=== PATIENT | male | born 1950 | race Hispanic/Latino ===

== ENCOUNTER → 2019-01-11 | Day surgery (SDC) | payer MEDICARE ==
[2019-01-09 10:21] LABS: BASOPHILS % 0.2 % (0.0-1.0); HEMATOCRIT 50.4 % (38.2-49.6); HEMOGLOBIN 17.2 g/dL (14.0-18.0); LYMPHOCYTES # (AUTO) 0.6 (1.0-3.2); MEAN CORPUSCULAR HGB CONC 34.1 g/dL (31-35); MEAN CORPUSCULAR VOLUME 90.8 fL (81-99); MONOCYTES # (AUTO) 0.6 (0.2-0.8); NEUTROPHILS # (AUTO) 8.4 (2.1-6.9); NEUTROPHILS % 87.3 % (38.7-80.0); PLATELET COUNT 215 x10e3/uL (140-360); RED BLOOD COUNT 5.55 x10e6/uL (4.3-5.7); RED CELL DISTRIBUTION WIDTH 14.6 % (11.7-14.4)
[2019-01-09 10:33] LABS: INR 0.91; PROTHROMBIN TIME 12.7 seconds (11.9-14.5)
[2019-01-09 10:34] LABS: PARTIAL THROMBOPLASTIN TIME 29.6 seconds (23.8-35.5)
[2019-01-09 10:40] LABS: ALANINE AMINOTRANSFERASE 23 IU/L (0-55); ALBUMIN 4.2 g/dL (3.5-5.0); ALBUMIN/GLOBULIN RATIO 1.2 (0.8-2.0); ALKALINE PHOSPHATASE 95 IU/L (40-150); ANION GAP 15.8 mmol/L (8-16); BLOOD UREA NITROGEN 14 mg/dL (7-26); BUN/CREATININE RATIO 17 (6-25); CALCIUM 10.4 mg/dL (8.4-10.2); CARBON DIOXIDE 27 mmol/L (22-29); CHLORIDE 102 mmol/L (98-107); CREATININE, SERUM 0.84 mg/dL (0.72-1.25); EST GLOMERULAR FILTRATION RATE > 60 ML/MIN (60-); GLUCOSE 140 mg/dL (74-118); POTASSIUM 4.8 mmol/L (3.5-5.1); SODIUM 140 mmol/L (136-145)
--- NOTE | 2019-01-09 10:50 | Diagnostic Imaging Report ---
EXAMINATION: CHEST 2 VIEWS INDICATION: Pre-operative. COMPARISON: None FINDINGS: TUBES and LINES: Right sided AICD device with leads overlying the right atrium, right ventricle, and coronary sinus. LUNGS: Lungs are moderately inflated. There is no evidence of pneumonia or pulmonary edema. PLEURA: No pleural effusion or pneumothorax. HEART AND MEDIASTINUM: The cardiomediastinal silhouette is unremarkable. There are atherosclerotic calcifications within the aorta. Surgical clips overlie the anterior mediastinum. BONES AND SOFT TISSUES: No acute osseous abnormality. UPPER ABDOMEN: No free air under the diaphragm. IMPRESSION: No acute radiographic abnormality. Signed by: Dr. David Teixeira MD on 01/09/2019 10:47 AM
--- NOTE | 2019-01-10 15:30 | NUR ---
Notified Dena Gorman nurse with Dr. Acharya patient reported he was on Cipro for abdominal pain. Dena Gorman nurse stated no new orders at this time.
[~2019-01-11] VITALS: Ht 172.7 cm; Wt 70.3 kg
[2019-01-11] VITALS (26 sets, daily range): BP systolic 122–163; BP diastolic 61–96
[~2019-01-11] MED LIST: ALBUTEROL0.63 MG/3 NEB; ASPIR 8181 MG PO; ATROPINE SULFATE 0.1 MG/ML 10ML SYR ONE; CARVEDILOL12.5 MG PO; CIPRO500 MG PO; CLOPIDOGREL75 MG PO; COQ-10100 MG PO; CRESTOR10 MG PO; FENTANYL CITRATE/PF 100MCG/2 ML INJ ONE; FERROUS SULFAT324 MG PO; FUROSEMIDE40 MG PO; HEPARIN SOD (PORCINE) 1000 UNIT/ML 30ML ONE; HEPARIN SOD/SOD CHLORIDE 2,000 ML ONE; IOPAMIDOL 300MG/ML 100 ML INFUS..BTL IV ONE; LIDOCAINE HCL 2% LOCAL 20 ML VIAL ONE; LISINOPRIL10 MG PO; METFORMIN HCL500 MG PO; MIDAZOLAM HCL 2 MG/2 ML VIAL ONE; NITROGLYCERIN/D5W 200 MCG/ML 250 ML ONE; SODIUM CHLORIDE 0.9% 1000ML 1,000 ML ONE
--- OUTSIDE RECORDS SUMMARY | 2019-01-11 06:10 | XMS REPORT | Clinical Summary ---
Author Author [facility] Organization [facility] Address Unknown Phone Unavailable Care Team Providers Care Carbonating Stone Cleaner Name Role Phone Nicholas Cunningham MD PCP Allergies No Known Allergies Medications End Date Status Medication Sig Dispensed Refills Start Date Active azelastine (OPTIVAR) 0.05 Instill 1 6 mL 1 % ophthalmic Drop in each 6 solutionIndications: eye 2 times History of itching of daily. eye, Seasonal allergic conjunctivitis Active budesonide-formoterol Inhale 2 30.6 g 1 (SYMBICORT) 160-4.5 Puffs by 8 mcg/actuation mouth 2 times inhalerIndications: CAD, daily. multiple vessel Active latanoprost (XALATAN) Instill 1 7.5 mL 1 0.005 % ophthalmic Drop in each 8 solutionIndications: eye at Ocular hypertension, bedtime bilateral nightly. Active lisinopril (ZESTRIL) 40 Take 1 tablet 90 tablet 3 mg tabletIndications: by mouth 8 Essential hypertension daily. Active loratadine (CLARITIN) 10 Take 1 tablet 90 tablet 1 mg tabletIndications: by mouth 8 Pruritus of genital daily. organs, Seasonal allergic rhinitis due to other allergic trigger Active aspirin (ASPIRIN) 81 mg Chew and 30 tablet 0 chewable swallow 1 8 tabletIndications: LV tablet by (left ventricular) mural mouth daily. thrombus Active brimonidine (ALPHAGAN P) Instill 1 15 mL 1 0.15 % ophthalmic Drop in each 8 solutionIndications: eye 2 times Ocular hypertension, daily. bilateral Active carvedilol (COREG) 25 mg Take 1 tablet 180 tablet 4 tabletIndications: Severe by mouth 2 8 left ventricular systolic times daily dysfunction (with meals). Active furosemide (LASIX) 40 mg Take 1 tablet 180 tablet 4 tabletIndications: by mouth 2 8 Essential hypertension times daily. Active rosuvastatin (CRESTOR) 40 Take 1 tablet 90 tablet 3 mg tabletIndications: by mouth at 8 Mixed hyperlipidemia bedtime nightly. Active dexlansoprazole Take 1 90 capsule 0 (DEXILANT) 30 mg delayed capsule by 8 release mouth daily. capsuleIndications: Gastroesophageal reflux disease without esophagitis Active albuterol (PROVENTIL) 2.5 Inhale 3 mL 75 mL 1 mg /3 mL (0.083 %) by mouth 8 nebulizer every 4 hours solutionIndications: SOB as needed for (shortness of breath), Wheezing. S/P CABG (coronary artery bypass graft), Ischemic cardiomyopathy 06/12/2018 Discontinued aspirin (ASPIRIN) 81 mg Chew and 30 tablet 0 chewable swallow 1 5 tabletIndications: LV tablet by (left ventricular) mural mouth daily. thrombus 09/08/2015 Discontinued rivaroxaban (XARELTO) 20 Take 1 tablet 30 tablet 3 mg tabletIndications: LV by mouth 5 (left ventricular) mural daily (with thrombus dinner). 06/12/2018 Discontinued budesonide-formoterol Inhale 2 30.6 g 1 (SYMBICORT) 160-4.5 Puffs by 6 mcg/actuation mouth 2 times inhalerIndications: CAD, daily. multiple vessel 06/12/2018 Discontinued dexlansoprazole Take 1 90 capsule 0 (DEXILANT) 30 mg delayed capsule by 6 release mouth daily. capsuleIndications: Gastroesophageal reflux disease without esophagitis 06/12/2018 Discontinued polyethylene glycol Add lukewarm 4000 mL 0 (GOLYTELY) 236-22.74-6.74 drinking 6 -5.86 gram oral water to the solutionIndications: fill cole (4 Colonoscopy planned liters) and shake. Drink as directed by your doctor.. 06/12/2018 Discontinued loratadine (CLARITIN) 10 Take 1 tablet 90 tablet 1 mg tabletIndications: by mouth 6 Pruritus of genital daily. organs, Seasonal allergic rhinitis due to other allergic trigger 06/12/2018 Discontinued carvedilol (COREG) 25 mg Take 1 tablet 180 tablet 4 tabletIndications: Severe by mouth 2 7 left ventricular systolic times daily dysfunction (with meals). 06/12/2018 Discontinued latanoprost (XALATAN) Instill 1 7.5 mL 1 0.005 % ophthalmic Drop in each 7 solutionIndications: eye at Ocular hypertension, bedtime bilateral nightly. 06/12/2018 Discontinued brimonidine (ALPHAGAN P) Instill 1 15 mL 1 0.15 % ophthalmic Drop in each 7 solutionIndications: eye 2 times Ocular hypertension, daily. bilateral 06/12/2018 Discontinued lisinopril (ZESTRIL) 40 Take 1 tablet 90 tablet 3 mg tabletIndications: by mouth 7 Essential hypertension daily. 06/12/2018 Discontinued ketoconazole (NIZORAL) 2 Apply to 60 g 2 % topical cream affected area 7 daily. 06/12/2018 Discontinued rosuvastatin (CRESTOR) 40 Take 1 tablet 90 tablet 3 mg tabletIndications: by mouth at 7 Mixed hyperlipidemia bedtime nightly. 06/12/2018 Discontinued latanoprost (XALATAN) Instill 1 2.5 mL 3 0.005 % ophthalmic Drop in each 7 solution eye at bedtime nightly. 06/12/2018 Discontinued furosemide (LASIX) 40 mg Take 1 tablet 180 tablet 4 tabletIndications: by mouth 2 7 Essential hypertension times daily. 06/12/2018 Discontinued hydrocortisone 2.5 % Apply to 28.35 g 3 ointmentIndications: Dry affected area 7 skin dermatitis 2 times daily. Active Problems Problem Noted Date Heart failure 06/11/2018 Cataract 04/14/2017 Overview: Added automatically from request for surgery [id number] Glaucoma suspect 10/21/2016 Iron deficiency anemia 07/02/2015 Constipation 07/02/2015 Colon cancer screening 05/22/2015 Need for influenza vaccination 05/22/2015 Tinea versicolor 05/22/2015 S/P CABG (coronary artery bypass graft) 03/19/2015 Ischemic cardiomyopathy 03/19/2015 LV (left ventricular) mural thrombus 03/19/2015 Severe left ventricular systolic dysfunction 03/19/2015 Abdominal pain 03/16/2015 SOB (shortness of breath) 03/16/2015 CAD, multiple vessel 03/16/2015 HTN (hypertension) 03/16/2015 HLD (hyperlipidemia) 03/16/2015 Acute systolic CHF (congestive heart failure) Acute on chronic systolic (congestive) heart failure Resolved Problems Problem Noted Date Resolved Date Tachycardia 03/16/2015 06/09/2018 Encounters Care Team Description Date Type Specialty Juan Oswald Disease Management F/U (30 day f/u) 07/18/2018 Telephone SOB (shortness of breath) (Primary Dx) 07/09/2018 Emergency Emergency Medicine 07/09/2018 Travel Milady Valdez Interpretation 06/12/2018 Telephone Alok York MD Kaul, Surinder, MD SOB (shortness of breath) (Primary Dx); CAD, multiple vessel; Cough; QUINTANA (dyspnea on exertion); History of itching of eye; Seasonal allergic conjunctivitis; Ocular hypertension, bilateral (malignant); Essential hypertension; Pruritus of genital organs; Seasonal allergic rhinitis due to other allergic trigger; LV (left ventricular) mural thrombus; Severe left ventricular systolic dysfunction; Mixed hyperlipidemia; Gastroesophageal reflux disease without esophagitis; S/P CABG (coronary artery bypass graft); Ischemic cardiomyopathy 06/09/2018 Hospital - Encounter 06/12/2018 06/09/2018 Travel after 01/10/2018 Immunizations Name Administration Dates Next Due Herpes Zoster Vaccine In 04/02/2015 Clinic Influenza Vaccine 04/21/2016, 05/22/2015 Influenza Vaccine, 05/17/2017 Seasonal, Injectable PPV 23 Pneumococcal 04/02/2015 Polysaccaride Tdap Tetanus, diphtheria, 10/09/2015 acellular pertussis Vaccine Family History Medical History Relation Name Comments Hypertension Brother Hypertension Sister Diabetes Sister Diabetes Sister Hypertension Sister Relation Name Status Comments Brother Alive Brother Alive Brother Sister Alive Sister Alive Sister Sister Sister Sister Social History Date Tobacco Use Types Packs/Day Years Used Quit: 11/09/2014 Former Smoker Cigarettes 1 20 Smokeless Tobacco: Never Used Tobacco Cessation: Counseling Given: Yes Drinks/Week oz/Week Comments Alcohol Use 12 Cans of beer 7.2 Yes Food Insecurity Answer Date Recorded Within the past 12 months, you worried that your Never true 12/14/2016 food would run out before you got money to buy more. Within the past 12 months, the food you bought Never true 12/14/2016 just didn't last and you didn't have money to get more. Sex Assigned at Date Recorded Not on file Industry Job Start Date Occupation Not on file Not on file Not on file Travel End Travel History Travel Start No recent travel history available. Last Filed Vital Signs Reading Time Taken Comments Vital Sign 159/93 07/09/2018 3:34 PM ELECTRICAL EQUIPMENT ASSEMBLER Blood Pressure 81 07/09/2018 3:34 PM ELECTRICAL EQUIPMENT ASSEMBLER Pulse 36.6 C (97.9 F) 07/09/2018 3:34 PM ELECTRICAL EQUIPMENT ASSEMBLER Temperature 18 07/09/2018 3:34 PM ELECTRICAL EQUIPMENT ASSEMBLER Respiratory Rate 98% 07/09/2018 3:34 PM ELECTRICAL EQUIPMENT ASSEMBLER Oxygen Saturation - - Inhaled Oxygen Concentration 70.9 kg (156 lb 6.4 oz) 06/09/2018 9:59 PM ELECTRICAL EQUIPMENT ASSEMBLER Weight 170.2 cm (5' 7") 06/09/2018 9:59 PM ELECTRICAL EQUIPMENT ASSEMBLER Height 24.5 06/09/2018 9:59 PM ELECTRICAL EQUIPMENT ASSEMBLER Body Mass Index Plan of Treatment Health Maintenance Due Date Last Done Comments IMM Pneumococcal Age 65 2017 and Up IMM Influenza Seasonal 04/02/2019 05/17/2017 Oct to August (>/=19 yrs) CORONARY ARTERY DISEASE 06/10/2019 06/10/2018, 10/03/2016, 07/06/2016, AGE 18 AND UP Additional history exists Colonoscopy 10yr 02/28/2026 02/29/2016 Procedures Comments Procedure Name Priority Date/Time Associated Diagnosis XRAY CHEST 2 VIEWS STAT 07/09/2018 SOB (shortness of breath) 1:07 PM ELECTRICAL EQUIPMENT ASSEMBLER POCT BNP (B-TYPE Routine 07/09/2018 NATRIURETIC PEPTIDE) 12:41 PM ELECTRICAL EQUIPMENT ASSEMBLER BMP POC Routine 07/09/2018 11:06 AM ELECTRICAL EQUIPMENT ASSEMBLER TROPONIN I POC Routine 07/09/2018 11:03 AM ELECTRICAL EQUIPMENT ASSEMBLER HIV-1/HIV-2 ROUTINE STAT 07/09/2018 SCREENING 11:00 AM ELECTRICAL EQUIPMENT ASSEMBLER LIPASE STAT 07/09/2018 11:00 AM ELECTRICAL EQUIPMENT ASSEMBLER LIVER PROFILE STAT 07/09/2018 11:00 AM ELECTRICAL EQUIPMENT ASSEMBLER CBC/DIFF STAT 07/09/2018 11:00 AM ELECTRICAL EQUIPMENT ASSEMBLER 12 LEAD EKG Routine 07/09/2018 10:55 AM ELECTRICAL EQUIPMENT ASSEMBLER POC GLUCOSE - IN LAB Routine 06/12/2018 (STAT) 11:52 AM ELECTRICAL EQUIPMENT ASSEMBLER POC GLUCOSE - IN LAB Routine 06/12/2018 (STAT) 7:34 AM ELECTRICAL EQUIPMENT ASSEMBLER CBC/DIFF Routine 06/12/2018 3:45 AM ELECTRICAL EQUIPMENT ASSEMBLER PT/INR/PTT Routine 06/12/2018 3:45 AM ELECTRICAL EQUIPMENT ASSEMBLER BASIC METABOLIC PANEL Routine 06/12/2018 3:45 AM ELECTRICAL EQUIPMENT ASSEMBLER PT/INR Routine 06/11/2018 9:30 PM ELECTRICAL EQUIPMENT ASSEMBLER POC GLUCOSE - IN LAB Routine 06/11/2018 (STAT) 8:39 PM ELECTRICAL EQUIPMENT ASSEMBLER POC GLUCOSE - IN LAB Routine 06/11/2018 (STAT) 5:09 PM ELECTRICAL EQUIPMENT ASSEMBLER POC GLUCOSE - IN LAB Routine 06/11/2018 (STAT) 12:08 PM ELECTRICAL EQUIPMENT ASSEMBLER POC GLUCOSE - IN LAB Routine 06/11/2018 (STAT) 7:38 AM ELECTRICAL EQUIPMENT ASSEMBLER TRANSTHORACIC ECHO (TTE) STAT 06/11/2018 7:24 AM ELECTRICAL EQUIPMENT ASSEMBLER MAGNESIUM Routine 06/11/2018 3:45 AM ELECTRICAL EQUIPMENT ASSEMBLER BASIC METABOLIC PANEL Routine 06/11/2018 3:45 AM ELECTRICAL EQUIPMENT ASSEMBLER POC GLUCOSE - IN LAB Routine 06/10/2018 (STAT) 8:31 PM ELECTRICAL EQUIPMENT ASSEMBLER POC GLUCOSE - IN LAB Routine 06/10/2018 (STAT) 4:44 PM ELECTRICAL EQUIPMENT ASSEMBLER POC GLUCOSE - IN LAB Routine 06/10/2018 (STAT) 11:23 AM ELECTRICAL EQUIPMENT ASSEMBLER 12 LEAD EKG Routine 06/10/2018 5:10 AM ELECTRICAL EQUIPMENT ASSEMBLER TROPONIN I Routine 06/10/2018 4:35 AM ELECTRICAL EQUIPMENT ASSEMBLER CORTISOL, TOTAL STAT 06/10/2018 4:35 AM ELECTRICAL EQUIPMENT ASSEMBLER HEMOGLOBIN A1C STAT 06/10/2018 4:35 AM ELECTRICAL EQUIPMENT ASSEMBLER LIPID PROFILE STAT 06/10/2018 4:35 AM ELECTRICAL EQUIPMENT ASSEMBLER THYROID STIMULATING STAT 06/10/2018 HORMONE (TSH) 4:35 AM ELECTRICAL EQUIPMENT ASSEMBLER BASIC METABOLIC PANEL Routine 06/10/2018 4:35 AM ELECTRICAL EQUIPMENT ASSEMBLER CBC/DIFF Routine 06/10/2018 4:35 AM ELECTRICAL EQUIPMENT ASSEMBLER TROPONIN I STAT 06/09/2018 11:00 [address]LECTRICAL EQUIPMENT AS[employer] CT CHEST PE PROTOCOL STAT 06/09/2018 QUINTANA (dyspnea on exertion) 9:00 PM ELECTRICAL EQUIPMENT ASSEMBLER TROPONIN I POC Routine 06/09/2018 8:40 PM ELECTRICAL EQUIPMENT ASSEMBLER D-DIMER STAT 06/09/2018 8:36 PM ELECTRICAL EQUIPMENT ASSEMBLER FREE T4 STAT 06/09/2018 8:36 PM ELECTRICAL EQUIPMENT ASSEMBLER 12 LEAD EKG Routine 06/09/2018 8:25 PM ELECTRICAL EQUIPMENT ASSEMBLER POC GLUCOSE - IN LAB Routine 06/09/2018 (STAT) 6:18 PM ELECTRICAL EQUIPMENT ASSEMBLER URINALYSIS STAT 06/09/2018 6:10 PM ELECTRICAL EQUIPMENT ASSEMBLER ELECTROLYTES, URINE STAT 06/09/2018 6:10 PM ELECTRICAL EQUIPMENT ASSEMBLER OSMOLALITY, URINE STAT 06/09/2018 6:10 PM ELECTRICAL EQUIPMENT ASSEMBLER FREE T4 STAT 06/09/2018 5:30 PM ELECTRICAL EQUIPMENT ASSEMBLER D-DIMER STAT 06/09/2018 5:30 PM ELECTRICAL EQUIPMENT ASSEMBLER OSMOLALITY,SERUM Routine 06/09/2018 5:30 PM ELECTRICAL EQUIPMENT ASSEMBLER PHOSPHORUS Routine 06/09/2018 5:30 PM ELECTRICAL EQUIPMENT ASSEMBLER MAGNESIUM Routine 06/09/2018 5:30 PM ELECTRICAL EQUIPMENT ASSEMBLER COMPREHENSIVE METABOLIC Routine 06/09/2018 PANEL 5:30 PM ELECTRICAL EQUIPMENT ASSEMBLER TROPONIN I STAT 06/09/2018 5:30 PM ELECTRICAL EQUIPMENT ASSEMBLER CK, TOTAL STAT 06/09/2018 5:30 PM ELECTRICAL EQUIPMENT ASSEMBLER 12 LEAD EKG Routine 06/09/2018 2:42 PM ELECTRICAL EQUIPMENT ASSEMBLER TROPONIN I STAT 06/09/2018 1:12 PM ELECTRICAL EQUIPMENT ASSEMBLER CK, TOTAL STAT 06/09/2018 1:12 PM ELECTRICAL EQUIPMENT ASSEMBLER VBG POC Routine 06/09/2018 12:47 PM ELECTRICAL EQUIPMENT ASSEMBLER INFLUENZA A/B AND RSV PCR STAT 06/09/2018 12:00 PM ELECTRICAL EQUIPMENT ASSEMBLER VBG POC Routine 06/09/2018 11:30 AM ELECTRICAL EQUIPMENT ASSEMBLER BASIC METABOLIC PANEL STAT 06/09/2018 10:56 AM ELECTRICAL EQUIPMENT ASSEMBLER XRAY CHEST 1 VIEW STAT 06/09/2018 CAD, multiple vessel 10:55 AM ELECTRICAL EQUIPMENT ASSEMBLER B-TYPE NATRIURETIC STAT 06/09/2018 PEPTIDE (BNP) 10:50 AM ELECTRICAL EQUIPMENT ASSEMBLER CBC/DIFF STAT 06/09/2018 10:50 AM ELECTRICAL EQUIPMENT ASSEMBLER POCT BNP (B-TYPE Routine 06/09/2018 NATRIURETIC PEPTIDE) 10:46 AM ELECTRICAL EQUIPMENT ASSEMBLER VBG POC Routine 06/09/2018 10:42 AM ELECTRICAL EQUIPMENT ASSEMBLER BMP POC Routine 06/09/2018 10:42 AM ELECTRICAL EQUIPMENT ASSEMBLER 12 LEAD EKG Routine 06/09/2018 10:40 AM ELECTRICAL EQUIPMENT ASSEMBLER TROPONIN I POC Routine 06/09/2018 10:40 AM ELECTRICAL EQUIPMENT ASSEMBLER after 01/10/2018 Results * XRAY CHEST 2 VIEWS (07/09/2018 1:07 PM ELECTRICAL EQUIPMENT ASSEMBLER) Specimen Impressions Performed At IMPRESSION: [facility] No acute cardiothoracic findings. Dictated By: Barry Mcfadden MD, 07/09/2018 1:21 PM I have reviewed the study and agree with the findings in this report. Signed By: Miguel Coronado MD, 07/09/2018 1:47 PM Narrative Performed At EXAM: XRAY CHEST 2 VIEWS [facility] DATE: 07/09/2018 1:07 PM INDICATION: sob COMPARISON: Chest x-ray 06/09/2018, chest CT 06/09/2018 FINDINGS: Devices, Lines, and Tubes: None. Heart and Mediastinum: Post CABG changes. Intact median sternotomy wires. Mild aortic arch calcifications. Otherwise unremarkable cardiomediastinal silhouette. Lungs and Pleura: No significant pleural effusion, pneumothorax, or focal consolidation. Bones and Soft Tissues: Mild degenerative disc changes within the thoracic spine. No acute displaced rib fracture. Upper Abdomen: Unremarkable. Procedure Note Interface, Rad/Mammog In - 07/09/2018 1:52 PM ELECTRICAL EQUIPMENT ASSEMBLER EXAM: XRAY CHEST 2 VIEWS DATE: 07/09/2018 1:07 PM INDICATION: sob COMPARISON: Chest x-ray 06/09/2018, chest CT 06/09/2018 FINDINGS: Devices, Lines, and Tubes: None. Heart and Mediastinum: Post CABG changes. Intact median sternotomy wires. Mild aortic arch calcifications. Otherwise unremarkable cardiomediastinal silhouette. Lungs and Pleura: No significant pleural effusion, pneumothorax, or focal consolidation. Bones and Soft Tissues: Mild degenerative disc changes within the thoracic spine. No acute displaced rib fracture. Upper Abdomen: Unremarkable. IMPRESSION IMPRESSION: No acute cardiothoracic findings. Dictated By: Barry Mcfadden MD, 07/09/2018 1:21 PM I have reviewed the study and agree with the findings in this report. Signed By: Miguel Coronado MD, 07/09/2018 1:47 PM Performing Organization Address City/State/Zipcode Phone Number SMS * POCT BNP (BRAIN NATRIURETIC PEPTIDE) (07/09/2018 12:41 PM ELECTRICAL EQUIPMENT ASSEMBLER) Only the most recent of 2 results within the time period is included. B Natr Pept POC 853 (H) 0 - 100 pg/mL BT MAIN-STATION 1 Specimen Performing Organization Address City/[facility] Phone Number [facility]YS [facility] 1 * BMP POC (07/09/2018 11:06 AM ELECTRICAL EQUIPMENT ASSEMBLER) Only the most recent of 2 results within the time period is included. CO2 POC 25 21 - 32 mmol/L BT MAIN-STATION 1 Chloride POC 95 (L) 98 - 107 mmol/L BT MAIN-[facility]ATION 1 Potassium POC 4.5 3.50 - 5.10 mmol/L BT MAIN-STATION 1 Sodium POC 131 (L) 136 - 145 mmol/L BT MAIN-STATION 1 Glucose POC 144 (H) 74 - 106 mg/dL BT MAIN-STATION 1 Urea Nitrogen 14 7 - 18 mg/dL BT MAIN-STATION POC 1 Creatinine POC 0.7 0.6 - 1.3 mg/dL BT MAIN-STATION 1 Calcium Ionized 1.17 1.15 - 1.29 mmol/L BT MAIN-STATION POC 1 Hemoglobin POC 17.3 14.0 - 18.0 g/dL BT MAIN-STATION 1 Hematocrit POC 51.0 40.0 - 54.0 % BT MAIN-STATION 1 GFR, Estimated >60 mL/min/1.73 m2 BT MAIN-STATION 1 GFR, Estim, >60 mL/min/1.73 m2 BT MAIN-STATION Afr-Am 1 Specimen Performing Organization Address City/[facility] Phone Number MISYS BT MAIN-STATION 1 * TROPONIN I POC (07/09/2018 11:03 AM ELECTRICAL EQUIPMENT ASSEMBLER) Only the most recent of 3 results within the time period is included. Troponin POC 0.02 0.00 - 0.08 ng/mL BT MAIN-STATION 1 Specimen Performing Organization Address City/[facility] Phone Number MISYS BT MAIN-STATION 1 * HIV-1/HIV-2 ROUTINE SCREENING (07/09/2018 11:00 AM ELECTRICAL EQUIPMENT ASSEMBLER) HIV-1/HIV-2 Negative NEG BT MAIN-STATION 3 Specimen Performing Organization Address City/[facility]/[employer] Phone Number MISYS BT MAIN-STATION 3 * LIVER PROFILE (07/09/2018 11:00 AM ELECTRICAL EQUIPMENT ASSEMBLER) Protein, Total, 6.7 6.0 - 8.3 g/dL BT MAIN-STATION Serum 1 Albumin 4.2 4.2 - 5.5 g/dL BT MAIN-STATION 1 Bilirubin, 0.8 0.2 - 1.2 mg/dL BT MAIN-STATION Total 1 Alkaline 59 34 - 104 U/L BT MAIN-STATION Phosphatase, S 1 AST (SGOT) 38 13 - 39 U/L BT MAIN-STATION 1 ALT 31 7 - 52 U/L BT MAIN-STATION 1 D Bilirubin 0.2 0.0 - 0.2 mg/dL BT MAIN-STATION 1 Specimen Blood Performing Organization Address City/State/Zipcode Phone Number MISYS BT MAIN-STATION 1 * LIPASE (07/09/2018 11:00 AM ELECTRICAL EQUIPMENT ASSEMBLER) Lipase 12 11 - 82 U/L BT MAIN-STATION 1 Specimen Blood Performing Organization Address City/[facility] Phone Number MISYS BT MAIN-STATION 1 * CBC/DIFF (07/09/2018 11:00 AM ELECTRICAL EQUIPMENT ASSEMBLER) Only the most recent of 4 results within the time period is included. WBC 11.7 4.5 - 12.0 K/uL BT MAIN-STATION 2 RBC 4.97 4.60 - 6.20 M/uL BT MAIN-STATION 2 Hemoglobin 15.9 14.0 - 18.0 g/dL BT MAIN-STATION 2 Hematocrit 47.0 40.0 - 54.0 % BT MAIN-STATION 2 MCV 95 (H) 82 - 92 fL BT MAIN-STATION 2 MCH 32.0 (H) 27.0 - 31.0 pg BT MAIN-STATION 2 MCHC 33.8 32.0 - 36.0 g/dL BT MAIN-STATION 2 RDW 45.4 (H) 35.1 - 43.9 fL BT MAIN-STATION 2 Platelets 228 150 - 400 K/uL BT MAIN-STATION 2 Mean Platelet 11.2 9.4 - 12.4 fL BT MAIN-STATION Volume 2 Percent NRBC 0.0 BT MAIN-STATION 2 Absolute NRBC 0.00 BT MAIN-STATION 2 Neutrophils 81.6 (H) 34.0 - 67.9 % BT MAIN-STATION 2 Lymphs 10.4 (L) 21.8 - 50.0 % BT MAIN-STATION 2 Monocytes 5.1 (L) 5.3 - 12.0 % BT MAIN-STATION 2 Eos 2.1 0.8 - 5.0 % BT MAIN-STATION 2 Basos 0.3 0.2 - 1.2 % BT MAIN-STATION 2 Immature 0.5 0.0 - 0.5 BT MAIN-STATION Granulocytes 2 Neutrophils 9.58 (H) 1.78 - 5.36 K/uL BT MAIN-STATION (Absolute) 2 Lymphs 1.22 (L) 1.32 - 3.57 K/uL BT MAIN-STATION (Absolute) 2 Monocytes(Absol 0.60 0.30 - 0.82 K/uL BT MAIN-STATION sarah) 2 Eos (Absolute) 0.25 0.04 - 0.54 K/uL BT MAIN-STATION 2 Baso (Absolute) 0.03 0.01 - 0.08 K/uL BT MAIN-STATION 2 Immature Grans 0.06 (H) 0.00 - 0.03 K/uL BT MAIN-STATION (Abs) 2 Specimen Blood Performing Organization Address [facility] Phone Number MISYS BT MAIN-STATION 2 * 12 LEAD EKG (07/09/2018 10:55 AM ELECTRICAL EQUIPMENT ASSEMBLER) 12 LEAD EKG FOR [facility] Test Date:2018-07-09 Pat Name: JACKIE ALBERTO Department: 5520 Room: Gender: Payable Representative: [id number] :[id number] Requested By: RAMONA POWELL Order Number: [id number] Reading MD: Yobani Arora M.D. Measurements Intervals [place] Rate: 92 P:50 IA: 173 QRS: 115 QRSD: 162 T: 48 QT: 376 QTc:467 Interpretive Statements SINUS RHYTHM POSSIBLE LEFT ATRIAL ENLARGEMENT INDETERMINATE AXIS RIGHT BUNDLE BRANCH BLOCK Electronically Signed On 07-09-2018 14:05:50 ELECTRICAL EQUIPMENT ASSEMBLER by Yobani Arora M.D. Specimen Performing Organization Address [facility] Phone Number SMS * GLUCOSE POC (06/12/2018 11:52 AM ELECTRICAL EQUIPMENT ASSEMBLER) Only the most recent of 10 results within the time period is included. Glucose POC 88 74 - 106 mg/dL BT MAIN-STATION 1 Specimen Performing Organization Address City/[facility] Phone Number MISYS BT MAIN-STATION 1 * PT/INR/PTT (06/12/2018 3:45 AM ELECTRICAL EQUIPMENT ASSEMBLER) PT 13.8 11.8 - 15.0 Seconds BT MAIN-STATION 3 INR 1.1 BT MAIN-STATION SUGGESTED THERAPEUTIC RANGES: 3 INR 2.0-3.0 for MODERATE INTENSITY ANTICOAGULATION INR 2.5-3.5 for HIGH INTENSITY ANTICOAGULATION PTT 36.9 (H) 23.6 - 36.4 Seconds BT MAIN-STATION 3 Specimen Blood Performing Organization Address [facility] Phone Number MISYS BT MAIN-STATION 3 * BASIC METABOLIC PANEL (06/12/2018 3:45 AM ELECTRICAL EQUIPMENT ASSEMBLER) Only the most recent of 4 results within the time period is included. CO2 27 21 - 31 mmol/L BT MAIN-STATION 1 Chloride 93 (L) 98 - 107 mmol/L BT MAIN-STATION 1 Potassium 3.9 3.5 - 5.1 mmol/L BT MAIN-STATION 1 Sodium 133 (L) 136 - 145 mmol/L BT MAIN-STATION 1 Glucose 105 70 - 110 mg/dL BT MAIN-STATION 1 BUN 30 (H) 7 - 25 mg/dL BT MAIN-STATION 1 Creatinine 1.10 0.7 - 1.3 mg/dL BT MAIN-STATION 1 Anion Gap 13 BT MAIN-STATION 1 Calcium 9.6 8.6 - 10.3 mg/dL BT MAIN-STATION 1 GFR, Estimated >60 mL/min/1.73 m2 BT MAIN-STATION 1 eGFR If Africn >60 mL/min/1.73 m2 BT MAIN-STATION Am 1 Specimen Blood Performing Organization Address [facility] Phone Number MISYS BT MAIN-STATION 1 * PT/INR (06/11/2018 9:30 PM ELECTRICAL EQUIPMENT ASSEMBLER) PT 13.1 11.8 - 15.0 Seconds BT MAIN-STATION 3 INR 1.0 BT MAIN-STATION SUGGESTED THERAPEUTIC RANGES: 3 INR 2.0-3.0 for MODERATE INTENSITY ANTICOAGULATION INR 2.5-3.5 for HIGH INTENSITY ANTICOAGULATION Specimen Blood Performing Organization Address [facility] Phone Number MISYS BT MAIN-STATION 3 * TRANSTHORACIC ECHO (TTE) (06/11/2018 7:24 AM ELECTRICAL EQUIPMENT ASSEMBLER) Pathologist [facility] TRANSTHORACIC Transthoracic SMS ECHO (TTE) Echo Report JACKIE ALBERTO Age:67 Gender: M :1950 Exam Date: 06/11/2018 07:24 Exam Location: [facility] Echo Ordering Phys: JUAN F SEGURA Referring Phys: Reading Phys:Sherly Manning MD Fellow Phys: Karoline Gomez M.D. Fellow Phys: General Accounting Clerk: Jeremías Wilkinson Reason For Exam: Indications: Stroke, Transient cerebral ischemic attack, unspecified ICD-9 Codes: I67.89G45.9 Exam Type: TRANSTHORACIC ECHO (TTE) Procedure CPT:76833 Addtional CPT: Ht (in): 67 BSA: 1.84HR: 76 Rhythm: Sinus rhythm Wt (lb): 156BP: 126/ 78 Technical Quality: , Excellent History: 67 yo M with PMH of 4v CABG, HTN, DM, Prior LV thrombus MEASUREMENTS Normal ranges based on 95% confidence intervals for adults, some normal patients may fall outside of this range especially when indexing for BSA 2D ECHO LV Diastolic Diameter PLAX5.1 cm 4.2-5.8 (M) / 3.8-5.2 (F) LV Systolic Diameter PLAX 4.6 cm 2.5-4.0 (M) / 2.2-3.5 (F) LV Fractional Shortening PLAX 10.1 % IVS Diastolic Thickness 1.1 cm 0.6-1.0 (M) / 0.6-0.9 (F) LVPW Diastolic Thickness1 cm 0.6-1.0 (M) / 0.6-0.9 (F) LV Relative Wall Thickness0.41 <=0.42 LVOT Diameter 2.4 cm Aortic Root Diameter 3.2 cm LV Diastolic Volume MOD BP228 cm 62-150 cm (M) / 46-106 cm (F) LV Systolic Volume MOD BP 169 cm 21-61 cm (M) / 14-42 cm (F) LV Ejection Fraction MOD BP 25.9 % 52-72 (M) / 54-74 (F) LV Stroke Volume MOD BP 58.9 cm LV Cardiac Output MOD [id number] cm/min LV Cardiac Index MOD BP 2437 cm/minm LA Volume 97.3 cm LA Volume Index 53 cm/m 16 - 34 cm/m RV Diastolic Basal Diameter 3.4 cm 2.5 - 4.1 cm LV Mass by linear [id number] g LV Mass by linear method [id number] g/m DOPPLER AV Peak Velocity 159 cm/s AV Peak Gradient 10.1 mmHg AV Mean Velocity 96.8 cm/s AV Mean Gradient 3.7 mmHg AV Velocity Time Integral 31.5 cm LVOT Peak Velocity 54.8 cm/s LVOT Peak Gradient 1.2 mmHg LVOT Mean Velocity 34.1 cm/s LVOT Mean Gradient 0.47 mmHg LVOT Velocity Time Integral 10.9 cm LVOT Stroke Volume 47.4 cm AV Area Cont Eq vti 1.5 cm AV Area Cont Eq pk 1.5 cm Mitral E Point Velocity 90.7 cm/s Mitral A Point Velocity 28.1 cm/s Mitral E to A Ratio 3.2 LV E' Lateral Velocity 9.9 cm/s Mitral E to LV E' Lateral Ratio 9.1 LV E' Septal Velocity 4.5 cm/s Mitral E to LV E' Septal Ratio20.3 FINDINGS Left Ventricle Severe left ventricular dilatation 142cc/m2. There is wall thinning of the entire septum/inferior/apex /distal anterior/anterolateral pedraza consistent with scar.Other segments are hypokinetic, best motion in the basal lateral pedraza. Severely reduced global left ventricular systolic function. Restrictive filling pattern of the left ventricle (grade 3 diastolic dysfunction). 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 These images are only apparent after contrast was given. Right Ventricle Normal right ventricular size. Mildly reduced right ventricular global systolic function. S' 6.5cm/s. TAPSE 1.3cm. Right Atrium Grossly normal right atrial size. Left Atrium Severe left atrial dilatation. The left atrial volume index is 53cc/ m2 BSA. IAS Mitral Valve Moderate thickening of the mitral valve. Mild mitral annular calcification. Mild mitral regurgitation. Aortic Valve The aortic valve is trileaflet and opens well.Moderately thickened aortic cusps.Mild aortic stenosis, BOONE 1.5cm2 by continuity equation. DVI 0.31. Low gradient due to low stroke volume of 47cc Tricuspid Valve Normally structured tricuspid valve. No significant tricuspid stenosis or regurgitation by Doppler assessment. Pulmonic Valve Pulmonic valve not well visualized. No significant pulmonic stenosis or regurgitation by Doppler assessment. Pericardium No pericardial effusion. Aorta Normal size aortic root. IVC The inferior vena cava is normal in size with greater than 50% respiratory change in dimension, consistent with RA pressure 0-5 mmHg. CONCLUSIONS 1. Severe left ventricular dilatation 142cc/m2. There is wall thinning of the entire septum/inferior/apex /distal anterior/anterolateral pedraza consistent with scar.Other segments are hypokinetic, best motion in the basal lateral pedraza. Severely reduced global left ventricular systolic function. Restrictive filling pattern of the left ventricle (grade 3 diastolic dysfunction). 2. 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 These images are only apparent after contrast was given. 3.Normal right ventricular size. Mildly reduced right ventricular global systolic function. 4. Severe left atrial dilatation. 5. Mild calcific aortic stenosis Prior study in 2016 did not have contrast thus today's study quality is significantly improved. Primary team was contacted regardign above findings. Sherly Manning MD (Electronically Signed) Final Date:11 June 2018 13:41 2D ECHO LV Diastolic Diameter PLAX5.1 cm 4.2-5.8 (M) / 3.8-5.2 (F) LV Systolic Diameter PLAX 4.6 cm 2.5-4.0 (M) / 2.2-3.5 (F) LV Fractional Shortening PLAX 10.1 % IVS Diastolic Thickness 1.1 cm 0.6-1.0 (M) / 0.6-0.9 (F) LVPW Diastolic Thickness1 cm 0.6-1.0 (M) / 0.6-0.9 (F) LV Relative Wall Thickness0.41 <=0.42 LVOT Diameter 2.4 cm Aortic Root Diameter 3.2 cm LV Diastolic Volume MOD BP228 cm 62-150 cm (M) / 46-106 cm (F) LV Systolic Volume MOD BP 169 cm 21-61 cm (M) / 14-42 cm (F) LV Ejection Fraction MOD BP 25.9 % 52-72 (M) / 54-74 (F) LV Stroke Volume MOD BP 58.9 cm LV Cardiac Output MOD [id number] cm/min LV Cardiac Index MOD BP 2437 cm/minm LA Volume 97.3 cm LA Volume Index 53 cm/m 16 - 34 cm/m RV Diastolic Basal Diameter 3.4 cm 2.5 - 4.1 cm LV Mass by linear [id number] g LV Mass by linear method [id number] g/m DOPPLER AV Peak Velocity 159 cm/s AV Peak Gradient 10.1 mmHg AV Mean Velocity 96.8 cm/s AV Mean Gradient 3.7 mmHg AV Velocity Time Integral 31.5 cm LVOT Peak Velocity 54.8 cm/s LVOT Peak Gradient 1.2 mmHg LVOT Mean Velocity 34.1 cm/s LVOT Mean Gradient 0.47 mmHg LVOT Velocity Time Integral 10.9 cm LVOT Stroke Volume 47.4 cm AV Area Cont Eq vti 1.5 cm AV Area Cont Eq pk 1.5 cm Mitral E Point Velocity 90.7 cm/s Mitral A Point Velocity 28.1 cm/s Mitral E to A Ratio 3.2 LV E' Lateral Velocity 9.9 cm/s Mitral E to LV E' Lateral Ratio 9.1 LV E' Septal Velocity 4.5 cm/s Mitral E to LV E' Septal Ratio20.3 Specimen Performing Organization Address [facility] Phone Number SMS * MAGNESIUM (06/11/2018 3:45 AM ELECTRICAL EQUIPMENT ASSEMBLER) Only the most recent of 2 results within the time period is included. Magnesium 1.8 (L) 1.9 - 2.7 mg/dL BT MAIN-STATION 1 Specimen Blood Performing Organization Address [facility] Phone Number MISYS BT MAIN-STATION 1 * 12 LEAD EKG (06/10/2018 5:10 AM ELECTRICAL EQUIPMENT ASSEMBLER) 12 LEAD EKG FOR [facility] Test Date:2018-06-10 Pat Name: JACKIE ALBERTO Department: [facility] Room: Gender: M Payable Representative: [id number] :1951-0 07-17 Requested By: JUAN F SEGURA Order Number: [id number] Reading MD: Yobani Arora M.D. Measurements Intervals [place] Rate: 72 P:66 IA: 197 QRS: 228 QRSD: 177 T: 79 QT: 508 QTc:557 Interpretive Statements SINUS RHYTHM WITH OCCASIONAL VENTRICULAR PREMATURE COMPLEXES RIGHT BUNDLE BRANCH BLOCK AND POSSIBLE RIGHT VENTRICULAR HYPERTROPHY [RBBB, 1.5 mV R IN V1, RAD] LEFT POSTERIOR FASCICULAR BLOCK [QRS AXIS > 109, INFERIOR Q] SEPTAL MYOCARDIAL INFARCTION [40+ ms Q WAVE IN V1/V2], OF INDETERMINATE AGE Electronically Signed On 06-10-2018 5:31:46 ELECTRICAL EQUIPMENT ASSEMBLER by Yobani Arora M.D. Specimen Performing Organization Address City/[facility] Phone Number SMS * HEMOGLOBIN A1C (06/10/2018 4:35 AM ELECTRICAL EQUIPMENT ASSEMBLER) Hemoglobin A1c 5.8 4.3 - 6.1 % BT DIAGNOSTIC IMMUNOLOGY Est Average 119.8 mg/dL BT DIAGNOSTIC Gluc IMMUNOLOGY Specimen Blood Performing Organization Address [facility] Phone Number MISYS BT DIAGNOSTIC IMMUNOLOGY * CORTISOL, TOTAL (06/10/2018 4:35 AM ELECTRICAL EQUIPMENT ASSEMBLER) Cortisol, Total 12.1 3.44 - 22.45 mcg/dL BT MAIN-STATION 1 Specimen Blood Performing Organization Address [facility] Phone Number MISYS BT MAIN-STATION 1 * TSH (06/10/2018 4:35 AM ELECTRICAL EQUIPMENT ASSEMBLER) TSH 1.82 0.57 - 3.74 uIU/mL BT MAIN-STATION 1 Specimen Blood Performing Organization Address [facility] Phone Number MISYS BT MAIN-STATION 1 * TROPONIN I (06/10/2018 4:35 AM ELECTRICAL EQUIPMENT ASSEMBLER) Only the most recent of 4 results within the time period is included. Troponin I 0.06 (H) <0.04 ng/mL BT MAIN-STATION 1 Specimen Performing Organization Address [facility] Phone Number MISYS BT MAIN-STATION 1 * LIPID PROFILE (06/10/2018 4:35 AM ELECTRICAL EQUIPMENT ASSEMBLER) Cholesterol 291 mg/dL BT MAIN-STATION Comment: 1 REFERENCE RANGE: Desirable: <200 mg/dL Borderline: 200-240 mg/dL High Risk: >240 mg/dL Triglyceride 156 (H) <150 mg/dL BT MAIN-STATION Comment: 1 REFERENCE RANGE: Normal: <150 mg/dL Borderline High: 150-199 mg/dL High: 200-499 mg/dL Very High: >wr=650 mg/dL HDL 60 mg/dL BT MAIN-STATION Comment: 1 Increased CHD risk: <40 mg/dL Decreased CHD risk: >60 mg/dL LDL 200 mg/dL BT MAIN-STATION Comment: 1 REFERENCE RANGE: Optimal: <100 mg/dL Near Optimal: 100-129 mg/dL Borderline High: 130-159 mg/dL High: 160-189 mg/dL Very High: >uh=176 mg/dL Specimen Blood Performing Organization Address City/[facility] Phone Number MISYS BT MAIN-STATION 1 * CT CHEST PE PROTOCOL (06/09/2018 9:00 PM ELECTRICAL EQUIPMENT ASSEMBLER) Specimen Impressions Performed At IMPRESSION: SMS 1.No acute pulmonary embolism . 2.Mild pulmonary edema with small pleural effusions. 3.Nonspecific mediastinal lymphadenopathy, likely related to congestive heart failure. 4.Ascending aorta ectasia. Dictated By: Harika Gomez MD, 06/09/2018 10:06 PM I have reviewed the study and agree with the findings in this report. Signed By: Aliya Maldonado MD, 06/09/2018 10:18 PM Narrative Performed At EXAM: Chest CT, PE protocol SMS TECHNIQUE: CT scan of the chestWITH intravenous contrast, using PE protocol.The chest was scanned utilizing a multidetector helical scanner from the lung apex through the level of the adrenal glands after the IV administration of 100 cc of Omnipaque 300.Thin section reconstructions were obtained with special concentration on the pulmonary arteries. Coronal and sagittal reformations were obtained. COMPARISON: Chest radiograph 06/09/2018 INDICATION: Acute shortness of breath. DISCUSSION: Vessels: No filling defects are identified within the pulmonary arteries to the segmental level. The main pulmonary artery and the mid ascending aorta measures 2.7 and 4.3 cm respectively. Moderate atherosclerotic calcifications of the thoracic aorta and its major branches as well as the coronary arteries. Lungs:Mild groundglass opacities. Bibasilar atelectasis. 4 mm solid nodule in the right upper lobe (series 5, image 150). Airways:Diffuse mild peribronchial cuffing.Otherwise normal airways. Pleura:Trace, right greater than left pleural effusions. Heart and mediastinum:No axillary lymphadenopathy. 1 cm prevascular lymph node (series 5, image 161%. 1 cm pretracheal lymph node (series 5, image 176). 1.3 cm left paratracheal lymph nodes (series 5, image ). No hilar lymphadenopathy. Mildly enlarged heart, specifically left atrial enlargement. No pericardial effusion. Postsurgical changes of a CABG. Abdomen:Mild hiatal hernia. Postsurgical changes of a cholecystectomy. Mild perinephric fat stranding. Diffuse fatty infiltration of the pancreas. Bones and soft tissues:Moderate degenerative changes of the cervical and thoracic spine. Intact median sternotomy wires. Procedure Note Interface, Rad/Mammog In - 06/09/2018 10:23 PM ELECTRICAL EQUIPMENT ASSEMBLER EXAM: Chest CT, PE protocol TECHNIQUE: CT scan of the chest WITH intravenous contrast, using PE protocol. The chest was scanned utilizing a multidetector helical scanner from the lung apex through the level of the adrenal glands after the IV administration of 100 cc of Omnipaque 300. Thin section reconstructions were obtained with special concentration on the pulmonary arteries. Coronal and sagittal reformations were obtained. COMPARISON: Chest radiograph 06/09/2018 INDICATION: Acute shortness of breath. DISCUSSION: Vessels: No filling defects are identified within the pulmonary arteries to the segmental level. The main pulmonary artery and the mid ascending aorta measures 2.7 and 4.3 cm respectively. Moderate atherosclerotic calcifications of the thoracic aorta and its major branches as well as the coronary arteries. Lungs: Mild groundglass opacities. Bibasilar atelectasis. 4 mm solid nodule in the right upper lobe (series 5, image 150). Airways: Diffuse mild peribronchial cuffing. Otherwise normal airways. Pleura: Trace, right greater than left pleural effusions. Heart and mediastinum: No axillary lymphadenopathy. 1 cm prevascular lymph node (series 5, image 161%. 1 cm pretracheal lymph node (series 5, image 176). 1.3 cm left paratracheal lymph nodes (series 5, image ). No hilar lymphadenopathy. Mildly enlarged heart, specifically left atrial enlargement. No pericardial effusion. Postsurgical changes of a CABG. Abdomen: Mild hiatal hernia. Postsurgical changes of a cholecystectomy. Mild perinephric fat stranding. Diffuse fatty infiltration of the pancreas. Bones and soft tissues: Moderate degenerative changes of the cervical and thoracic spine. Intact median sternotomy wires. IMPRESSION IMPRESSION: 1. No acute pulmonary embolism . 2. Mild pulmonary edema with small pleural effusions. 3. Nonspecific mediastinal lymphadenopathy, likely related to congestive heart failure. 4. Ascending aorta ectasia. Dictated By: Harika Gomez MD, 06/09/2018 10:06 PM I have reviewed the study and agree with the findings in this report. Signed By: Aliya Maldonado MD, 06/09/2018 10:18 PM Performing Organization Address City/State/Zipcode Phone Number SMS * FREE T4 (06/09/2018 8:36 PM ELECTRICAL EQUIPMENT ASSEMBLER) Only the most recent of 2 results within the time period is included. Free T4 0.92 0.61 - 1.18 ng/dl BT MAIN-STATION 1 Specimen Blood Performing Organization Address [facility] Phone Number MISYS BT MAIN-STATION 1 * D-DIMER (06/09/2018 8:36 PM ELECTRICAL EQUIPMENT ASSEMBLER) Only the most recent of 2 results within the time period is included. D-Dimer 2.21 ug/mL,FEU BT MAIN-STATION Comment: 3 Values of quantitative d-Dimer less than 0.40 ug/mL FEU have been reported to be associated with a low probability of deep vein thrombosis/pulmonary embolism. This test alone should not be used to rule out DVT/PE. Specimen Blood Performing Organization Address [facility] Phone Number MISYS BT MAIN-STATION 3 * 12 LEAD EKG (06/09/2018 8:25 PM ELECTRICAL EQUIPMENT ASSEMBLER) 12 LEAD EKG FOR [facility] Test Date:2018-06-09 Pat Name: JACKIE ALBERTO Department: [id number] Room: [facility] [place] Gender: M Payable Representative: [id number] :1951-0 07-17 Requested By: JUAN F SEGURA Order Number: [id number] Reading MD: Yobani Arora M.D. Measurements Intervals [place] Rate: 68 P:49 IA: 192 QRS: 225 QRSD: 165 T: 89 QT: 473 QTc:506 Interpretive Statements SINUS RHYTHM POSSIBLE LEFT ATRIAL ENLARGEMENT [-0.1mV P WAVE IN V1/V2] INDETERMINATE AXIS RIGHT BUNDLE BRANCH BLOCK AND POSSIBLE RIGHT VENTRICULAR HYPERTROPHY [RBBB, 1.5 mV R IN V1, RAD] ANTEROSEPTAL MYOCARDIAL ISCHEMIA [40+ ms Q WAVE IN V1-V4], OF INDETERMINATE AGE Reviewed by Electronically Signed On 06-10-2018 5:31:41 ELECTRICAL EQUIPMENT ASSEMBLER by Yobani Arora M.D. Specimen Performing Organization Address [facility]/Zipcode Phone Number SMS * UA CHEMISTRIES (06/09/2018 6:10 PM ELECTRICAL EQUIPMENT ASSEMBLER) Color Colorless BT MAIN-STATION 3 Clarity Clear BT MAIN-STATION 3 Specific 1.004 1.001 - 1.035 BT MAIN-STATION [place] 3 pH 6.0 5 - 8 BT MAIN-STATION 3 Protein Negative NEG BT MAIN-STATION 3 Glucose Negative NEG BT MAIN-STATION 3 Ketones Negative NEG BT MAIN-STATION 3 Bilirubin Negative NEG BT MAIN-STATION 3 Nitrate Negative NEG BT MAIN-STATION 3 Urobilinogen,Se <1.0 0.2 - 1.0 EU/dL BT MAIN-STATION mi-Qn 3 Leukocyte Negative NEG BT MAIN-STATION 3 Occult Blood Negative NEG BT MAIN-STATION 3 Specimen Performing Organization Address [facility] Phone Number MISYS BT MAIN-STATION 3 * OSMOLALITY, UR (06/09/2018 6:10 PM ELECTRICAL EQUIPMENT ASSEMBLER) Pathologist [facility] Osmolality, Ur 190Comment: Test performed at 50 - 1,400 mOsm/kg BT MAIN-STATION [facility]. 4 Specimen Urine Performing Organization Address [facility] Phone Number MISYS BT MAIN-STATION 4 * ELECTROLYTES, UR (06/09/2018 6:10 PM ELECTRICAL EQUIPMENT ASSEMBLER) Pathologist [facility] Sodium, Ur 65 40 - 220 mmol/L BT MAIN-STATION 1 Potassium, Ur 16 (L) 25 - 125 mmol/L BT MAIN-STATION 1 Chloride, Ur 75 (L) 110 - 250 mmol/L BT MAIN-STATION 1 Specimen Performing Organization Address [facility] Phone Number MISYS BT MAIN-STATION 1 * COMPREHENSIVE METABOLIC PANEL(DBIL NOT INCLUDED) (06/09/2018 5:30 PM ELECTRICAL EQUIPMENT ASSEMBLER) Pathologist [facility] Albumin 4.3 4.2 - 5.5 g/dL BT MAIN-STATION 1 Calcium 9.5 8.6 - 10.3 mg/dL BT MAIN-STATION 1 CO2 26 21 - 31 mmol/L BT MAIN-STATION 1 Chloride 87 (L) 98 - 107 mmol/L BT MAIN-STATION 1 Creatinine 0.80 0.7 - 1.3 mg/dL BT MAIN-STATION 1 Glucose 100 70 - 110 mg/dL BT MAIN-STATION 1 Alkaline 76 34 - 104 U/L BT MAIN-STATION Phosphatase, S 1 Potassium 4.1 3.5 - 5.1 mmol/L BT MAIN-STATION 1 Sodium 127 (L) 136 - 145 mmol/L BT MAIN-STATION 1 ALT 21 7 - 52 U/L BT MAIN-STATION 1 AST (SGOT) 26 13 - 39 U/L BT MAIN-STATION 1 BUN 16 7 - 25 mg/dL BT MAIN-STATION 1 Bilirubin, 1.2 0.2 - 1.2 mg/dL BT MAIN-STATION Total 1 Protein, Total, 7.1 6.0 - 8.3 g/dL BT MAIN-STATION Serum 1 GFR, Estimated >60 mL/min/1.73 m2 BT MAIN-STATION 1 eGFR If Africn >60 mL/min/1.73 m2 BT MAIN-STATION Am 1 Anion Gap 14 BT MAIN-STATION 1 Specimen Blood Performing Organization Address City/[facility] Phone Number MISYS BT MAIN-STATION 1 * PHOSPHORUS (06/09/2018 5:30 PM ELECTRICAL EQUIPMENT ASSEMBLER) Phosphorus 3.8 2.5 - 5.0 mg/dL BT MAIN-STATION 1 Specimen Blood Performing Organization Address City/[facility] Phone Number MISYS BT MAIN-STATION 1 * OSMOLALITY (06/09/2018 5:30 PM ELECTRICAL EQUIPMENT ASSEMBLER) Osmolality 265 (L)Comment: Test 280 - 301 mOsm/kg BT MAIN-STATION performed at [facility]. 4 Specimen Performing Organization Address City/[facility] Phone Number MISYS BT MAIN-STATION 4 * CK, TOTAL (06/09/2018 5:30 PM ELECTRICAL EQUIPMENT ASSEMBLER) Only the most recent of 2 results within the time period is included. CK, Total 99 30 - 223 U/L BT MAIN-STATION Comment: 1 CKMB not performed if CK <100, if CKMB is required, please notify laboratory immediately. Specimen Blood Performing Organization Address City/[facility] Phone Number MISYS BT MAIN-STATION 1 * 12 LEAD EKG (06/09/2018 2:42 PM ELECTRICAL EQUIPMENT ASSEMBLER) 12 LEAD EKG FOR [facility] Test Date:2018-06-09 Pat Name: JACKIE ALBERTO Department: 5520 Room: Gender: M Payable Representative: [id number] :1951-0 07-17 Requested By: JUAN F SEGURA Order Number: [id number] Juan MD: Yobani Arora M.D. Measurements Intervals [place] Rate: 61 P:55 IA: 190 QRS: 191 QRSD: 168 T: 114 QT: 474 QTc:480 Interpretive Statements SINUS RHYTHM INDETERMINATE AXIS RIGHT BUNDLE BRANCH BLOCK AND POSSIBLE RIGHT VENTRICULAR HYPERTROPHY LEFT POSTERIOR FASCICULAR BLOCK SEPTAL MYOCARDIAL INFARCTION, OF INDETERMINATE AGE MODERATE T-WAVE ABNORMALITY, CONSIDER LATERAL ISCHEMIA Electronically Signed On 06-09-2018 15:49:06 ELECTRICAL EQUIPMENT ASSEMBLER by Yobani Arora M.D. Specimen Performing Organization Address [facility] Phone Number SMS * VBG POC (06/09/2018 12:47 PM ELECTRICAL EQUIPMENT ASSEMBLER) Only the most recent of 3 results within the time period is included. pH, Erick POC 7.38 7.33 - 7.43 BT MAIN-STATION 1 pCO2, Erick POC 46.7 38.0 - 50.0 mm Hg BT MAIN-STATION 1 pO2, Erick POC 21 (L) 50 - 75 mm Hg BT MAIN-STATION 1 Base Excess, 1 mmol/L BT MAIN-STATION Erick POC 1 HCO3, Erick POC 27.4 (H) 22.0 - 26.0 mmol/L BT MAIN-STATION 1 % Sat, Erick POC 33 (L) 60 - 85 % BT MAIN-STATION 1 Lactic Acid, 0.82 0.4 - 2.0 mmol/L BT MAIN-STATION Erick POC 1 TCO2, ERICK POC 29 21 - 32 mmol/L BT MAIN-STATION 1 Specimen Performing Organization Address [facility] Phone Number MISYS BT MAIN-STATION 1 * INFLUENZA A/B AND RSV PCR (06/09/2018 12:00 PM ELECTRICAL EQUIPMENT ASSEMBLER) Influenza A Not detected BT MOLECULAR PATHOLOGY Influenza B Not detected BT MOLECULAR PATHOLOGY RSV PCR Not detected BT MOLECULAR This test utilizes FDA cleared PATHOLOGY Rashmi mindi Influenza A/B and RSV real-time RT-PCR assay for qualitative detection and discrimination of Influenza A virus,Influenza B virus and Respiratory Syncytial virus(RSV). Additional testing is required to differentiate any specific Influenza A subtype or strains or specific RSV subgroups. Spec Nasal BT OUTPATIENT Description DRAW 2 Specimen Performing Organization Address [facility] Phone Number MISYS BT MOLECULAR PATHOLOGY BT OUTPATIENT DRAW 2 * XRAY CHEST 1 VIEW (06/09/2018 10:55 AM ELECTRICAL EQUIPMENT ASSEMBLER) Specimen Impressions Performed At IMPRESSION: [facility] Mild cardiomegaly with interstitial pulmonary edema. A "PRELIMINARY" report was made available via [employer] at the time of dictation by the resident indicated below. If the report is described as "FINALIZED" it indicates the attending/staff radiologist below has reviewed the images and agrees with the resident's interpretation. Dictated By: Meir Hoffman MD, 06/09/2018 11:12 AM I have reviewed the study and agree with the findings in this report. Signed By: Jamala Felix MD, 06/09/2018 11:16 AM Narrative Performed At EXAMINATION:XRAY CHEST 1 VIEW, AP SMS INDICATION: SOB COMPARISON:Chest radiograph dated 03/16/2015. FINDINGS: TUBES/LINES:None LUNGS:Bilateral interstitial airspace opacities. PLEURA:No effusions or pneumothorax. HEART/MEDIASTINUM:The cardiac silhouette is mildly enlarged. Atherosclerotic calcifications of the aortic arch. MUSCULOSKELETAL:No acute findings. Stable intact median sternotomy wires and mediastinal surgical clips. UPPER ABDOMEN: Normal Procedure Note Interface, Rad/Mammog In - 06/09/2018 11:21 AM ELECTRICAL EQUIPMENT ASSEMBLER EXAMINATION: XRAY CHEST 1 VIEW, AP INDICATION: SOB COMPARISON: Chest radiograph dated 03/16/2015. FINDINGS: TUBES/LINES: None LUNGS: Bilateral interstitial airspace opacities. PLEURA: No effusions or pneumothorax. HEART/MEDIASTINUM: The cardiac silhouette is mildly enlarged. Atherosclerotic calcifications of the aortic arch. MUSCULOSKELETAL: No acute findings. Stable intact median sternotomy wires and mediastinal surgical clips. UPPER ABDOMEN: Normal IMPRESSION IMPRESSION: Mild cardiomegaly with interstitial pulmonary edema. A "PRELIMINARY" report was made available via [employer] at the time of dictation by the resident indicated below. If the report is described as "FINALIZED" it indicates the attending/staff radiologist below has reviewed the images and agrees with the resident's interpretation. Dictated By: Meir Hoffman MD, 06/09/2018 11:12 AM I have reviewed the study and agree with the findings in this report. Signed By: Jamaal Felix MD, 06/09/2018 11:16 AM Performing Organization Address City/[facility] Phone Number SMS * B-TYPE NATRIURETIC PEPTIDE (BNP) (06/09/2018 10:50 AM ELECTRICAL EQUIPMENT ASSEMBLER) B Natriuretic 271 (H) <101 pg/mL BT MAIN-STATION Pept 1 Specimen Blood Performing Organization Address [facility] Hospital[facility] Phone Number MISYS BT MAIN-STATION 1 * 12 LEAD EKG (06/09/2018 10:40 AM ELECTRICAL EQUIPMENT ASSEMBLER) 12 LEAD EKG FOR [facility] Test Date:2018-06-09 Pat Name: JACKIE ALBERTO Department: [id number] Room: [place] [address] Gender: M Payable Representative: [id number] :1951-0 07-17 Requested By: ALOK YORK Order Number: [id number] Juan MD: Yobani Arora M.D. Measurements Intervals [place] Rate: 83 P:48 IA: 189 QRS: 193 QRSD: 161 T: 85 QT: 411 QTc:485 Interpretive Statements SINUS RHYTHM POSSIBLE LEFT ATRIAL ENLARGEMENT INDETERMINATE AXIS RIGHT BUNDLE BRANCH BLOCK ANTEROSEPTAL MYOCARDIAL INFARCTION, OF INDETERMINATE AGE Electronically Signed On 06-09-2018 15:49:03 ELECTRICAL EQUIPMENT ASSEMBLER by Yobani Arora M.D. Specimen Performing Organization Address City/State/Zipcode Phone Number SMS after 01/10/2018 Insurance Type Payer Benefit Subscriber ID Effective Phone Address Plan / Dates Group AETNA MEDICARE AETNA xxxxxxxx 2018-P [phone] [address] [facility] resent [id number] SELF-PAY SELF-PAY xxxxxxxxx 2018-P [phone] [address] [place] [address] Advance Directives Date Inactivated Comments Code Status Date Activated 06/12/2018 5:59 PM Full Code 06/09/2018 1:38 PM 03/19/2015 7:40 PM Full Code 03/16/2015 10:08 PM
--- OUTSIDE RECORDS SUMMARY | 2019-01-11 06:13 | XMS REPORT | Clinical Summary ---
Author Author [facility] Organization [facility] Address Unknown Phone Unavailable Care Team Providers Care Precision Assembly Inspector Name Role Phone Asked, No Pcp PCP Unavailable Allergies No Known Allergies Medications End Date Status Medication Sig Dispensed Refills Start Date Active traZODone (DESYREL) 50 MG Take 50 mg by 0 tablet mouth nightly. Active aspirin (ECOTRIN) 81 MG Take 81 mg by 0 enteric coated tablet mouth daily. Active carvedilol (COREG) 25 MG Take 25 mg by 0 tablet mouth 2 (two) times a day with meals. Active furosemide (LASIX) 40 mg Take 40 mg by 0 tablet mouth 2 (two) times a day. Active dexlansoprazole Take 30 mg by 0 (DEXILANT) 60 mg capsule mouth daily. Active rosuvastatin (CRESTOR) 40 Take 40 mg by 0 MG tablet mouth nightly. Active lisinopril Take 40 mg by 0 (PRINIVIL,ZESTRIL) 40 mg mouth daily. tablet Active brimonidine (ALPHAGAN) 1 drop 3 0 0.15 % ophthalmic (three) times solution a day. Active budesonide-formoterol Inhale 2 0 (SYMBICORT) 160-4.5 puffs 2 (two) mcg/actuation inhaler times a day. Active albuterol (ACCUNEB) 2.5 Take 2.5 mg 0 mg /3 mL (0.083 %) by nebulizer solution nebulization every 6 (six) hours as needed for wheezing. Active Problems Problem Noted Date Chest pain 07/11/2018 Encounters Care Team Description Date Type Specialty Dickson Ramirez, TOMAS-C 07/13/2018 Orders Only Cardiology Armen Ruggiero MD Joglekar, Swati, MD McCartan, James Arthur, DO Chest pain, unspecified type (Primary Dx) 07/11/2018 Hospital Cardiology - Encounter 07/16/2018 Claribel King RN 07/02/2018 Patient Quality Outreach after 01/10/2018 Social History Date Tobacco Use Types Packs/Day Years Used Never Smoker Smokeless Tobacco: Never Used Alcohol Use Drinks/Week oz/Week Comments Yes Sex Assigned at Date Recorded Not on file Industry Job Start Date Occupation Not on file Not on file Not on file Travel End Travel History Travel Start No recent travel history available. Last Filed Vital Signs Time Taken Vital Sign Reading 07/16/2018 11:25 AM IN HOME AIDE Blood Pressure 99/60 07/16/2018 11:25 AM IN HOME AIDE Pulse 82 07/16/2018 11:25 AM IN HOME AIDE Temperature 37.2 C (99 F) 07/16/2018 7:27 AM IN HOME AIDE Respiratory Rate 16 07/16/2018 11:25 AM IN HOME AIDE Oxygen Saturation 97% - Inhaled Oxygen - Concentration 07/14/2018 6:42 AM IN HOME AIDE Weight 69.2 kg (152 lb 8 oz) 07/12/2018 3:12 AM IN HOME AIDE Height 170.2 cm (5' 7") 07/12/2018 3:12 AM IN HOME AIDE Body Mass Index 23.88 Plan of Treatment Health Maintenance Due Date Last Done Comments COLONOSCOPY SCREENING 2002 SHINGLES VACCINES (#1) 2002 65+ PNEUMOCOCCAL VACCINE 2017 (1 of 2 - PCV13) INFLUENZA VACCINE 01/31/2019 Procedures Comments Procedure Name Priority Date/Time Associated Diagnosis POC GLUCOSE Routine 07/16/2018 9:24 AM IN HOME AIDE ESTIMATED GFR Routine 07/16/2018 5:36 AM IN HOME AIDE BASIC METABOLIC PANEL Routine 07/16/2018 5:36 AM IN HOME AIDE ESTIMATED GFR Routine 07/15/2018 5:22 AM IN HOME AIDE BASIC METABOLIC PANEL Routine 07/15/2018 5:22 AM IN HOME AIDE POC GLUCOSE Routine 07/14/2018 4:51 PM IN HOME AIDE US DUPLEX ARTERIAL LOWER Routine 07/14/2018 EXTREMITY BILATERAL 3:52 PM IN HOME AIDE US CAROTID DUPLEX Routine 07/14/2018 BILATERAL 2:35 PM IN HOME AIDE POC GLUCOSE Routine 07/14/2018 12:07 PM IN HOME AIDE POC GLUCOSE Routine 07/14/2018 8:17 AM IN HOME AIDE ESTIMATED GFR Routine 07/14/2018 5:00 AM IN HOME AIDE BASIC METABOLIC PANEL Routine 07/14/2018 5:00 AM IN HOME AIDE ECG 12-LEAD Routine 07/12/2018 8:06 PM IN HOME AIDE TROPONIN Routine 07/12/2018 5:00 PM IN HOME AIDE B NATRIURETIC PEPTIDE Routine 07/12/2018 10:26 AM IN HOME AIDE ECHOCARDIOGRAM 2D Routine 07/12/2018 COMPLETE W MMODE SPECTRAL 7:29 AM IN HOME AIDE COLOR DOPPLER ([id number]) ESTIMATED GFR Routine 07/12/2018 4:39 AM IN HOME AIDE BASIC METABOLIC PANEL Routine 07/12/2018 4:39 AM IN HOME A[address] CT ANGIOGRAM PE CHEST STAT 07/12/2018 12:53 AM IN HOME AIDE LIPASE LEVEL STAT 07/11/2018 11:48 PM IN HOME AIDE B NATRIURETIC PEPTIDE Routine 07/11/2018 8:30 PM IN HOME AIDE PARTIAL THROMBOPLASTIN Routine 07/11/2018 TIME (PTT) 8:30 PM IN HOME AIDE PROTHROMBIN TIME WITH INR Routine 07/11/2018 8:30 PM IN HOME AIDE HC COMPLETE BLD COUNT Routine 07/11/2018 W/AUTO DIFF 8:30 PM IN HOME AIDE RESPIRATORY PATHOGEN Routine 07/11/2018 PANEL 8:30 PM IN HOME AIDE INFLUENZA ANTIGEN TEST, Routine 07/11/2018 REFLEX NEGATIVE TO RPP 8:30 PM IN HOME AIDE BLOOD CULTURE, AEROBIC & Routine 07/11/2018 ANAEROBIC 8:30 PM IN HOME AIDE BLOOD CULTURE, AEROBIC & Routine 07/11/2018 ANAEROBIC 8:30 PM IN HOME AIDE XR CHEST 2 VW STAT 07/11/2018 8:26 PM IN HOME AIDE ECG 12-LEAD STAT 07/11/2018 8:13 PM IN HOME AIDE ECG ED PRELIMINARY Routine 07/11/2018 INTERPRETATION 8:11 PM IN HOME AIDE ESTIMATED GFR Routine 07/11/2018 8:11 PM IN HOME AIDE TROPONIN Routine 07/11/2018 8:11 PM IN HOME AIDE COMPREHENSIVE METABOLIC Routine 07/11/2018 PANEL 8:11 PM IN HOME AIDE after 01/10/2018 Results * POC glucose (07/16/2018 9:24 AM IN HOME AIDE) Only the most recent of 4 results within the time period is included. [facility] POC glucose 119 (H) 65 - 99 mg/dL [place] Comment: [facility] Notified RN HOSPITAL Meter ID: [id number] Maker Up Folding: Hector Rick Specimen Performing Organization Address City/[facility] Phone Number [facility] DEPARTMENT OF [address] [place] [address] * Estimated GFR (07/16/2018 5:36 AM IN HOME AIDE) Only the most recent of 5 results within the time period is included. [facility] Estimated GFR 90 mL/min/1.73 m2 [place] Comment: [facility] rpretation G1 >=90 Normal or high G2 60-89Mildly decreased N4d81-53 Mildly to moderately decreased [id number] Moderately to severely decreased G4 15-29Severely decreased G5 <15Kidney failure The eGFR was calculated using the Chronic Kidney Disease Epidemiology Collaboration (CKD-EPI) equation. Interpretation is based on recommendations of the National Kidney Foundation-Kidney Disease Outcomes Quality Initiative (NKF-KDOQI) published in 2014. Specimen Plasma specimen Performing Organization Address City/[facility] Cent[facility] Phone Number [facility] DEPARTMENT [address] * Basic metabolic panel (07/16/2018 5:36 AM IN HOME AIDE) Only the most recent of 4 results within the time period is included. Sodium 136 135 - 148 mEq/L [facility] Potassium 3.8 3.5 - 5.0 mEq/L [facility] Chloride 96 (L) 98 - 112 mEq/L [facility] CO2 23 (L) 24 - 31 mEq/L [facility] Anion gap 17@ANIO (H) 7 - 15 mEq/L [facility] BUN 17 8 - 23 mg/dL [facility] Creatinine 0.88 0.70 - 1.20 mg/dL [facility] Glucose 133 (H) 65 - 99 mg/dL [facility] Calcium 9.7 8.8 - 10.2 mg/dL [facility] Specimen Plasma specimen Performing Organization Address City/State/Zipcode Phone Number [facility] DEPARTMENT OF [address] [place] [address] PATHOLOGY AND GENOMIC MEDICINE [address] * Us duplex arterial lower extremity (07/14/2018 3:52 PM IN HOME AIDE) Specimen Narrative Performed At [facility] Vascular Ultrasound Laboratory Lower Extremity Arterial Duplex Report [address] [place] [address] Pat.Name:JACKIE ALBERTO Pat.ID:[id number] St.Date: 07/14/2018 Refer.MD:IMELDA GILLIAM MD Exam Time: 2:39:00 PMStudy Type:LE Arterial Height:67inWeight:152lb BSA: 1.8 [id number]:1950,67Y Sex: MALESonogrphr: Kip Robbins, MARY ANN, [facility] Pat. Stat.:Inpatient Room:[facility] TapeVol: , CPT - 4: 51517 Echo Event ID:[id number] Order ID:[id number] Reason for Study:Claudication, PVD, assess for revascularization. History of diabetes, hypertension, CAD s/p CABG, CHF. Procedures:Ankle/brachial pressures, Colorflow, Grayscale/2D, PPG waveform tracing, Pulsed wave Doppler Race:D SUMMARY: DUPLEX SCAN OBSERVATIONS: RIGHT: There is irregular, hard and calcified plaque visualized in the common femoral, profunda femoris, superficial femoral, and popliteal artery. Colorflow disturbance is noted at the proximal profunda femoris artery. Doppler waveforms are monophasic throughout the common femoral, superficial femoral and popliteal artery. Colorflow appears reduced with blunted Doppler waveforms noted in the anterior tibial, posterior tibial and peroneal arteries. LEFT: There is irregular, hard and calcified plaque visualized in the common femoral, profunda femoris, superficial femoral, and popliteal artery. Doppler waveforms are biphasic in the common femoral and proximal superficial artery. There is long segment narrowing with colorflow disturbance and elevated Doppler signals noted at the mid superficial femoral artery. A large collateral vessel reconstitutes flow to distal superficial femoral artery. Doppler waveforms are monophasic throughout the distal superficial femoral artery and popliteal artery. Colorflow appears reduced with blunted Doppler waveforms noted in the anterior tibial, posterior tibial and peroneal arteries. ANKLE/BRACHIAL INDEX: RIGHTLEFT Brachial Artery Pressure 93 oyWf263 mmHg DP70 mmHg72 mmHg PT67 mmHg73 mmHg LACIE DP0.640.65 LACIE PT0.610.66 TOE/BRACHIAL INDEX: Great Toe>255 mmHg>255 mmHg TBIUnable to calculateUnable to calculate PRELIMINARY FINDINGS: 1. Findings suggests right ileo-femoral obstructive disease. 2. Diffuse calcified plaque noted throughout the lower extremity arteries, bilaterally. 3. >75% stenosis of the left mid superficial femoral artery. 4. Collateral vessel reconstitutes flow to the left distal superficial femoral artery. 5. Blunted Doppler waveforms noted in the anterior tibial, posterior tibial and peroneal arteries, bilaterally. 6. Ankle/brachial indices fall with the moderate category 7. Toe/brachial index cannot be obtained due to non-compressible vessels. PHYSICIAN INTERPRETATION: Bilateral lower extremity arterial exam demonstrates significant ilio-femoral arterial occlusive disease. Inflow disease with blunted waveforms. >75% stenosis of the left mid superficial femoral artery. Ankle/brachial indices fall with the moderate category Toe/brachial index cannot be obtained due to non-compressible vessels. MEASUREMENTS: DOPPLER OIL DELIVERER Dist OIL DELIVERER Dist PSV40 cm/s Right OIL DELIVERER prox OIL DELIVERER prox PSV45.6 cm/s Profunda Profunda PSV95 cm/s SFA Dist SFA Dist PSV46 cm/sSFA Dist PSV29 cm/s SFA Mid SFA Mid PSV 46 cm/s SFA Prox SFA Prox PSV55 cm/s Right Pop Dist Pop Dist PSV36 cm/s Pop Prox Pop Prox PSV44 cm/s Right SALARY AND WAGE ADMINISTRATOR Dist SALARY AND WAGE ADMINISTRATOR Dist PSV7.92 cm/s SALARY AND WAGE ADMINISTRATOR Mid SALARY AND WAGE ADMINISTRATOR Mid PSV 11 cm/sPTA Mid PSV 13 cm/s Right SALARY AND WAGE ADMINISTRATOR Prox SALARY AND WAGE ADMINISTRATOR Prox PSV15.4 cm/sPTA Prox PSV15 cm/s Peroneal Dist Peroneal Dist P 7 cm/s Peroneal Mid Peroneal Mid PS 9 cm/s Peroneal Mid PS12 cm/s Peroneal Prox Peroneal Prox P11 cm/s Right DARRICK Dist DARRICK Dist PSV14.3 cm/s Right DARRICK Mid DARRICK Mid PSV 15 cm/s Left OIL DELIVERER Dist OIL DELIVERER Dist PSV 105 cm/s Left Profunda Profunda PSV 142 cm/s Left SFA Mid SFA Mid XEL051 cm/s Left SFA Prox SFA Prox PSV 115 cm/s Pop Dist Pop Dist PSV27 cm/s Left Pop Prox Pop Prox PSV21.5 cm/sPop Prox PSV22 cm/s Left SALARY AND WAGE ADMINISTRATOR Dist SALARY AND WAGE ADMINISTRATOR Dist PSV12.7 cm/s SALARY AND WAGE ADMINISTRATOR Prox SALARY AND WAGE ADMINISTRATOR Prox PSV19 cm/s Left DARRICK Dist DARRICK Dist PSV14.1 cm/s DARRICK Mid DARRICK Mid PSV 12 cm/s Left DARRICK Prox DARRICK Prox PSV20.7 cm/sATA Prox PSV21 cm/s Right OIL DELIVERER Mid OIL DELIVERER Mid PSV 46 cm/s Right SFA Prox 1 SFA Prox 1 PSV70 cm/s Left SFA Prox 1 SFA Prox 1 PSV50 cm/s Left SFA Mid 1 SFA Mid 1 CEP200 cm/s Right SALARY AND WAGE ADMINISTRATOR Distal SALARY AND WAGE ADMINISTRATOR Distal PSV 7 cm/s Left SALARY AND WAGE ADMINISTRATOR Distal SALARY AND WAGE ADMINISTRATOR Distal PSV13 cm/s Left Peroneal Prox Peroneal Prox P11 cm/s Left Peroneal Dist Peroneal Dist P 4 cm/s Right DARRICK Prox DARRICK Prox PSV17 cm/s Right DARRICK Distal DARRICK Distal PSV14 cm/s Left DARRICK Distal DARRICK Distal PSV14 cm/s Signed 07/15/2018 08:57 AM Joseph Riggs MD, RPVI Procedure Note Interface, Radiology Results In - 07/15/2018 8:[address] [facility] Vascular Ultrasound Laboratory Lower Extremity Arterial Duplex Report [id number] [address] Pat.Name: JACKIE ALBERTO Pat.ID: [id number] .Date: 07/14/2018 Refer.MD: IMELDA GILLIAM MD Exam Time: 2:39:00 PM Study Type:LE Arterial Height: 67in Weight: 152lb BSA: 1.8 m2 Age: 1 1950,67Y Sex: MALE Sonogrphr: MARY ANN Fermin RCS Pat. Stat.:[facility] Vol: SB, CPT - 4: 34982 Echo Event ID:[id number] Order ID: [id number] Reason for Study:Claudication, PVD, assess for revascularization. History of diabetes, hypertension, CAD s/p CABG, CHF. Procedures:Ankle/brachial pressures, Colorflow, Grayscale/2D, PPG waveform tracing, Pulsed wave Doppler Race: D SUMMARY: DUPLEX SCAN OBSERVATIONS: RIGHT: There is irregular, hard and calcified plaque visualized in the common femoral, profunda femoris, superficial femoral, and popliteal artery. Colorflow disturbance is noted at the proximal profunda femoris artery. Doppler waveforms are monophasic throughout the common femoral, superficial femoral and popliteal artery. Colorflow appears reduced with blunted Doppler waveforms noted in the anterior tibial, posterior tibial and peroneal arteries. LEFT: There is irregular, hard and calcified plaque visualized in the common femoral, profunda femoris, superficial femoral, and popliteal artery. Doppler waveforms are biphasic in the common femoral and proximal superficial artery. There is long segment narrowing with colorflow disturbance and elevated Doppler signals noted at the mid superficial femoral artery. A large collateral vessel reconstitutes flow to distal superficial femoral artery. Doppler waveforms are monophasic throughout the distal superficial femoral artery and popliteal artery. Colorflow appears reduced with blunted Doppler waveforms noted in the anterior tibial, posterior tibial and peroneal arteries. ANKLE/BRACHIAL INDEX: RIGHT LEFT Brachial Artery Pressure 93 mmHg 110 mmHg DP 70 mmHg 72 mmHg PT 67 mmHg 73 mmHg LACIE DP 0.64 0.65 LACIE PT 0.61 0.66 TOE/BRACHIAL INDEX: Great Toe >255 mmHg >255 mmHg TBI Unable to calculate Unable to calculate PRELIMINARY FINDINGS: 1. Findings suggests right ileo-femoral obstructive disease. 2. Diffuse calcified plaque noted throughout the lower extremity arteries, bilaterally. 3. >75% stenosis of the left mid superficial femoral artery. 4. Collateral vessel reconstitutes flow to the left distal superficial femoral artery. 5. Blunted Doppler waveforms noted in the anterior tibial, posterior tibial and peroneal arteries, bilaterally. 6. Ankle/brachial indices fall with the moderate category 7. Toe/brachial index cannot be obtained due to non-compressible vessels. PHYSICIAN INTERPRETATION: Bilateral lower extremity arterial exam demonstrates significant ilio-femoral arterial occlusive disease. Inflow disease with blunted waveforms. >75% stenosis of the left mid superficial femoral artery. Ankle/brachial indices fall with the moderate category Toe/brachial index cannot be obtained due to non-compressible vessels. MEASUREMENTS: DOPPLER OIL DELIVERER Dist OIL DELIVERER Dist PSV 40 cm/s Right OIL DELIVERER prox OIL DELIVERER prox PSV 45.6 cm/s Profunda Profunda PSV 95 cm/s SFA Dist SFA Dist PSV 46 cm/s SFA Dist PSV 29 cm/s SFA Mid SFA Mid PSV 46 cm/s SFA Prox SFA Prox PSV 55 cm/s Right Pop Dist Pop Dist PSV 36 cm/s Pop Prox Pop Prox PSV 44 cm/s Right SALARY AND WAGE ADMINISTRATOR Dist SALARY AND WAGE ADMINISTRATOR Dist PSV 7.92 cm/s SALARY AND WAGE ADMINISTRATOR Mid SALARY AND WAGE ADMINISTRATOR Mid PSV 11 cm/s SALARY AND WAGE ADMINISTRATOR Mid PSV 13 cm/s Right SALARY AND WAGE ADMINISTRATOR Prox SALARY AND WAGE ADMINISTRATOR Prox PSV 15.4 cm/s SALARY AND WAGE ADMINISTRATOR Prox PSV 15 cm/s Peroneal Dist Peroneal Dist P 7 cm/s Peroneal Mid Peroneal Mid PS 9 cm/s Peroneal Mid PS 12 cm/s Peroneal Prox Peroneal Prox P 11 cm/s Right DARRICK Dist DARRICK Dist PSV 14.3 cm/s Right DARRICK Mid DARRICK Mid PSV 15 cm/s Left OIL DELIVERER Dist OIL DELIVERER Dist PSV 105 cm/s Left Profunda Profunda PSV 142 cm/s Left SFA Mid SFA Mid PSV 222 cm/s Left SFA Prox SFA Prox PSV 115 cm/s Pop Dist Pop Dist PSV 27 cm/s Left Pop Prox Pop Prox PSV 21.5 cm/s Pop Prox PSV 22 cm/s Left SALARY AND WAGE ADMINISTRATOR Dist SALARY AND WAGE ADMINISTRATOR Dist PSV 12.7 cm/s SALARY AND WAGE ADMINISTRATOR Prox SALARY AND WAGE ADMINISTRATOR Prox PSV 19 cm/s Left DARRICK Dist DARRICK Dist PSV 14.1 cm/s DARRICK Mid DARRICK Mid PSV 12 cm/s Left DARRICK Prox DARRICK Prox PSV 20.7 cm/s DARRICK Prox PSV 21 cm/s Right OIL DELIVERER Mid OIL DELIVERER Mid PSV 46 cm/s Right SFA Prox 1 SFA Prox 1 PSV 70 cm/s Left SFA Prox 1 SFA Prox 1 PSV 50 cm/s Left SFA Mid 1 SFA Mid 1 PSV 218 cm/s Right SALARY AND WAGE ADMINISTRATOR Distal SALARY AND WAGE ADMINISTRATOR Distal PSV 7 cm/s Left SALARY AND WAGE ADMINISTRATOR Distal SALARY AND WAGE ADMINISTRATOR Distal PSV 13 cm/s Left Peroneal Prox Peroneal Prox P 11 cm/s Left Peroneal Dist Peroneal Dist P 4 cm/s Right DARRICK Prox DARRICK Prox PSV 17 cm/s Right DARRICK Distal DARRICK Distal PSV 14 cm/s Left DARRICK Distal DARRICK Distal PSV 14 cm/s Signed 07/15/2018 08:57 AM Joseph Riggs MD, RPVI Performing Organization Address City/State/Zipcode Phone Number [facility] [address] [phone] * Us carotid duplex (07/14/2018 2:35 PM IN HOME AIDE) Specimen Narrative Performed At [facility] Vascular Ultrasound Laboratory Carotid Artery Duplex Report [id number] [id number] For quality control lead purposes, the categorization of the degree of the stenosis of this exam is based on criteria described in the IAC carotid stenosis grading white paper( www.intersocietal.org/Vascular) and Spencer Maldonado., Keely Crane., et al. Carotid artery stenosis: baeza-scale and Doppler US diagnosis--Society of Radiologists in Ultrasound Consensus Conference. Radiology. 2002; 229(2):340-6. Pat.Name:JACKIE ALBERTO Pat.ID:[id number] .Date: 07/14/2018 Refer.MD:MENDEZ PABON MD Exam Time: 1:57:00 PMStudy Type:Carotid Height:67inWeight:152lb BSA: 1.8 o7JOWRan:1950,67Y Sex: MALESonogrphr: Kip Robbins, RVS, RCS Pat. Stat.:Inpatient Room:[facility] TapeVol: , CPT - 4: 02183 Echo Event ID:[id number] Order ID:[id number] Reason for Study:Dizziness, lightheadedness.History of diabetes, hypertension, CAD s/p CABG, CHF. Procedures:Colorflow, Grayscale/2D, Pulsed wave Doppler Race:D SUMMARY: PHYSICAL ASSESSMENT BloodPulsesCarotid Pressure Carotid TemporalBruit Right 98/54 ++0 Left 110/67 ++0 CAROTID ARTERY SCAN RIGHT:There is scattered hard plaque in the common carotid artery; intimal thickening noted. There is irregular, hard and calcified plaque noted in the bulb extending into the proximal internal and external carotid artery. Colorflow is mildly disturbed in the internal carotid artery.There is flow noted in the vertebral artery. LEFT: There is scattered hard plaque in the common carotid artery; intimal thickening noted. There is irregular, hard and calcified plaque noted in the bulb extending into the proximal internal and external carotid artery. Colorflow is normal. There is flow noted in the vertebral artery. PRELIMINARY FINDINGS 1. <50% stenosis of the bulb and internal carotid artery, bilaterally. 2. <50% stenosis of the external carotid artery, bilaterally. PHYSICIAN INTERPRETATION Bilateral carotid duplex examination demonstrated atherosclerotic plaques in the bulbs/CCAs. Less than 50% stenosis in the bulb and internal carotid artery, bilaterally. Both vertebral arteries are antegrade. Carotid Findings:RightLeft gMb.Flw AntegradeAntegrade Subclavian Biphasic MEASUREMENTS: DOPPLER Right CCA Dist CCA Dist PSV61.2 cm/sCCA Dist EDV14.2 cm/s Right CCA Mid CCA Mid PSV 70.3 cm/sCCA Mid EDV 10.3 cm/s Right CCA Prox CCA Prox PSV75.5 cm/sCCA Prox EDV14.2 cm/s Right ECA Prox ECA Prox PSV 103 cm/sECA Prox EDV7.43 cm/s Right ICA Dist ICA Dist PSV61.6 cm/[place]da Dist EDV17.5 cm/s Right ICA Mid ICA Mid [id number] cm/Oneyda Mid EDV 43.1 cm/s Right ICA Prox ICA Prox PSV57.2 cm/O[place]da Prox EDV15.4 cm/s Right Vertebral Vertebral PSV 76.2 cm/sVertebral EDV 11.5 cm/s Right Subclavian Subclavian PSV68.4 cm/sSubclavian EDV 0 cm/s Left CCA Dist CCA Dist PSV75.4 cm/sCCA Dist EDV14.4 cm/s Left CCA Mid CCA Mid PSV 91.4 cm/sCCA Mid EDV 18.8 cm/s Left CCA Prox CCA Prox PSV71.1 cm/sCCA Prox EDV17.3 cm/s Left ECA Prox ECA Prox PSV65.3 cm/sECA Prox EDV11.5 cm/s Left ICA Dist ICA Dist PSV41.2 cm/Oneyda Dist EDV 0 cm/s Left ICA Mid ICA Mid PSV 31.5 cm/Oneyda Mid EDV 11.1 cm/s Left ICA Prox ICA Prox PSV64.7 cm/Oneyda Prox EDV19.7 cm/s Left Vertebral Vertebral PSV 46.1 cm/sVertebral EDV 14.2 cm/s Left Subclavian Subclavian PSV73.5 cm/sSubclavian EDV 0 cm/s Right ICA/CCA Ratio ICA/CCA PSV0.814 Left ICA/CCA Ratio ICA/CCA PSV0.708 Signed 07/14/2018 10:11 PM Joseph Riggs MD, RPVI Procedure Note Interface, Radiology Results In - 07/14/2018 10:[address] [facility] Vascular Ultrasound Laboratory Carotid Artery Duplex Report [id number] [address], [place] [address] For quality control lead purposes, the categorization of the degree of the stenosis of this exam is based on criteria described in the IAC carotid stenosis grading white paper( www.intersocietal.org/Vascular) and Spencer Maldonado., Renea Crane, et al. Carotid artery stenosis: baeza-scale and Doppler US diagnosis--Society of Radiologists in Ultrasound Consensus Conference. Radiology. 2003 Nov; 229(2):340-6. Pat.Name: JACKIE ALBERTO Pat.ID: [id number] St.Date: 07/14/2018 Refer.MD: MENDEZ PABON MD Exam Time: 1:57:00 PM Study Type:Carotid Height: 67in Weight: 152lb BSA: 1.8 m2 Age: 1 1950,67Y Sex: MALE Sonogrphr: MARY ANN Fermin RCS Pat. Stat.:Inpatient Room: [address] Vol: SB, CPT - 4: 73097 Echo Event ID:[id number] Order ID: [id number] Reason for Study:Dizziness, lightheadedness. History of diabetes, hypertension, CAD s/p CABG, CHF. Procedures:Colorflow, Grayscale/2D, Pulsed wave Doppler Race: D SUMMARY: PHYSICAL ASSESSMENT Blood Pulses Carotid Pressure Carotid Temporal Bruit Right 98/54 + + 0 Left 110/67 + + 0 CAROTID ARTERY SCAN RIGHT: There is scattered hard plaque in the common carotid artery; intimal thickening noted. There is irregular, hard and calcified plaque noted in the bulb extending into the proximal internal and external carotid artery. Colorflow is mildly disturbed in the internal carotid artery. There is flow noted in the vertebral artery. LEFT: There is scattered hard plaque in the common carotid artery; intimal thickening noted. There is irregular, hard and calcified plaque noted in the bulb extending into the proximal internal and external carotid artery. Colorflow is normal. There is flow noted in the vertebral artery. PRELIMINARY FINDINGS 1. <50% stenosis of the bulb and internal carotid artery, bilaterally. 2. <50% stenosis of the external carotid artery, bilaterally. PHYSICIAN INTERPRETATION Bilateral carotid duplex examination demonstrated atherosclerotic plaques in the bulbs/CCAs. Less than 50% stenosis in the bulb and internal carotid artery, bilaterally. Both vertebral arteries are antegrade. Carotid Findings: Right Left Verteb.Flw Antegrade Antegrade Subclavian Biphasic MEASUREMENTS: DOPPLER Right CCA Dist CCA Dist PSV 61.2 cm/s CCA Dist EDV 14.2 cm/s Right CCA Mid CCA Mid PSV 70.3 cm/s CCA Mid EDV 10.3 cm/s Right CCA Prox CCA Prox PSV 75.5 cm/s CCA Prox EDV 14.2 cm/s Right ECA Prox ECA Prox PSV 103 cm/s ECA Prox EDV 7.43 cm/s Right ICA Dist ICA Dist PSV 61.6 cm/s ICA Dist EDV 17.5 cm/s Right ICA Mid ICA Mid PSV 109 cm/s ICA Mid EDV 43.1 cm/s Right ICA Prox ICA Prox PSV 57.2 cm/s ICA Prox EDV 15.4 cm/s Right Vertebral Vertebral PSV 76.2 cm/s Vertebral EDV 11.5 cm/s Right Subclavian Subclavian PSV 68.4 cm/s Subclavian EDV 0 cm/s Left CCA Dist CCA Dist PSV 75.4 cm/s CCA Dist EDV 14.4 cm/s Left CCA Mid CCA Mid PSV 91.4 cm/s CCA Mid EDV 18.8 cm/s Left CCA Prox CCA Prox PSV 71.1 cm/s CCA Prox EDV 17.3 cm/s Left ECA Prox ECA Prox PSV 65.3 cm/s ECA Prox EDV 11.5 cm/s Left ICA Dist ICA Dist PSV 41.2 cm/s ICA Dist EDV 0 cm/s Left ICA Mid ICA Mid PSV 31.5 cm/s ICA Mid EDV 11.1 cm/s Left ICA Prox ICA Prox PSV 64.7 cm/s ICA Prox EDV 19.7 cm/s Left Vertebral Vertebral PSV 46.1 cm/s Vertebral EDV 14.2 cm/s Left Subclavian Subclavian PSV 73.5 cm/s Subclavian EDV 0 cm/s Right ICA/CCA Ratio ICA/CCA PSV 0.814 Left ICA/CCA Ratio ICA/CCA PSV 0.708 Signed 07/14/2018 10:11 PM Joseph Riggs MD, RPVI Performing Organization Address [facility] Phone Number [facility] [address] [place] [address] * ECG 12 lead (07/12/2018 8:06 PM IN HOME AIDE) Only the most recent of 2 results within the time period is included. Pathologist [facility] Ventricular 67 [facility] MUSE rate Atrial rate 67 [facility] MUSE SC interval 184 [facility] M[facility] QRSD interval 152 [facility] MUSE QT interval 470 [facility] QTC interval 496 [facility] M[facility] P axis 1 -20 [facility] M[facility] QRS axis 1 84 [facility] MUSE T wave axis 98 [facility] MUSE EKG impression Normal sinus rhythm-Right [facility] MUSE bundle branch block-Anteroseptal infarct (cited on or before 11-JUL-2018)-Abnormal ECG- Specimen Narrative Performed At Performing Organization Address [facility] Phone Number [facility] [address] [place] [address] * Troponin (07/12/2018 5:00 PM IN HOME AIDE) Only the most recent of 2 results within the time period is included. Troponin <0.30 0.00 - 0.30 ng/mL [facility] Comment: [facility] 0.30 - 1.49 HOSPITAL ng/mlMay indicate increased risk of acute coronary syndrome. >=1.5 ng/ml Consistent with acute myocardial infarction. The diagnostic value of a single normal or non-diagnostic result is questionable.Serial samples at 2-6 hour intervals are required to rule out acute myocardial injury. Specimen Plasma specimen Performing Organization Address City/State/Zipcode Phone Number [facility] DEPARTMENT OF [address] [place] [address] PATHOLOGY AND GENOMIC MEDICINE [address] * B natriuretic peptide (07/12/2018 10:26 AM IN HOME AIDE) Only the most recent of 2 results within the time period is included. BNP 206 (H) 0 - 100 pg/mL [facility] Specimen Blood Performing Organization Address [facility] Phone Number [facility] [place] [address] PATHOLOGY AND GENOMIC MEDICINE [address] * Echocardiogram complete w contrast and 3D if needed (07/12/2018 7:29 AM IN HOME AIDE) Specimen Narrative Performed At [facility] Echocardiography Report [address] [place] [address] Pat.Name:JACKIE ALBERTO Pat.ID:[id number] .Date: 07/12/2018 Refer.MD:ARMEN RUGGIERO MD Exam Time: 6:57:00 AMStudy Type:Routine Echo Height:67inWeight:154lb BSA: 1.81 m2 DOBAge:1950,67Y Sex: MALEBP:106/59 HR:58 bpmSonogrphr: James Sauceda RDCS Pat. Stat.:[facility] Status:Final Echo Event ID:[id number] Order ID:[id number] Reason for Study:ETIOLOGY-SYMPTOMS OR CONDITIONS POTENTIALLY RELATED TO SUSPECTED CARDIAC ETIOLOGY Procedures:2D Echo, Colorflow Doppler, Strain, Intravenous Optison Contrast Race: SUMMARY: LV size is mgnzvuvn-jo-njfgijjz enlarged. There is mild eccentric LV hypertrophy. LV EF is severely depressed. Regional wall motion abnormalities present. Mild to moderate mitral regurgitation. LV relaxation is impaired. LV filling pressure is elevated. FINDINGS: LV: LV size is qdbyuyzq-rs-gecwqhhh enlarged. There is mild eccentricLV hypertrophy. LV EF is severely depressed. LV GLSis -6.2%. Estimated EF is 25-29%. Regional wall motion abnormalitiespresent. RV: RV size is upper limits of normal. RV systolic function is moderatelydepressed. LA: LA volume is moderately enlarged. RA: RA size is normal. AO: Calcifications in ascending aorta. KATYA: No pericardial effusion. AV: Mild thickening and calcification of AV leaflets. Mild aorticregurgitation. MV: Mild thickening and calcification of mitral leaflets. Mild tomoderate mitral regurgitation with an estimated regurgitantvolume of 16 ml and regurgitant fraction of 25%..Etiology of MR is secondary to LV dysfunction and remodeling. PV: No structural PV abnormalities noted. TV: No structural TV abnormalities noted. Venegas: LV relaxation is impaired. LV filling pressure is elevated. Hepaticvein pressure is normal, RA pressure < 5mmHg. Other:Insufficient TR jet to estimate PA systolic pressure. MEASUREMENTS: 2D Parasternal [place] Ds5.1 cmLVPWd0.8 cm LVOT 2.2 cmAo An2.6 cm LVIDd6.8 cmIndex3.8 cm/m Ao Rtd 3.1 cm Index1.7 cm/m LVIDs5.4 cm LV Zpip021.6 g(122-174) LV%fs 20.9 % LVM Fappf804.4 g/m2 IVSd 0.8 cmRWT0.2 LA Sng Plane LA Area 23.7 cm2(8.8-23.4) LA Vol73.9 ml Index40.8 ml/m LA LngAx 6.8 cm RA Sng Plane RA Area 18.6 cm2(8.3-19.5) RA Vol58.5 ml Index32.3 ml/m RA LngAx 5.1 cm EF Biplane ZSQ318 mlSV58.6 ml HNB418.4 mlEF29.6 % DOPPLER LVOT Stroke Vol LVOT CO5.6 l/min LVOT TVI11.3 cm LVOT CI3.1 l/m/m2LVOT Tm293 msec HR60 bpm LVOT SV 42.9 ml LVOT 2.2 cm MV PISA MV AliasVel 56 cm/sMV pkVel 452.4 cm/s MV PISA rad0.4 cmMV ERO 0.1 cm2 MV Flw43.2 cc/sMV RgVol16.1 cc WALL MOTION: RESTING WALL MOTION: Basal Anteroseptal, Basal Inferoseptal, Basal Inferior, Mid Anterior, Mid Anteroseptal, Mid Inferoseptal, Apical Anterior, Apical Septal, Apical pedraza are akinetic.Basal Anterior, Mid Inferior, Mid Inferolateral, Mid Anterolateral, Apical Inferior, Apical Lateral pedraza are hypokinetic. Normal in all other pedraza. Wall Index=2.4 Signed 07/12/2018 04:46 PM Armen Vaca M.D. Procedure Note Interface, Radiology Results In - 07/12/2018 4:46 PM IN HOME AIDE Echocardiography Report [id number]Name: JACKIE ALBERTO.ID: [id number] .Date: 07/12/2018 Refer.MD: ARMEN RUGGIERO MD Exam Time: 6:57:00 AM Study Type:Routine Echo Height: 67in Weight: 154lb BSA: 1.81 m2 Age: 1 1950,67Y Sex: MALE BP: 106/59 HR: 58 bpm Sonogrphr: James Sauceda RDCS Pat. Stat.:Inpatient Room: J809 Study Status:Final Echo Event ID:[id number] Order ID: [id number] Reason for Study:ETIOLOGY-SYMPTOMS OR CONDITIONS POTENTIALLY RELATED TO SUSPECTED CARDIAC ETIOLOGY Procedures:2D Echo, Colorflow Doppler, Strain, Intravenous Optison Contrast Race: SUMMARY: LV size is knokqern-he-csbdmkzm enlarged. There is mild eccentric LV hypertrophy. LV EF is severely depressed. Regional wall motion abnormalities present. Mild to moderate mitral regurgitation. LV relaxation is impaired. LV filling pressure is elevated. FINDINGS: LV: LV size is wrgwubly-ry-oukbhjxa enlarged. There is mild eccentric LV hypertrophy. LV EF is severely depressed. LV GLS is -6.2%. Estimated EF is 25-29%. Regional wall motion abnormalities present. RV: RV size is upper limits of normal. RV systolic function is moderately depressed. LA: LA volume is moderately enlarged. RA: RA size is normal. AO: Calcifications in ascending aorta. KATYA: No pericardial effusion. AV: Mild thickening and calcification of AV leaflets. Mild aortic regurgitation. MV: Mild thickening and calcification of mitral leaflets. Mild to moderate mitral regurgitation with an estimated regurgitant volume of 16 ml and regurgitant fraction of 25%.. Etiology of MR is secondary to LV dysfunction and remodeling. PV: No structural PV abnormalities noted. TV: No structural TV abnormalities noted. Venegas: LV relaxation is impaired. LV filling pressure is elevated. Hepatic vein pressure is normal, RA pressure < 5mmHg. Other: Insufficient TR jet to estimate PA systolic pressure. MEASUREMENTS: 2D Parasternal [place] LA Ds 5.1 cm LVPWd 0.8 cm LVOT 2.2 cm Ao An 2.6 cm LVIDd 6.8 cm Index 3.8 cm/m Ao Rtd 3.1 cm Index 1.7 cm/m LVIDs 5.4 cm LV Mass 230.6 g (122-174) LV%fs 20.9 % LVM Index 127.4 g/m2 IVSd 0.8 cm RWT 0.2 LA Sng Plane LA Area 23.7 cm2 (8.8-23.4) LA Vol 73.9 ml Index 40.8 ml/m LA LngAx 6.8 cm RA Sng Plane RA Area 18.6 cm2 (8.3-19.5) RA Vol 58.5 ml Index 32.3 ml/m RA LngAx 5.1 cm EF Biplane EDV 198 ml SV 58.6 ml ESV 139.4 ml EF 29.6 % DOPPLER LVOT Stroke Vol LVOT CO 5.6 l/min LVOT TVI 11.3 cm LVOT CI 3.1 l/m/m2 LVOT Tm 293 msec HR 60 bpm LVOT SV 42.9 ml LVOT 2.2 cm MV PISA MV AliasVel 56 cm/s MV pkVel 452.4 cm/s MV PISA rad 0.4 cm MV ERO 0.1 cm2 MV Flw 43.2 cc/s MV RgVol 16.1 cc WALL MOTION: RESTING WALL MOTION: Basal Anteroseptal, Basal Inferoseptal, Basal Inferior, Mid Anterior, Mid Anteroseptal, Mid Inferoseptal, Apical Anterior, Apical Septal, Apical pedraza are akinetic. Basal Anterior, Mid Inferior, Mid Inferolateral, Mid Anterolateral, Apical Inferior, Apical Lateral pedraza are hypokinetic. Normal in all other pedraza. Wall Index=2.4 Signed 07/12/2018 04:46 PM Armen Vaca M.D. Performing Organization Address City/State/Zipcode Phone Number [facility] [address] [place] [address] * CT Angiogram Pe Chest (07/12/2018 12:53 AM IN HOME AIDE) Specimen Narrative Performed At EXAMINATION:CT ANGIOGRAM PE CHEST RADIANT CLINICAL HISTORY: PE suspectedintermediate probpositive D-dimer TECHNIQUE:CT angiographic images of the chest were obtained during intravenous administration of iodinated contrast. Computerized reformatted images and 3-D MIP images were also obtained and archived (CT pulmonary embolus protocol).CT scans are performed using radiation dose reduction techniques.Technical factors are evaluated and adjusted to ensure appropriate moderation of exposure.Automated dose management technology is applied to adjust radiation exposure while achieving a diagnostic quality image. COMPARISON:None. Findings: There are no filling defects within the pulmonary arterial system to suggest a pulmonary embolus. Evaluation for dissection is not possible on this phase of contrast. No consolidation or pleural effusion is seen. No pulmonary mass or nodule is seen. No mediastinal hematoma or lymphadenopathy is seen. Visualized upper abdomen shows no acute abnormality. Patient is status post cholecystectomy. IMPRESSION: 1. No evidence of pulmonary embolus. No acute abnormality identified in the chest. [facility]-[id number] Procedure Note Interface, Radiology Results Incoming - 07/12/2018 1:02 AM IN HOME AIDE EXAMINATION: CT ANGIOGRAM PE CHEST CLINICAL HISTORY: PE suspected intermediate prob positive D-dimer TECHNIQUE: CT angiographic images of the chest were obtained during intravenous administration of iodinated contrast. Computerized reformatted images and 3-D MIP images were also obtained and archived (CT pulmonary embolus protocol). CT scans are performed using radiation dose reduction techniques. Technical factors are evaluated and adjusted to ensure appropriate moderation of exposure. Automated dose management technology is applied to adjust radiation exposure while achieving a diagnostic quality image. COMPARISON: None. Findings: There are no filling defects within the pulmonary arterial system to suggest a pulmonary embolus. Evaluation for dissection is not possible on this phase of contrast. No consolidation or pleural effusion is seen. No pulmonary mass or nodule is seen. No mediastinal hematoma or lymphadenopathy is seen. Visualized upper abdomen shows no acute abnormality. Patient is status post cholecystectomy. IMPRESSION: 1. No evidence of pulmonary embolus. No acute abnormality identified in the chest. [facility]-[id number] Performing Organization Address City/[facility]/[place] [address] * Lipase level (07/11/2018 11:48 PM IN HOME AIDE) [facility] Lipase 41 13 - 60 U/L [facility] Specimen Plasma specimen Performing Organization Address City/[facility] Phone Number [facility] DEPARTMENT OF [address] [place] [address] PATHOLOGY AND [facility] MEDICINE [address] * Respiratory pathogen panel (07/11/2018 8:30 PM IN HOME AIDE) [facility] Respiratory Negative for all pathogens [facility] pathogen panel tested: [facility] Negative for Adenovirus [facility] Negative for Coronavirus HKU1 Negative for Coronavirus NL63 Negative for Coronavirus 229E Negative for Coronavirus OC43 Negative for Human Metapneumovirus Negative for Rhinovirus/Enterovirus Negative for Influenza A Negative for Influenza A/H1 Negative for Influenza A/H3 Negative for Influenza A/H1-2009 Negative for Influenza B Negative for Parainfluenza Virus 1 Negative for Parainfluenza Virus 2 Negative for Parainfluenza Virus 3 Negative for Parainfluenza Virus 4 Negative for Respiratory Syncytial Virus Negative for Bordetella pertussis Negative for Chlamydophila pneumoniae Negative for Mycoplasma pneumoniae This real-time PCR assay detects the presence of nucleic acids (RNA or DNA) for the respiratory pathogens listed. A result of "Not-detected" does not exclude the possibility of the presence of one or more pathogens at concentrations less than the detectable limits of the assay. Comment: Specimen Information Specimen Source: Nares Specimen Site: Right Specimen Nares - Right Performing Organization Address City/[facility]/Zipcode Phone Number [facility] DEPARTMENT OF [address] [place] [address] PATHOLOG[address] * Influenza antigen test, reflex negative to RPP (07/11/2018 8:30 PM IN HOME AIDE) [facility] Influenza Negative for Influenza A/B [facility] antigen antigen. [facility] Comment: HOSPITAL Specimen Information Specimen Source: Nares Specimen Site: Right Specimen Nares - Right Performing Organization Address [facility]/Zipcode Phone Number [facility] DEPARTMENT OF [address] [place] [address] PATHOLOGY AND [facility] MEDICINE [address] * Blood culture, aerobic & anaerobic (07/11/2018 8:30 PM IN HOME AIDE) Only the most recent of 2 results within the time period is included. Pathologist [facility] Blood culture No growth after 5 days of [place] [facility] isolate incubation. [facility] Comment: HOSPITAL Specimen Information Specimen Source: Blood Specimen Site: Antecubital, left Specimen Blood - Antecubital, left Performing Organization Address [facility]ode Phone Number [facility] [place] [address] PATHOLOGY AND [facility] MEDICINE [place] [facility] [address] * Partial thromboplastin time, activated (07/11/2018 8:30 PM IN HOME AIDE) Pathologist [facility] PTT 28.3 23.0 - 36.0 sec [facility] Comment: [facility] PTT therapeutic range for HOSPITAL unfractionated heparin is 61.0-112.0 seconds which corresponds to Anti-Xa 0.3-0.7 U/ml. Specimen Blood Performing Organization Address [facility] Phone Number [facility] DEPARTMENT OF [address] [place] [address] PATHOLOGY AND [facility] MEDICINE [address] * Prothrombin time with INR (07/11/2018 8:30 PM IN HOME AIDE) Pathologist [facility] Prothrombin 12.8 11.5 - 14.5 sec [facility] INR 1.0 [facility] Comment: [facility] The International Normalized HOSPITAL Ratio (INR) is a therapeutic monitoring tool for patients who are stable on oral anticoagulant therapy. An INR of 2.0-3.0 is suggested for deep vein thrombosis/pulmonary embolism. Specimen Blood Performing Organization Address [facility]/Zipcode Phone Number [facility] [place] [address] PATHOLOGY AND [facility] MEDICINE [address] * CBC with platelet and differential (07/11/2018 8:30 PM IN HOME AIDE) [facility] WBC 9.57 4.50 - 11.00 k/uL [facility] RBC 5.16 4.40 - 6.00 m/uL [facility] HGB 16.8 14.0 - 18.0 g/dL [facility] HCT 49.0 41.0 - 51.0 % [facility] MCV 95.0 82.0 - 100.0 fL [facility] MCH 32.6 27.0 - 34.0 pg [facility] MCHC 34.3 31.0 - 37.0 g/dL [facility] RDW - SD 45.2 37.0 - 55.0 fL [facility] MPV 11.3 8.8 - 13.2 fL [facility] Platelet count 195 150 - 400 k/uL [facility] Nucleated RBC 0.00 /100 WBC [facility] Neutrophils 68.3 39.0 - 69.0 % [facility] Lymphocytes 17.5 (L) 25.0 - 45.0 % [facility] Monocytes 9.7 0.0 - 10.0 % [facility] Eosinophils 4.0 0.0 - 5.0 % [facility] Basophils 0.2 0.0 - 1.0 % [facility] Immature 0.3Comment: "Immature 0.0 - 1.0 % [facility] granulocytes granulocytes" (promyelocytes, [facility] myelocytes, metamyelocytes) [facility] Specimen Blood Performing Organization Address City/State/Zipcode Phone Number [facility] DEPARTMENT OF [address] [place] [address] PATHOLOGY AND GENOMIC MEDICINE [address] * XR Chest 2 Vw (07/11/2018 8:26 PM IN HOME AIDE) Specimen Narrative Performed At EXAMINATION: XR CHEST 2 VW RADIANT CLINICAL HISTORY: chest pain COMPARISON:None. IMPRESSION: The lungs are clear. No pleural effusion or pneumothorax. The cardiomediastinal silhouette is normal. Mediastinal clips are noted. Thoracic aorta atherosclerotic calcifications. Diffuse osteopenia. Status post median sternotomy. Degenerative spine changes. No acute osseous abnormalities. [facility]-[id number] Procedure Note Interface, Radiology Results Incoming - 07/11/2018 8:31 PM IN HOME AIDE EXAMINATION: XR CHEST 2 VW CLINICAL HISTORY: chest pain COMPARISON: None. IMPRESSION: The lungs are clear. No pleural effusion or pneumothorax. The cardiomediastinal silhouette is normal. Mediastinal clips are noted. Thoracic aorta atherosclerotic calcifications. Diffuse osteopenia. Status post median sternotomy. Degenerative spine changes. No acute osseous abnormalities. [facility]-[id number] Performing Organization Address City/State/Zipcode Phone Number DEYANIRA GARCIA [address] [place] [address] * ECG ED Preliminary Interpretation - Not an Order (07/11/2018 8:11 PM IN HOME AIDE) Narrative Performed At Armen Ruggiero MD 07/14/20181:39 AM ECG ED Preliminary Interpretation - Not an Order Performed by: Armen Ruggiero MD Authorized by: Armen Ruggiero MD ECG reviewed by ED Physician in the absence of a header up: yes Previous ECG: Previous ECG:Unavailable Interpretation: Interpretation: abnormal Rate: ECG rate:64 ECG rate assessment: normal Rhythm: Rhythm: sinus rhythm Conduction: Conduction: abnormal Abnormal conduction: incomplete RBBB ST segments: ST segments:Non-specific T waves: T waves: normal * Comprehensive metabolic panel (07/11/2018 8:11 PM IN HOME AIDE) Sodium 137 135 - 148 mEq/L [facility] Potassium 3.8 3.5 - 5.0 mEq/L [facility] Chloride 95 (L) 98 - 112 mEq/L [facility] CO2 27 24 - 31 mEq/L [facility] Anion gap 15@ANIO 7 - 15 mEq/L [facility] BUN 19 8 - 23 mg/dL [facility] Creatinine 0.93 0.70 - 1.20 mg/dL [facility] Glucose 134 (H) 65 - 99 mg/dL [facility] Calcium 9.7 8.8 - 10.2 mg/dL [facility] Protein 7.6 6.3 - 8.3 g/dL [facility] Comment: [facility] 4.6-7.0 g/dL 1 week 4.4-7.6 g/dL 7 months-1year 5.1-7.3 g/dL 1-2 years5.6-7 .5 g/dL >3 years6.0-8 .0 g/dL 18-150 6.3-8.3 g/dL Albumin 3.9 3.5 - 5.0 g/dL [facility] A/G ratio 1.1 0.7 - 3.8 [facility] Alkaline 92 40 - 129 U/L [facility] AST 29 10 - 50 U/L [facility] ALT 31 5 - 50 U/L [facility] Total bilirubin 0.3 0.0 - 1.2 mg/dL [facility] Specimen Plasma specimen Performing Organization Address City/State/Zipcode Phone Number [facility] DEPARTMENT OF [address] [place] [address] PATHOLOGY AND GENOMIC MEDICINE [address] [address] HOSPITAL after 01/10/2018 Insurance Type Payer Benefit Subscriber ID Effective Phone Address Plan / Dates Group HMO AETNA MEDICARE AETNA xxxxxxxx [id number] MEDICARE resent HMO/PPO [facility] Advance Directives Patient has advance care planning documents on file. For more information, mike preciaod contact: Stephen Lux [address] [place] [id number]
--- OUTSIDE RECORDS SUMMARY | 2019-01-11 06:16 | XMS REPORT | Continuity of Care Document ---
Author Author [employer] Address Unknown Phone Unavailable Care Team Providers Care Pipe Line Inspector Name Role Phone [employer] Unavailable Unavailable Problems Problem Status Onset Date Classification Date Reported Comments Source Heart failure Active 06/11/2018 11/07/2018 [facility] Cataract Active 04/14/2017 11/07/2018 [facility] Glaucoma suspect Active 10/21/2016 11/07/2018 [facility] Iron deficiency anemia Active 07/02/2015 11/07/2018 [facility] Constipation Active 07/02/2015 11/07/2018 [facility] Tinea versicolor Active 05/22/2015 11/07/2018 [facility] S/P CABG Active 03/19/2015 11/07/2018 [facility] Ischemic cardiomyopathy Active 03/19/2015 11/07/2018 [facility] 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 11/07/2018 [facility] Severe left ventricular systolic dysfunction Active 03/19/2015 11/07/2018 [facility] Abdominal pain Active 03/16/2015 11/07/2018 [facility] SOB Active 03/16/2015 11/07/2018 [facility] CAD, multiple vessel Active 03/16/2015 11/07/2018 [facility] HTN Active 03/16/2015 11/07/2018 [facility] HLD Active 03/16/2015 11/07/2018 [facility] Acute systolic CHF Active 11/07/2018 [facility] Acute on chronic systolic heart failure Active 11/07/2018 [facility] Cough Active 11/07/2018 [facility] QUINTANA Active 11/07/2018 [facility] History of itching of eye Active 11/07/2018 [facility] Seasonal allergic conjunctivitis Active 11/07/2018 [facility] Ocular hypertension, bilateral Active 11/07/2018 [facility] Essential hypertension Active 11/07/2018 [facility] Pruritus of genital organs Active 11/07/2018 [facility] Seasonal allergic rhinitis due to other allergic trigger Active 11/07/2018 [facility] Mixed hyperlipidemia Active 11/07/2018 [facility] Gastroesophageal reflux disease without esophagitis Active 11/07/2018 [facility] Medications Medication Details Route Status Patient Instructions Ordering Provider Order Date Source budesonide-formoterol (SYMBICORT) 160-4.5 mcg/actuation inhaler Inhale 2 Puffs by mouth 2 times daily. Inhalation Active 06/12/2018 [facility] latanoprost (XALATAN) 0.005 % ophthalmic solution Instill 1 Drop in each eye at bedtime nightly. Active 06/12/2018 [facility] lisinopril (ZESTRIL) 40 mg tablet Take 1 tablet by mouth daily. Oral Active 06/12/2018 [facility] loratadine (CLARITIN) 10 mg tablet Take 1 tablet by mouth daily. Oral Active 06/12/2018 [facility] aspirin (ASPIRIN) 81 mg chewable tablet Chew and swallow 1 tablet by mouth daily. Active 06/12/2018 [facility] brimonidine (ALPHAGAN P) 0.15 % ophthalmic solution Instill 1 Drop in each eye 2 times daily. Active 06/12/2018 [facility] carvedilol (COREG) 25 mg tablet Take 1 tablet by mouth 2 times daily (with meals). Oral Active 06/12/2018 [facility] furosemide (LASIX) 40 mg tablet Take 1 tablet by mouth 2 times daily. Oral Active 06/12/2018 [facility] rosuvastatin (CRESTOR) 40 mg tablet Take 1 tablet by mouth at bedtime nightly. Oral Active 06/12/2018 [facility] dexlansoprazole (DEXILANT) 30 mg delayed release capsule Take 1 capsule by mouth daily. Oral Active 06/12/2018 [facility] albuterol (PROVENTIL) 2.5 mg /3 mL (0.083 %) nebulizer solution Inhale 3 mL by mouth every 4 hours as needed for Wheezing. Inhalation Active 06/12/2018 [facility] furosemide (LASIX) 40 mg tablet Take 1 tablet by mouth 2 times daily. Oral No Longer Active 05/17/2017 [facility] hydrocortisone 2.5 % ointment Apply to affected area 2 times daily. Topical No Longer Active 05/17/2017 [facility] latanoprost (XALATAN) 0.005 % ophthalmic solution Instill 1 Drop in each eye at bedtime nightly. No Longer Active 04/14/2017 [facility] rosuvastatin (CRESTOR) 40 mg tablet Take 1 tablet by mouth at bedtime nightly. Oral No Longer Active 03/30/2017 [facility] lisinopril (ZESTRIL) 40 mg tablet Take 1 tablet by mouth daily. Oral No Longer Active 12/14/2016 [facility] ketoconazole (NIZORAL) 2 % topical cream Apply to affected area daily. Topical No Longer Active 12/14/2016 [facility] latanoprost (XALATAN) 0.005 % ophthalmic solution Instill 1 Drop in each eye at bedtime nightly. No Longer Active 08/25/2016 [facility] brimonidine (ALPHAGAN P) 0.15 % ophthalmic solution Instill 1 Drop in each eye 2 times daily. No Longer Active 08/25/2016 [facility] carvedilol (COREG) 25 mg tablet Take 1 tablet by mouth 2 times daily (with meals). Oral No Longer Active 07/14/2016 [facility] loratadine (CLARITIN) 10 mg tablet Take 1 tablet by mouth daily. Oral No Longer Active 04/21/2016 [facility] polyethylene glycol (GOLYTELY) 236-22.74-6.74 -5.86 gram oral solution Add lukewarm drinking water to the fill cole (4 liters) and shake. Drink as directed by your doctor.. No Longer Active 12/11/2015 [facility] azelastine (OPTIVAR) 0.05 % ophthalmic solution Instill 1 Drop in each eye 2 times daily. Active 09/11/2015 [facility] dexlansoprazole (DEXILANT) 30 mg delayed release capsule Take 1 capsule by mouth daily. Oral No Longer Active 09/11/2015 [facility] budesonide-formoterol (SYMBICORT) 160-4.5 mcg/actuation inhaler Inhale 2 Puffs by mouth 2 times daily. Inhalation No Longer Active 09/08/2015 [facility] rivaroxaban (XARELTO) 20 mg tablet Take 1 tablet by mouth daily (with dinner). Oral No Longer Active 05/19/2015 [facility] aspirin (ASPIRIN) 81 mg chewable tablet Chew and swallow 1 tablet by mouth daily. No Longer Active 03/19/2015 [facility] Allergies, Adverse Reactions, Alerts No Known Medication Allergies Immunizations Immunization Date Given Site Status Last Updated Comments Source Influenza Vaccine, Seasonal, Injectable 05/17/2017 completed [facility] Influenza Vaccine 04/21/2016 completed [facility] Tdap Tetanus, diphtheria, acellular pertussis Vaccine 10/09/2015 completed [facility] Influenza Vaccine 05/22/2015 completed [facility] PPV 23 Pneumococcal Polysaccaride 04/02/2015 completed [facility] Herpes Zoster Vaccine In Clinic 04/02/2015 completed [facility] Results Order Name Results Value Reference Range Date Interpretation Comments Source 12 LEAD EKG 12 LEAD EKG FOR [facility] Test Date:2018-07-09 Pat Name: JACKIE CAREY Department: 5520 : Gender: MTechnician: [id number] :1950 Requested By: RAMONA FREIRE Order Number: [id number] MD: Yobani Arora M.D. Measurements IntervalsAxis Rate: 92 P:50 WY: 173QRS:115 QRSD: 162T:48 QT: 376 QTc:467 Interpretive Statements SINUS RHYTHM POSSIBLE LEFT ATRIAL ENLARGEMENT INDETERMINATE AXIS RIGHT BUNDLE BRANCH BLOCK Electronically Signed On 07-09-2018 14:05:50 SAND CUTTER OPERATOR by Yobani Arora M.D. 07/09/2018 [facility] HIV-1/HIV-2 ROUTINE SCREENING HIV-1/HIV-2 Negative NEG 07/09/2018 [facility] POCT BNP (BRAIN NATRIURETIC PEPTIDE) B Natr Pept POC 853 0 - 100 07/09/2018 [facility] POCT BNP (BRAIN NATRIURETIC PEPTIDE) Lab Interpretation Abnormal 07/09/2018 [facility] LIPASE Lipase 12 11 - 82 07/09/2018 [facility] LIVER PROFILE T Protein 6.7 6 - 8.3 07/09/2018 [facility] LIVER PROFILE Albumin 4.2 4.2 - 5.5 07/09/2018 [facility] LIVER PROFILE T Bilirubin 0.8 0.2 - 1.2 07/09/2018 [facility] LIVER PROFILE Alk Phos 59 34 - 104 07/09/2018 [facility] LIVER PROFILE AST 38 13 - 39 07/09/2018 [facility] LIVER PROFILE ALT 31 7 - 52 07/09/2018 [facility] LIVER PROFILE D Bilirubin 0.2 0 - 0.2 07/09/2018 [facility] CBC/DIFF WBC 11.7 4.5 - 12 07/09/2018 [facility] CBC/DIFF RBC 4.97 4.60 - 6.20 07/09/2018 [facility] CBC/DIFF Hemoglobin 15.9 14 - 18 07/09/2018 [facility] CBC/DIFF Hematocrit 47.0 40 - 54 07/09/2018 [facility] CBC/DIFF MCV 95 82 - 92 07/09/2018 [facility] CBC/DIFF MCH 32.0 27 - 31 07/09/2018 [facility] CBC/DIFF MCHC 33.8 32 - 36 07/09/2018 [facility] CBC/DIFF RDW 45.4 35.1 - 43.9 07/09/2018 [facility] CBC/DIFF Platelet 228 150 - 400 07/09/2018 [facility] CBC/DIFF Mean Platelet Volume 11.2 9.4 - 12.4 07/09/2018 [facility] CBC/DIFF Percent NRBC 0.0 07/09/2018 [facility] CBC/DIFF Absolute NRBC 0.00 07/09/2018 [facility] CBC/DIFF Neutrophil 81.6 34 - 67.9 07/09/2018 [facility] CBC/DIFF Lymphocyte 10.4 21.8 - 50 07/09/2018 [facility] CBC/DIFF Monocyte 5.1 5.3 - 12 07/09/2018 [facility] CBC/DIFF Eosinophil 2.1 0.8 - 5 07/09/2018 [facility] CBC/DIFF Basophil 0.3 0.2 - 1.2 07/09/2018 [facility] CBC/DIFF Pct Immat Gran 0.5 0.0 - 0.5 07/09/2018 [facility] CBC/DIFF Neutrophil, Abs 9.58 1.78 - 5.36 07/09/2018 [facility] CBC/DIFF Lymphocyte, Abs 1.22 1.32 - 3.57 07/09/2018 [facility] CBC/DIFF Monocyte, Abs 0.60 0.3 - 0.82 07/09/2018 [facility] CBC/DIFF Eosinophil, Abs 0.25 0.04 - 0.54 07/09/2018 [facility] CBC/DIFF Basophil, Abs 0.03 0.01 - 0.08 07/09/2018 [facility] CBC/DIFF Absol Immat Gran 0.06 0 - 0.03 07/09/2018 [facility] CBC/DIFF Lab Interpretation Abnormal 07/09/2018 [facility] TROPONIN I POC Troponin POC 0.02 0 - 0.08 07/09/2018 [facility] POC CO2 POC 25 21 - 32 07/09/2018 [facility] POC Chloride POC 95 98 - 107 07/09/2018 [facility] POC Potassium POC 4.5 3.5 - 5.1 07/09/2018 [facility] POC Sodium POC 131 136 - 145 07/09/2018 [facility] POC Glucose POC 144 74 - 106 07/09/2018 [facility] POC Urea Nitrogen POC 14 7 - 18 07/09/2018 [facility] POC Creatinine POC 0.7 0.6 - 1.3 07/09/2018 [facility] POC Calcium Ionized POC 1.17 1.15 - 1.29 07/09/2018 [facility] POC Hemoglobin POC 17.3 14 - 18 07/09/2018 [facility] POC Hematocrit POC 51.0 40 - 54 07/09/2018 [facility] POC GFR, Estimated >60 mL/min/1.73 m2 07/09/2018 [facility] POC GFR, Estim, Afr-Am >60 mL/min/1.73 m2 07/09/2018 [facility] POC Lab Interpretation Abnormal 07/09/2018 [facility] GLUCOSE POC Glucose POC 88 74 - 106 06/12/2018 [facility] BASIC METABOLIC PANEL CO2 27 21 - 31 06/12/2018 [facility] BASIC METABOLIC PANEL Chloride 93 98 - 107 06/12/2018 [facility] BASIC METABOLIC PANEL Potassium 3.9 3.5 - 5.1 06/12/2018 [facility] BASIC METABOLIC PANEL Sodium 133 136 - 145 06/12/2018 [facility] BASIC METABOLIC PANEL Glucose 105 70 - 110 06/12/2018 [facility] BASIC METABOLIC PANEL Urea Nitrogen 30 7 - 25 06/12/2018 [facility] BASIC METABOLIC PANEL Creatinine 1.10 0.7 - 1.3 06/12/2018 [facility] BASIC METABOLIC PANEL Anion Gap 13 06/12/2018 [facility] BASIC METABOLIC PANEL Calcium 9.6 8.6 - 10.3 06/12/2018 [facility] METABOLIC PANEL GFR, Estimated >60 mL/min/1.73 m2 06/12/2018 [facility] BASIC METABOLIC PANEL GFR, Estim, Afr-Am >60 mL/min/1.73 m2 06/12/2018 [facility] BASIC METABOLIC PANEL Lab Interpretation Abnormal 06/12/2018 [facility] PT/INR/PTT PT 13.8 11.8 - 15.0 06/12/2018 [facility] PT/INR/PTT INR 1.1 SUGGESTED THERAPEUTIC RANGES: INR 2.0-3.0 for MODERATE INTENSITY ANTICOAGULATION INR 2.5-3.5 for HIGH INTENSITY ANTICOAGULATION 06/12/2018 [facility] PT/INR/PTT PTT 36.9 23.6 - 36.4 06/12/2018 [facility] PT/INR/PTT Lab Interpretation Abnormal 06/12/2018 [facility] PT/INR PT 13.1 11.8 - 15.0 06/12/2018 [facility] PT/INR INR 1.0 SUGGESTED THERAPEUTIC RANGES: INR 2.0-3.0 for MODERATE INTENSITY ANTICOAGULATION INR 2.5-3.5 for HIGH INTENSITY ANTICOAGULATION 06/12/2018 [facility] TRANSTHORACIC ECHO (TTE) TRANSTHORACIC ECHO (TTE) Transthoracic Echo Report JACKIE CAREY Age:67 Gender: M :1950 Exam Date: 06/11/2018 07:24 Exam Location: [facility] Echo Ordering Phys: JUAN F SEGURA Referring Phys: Reading Phys:Sherly Manning MD Fellow Phys: Karoline Gomez M.D. Fellow Phys: It Specialist: Jeremías Wilkinson Reason For Exam: Indications:Stroke, Transient cerebral ischemic attack, unspecified ICD-9 Codes: I67.89G45.9 Exam Type: TRANSTHORACIC ECHO (TTE) Procedure CPT:49767 Addtional CPT: Ht (in): 67 BSA: 1.84HR: [...] BSA 2D ECHO LV Diastolic Diameter PLAX5.1 cm4.2-5.8 (M) / 3.8-5.2 (F) LV Systolic Diameter PLAX 4.6 cm2.5-4.0 (M) / 2.2-3.5 (F) LV Fractional Shortening PLAX 10.1 % IVS Diastolic Thickness 1.1 cm0.6-1.0 (M) / 0.6-0.9 (F) LVPW Diastolic Thickness1 cm0.6-1.0 (M) / 0.6-0.9 (F) LV Relative Wall Thickness0.41<=0.42 LVOT Diameter 2.4 cm Aortic Root Diameter3.2 cm LV Diastolic Volume MOD BP228 cm 62-150 cm (M) / 46-106 cm (F) LV Systolic Volume MOD BP 169 cm 21-61 cm (M) / 14-42 cm (F) LV Ejection Fraction MOD BP 25.9 %52-72 (M) / 54-74 (F) LV Stroke Volume MOD BP 58.9 cm LV Cardiac Output MOD MS8520 cm/min LV Cardiac Index MOD BP 2437 cm/minm LA Volume 97.3 cm LA Volume Index 53 cm/m 16 - 34 cm/m RV Diastolic Basal Diameter 3.4 cm2.5 - 4.1 cm LV Mass by linear g LV Mass by linear method Qtivz588 g/m DOPPLER AV Peak Jpmszyrg009 cm/s AV Peak Nusgehwe98.1 mmHg AV Mean Egkjcggf39.8 cm/s AV Mean Gradient3.7 mmHg AV Velocity Time Integral 31.5 cm LVOT Peak Xrfejmnk96.8 cm/s LVOT Peak Gradient1.2 mmHg LVOT Mean Mzxgxdnc51.1 cm/s LVOT Mean Gradient0.47 mmHg LVOT Velocity Time Integral 10.9 cm LVOT Stroke Fyvcvo76.4 cm AV Area Cont Eq vti 1.5 cm AV Area Cont Eq pk1.5 cm Mitral E Point Velocity 90.7 cm/s Mitral A Point Velocity 28.1 cm/s Mitral E to A Ratio 3.2 LV E' Lateral Velocity9.9 cm/s Mitral E to LV E' Lateral [...] 13:41 2D ECHO LV Diastolic Diameter PLAX5.1 cm4.2-5.8 (M) / 3.8-5.2 (F) LV Systolic Diameter PLAX 4.6 cm2.5-4.0 (M) / 2.2-3.5 (F) LV Fractional Shortening PLAX 10.1 % IVS Diastolic Thickness 1.1 cm0.6-1.0 (M) / 0.6-0.9 (F) LVPW Diastolic Thickness1 cm0.6-1.0 (M) / 0.6-0.9 (F) LV Relative Wall Thickness0.41<=0.42 LVOT Diameter 2.4 cm Aortic Root Diameter3.2 cm LV Diastolic Volume MOD BP228 cm 62-150 cm (M) / 46-106 cm (F) LV Systolic Volume MOD BP 169 cm 21-61 cm (M) / 14-42 cm (F) LV Ejection Fraction MOD BP 25.9 %52-72 (M) / 54-74 (F) LV Stroke Volume MOD BP 58.9 cm LV Cardiac Output MOD GE8193 cm/min LV Cardiac Index MOD BP 2437 cm/minm LA Volume 97.3 cm LA Volume Index 53 cm/m 16 - 34 cm/m RV Diastolic Basal Diameter 3.4 cm2.5 - 4.1 cm LV Mass by linear egetii624 g LV Mass by linear method Yjbow544 g/m DOPPLER AV Peak Npoqviam454 cm/s AV Peak Czpsqkjl51.1 mmHg AV Mean Xsfgxgpk83.8 cm/s AV Mean Gradient3.7 mmHg AV Velocity Time Integral 31.5 cm LVOT Peak Pasdfdgr79.8 cm/s LVOT Peak Gradient1.2 mmHg LVOT Mean Xzfvjghw76.1 cm/s LVOT Mean Gradient0.47 mmHg LVOT Velocity Time Integral 10.9 cm LVOT Stroke Mixiiw72.4 cm AV Area Cont Eq vti 1.5 cm AV Area Cont Eq pk1.5 cm Mitral E Point Velocity 90.7 cm/s Mitral A Point Velocity 28.1 cm/s Mitral E to A Ratio 3.2 LV E' Lateral Velocity9.9 cm/s Mitral E to LV E' Lateral Ratio 9.1 LV E' Septal Velocity 4.5 cm/s Mitral E to LV E' Septal Ratio20.3 06/11/2018 [facility] MAGNESIUM Magnesium 1.8 1.9 - 2.7 06/11/2018 [facility] MAGNESIUM Lab Interpretation Abnormal 06/11/2018 [facility] HEMOGLOBIN A1C Hemoglobin A1c 5.8 4.3 - 6.1 06/10/2018 [facility] HEMOGLOBIN A1C Est Average Gluc 119.8 06/10/2018 [facility] TSH TSH 1.82 0.57 - 3.74 06/10/2018 [facility] CORTISOL, TOTAL Cortisol, Total 12.1 3.44 - 22.45 06/10/2018 [facility] LIPID PROFILE Cholesterol 291 06/10/2018 REFERENCE RANGE:
Desirable: <200 mg/dL
Borderline: 200-240 mg/dL
High Risk: >240 mg/dL

[facility] LIPID PROFILE Triglyceride 156 <150 06/10/2018 REFERENCE RANGE:
Normal: <150 mg/dL
Borderline High: 150-199 mg/dL
High: 200-499 mg/dL
Very High: >an=608 mg/dL

[facility] LIPID PROFILE HDL 60 06/10/2018 Increased CHD risk: <40 mg/dL
Decreased CHD risk: >60 mg/dL

[facility] LIPID PROFILE LDL 200 06/10/2018 REFERENCE RANGE:
Optimal: <100 mg/dL
Near Optimal: 100-129 mg/dL
Borderline High: 130-159 mg/dL
High: 160-189 mg/dL
Very High: >wt=044 mg/dL

[facility] LIPID PROFILE Lab Interpretation Abnormal 06/10/2018 [facility] TROPONIN I Troponin I 0.06 <0.04 06/10/2018 [facility] TROPONIN I Lab Interpretation Abnormal 06/10/2018 [facility] 12 LEAD EKG 12 LEAD EKG FOR [facility] Test Date:2018-06-10 Pat Name: [facility] Department: 5GMS : Gender: MTechnician: [id number] :1950 Requested By: JUAN F SEGURA Order Number: [id number] MD: Yobani Arora M.D. Measurements IntervalsAxis Rate: 72 P:66 WY: 197QRS:228 QRSD: 177T:79 QT: 508 QTc:557 Interpretive Statements SINUS RHYTHM WITH OCCASIONAL VENTRICULAR PREMATURE COMPLEXES RIGHT BUNDLE BRANCH BLOCK AND POSSIBLE RIGHT VENTRICULAR HYPERTROPHY [RBBB, 1.5 mV R IN V1, RAD] LEFT POSTERIOR FASCICULAR BLOCK [QRS AXIS > 109, INFERIOR Q] SEPTAL MYOCARDIAL INFARCTION [40+ ms Q WAVE IN V1/V2], OF INDETERMINATE AGE Electronically Signed On 06-10-2018 5:31:46 SAND CUTTER OPERATOR by Yobani Arora M.D. 06/10/2018 [facility] 12 LEAD EKG 12 LEAD EKG FOR [facility] Test Date:2018-06-09 Pat Name: [facility] Department: 5520 : 5G02 Gender: MTechnician: [id number] :1950 Requested By: JUAN F SEGURA Order Number: [id number] MD: Yobani Arora M.D. Measurements IntervalsAxis Rate: 68 P:49 WY: 192QRS:225 QRSD: 165T:89 QT: 473 QTc:506 Interpretive Statements SINUS RHYTHM POSSIBLE LEFT ATRIAL ENLARGEMENT [-0.1mV P WAVE IN V1/V2] INDETERMINATE AXIS RIGHT BUNDLE BRANCH BLOCK AND POSSIBLE RIGHT VENTRICULAR HYPERTROPHY [RBBB, 1.5 mV R IN V1, RAD] ANTEROSEPTAL MYOCARDIAL ISCHEMIA [40+ ms Q WAVE IN V1-V4], OF INDETERMINATE AGE Reviewed by Electronically Signed On 06-10-2018 5:31:41 SAND CUTTER OPERATOR by Yobani Arora M.D. 06/10/2018 [facility] OSMOLALITY, UR Osmolality, Ur 190 50 - 1400 06/10/2018 Test performed at [facility]. [facility] OSMOLALITY Osmolality 265 280 - 301 06/10/2018 Test performed at [facility]. [facility] OSMOLALITY Lab Interpretation Abnormal 06/10/2018 [facility] FREE T4 Free T4 0.92 0.61 - 1.18 06/10/2018 [facility] D-DIMER D-Dimer 2.21 ug/mL,FEU 06/10/2018 Values of quantitative d-Dimer less than 0.40 ug/mL FEU have been reported to
be associated with a low probability of deep vein thrombosis/pulmonary
embolism. This test alone should not be used to rule out DVT/PE.

[facility] ELECTROLYTES, UR Sodium, Ur 65 40 - 220 06/10/2018 [facility] ELECTROLYTES, UR Potassium, Ur 16 25 - 125 06/10/2018 [facility] ELECTROLYTES, UR Chloride, Ur 75 110 - 250 06/10/2018 [facility] ELECTROLYTES, UR Lab Interpretation Abnormal 06/10/2018 [facility] UA CHEMISTRIES Color Colorless 06/10/2018 [facility] UA CHEMISTRIES Clarity Clear 06/10/2018 [facility] UA CHEMISTRIES Spec [place] 1.004 1.001 - 1.035 06/10/2018 [facility] UA CHEMISTRIES pH 6.0 5 - 8 06/10/2018 [facility] UA CHEMISTRIES Protein Negative NEG 06/10/2018 [facility] UA CHEMISTRIES Glucose Negative NEG 06/10/2018 [facility] UA CHEMISTRIES Ketone Negative NEG 06/10/2018 [facility] UA CHEMISTRIES Bilirubin Negative NEG 06/10/2018 [facility] UA CHEMISTRIES Nitrate Negative NEG 06/10/2018 [facility] UA CHEMISTRIES Urobilinogen <1.0 0.2 - 1 06/10/2018 [facility] UA CHEMISTRIES Leukocyte Negative NEG 06/10/2018 [facility] UA CHEMISTRIES Blood Negative NEG 06/10/2018 [facility] CK, TOTAL CK, Total 99 30 - 223 06/10/2018 CKMB not performed if CK <100, if CKMB is required, please notify laboratory
immediately.

[facility] COMPREHENSIVE METABOLIC PANEL(DBIL NOT INCLUDED) Albumin 4.3 4.2 - 5.5 06/10/2018 [facility] COMPREHENSIVE METABOLIC PANEL(DBIL NOT INCLUDED) Calcium 9.5 8.6 - 10.3 06/10/2018 [facility] COMPREHENSIVE METABOLIC PANEL(DBIL NOT INCLUDED) CO2 26 21 - 31 06/10/2018 [facility] COMPREHENSIVE METABOLIC PANEL(DBIL NOT INCLUDED) Chloride 87 98 - 107 06/10/2018 [facility] METABOLIC PANEL(DBIL NOT INCLUDED) Creatinine 0.80 0.7 - 1.3 06/10/2018 [facility] COMPREHENSIVE METABOLIC PANEL(DBIL NOT INCLUDED) Glucose 100 70 - 110 06/10/2018 [facility] COMPREHENSIVE METABOLIC PANEL(DBIL NOT INCLUDED) Alk Phos 76 34 - 104 06/10/2018 [facility] COMPREHENSIVE METABOLIC PANEL(DBIL NOT INCLUDED) Potassium 4.1 3.5 - 5.1 06/10/2018 [facility] METABOLIC PANEL(DBIL NOT INCLUDED) Sodium 127 136 - 145 06/10/2018 [facility] COMPREHENSIVE METABOLIC PANEL(DBIL NOT INCLUDED) ALT 21 7 - 52 06/10/2018 [facility] COMPREHENSIVE METABOLIC PANEL(DBIL NOT INCLUDED) AST 26 13 - 39 06/10/2018 [facility] COMPREHENSIVE METABOLIC PANEL(DBIL NOT INCLUDED) Urea Nitrogen 16 7 - 25 06/10/2018 [facility] COMPREHENSIVE METABOLIC PANEL(DBIL NOT INCLUDED) T Bilirubin 1.2 0.2 - 1.2 06/10/2018 [facility] COMPREHENSIVE METABOLIC PANEL(DBIL NOT INCLUDED) T Protein 7.1 6 - 8.3 06/10/2018 [facility] COMPREHENSIVE METABOLIC PANEL(DBIL NOT INCLUDED) GFR, Estimated >60 mL/min/1.73 m2 06/10/2018 [facility] METABOLIC PANEL(DBIL NOT INCLUDED) GFR, Estim, Afr-Am >60 mL/min/1.73 m2 06/10/2018 [facility] COMPREHENSIVE METABOLIC PANEL(DBIL NOT INCLUDED) Anion Gap 14 06/10/2018 [facility] COMPREHENSIVE METABOLIC PANEL(DBIL NOT INCLUDED) Lab Interpretation Abnormal 06/10/2018 [facility] PHOSPHORUS Phosphorus 3.8 2.5 - 5 06/10/2018 [facility] 12 LEAD EKG 12 LEAD EKG FOR [facility] Test Date:2018-06-09 Pat Name: [facility] Department: 5520 : Gender: MTechnician: [id number] :1950 Requested By: JUAN F SEGURA Order Number: [id number] MD: Yobani Arora M.D. Measurements IntervalsAxis Rate: 61 P:55 WY: 190QRS:191 QRSD: 168T:114 QT: 474 QTc:480 Interpretive Statements SINUS RHYTHM INDETERMINATE AXIS RIGHT BUNDLE BRANCH BLOCK AND POSSIBLE RIGHT VENTRICULAR HYPERTROPHY LEFT POSTERIOR FASCICULAR BLOCK SEPTAL MYOCARDIAL INFARCTION, OF INDETERMINATE AGE MODERATE T-WAVE ABNORMALITY, CONSIDER LATERAL ISCHEMIA Electronically Signed On 06-09-2018 15:49:06 SAND CUTTER OPERATOR by Yobani Arora M.D. 06/09/2018 [facility] 12 LEAD EKG 12 LEAD EKG FOR [facility] Test Date:2018-06-09 Pat Name: [facility] Department: 5520 : [facility] Gender: MTechnician: [id number] :1950 Requested By: ALOK YORK Order Number: [id number] : Yobani Arora M.D. Measurements IntervalsAxis Rate: 83 P:48 WY: 189QRS:193 QRSD: 161T:85 QT: 411 QTc:485 Interpretive Statements SINUS RHYTHM POSSIBLE LEFT ATRIAL ENLARGEMENT INDETERMINATE AXIS RIGHT BUNDLE BRANCH BLOCK ANTEROSEPTAL MYOCARDIAL INFARCTION, OF INDETERMINATE AGE Electronically Signed On 06-09-2018 15:49:03 SAND CUTTER OPERATOR by Yobani Arora M.D. 06/09/2018 [facility] POC pH, Erick POC 7.38 7.33 - 7.43 06/09/2018 [facility] POC pCO2, Erick POC 46.7 38.0 - 50.0 06/09/2018 [facility] POC pO2, Erick POC 21 50 - 75 06/09/2018 [facility] POC Base Excess, Erick [facility] 27.4 22 - 26 06/09/2018 [facility] POC % Sat, Erick POC 33 60 - 85 06/09/2018 [facility] POC Lactic Acid, Erick POC 0.82 0.4 - 2 06/09/2018 [facility] POC TCO2, ERICK POC 29 21 - 32 06/09/2018 [facility] POC Lab Interpretation Abnormal 06/09/2018 [facility] INFLUENZA A/B AND RSV PCR Influenza A Not detected 06/09/2018 [facility] INFLUENZA A/B AND RSV PCR Influenza B Not detected 06/09/2018 [facility] INFLUENZA A/B AND RSV PCR RSV PCR Not detected This test utilizes FDA cleared Rashmi mindi Influenza A/B and RSV real-time RT-PCR assay for qualitative detection and discrimination of Influenza A virus,Influenza B virus and Respiratory Syncytial virus(RSV). Additional testing is required to differentiate any specific Influenza A subtype or strains or specific RSV subgroups. 06/09/2018 [facility] INFLUENZA A/B AND RSV PCR Spec Description Nasal 06/09/2018 [facility] B NATRIURETIC PEPT B Natriuretic Pept 271 <101 06/09/2018 [facility] B NATRIURETIC PEPT Lab Interpretation Abnormal 06/09/2018 [facility] Pathology Reports No Data Provided for This Section Diagnostic Reports Report Value Date Source XRAY CHEST 2 VIEWS IMPRESSION: No acute cardiothoracic findings. Dictated By: Barry Mcfadden MD, 07/09/2018 1:21 PM I have reviewed the study and agree with the findings in this report. Signed By: Miguel Coronado MD, 07/09/2018 1:47 PM EXAM: XRAY CHEST 2 VIEWS DATE: 07/09/2018 1:07 PM INDICATION: sob COMPARISON: Chest x-ray 06/09/2018, chest CT 06/09/2018 FINDINGS: Devices, Lines, and Tubes: None. Heart and Mediastinum: Post CABG changes. Intact median sternotomywires. Mild aortic arch calcifications. Otherwise unremarkablecardiomediastinal silhouette. Lungs and Pleura: No significant pleural effusion, pneumothorax, orfocal consolidation. Bones and Soft Tissues: Mild degenerative disc changes within thethoracic spine. No acute displaced rib fracture. Upper Abdomen: Unremarkable. Interface, Rad/Mammog In - 07/09/2018 1:52 PM CSTEXAM: XRAY CHEST 2 VIEWS DATE: 07/09/2018 1:07 [...] By: Miguel Coronado MD, 07/09/2018 1:47 PM 07/09/[address] [facility] [address] CHEST PE PROTOCOL IMPRESSION: 1.No acute pulmonary embolism . 2.Mild pulmonary edema with small pleural effusions. 3.Nonspecific mediastinal lymphadenopathy, likely related tocongestive heart failure. 4.Ascending aorta ectasia. Dictated By: Harika Gomez MD, 06/09/2018 10:06 PM I have reviewed the study and agree with the findings in this report. Signed By: Aliya Maldonado MD, 06/09/2018 10:18 PM EXAM: Chest CT, PE protocol TECHNIQUE:CT scan of the chestWITH intravenous contrast, using PE protocol.Thechest was scanned utilizing a multidetector helical scanner from thelung apex through the level of the adrenal glands after the IVadministration of 100 cc of Omnipaque 300.Thin section reconstructionswere obtained with special concentration on the pulmonary arteries. Coronal and sagittal reformations were obtained. COMPARISON: Chest radiograph 06/09/2018 INDICATION: Acute shortness of breath. DISCUSSION: Vessels: No filling defects are identified within the pulmonary arteriesto the segmental level. The main pulmonary artery and the mid ascendingaorta measures 2.7 and 4.3 cm respectively. Moderate atheroscleroticcalcifications of the thoracic aorta and its major branches as well asthe coronary arteries. Lungs:Mild groundglass opacities. Bibasilar atelectasis. 4 mm solidnodule in the right upper lobe (series 5, image 150). Airways:Diffuse mild peribronchial cuffing.Otherwise normal airways. Pleura:Trace, right greater than left pleural effusions. Heart and mediastinum:No axillary lymphadenopathy. 1 cm prevascularlymph node (series 5, image 161%. 1 cm pretracheal lymph node (series 5,image 176). 1.3 cm left paratracheal lymph nodes (series 5, image ). Nohilar lymphadenopathy. Mildly enlarged heart, specifically left atrialenlargement. No pericardial effusion. Postsurgical changes of a CABG. Abdomen:Mild hiatal herni a. Postsurgical changes of a cholecystectomy.Mild perinephric fat stranding. Diffuse fatty infiltration of thepancreas. Bones and soft tissues:Moderate degenerative changes of the cervicaland thoracic spine. Intact median sternotomy wires. Interface, Rad/Mammog In - 06/09/2018 10:23 PM CSTEXAM: Chest CT, PE protocol TECHNIQUE: CT scan [...] failure. 4. Ascending aorta ectasia. Dictated By: aHrika Gomez MD, 06/09/2018 10:06 PM I have reviewed the study and agree with the findings in this report. Signed By: Aliya Maldonado MD, 06/09/2018 10:18 PM 06/10/2018 [facility] XRAY CHEST 1 VIEW IMPRESSION: Mild cardiomegaly with interstitial pulmonary edema. A "PRELIMINARY" report was made available via [employer] at the time ofdictation by the resident indicated below. If the report is described as"FINALIZED" it indicates the attending/staff radiologist below hasreviewed the images and agrees with the resident's interpretation. Dictated By: Meir Hoffman MD, 06/09/2018 11:12 AM I have reviewed the study and agree with the findings in this report. Signed By: Jamaal Felix MD, 06/09/2018 11:16 AM EXAMINATION:XRAY CHEST 1 VIEW, AP INDICATION: SOB COMPARISON:Chest radiograph dated 03/16/2015.FINDINGS: TUBES/LINES:None LUNGS:Bilateral interstitial airspace opacities. PLEURA:No effusions or pneumothorax. HEART/MEDIASTINUM:The cardiac silhouette is mildly enlarged.Atherosclerotic calcifications of the aortic arch. MUSCULOSKELETAL:No acute findings. Stable intact median sternotomywires and mediastinal surgical clips. UPPER ABDOMEN: Normal Interface, Rad/Mammog In - 06/09/2018 11:21 AM CSTEXAMINATION: XRAY CHEST 1 VIEW, AP INDICATION: SOB [...] A "PRELIMINARY" report was made available via [employer] at the time of dictation by the resident indicated below. If the report is described as "FINALIZED" it indicates the attending/staff radiologist below has reviewed the images and agrees with the resident's interpretation. Dictated By: Meir Hoffman MD, 06/09/2018 11:12 AM I have reviewed the study and agree with the findings in this report. Signed By: Jamaal Felix MD, 06/09/2018 11:16 AM 06/09/2018 [facility] Consultation Notes No Data Provided for This Section Discharge Summaries No Data Provided for This Section History and Physicals No Data Provided for This Section Vital Signs Vital Sign Value Date Comments Source Systolic (mm Hg) 159 07/09/2018 [facility] Diastolic (mm Hg) 93 07/09/2018 [facility] Heart Rate 81 07/09/2018 [facility] Temperature Oral (F) 36.61 Kayley 07/09/2018 [facility] Respitory Rate 18 07/09/2018 [facility] Height 170.2 cm 06/10/2018 [facility] Weight 70.943 06/10/2018 [facility] Encounters Location Location Details Encounter Type Encounter Number Reason For Visit Attending Provider ADM Date DC Date Status Source Travel [id number] 06/09/2018 [facility] 5G MED/SURG Hospital Encounter [id number] Alok York MD 06/09/2018 06/12/2018 [facility] [employer] Telephone [id number] Milady Valdez 06/12/2018 [facility] Travel [id number] 07/09/2018 [facility] BT Emergency [id number] 07/09/2018 07/10/2018 [facility] 5E Cardiac IMU (5E/CI) Telephone [id number] LadyMark Anthony Oswald 07/18/2018 [facility] Procedures Procedure Code Date Perfomer Comments Source XRAY CHEST 2 VIEWS 82183 07/10/2018 [facility] POCT BNP (BRAIN NATRIURETIC PEPTIDE) 67175 07/10/2018 Unknown [facility] BMP POC 59638 07/09/2018 Unknown [facility] TROPONIN I POC 67248 07/09/2018 [facility] CBC/DIFF 01020 07/09/2018 [facility] LIVER PROFILE 17813 07/09/2018 [facility] LIPASE 66693 07/09/2018 [facility] HIV-1/HIV-2 ROUTINE SCREENING 80296 [facility] 20834 07/09/2018 [facility] GLUCOSE POC 85359 06/12/2018 [facility] GLUCOSE POC 51974 06/12/2018 [facility] BASIC METABOLIC PANEL 44126 06/12/2018 [facility] PT/INR/PTT 32010 06/12/2018 [facility] CBC/DIFF 49382 06/12/2018 [facility] PT/INR 40957 06/12/2018 [facility] GLUCOSE POC 32452 06/12/2018 [facility] GLUCOSE POC 71623 [facility] 98545 06/12/2018 [facility] GLUCOSE POC 24531 06/11/2018 [facility] TRANSTHORACIC ECHO (TTE) 29823 06/11/2018 [facility] BASIC METABOLIC PANEL 32460 06/11/2018 [facility] MAGNESIUM 98555 06/11/2018 [facility] GLUCOSE POC 34513 06/11/2018 [facility] GLUCOSE POC 57336 06/11/2018 [facility] GLUCOSE POC 61662 06/10/2018 [facility] 12 LEAD EKG 65399 06/10/2018 [facility] [facility] CBC/DIFF 65493 06/10/2018 [facility] BASIC METABOLIC PANEL 55959 06/10/2018 [facility] TSH 07079 06/10/2018 [facility] LIPID PROFILE 16506 06/10/2018 [facility] HEMOGLOBIN A1C 31787 06/10/2018 [facility] CORTISOL, TOTAL 16397 06/10/2018 [facility] TROPONIN I 16603 06/10/[facility]OPON[facility] 03994 06/10/[address] [facility] [address] CHEST PE PROTOCOL 31231 06/10/2018 [facility] TROPONIN I POC 44338 06/10/2018 [facility] FREE T4 15687 06/10/2018 [facility] D-DIMER 30064 06/10/2018 [facility] 12 LEAD EKG 95122 06/10/2018 [facility] GLUCOSE POC 02051 06/10/2018 [facility] [place] [place] [address] 06/10/2018 [facility] [place] [address] 06/10/2018 [facility] UA CHEMISTRIES 89059 06/10/2018 [facility] CK, TOTAL 55145 06/10/2018 [facility] TROPONIN I 78644 06/10/2018 [facility] COMPREHENSIVE METABOLIC PANEL(DBIL NOT INCLUDED) 04951 06/10/2018 [facility] MAGNESIUM 55224 06/10/2018 [facility] PHOSPHORUS 89287 06/10/2018 [facility] OSMOLALITY 10643 06/10/2018 [facility] D-DIMER 74193 06/10/2018 [facility] FREE T4 90097 06/10/2018 [facility] 12 LEAD EKG 42584 06/10/2018 [facility] CK, TOTAL 33637 06/10/2018 [facility] TROPONIN I 68305 06/10/2018 [facility] VBG POC 67729 06/10/2018 [facility] INFLUENZA A/B AND RSV PCR 87500 06/10/2018 [facility] VBG POC 68005 06/09/2018 [facility] BASIC METABOLIC PANEL 63578 06/09/2018 [facility] XRAY CHEST 1 VIEW 93745 06/09/2018 [facility] CBC/DIFF 37598 06/09/2018 [facility] B NATRIURETIC PEPT 98064 06/09/2018 [facility] POCT BNP (BRAIN NATRIURETIC PEPTIDE) 15647 06/09/2018 [facility] BMP POC 55747 06/09/2018 Unknown [facility] VBG POC 18301 06/09/2018 [facility] 12 LEAD EKG 64346 06/09/2018 [facility] TROPONIN I POC 27042 06/09/2018 Unknown [facility] Assessment and Plan No Data Provided for This Section Plan of Care Plan of Care Date Source Colonoscopy 10yr 02/28/2026 [facility] CORONARY ARTERY DISEASE AGE 18 AND UP 06/10/2019 [facility] IMM Influenza Seasonal Oct to August (>/=19 yrs) 04/02/2019 [facility] IMM Pneumococcal Age 65 and Up 2017 [facility] Social History Social History Date Source Tobacco UseTypesPacks/DayYears UsedDate Former Smoker Cigarettes 1 20 Quit: 11/09/2014 Smokeless Tobacco: Never Used Tobacco Cessation: Counseling Given: Yes Alcohol UseDrinks/Weekoz/WeekComments Yes 12 Cans of beer 7.2 Sex Assigned at BirthDate Recorded Not on file Job Start DateOccupationIndustry Not on file Not on file Not on file Travel HistoryTravel StartTravel End No recent travel history available. 06/09/2018 [facility] Family History Value Date Source Medical HistoryRelationNameComments Hypertension Brother Hypertension Sister Diabetes Sister Diabetes Sister Hypertension Sister RelationNameStatusComments Brother Alive Brother Alive Brother Sister Alive Sister Alive Sister Sister Sister Sister 11/07/2018 [facility] Advance Directives Order Name Results Value Date Source Advance Directives Advance Directives For more information, please contact:[address] [id number] Code Status on FileCode StatusDate ActivatedDate InactivatedComments Full Code 06/09/2018 1:38 PM 06/12/2018 5:59 PM Full Code 03/16/2015 10:08 PM 03/19/2015 7:40 PM 11/07/2018 [facility] Functional Status No Data Provided for This Section
--- OUTSIDE RECORDS SUMMARY | 2019-01-11 06:17 | XMS REPORT | Clinical Summary ---
Author Author [facility] Organization [facility] Address Unknown Phone Unavailable Care Team Providers Care Professor Criminal Justice Name Role Phone Nicholas Cunningham MD PCP [...] Overview: Added automatically from request for surgery [id number] Glaucoma suspect 10/21/2016 Iron deficiency anemia 07/02/2015 [...] Interpretation 06/12/2018 Telephone Alok York MD Kaul, MD Pedro SOB (shortness of breath) (Primary Dx); CAD, [...] Hospital - Encounter 06/12/2018 06/09/2018 Travel after 11/06/2017 Immunizations Name Dates Previously Given Next Due Herpes Zoster Vaccine In 04/02/2015 [...] Used Tobacco Cessation: Counseling Given: Yes Alcohol Use Drinks/Week oz/Week Comments Yes 12 Cans of 7.2 beer Sex Assigned at Date Recorded Not on file Industry Job Start Date Occupation Not on file Not on file Not on file Travel End Travel History Travel Start No recent travel history available. Last Filed Vital Signs Time Taken Vital Sign Reading 07/09/2018 3:34 PM COSTUMING SUPERVISOR Blood Pressure 159/93 07/09/2018 3:34 PM COSTUMING SUPERVISOR Pulse 81 07/09/2018 3:34 PM COSTUMING SUPERVISOR Temperature 36.6 C (97.9 F) 07/09/2018 3:34 PM COSTUMING SUPERVISOR Respiratory Rate 18 07/09/2018 3:34 PM COSTUMING SUPERVISOR Oxygen Saturation 98% - Inhaled Oxygen - Concentration 06/09/2018 9:59 PM COSTUMING SUPERVISOR Weight 70.9 kg (156 lb 6.4 oz) 06/09/2018 9:59 PM COSTUMING SUPERVISOR Height 170.2 cm (5' 7") 06/09/2018 9:59 PM COSTUMING SUPERVISOR Body Mass Index 24.5 Plan of Treatment Health Maintenance Due Date Last Done Comments IMM Pneumococcal Age 65 2017 and Up IMM Influenza Seasonal 04/02/2019 05/17/2017Apr to August (>/=19 yrs) CORONARY ARTERY DISEASE 06/10/2019 06/10/2018, 10/03/2016, 07/06/2016, AGE 18 AND UP Additional history exists Colonoscopy 10yr 02/28/2026 02/29/2016 Procedures Comments Procedure Name Priority Date/Time Associated Diagnosis XRAY CHEST 2 VIEWS STAT 07/09/2018 SOB (shortness of breath) 1:07 PM COSTUMING SUPERVISOR POCT BNP (BRAIN Routine 07/09/2018 NATRIURETIC PEPTIDE) 12:41 PM COSTUMING SUPERVISOR BMP POC Routine 07/09/2018 11:06 AM COSTUMING SUPERVISOR TROPONIN I POC Routine 07/09/2018 11:03 AM COSTUMING SUPERVISOR HIV-1/HIV-2 ROUTINE STAT 07/09/2018 SCREENING 11:00 AM COSTUMING SUPERVISOR LIPASE STAT 07/09/2018 11:00 AM COSTUMING SUPERVISOR LIVER PROFILE STAT 07/09/2018 11:00 AM COSTUMING SUPERVISOR CBC/DIFF STAT 07/09/2018 11:00 AM COSTUMING SUPERVISOR 12 LEAD EKG Routine 07/09/2018 10:55 AM COSTUMING SUPERVISOR GLUCOSE POC Routine 06/12/2018 11:52 AM COSTUMING SUPERVISOR GLUCOSE POC Routine 06/12/2018 7:34 AM COSTUMING SUPERVISOR CBC/DIFF Routine 06/12/2018 3:45 AM COSTUMING SUPERVISOR PT/INR/PTT Routine 06/12/2018 3:45 AM COSTUMING SUPERVISOR BASIC METABOLIC PANEL Routine 06/12/2018 3:45 AM COSTUMING SUPERVISOR PT/INR Routine 06/11/2018 9:30 PM COSTUMING SUPERVISOR GLUCOSE POC Routine 06/11/2018 8:39 PM COSTUMING SUPERVISOR GLUCOSE POC Routine 06/11/2018 5:09 PM COSTUMING SUPERVISOR GLUCOSE POC Routine 06/11/2018 12:08 PM COSTUMING SUPERVISOR GLUCOSE POC Routine 06/11/2018 7:38 AM COSTUMING SUPERVISOR TRANSTHORACIC ECHO (TTE) STAT 06/11/2018 7:24 AM COSTUMING SUPERVISOR MAGNESIUM Routine 06/11/2018 3:45 AM COSTUMING SUPERVISOR BASIC METABOLIC PANEL Routine 06/11/2018 3:45 AM COSTUMING SUPERVISOR GLUCOSE POC Routine 06/10/2018 8:31 PM COSTUMING SUPERVISOR GLUCOSE POC Routine 06/10/2018 4:44 PM COSTUMING SUPERVISOR GLUCOSE POC Routine 06/10/2018 11:23 AM COSTUMING SUPERVISOR 12 LEAD EKG Routine 06/10/2018 5:10 AM COSTUMING SUPERVISOR TROPONIN I Routine 06/10/2018 4:35 AM COSTUMING SUPERVISOR CORTISOL, TOTAL STAT 06/10/2018 4:35 AM COSTUMING SUPERVISOR HEMOGLOBIN A1C STAT 06/10/2018 4:35 AM COSTUMING SUPERVISOR LIPID PROFILE STAT 06/10/2018 4:35 AM COSTUMING SUPERVISOR TSH STAT 06/10/2018 4:35 AM COSTUMING SUPERVISOR BASIC METABOLIC PANEL Routine 06/10/2018 4:35 AM COSTUMING SUPERVISOR CBC/DIFF Routine 06/10/2018 4:35 AM COSTUMING SUPERVISOR TROPONIN I STAT 06/09/2018 11:[address] CHEST PE PROTOCOL STAT 06/09/2018 QUINTANA (dyspnea on exertion) 9:00 PM COSTUMING SUPERVISOR TROPONIN I POC Routine 06/09/2018 8:40 PM COSTUMING SUPERVISOR D-DIMER STAT 06/09/2018 8:36 PM COSTUMING SUPERVISOR FREE T4 STAT 06/09/2018 8:36 PM COSTUMING SUPERVISOR 12 LEAD EKG Routine 06/09/2018 8:25 PM COSTUMING SUPERVISOR GLUCOSE POC Routine 06/09/2018 6:18 PM COSTUMING SUPERVISOR UA CHEMISTRIES STAT 06/09/2018 6:10 PM COSTUMING SUPERVISOR ELECTROLYTES, UR STAT 06/09/2018 6:10 PM COSTUMING SUPERVISOR OSMOLALITY, UR STAT 06/09/2018 6:10 PM COSTUMING SUPERVISOR FREE T4 STAT 06/09/2018 5:30 PM COSTUMING SUPERVISOR D-DIMER STAT 06/09/2018 5:30 PM COSTUMING SUPERVISOR OSMOLALITY Routine 06/09/2018 5:30 PM COSTUMING SUPERVISOR PHOSPHORUS Routine 06/09/2018 5:30 PM COSTUMING SUPERVISOR MAGNESIUM Routine 06/09/2018 5:30 PM COSTUMING SUPERVISOR COMPREHENSIVE METABOLIC Routine 06/09/2018 PANEL(DBIL NOT INCLUDED) 5:30 PM COSTUMING SUPERVISOR TROPONIN I STAT 06/09/2018 5:30 PM COSTUMING SUPERVISOR CK, TOTAL STAT 06/09/2018 5:30 PM COSTUMING SUPERVISOR 12 LEAD EKG Routine 06/09/2018 2:42 PM COSTUMING SUPERVISOR TROPONIN I STAT 06/09/2018 1:12 PM COSTUMING SUPERVISOR CK, TOTAL STAT 06/09/2018 1:12 PM COSTUMING SUPERVISOR VBG POC Routine 06/09/2018 12:47 PM COSTUMING SUPERVISOR INFLUENZA A/B AND RSV PCR STAT 06/09/2018 12:00 PM COSTUMING SUPERVISOR VBG POC Routine 06/09/2018 11:30 AM COSTUMING SUPERVISOR BASIC METABOLIC PANEL STAT 06/09/2018 10:56 AM COSTUMING SUPERVISOR XRAY CHEST 1 VIEW STAT 06/09/2018 CAD, multiple vessel 10:55 AM COSTUMING SUPERVISOR B NATRIURETIC PEPT STAT 06/09/2018 10:50 AM COSTUMING SUPERVISOR CBC/DIFF STAT 06/09/2018 10:50 AM COSTUMING SUPERVISOR POCT BNP (BRAIN Routine 06/09/2018 NATRIURETIC PEPTIDE) 10:46 AM COSTUMING SUPERVISOR VBG POC Routine 06/09/2018 10:42 AM COSTUMING SUPERVISOR BMP POC Routine 06/09/2018 10:42 AM COSTUMING SUPERVISOR 12 LEAD EKG Routine 06/09/2018 10:40 AM COSTUMING SUPERVISOR TROPONIN I POC Routine 06/09/2018 10:40 AM COSTUMING SUPERVISOR after 11/06/2017 Results * XRAY CHEST 2 VIEWS (07/09/2018 1:07 PM COSTUMING SUPERVISOR) Impressions Performed At IMPRESSION: SMS No acute cardiothoracic findings. Dictated By: Barry Mcfadden MD, 07/09/2018 1:21 PM I have reviewed the study and agree with the findings in this report. Signed By: Miguel Coronado MD, 07/09/2018 1:47 PM Narrative Performed At EXAM: XRAY CHEST 2 VIEWS [facility] DATE: 07/09/2018 1:07 PM INDICATION: sob COMPARISON: [...] Interface, Rad/Mammog In - 07/09/2018 1:52 PM COSTUMING SUPERVISOR EXAM: XRAY CHEST 2 VIEWS DATE: 07/09/2018 [...] MD, 07/09/2018 1:47 PM Performing Organization Address [facility] [place] SMS * POCT BNP (BRAIN NATRIURETIC PEPTIDE) (07/09/2018 12:41 PM COSTUMING SUPERVISOR) Only the most recent of 2 results within the time period is included. B Natr Pept POC 853 (H) 0 - 100 pg/mL BT MAIN-STATION 1 Performing Organization Address [facility] Phone Number MISYS BT MAIN-STATION 1 * BMP POC (07/09/2018 11:06 AM COSTUMING SUPERVISOR) Only the most recent of 2 results [...] >60 mL/min/1.73 m2 BT MAIN-STATION Afr-Am 1 Performing Organization Address City/[facility] Phone Number MISYS BT MAIN-STATION 1 * TROPONIN I POC (07/09/2018 11:03 AM COSTUMING SUPERVISOR) Only the most recent of 3 results within the time period is included. Troponin POC 0.02 0.00 - 0.08 ng/mL BT MAIN-STATION 1 Performing Organization Address [facility] Phone Number MISYS BT MAIN-STATION 1 * HIV-1/HIV-2 ROUTINE SCREENING (07/09/2018 11:00 AM COSTUMING SUPERVISOR) HIV-1/HIV-2 Negative NEG BT MAIN-STATION 3 Performing Organization Address [facility] Phone Number MISYS BT MAIN-STATION 3 * LIVER PROFILE (07/09/2018 11:00 AM COSTUMING SUPERVISOR) T Protein 6.7 6.0 - 8.3 g/dL BT MAIN-STATION 1 Albumin 4.2 4.2 - 5.5 g/dL BT MAIN-STATION 1 T Bilirubin 0.8 0.2 - 1.2 mg/dL BT MAIN-STATION 1 Alk Phos 59 34 - 104 U/L BT MAIN-STATION 1 AST 38 13 - 39 U/L BT MAIN-STATION 1 ALT 31 7 - 52 U/L BT MAIN-STATION 1 D Bilirubin 0.2 0.0 - 0.2 mg/dL BT MAIN-STATION 1 Specimen Blood Performing Organization Address [facility] Phone Number MISYS BT MAIN-STATION 1 * LIPASE (07/09/2018 11:00 AM COSTUMING SUPERVISOR) Lipase 12 11 - 82 U/L BT MAIN-STATION 1 Specimen Blood Performing Organization Address City/State/Zipcode Phone Number MISYS BT MAIN-STATION 1 * CBC/DIFF (07/09/2018 11:00 AM COSTUMING SUPERVISOR) Only the most recent of 4 results [...] 35.1 - 43.9 fL BT MAIN-STATION 2 Platelet 228 150 - 400 K/uL BT MAIN-STATION 2 Mean Platelet 11.2 9.4 - 12.4 fL BT MAIN-STATION Volume 2 Percent NRBC 0.0 BT MAIN-STATION 2 Absolute NRBC 0.00 BT MAIN-STATION 2 Neutrophil 81.6 (H) 34.0 - 67.9 % BT MAIN-STATION 2 Lymphocyte 10.4 (L) 21.8 - 50.0 % BT MAIN-STATION 2 Monocyte 5.1 (L) 5.3 - 12.0 % BT MAIN-STATION 2 Eosinophil 2.1 0.8 - 5.0 % BT MAIN-STATION 2 Basophil 0.3 0.2 - 1.2 % BT MAIN-STATION 2 Pct Immat Gran 0.5 0.0 - 0.5 BT MAIN-STATION 2 Neutrophil, Abs 9.58 (H) 1.78 - 5.36 K/uL BT MAIN-STATION 2 Lymphocyte, Abs 1.22 (L) 1.32 - 3.57 K/uL BT MAIN-STATION 2 Monocyte, Abs 0.60 0.30 - 0.82 K/uL BT MAIN-STATION 2 Eosinophil, Abs 0.25 0.04 - 0.54 K/uL BT MAIN-STATION 2 Basophil, Abs 0.03 0.01 - 0.08 K/uL BT MAIN-STATION 2 Absol Immat 0.06 (H) 0.00 - 0.03 K/uL BT MAIN-STATION Gran 2 Specimen Blood Performing Organization Address [facility] Phone Number MISYS BT MAIN-STATION 2 * 12 LEAD EKG (07/09/2018 10:55 AM COSTUMING SUPERVISOR) 12 LEAD EKG FOR [facility] Test Date:2018-07-09 Pat Name: JACKIE ALBERTO Department: 5520 Room: Gender: M Information Management Manager: [id number] :1951-0 07-17 Requested By: RAMONA POWELL Order Number: [id number] Reading MD: Yobani Arora M.D. Measurements Intervals [place] Rate: 92 P:50 TN: 173 QRS: 115 QRSD: 162 T: 48 QT: 376 QTc:467 Interpretive Statements SINUS RHYTHM POSSIBLE LEFT ATRIAL ENLARGEMENT INDETERMINATE AXIS RIGHT BUNDLE BRANCH BLOCK Electronically Signed On 07-09-2018 14:05:50 COSTUMING SUPERVISOR by Yobani Arora M.D. Performing Organization Address [facility]Profile[facility] Phone Number [facility] * GLUCOSE POC (06/12/2018 11:52 AM COSTUMING SUPERVISOR) Only the most recent of 10 results within the time period is included. Glucose POC 88 74 - 106 mg/dL BT MAIN-STATION 1 Performing Organization Address [facility] [place] Number MISYS BT MAIN-STATION 1 * PT/INR/PTT (06/12/2018 3:45 AM COSTUMING SUPERVISOR) PT 13.8 11.8 - 15.0 Seconds BT MAIN-STATION 3 INR 1.1 BT MAIN-STATION SUGGESTED THERAPEUTIC RANGES: 3 INR 2.0-3.0 for MODERATE INTENSITY ANTICOAGULATION INR 2.5-3.5 for HIGH INTENSITY ANTICOAGULATION PTT 36.9 (H) 23.6 - 36.4 Seconds BT MAIN-STATION 3 Specimen Blood Performing Organization Address [facility] Phone Number MISYS BT MAIN-STATION 3 * BASIC METABOLIC PANEL (06/12/2018 3:45 AM COSTUMING SUPERVISOR) Only the most recent of 4 results within the time period is included. CO2 27 21 - 31 mmol/L BT MAIN-STATION 1 Chloride 93 (L) 98 - 107 mmol/L BT MAIN-STATION 1 Potassium 3.9 3.5 - 5.1 mmol/L BT MAIN-STATION 1 Sodium 133 (L) 136 - 145 mmol/L BT MAIN-STATION 1 Glucose 105 70 - 110 mg/dL BT MAIN-STATION 1 Urea Nitrogen 30 (H) 7 - 25 mg/dL BT MAIN-STATION 1 Creatinine 1.10 0.7 - 1.3 mg/dL BT MAIN-STATION 1 Anion Gap 13 BT MAIN-STATION 1 Calcium 9.6 8.6 - 10.3 mg/dL BT MAIN-STATION 1 GFR, Estimated >60 mL/min/1.73 m2 BT MAIN-STATION 1 GFR, Estim, >60 mL/min/1.73 m2 BT MAIN-STATION Afr-Am 1 Specimen Blood Performing Organization Address City/[facility] Phone Number MISYS BT MAIN-STATION 1 * PT/INR (06/11/2018 9:30 PM COSTUMING SUPERVISOR) PT 13.1 11.8 - 15.0 Seconds BT MAIN-STATION 3 INR 1.0 BT MAIN-STATION SUGGESTED THERAPEUTIC RANGES: 3 INR 2.0-3.0 for MODERATE INTENSITY ANTICOAGULATION INR 2.5-3.5 for HIGH INTENSITY ANTICOAGULATION Specimen Blood Performing Organization Address City/[facility] Phone Number MISYS BT MAIN-STATION 3 * TRANSTHORACIC ECHO (TTE) (06/11/2018 7:24 AM COSTUMING SUPERVISOR) TRANSTHORACIC Transthoracic SMS ECHO (TTE) Echo Report JACKIE ALBERTO Age:67 Gender: M :1950 Exam Date: 06/11/2018 07:24 Exam Location: [facility] Echo Ordering Phys: PEDRO SEGURA Referring Phys: Reading Phys:Sherly Manning MD Fellow Phys: Karoline Gomez M.D. Fellow Phys: Fast Food Server: Jeremías Wilkinson Reason For Exam: Indications: Stroke, Transient cerebral ischemic attack, unspecified ICD-9 Codes: I67.89G45.9 Exam Type: TRANSTHORACIC ECHO (TTE) Procedure CPT:05812 Addtional CPT: Ht (in): 67 BSA: 1.84HR: [...] BP 58.9 cm LV Cardiac Output MOD [id number] cm/min LV Cardiac Index MOD BP 2437 cm/minm LA Volume 97.3 cm LA Volume Index 53 cm/m 16 - 34 cm/m RV Diastolic Basal Diameter 3.4 cm 2.5 - 4.1 cm LV Mass by linear duzhhf825 g LV Mass by linear method Ccgfu589 g/m DOPPLER AV Peak Velocity 159 cm/s [...] BP 58.9 cm LV Cardiac Output MOD RH2662 cm/min LV Cardiac Index MOD BP 2437 cm/minm LA Volume 97.3 cm LA Volume Index 53 cm/m 16 - 34 cm/m RV Diastolic Basal Diameter 3.4 cm 2.5 - 4.1 cm LV Mass by linear joltxh815 g LV Mass by linear method Pbouk587 g/m DOPPLER AV Peak Velocity 159 cm/s [...] Mitral E to LV E' Septal Ratio20.3 Performing Organization Address [facility] [place] Number SMS * MAGNESIUM (06/11/2018 3:45 AM COSTUMING SUPERVISOR) Only the most recent of 2 results within the time period is included. Magnesium 1.8 (L) 1.9 - 2.7 mg/dL BT MAIN-STATION 1 Specimen Blood Performing Organization Address [facility] [place] Phone Number MISYS BT MAIN-STATION 1 * 12 LEAD EKG (06/10/2018 5:10 AM COSTUMING SUPERVISOR) 12 LEAD EKG FOR SMS [facility] Test Date:2018-06-10 Pat Name: JACKIE ALBERTO Department: [facility] [place]: Gender: M Information Management Manager: [id number] :1951-0 07-17 Requested By: PEDRO SEGURA Order Number: [id number] Reading MD: Yobani Arora M.D. Measurements Intervals [place] Rate: 72 P:66 TN: 197 QRS: 228 QRSD: 177 T: 79 QT: 508 QTc:557 Interpretive Statements SINUS RHYTHM WITH OCCASIONAL VENTRICULAR PREMATURE COMPLEXES RIGHT BUNDLE BRANCH BLOCK AND POSSIBLE RIGHT VENTRICULAR HYPERTROPHY [RBBB, 1.5 mV R IN V1, RAD] LEFT POSTERIOR FASCICULAR BLOCK [QRS AXIS > 109, INFERIOR Q] SEPTAL MYOCARDIAL INFARCTION [40+ ms Q WAVE IN V1/V2], OF INDETERMINATE AGE Electronically Signed On 06-10-2018 5:31:46 COSTUMING SUPERVISOR by Yobani Arora M.D. Performing Organization Address [facility] [place] Phone Number SMS * HEMOGLOBIN A1C (06/10/2018 4:35 AM COSTUMING SUPERVISOR) Hemoglobin A1c 5.8 4.3 - 6.1 % BT DIAGNOSTIC IMMUNOLOGY Est Average 119.8 mg/dL BT DIAGNOSTIC Gluc IMMUNOLOGY Specimen Blood Performing Organization Address [facility] [place] Phone Number MISYS BT DIAGNOSTIC IMMUNOLOGY * CORTISOL, TOTAL (06/10/2018 4:35 AM COSTUMING SUPERVISOR) Cortisol, Total 12.1 3.44 - 22.45 mcg/dL BT MAIN-STATION 1 Specimen Blood Performing Organization Address [facility] [place] Phone Number MISYS BT MAIN-STATION 1 * TSH (06/10/2018 4:35 AM COSTUMING SUPERVISOR) TSH 1.82 0.57 - 3.74 uIU/mL BT MAIN-STATION 1 Specimen Blood Performing Organization Address [facility] [place] Phone Number [facility] * TROPONIN I (06/10/2018 4:35 AM COSTUMING SUPERVISOR) Only the most recent of 4 results within the time period is included. Troponin I 0.06 (H) <0.04 ng/mL BT MAIN-STATION 1 Performing Organization Address [facility] [place] Phone Number [facility] 1 * LIPID PROFILE (06/10/2018 4:35 AM COSTUMING SUPERVISOR) Cholesterol 291 mg/dL BT MAIN-STATION Comment: 1 REFERENCE RANGE: Desirable: <200 mg/dL Borderline: 200-240 mg/dL High Risk: >240 mg/dL Triglyceride 156 (H) <150 mg/dL BT MAIN-STATION Comment: 1 REFERENCE RANGE: Normal: <150 mg/dL Borderline High: 150-199 mg/dL High: 200-499 mg/dL Very High: >pb=835 mg/dL HDL 60 mg/dL BT MAIN-STATION Comment: 1 Increased CHD risk: <40 mg/dL Decreased CHD risk: >60 mg/dL LDL 200 mg/dL BT MAIN-STATION Comment: 1 REFERENCE RANGE: Optimal: <100 mg/dL Near Optimal: 100-129 mg/dL Borderline High: 130-159 mg/dL High: 160-189 mg/dL Very High: >ml=562 mg/dL Specimen Blood Performing Organization Address [facility] [place] Phone Number [facility] * CT CHEST PE PROTOCOL (06/09/2018 9:00 PM COSTUMING SUPERVISOR) Impressions Performed At IMPRESSION: SMS 1.No acute [...] Interface, Rad/Mammog In - 06/09/2018 10:23 PM COSTUMING SUPERVISOR EXAM: Chest CT, PE protocol TECHNIQUE: CT [...] MD, 06/09/2018 10:18 PM Performing Organization Address [facility] [place] Phone Number SMS * FREE T4 (06/09/2018 8:36 PM COSTUMING SUPERVISOR) Only the most recent of 2 results within the time period is included. Free T4 0.92 0.61 - 1.18 ng/dl BT MAIN-STATION 1 Specimen Blood Performing Organization Address [facility] [place] Phone Number MISYS BT MAIN-STATION 1 * D-DIMER (06/09/2018 8:36 PM COSTUMING SUPERVISOR) Only the most recent of 2 results within the time period is included. D-Dimer 2.21 ug/mL,FEU BT MAIN-STATION Comment: 3 Values of quantitative d-Dimer less than 0.40 ug/mL FEU have been reported to be associated with a low probability of deep vein thrombosis/pulmonary embolism. This test alone should not be used to rule out DVT/PE. Specimen Blood Performing Organization Address [facility] Phone Number [employer] BT MAIN-STATION 3 * 12 LEAD EKG (06/09/2018 8:25 PM COSTUMING SUPERVISOR) 12 LEAD EKG FOR [facility] Test Date:2018-06-09 Pat Name: JACKIE ALBERTO Department: 5520 Room: 02 Gender: M Information Management Manager: [id number] :1951-0 1-15 Requested By: PEDRO SEGURA Order Number: [id number] Reading MD: Yobani Arora M.D. Measurements Intervals [place] Rate: 68 P:49 TN: 192 QRS: 225 QRSD: 165 T: 89 QT: 473 QTc:506 Interpretive Statements SINUS RHYTHM POSSIBLE LEFT ATRIAL ENLARGEMENT [-0.1mV P WAVE IN V1/V2] INDETERMINATE AXIS RIGHT BUNDLE BRANCH BLOCK AND POSSIBLE RIGHT VENTRICULAR HYPERTROPHY [RBBB, 1.5 mV R IN V1, RAD] ANTEROSEPTAL MYOCARDIAL ISCHEMIA [40+ ms Q WAVE IN V1-V4], OF INDETERMINATE AGE Reviewed by Electronically Signed On 06-10-2018 5:31:41 COSTUMING SUPERVISOR by Yobani Arora M.D. Performing Organization Address City/[facility]/[email or web address] Phone Number SMS * UA CHEMISTRIES (06/09/2018 6:10 PM COSTUMING SUPERVISOR) Color Colorless BT MAIN-STATION 3 Clarity Clear BT MAIN-STATION 3 Spec [place] 1.004 1.001 - 1.035 BT MAIN-STATION 3 pH 6.0 5 - 8 BT MAIN-STATION 3 Protein Negative NEG BT MAIN-STATION 3 Glucose Negative NEG BT MAIN-STATION 3 Ketone Negative NEG BT MAIN-STATION 3 Bilirubin Negative NEG BT MAIN-STATION 3 Nitrate Negative NEG BT MAIN-STATION 3 Urobilinogen <1.0 0.2 - 1.0 EU/dL BT MAIN-STATION 3 Leukocyte Negative NEG BT MAIN-STATION 3 Blood Negative NEG BT MAIN-STATION 3 Performing Organization Address City/[facility]/[email or web address] Phone Number MISYS BT MAIN-STATION 3 * OSMOLALITY, UR (06/09/2018 6:10 PM COSTUMING SUPERVISOR) Osmolality, Ur 190Comment: Test performed at 50 - 1,400 mOsm/kg BT MAIN-STATION [facility] 4 Specimen Urine Performing Organization Address City/[facility]/[email or web address] Phone Number MISYS BT MAIN-STATION 4 * ELECTROLYTES, UR (06/09/2018 6:10 PM COSTUMING SUPERVISOR) Sodium, Ur 65 40 - 220 mmol/L BT MAIN-STATION 1 Potassium, Ur 16 (L) 25 - 125 mmol/L BT MAIN-STATION 1 Chloride, Ur 75 (L) 110 - 250 mmol/L BT MAIN-STATION 1 Performing Organization Address [facility] Phone Number MISYS BT MAIN-STATION 1 * COMPREHENSIVE METABOLIC PANEL(DBIL NOT INCLUDED) (06/09/2018 5:30 PM COSTUMING SUPERVISOR) Albumin 4.3 4.2 - 5.5 g/dL BT MAIN-STATION 1 Calcium 9.5 8.6 - 10.3 mg/dL BT MAIN-STATION 1 CO2 26 21 - 31 mmol/L BT MAIN-STATION 1 Chloride 87 (L) 98 - 107 mmol/L BT MAIN-STATION 1 Creatinine 0.80 0.7 - 1.3 mg/dL BT MAIN-STATION 1 Glucose 100 70 - 110 mg/dL BT MAIN-STATION 1 Alk Phos 76 34 - 104 U/L BT MAIN-STATION 1 Potassium 4.1 3.5 - 5.1 mmol/L BT MAIN-STATION 1 Sodium 127 (L) 136 - 145 mmol/L BT MAIN-STATION 1 ALT 21 7 - 52 U/L BT MAIN-STATION 1 AST 26 13 - 39 U/L BT MAIN-STATION 1 Urea Nitrogen 16 7 - 25 mg/dL BT MAIN-STATION 1 T Bilirubin 1.2 0.2 - 1.2 mg/dL BT MAIN-STATION 1 T Protein 7.1 6.0 - 8.3 g/dL BT MAIN-STATION 1 GFR, Estimated >60 mL/min/1.73 m2 BT MAIN-STATION 1 GFR, Estim, >60 mL/min/1.73 m2 BT MAIN-STATION Afr-Am 1 Anion Gap 14 BT MAIN-STATION 1 Specimen Blood Performing Organization Address City/[facility]/Zipcode Phone Number MISYS BT MAIN-STATION 1 * PHOSPHORUS (06/09/2018 5:30 PM COSTUMING SUPERVISOR) Phosphorus 3.8 2.5 - 5.0 mg/dL BT MAIN-STATION 1 Specimen Blood Performing Organization Address [facility] Phone Number MISYS BT MAIN-STATION 1 * OSMOLALITY (06/09/2018 5:30 PM COSTUMING SUPERVISOR) Osmolality 265 (L)Comment: Test 280 - 301 mOsm/kg BT MAIN-STATION performed at [facility]. 4 Performing Organization Address City/[facility] Phone Number MISYS BT MAIN-STATION 4 * CK, TOTAL (06/09/2018 5:30 PM COSTUMING SUPERVISOR) Only the most recent of 2 results within the time period is included. CK, Total 99 30 - 223 U/L BT MAIN-STATION Comment: 1 CKMB not performed if CK <100, if CKMB is required, please notify laboratory immediately. Specimen Blood Performing Organization Address City/[facility] Phone Number MISYS BT MAIN-STATION 1 * 12 LEAD EKG (06/09/2018 2:42 PM COSTUMING SUPERVISOR) 12 LEAD EKG FOR [facility] Test Date:2018-06-09 Pat Name: JACKIE ALBERTO Department: 5520 Room: Gender: Information Management Manager: [id number] :1951-0 07-17 Requested By: PEDRO SEGURA Order Number: [id number] Reading MD: Yobani Arora M.D. Measurements Intervals [place] Rate: 61 P:55 TN: 190 QRS: 191 QRSD: 168 T: 114 QT: 474 QTc:480 Interpretive Statements SINUS RHYTHM INDETERMINATE AXIS RIGHT BUNDLE BRANCH BLOCK AND POSSIBLE RIGHT VENTRICULAR HYPERTROPHY LEFT POSTERIOR FASCICULAR BLOCK SEPTAL MYOCARDIAL INFARCTION, OF INDETERMINATE AGE MODERATE T-WAVE ABNORMALITY, CONSIDER LATERAL ISCHEMIA Electronically Signed On 06-09-2018 15:49:06 COSTUMING SUPERVISOR by Yobani Arora M.D. Performing Organization Address City/[facility] Phone Number [facility] * VBG POC (06/09/2018 12:47 PM COSTUMING SUPERVISOR) Only the most recent of 3 results [...] 21 - 32 mmol/L BT MAIN-STATION 1 Performing Organization Address [facility] Phone Number MISYS BT MAIN-STATION 1 * INFLUENZA A/B AND RSV PCR (06/09/2018 12:00 PM COSTUMING SUPERVISOR) Influenza A Not detected BT MOLECULAR PATHOLOGY [...] Spec Nasal BT OUTPATIENT Description DRAW 2 Performing Organization Address [facility] [place] Number [facility] BT MOLECULAR PATHOLOGY BT OUTPATIENT DRAW 2 * XRAY CHEST 1 VIEW (06/09/2018 10:55 AM COSTUMING SUPERVISOR) Impressions Performed At IMPRESSION: SMS Mild cardiomegaly with interstitial pulmonary edema. A "PRELIMINARY" report was made available via [employer] at the time of dictation by the resident indicated below. If the report is described as "FINALIZED" it indicates the attending/staff radiologist below has reviewed the images and agrees with the resident's interpretation. Dictated By: Meir Hoffman MD, 06/09/2018 11:12 AM I have reviewed the study and agree with the findings in this report. Signed By: Jamaal Felix MD, 06/09/2018 11:16 AM Narrative Performed [...] Interface, Rad/Mammog In - 06/09/2018 11:21 AM COSTUMING SUPERVISOR EXAMINATION: XRAY CHEST 1 VIEW, AP INDICATION: [...] A "PRELIMINARY" report was made available via [employer] at the time of dictation by the [...] MD, 06/09/2018 11:16 AM Performing Organization Address City/State/Zipcode Phone Number SMS * B NATRIURETIC PEPT (06/09/2018 10:50 AM COSTUMING SUPERVISOR) B Natriuretic 271 (H) <101 pg/mL BT MAIN-STATION Pept 1 Specimen Blood Performing Organization Address City/State/Zipcode Phone Number MISYS BT MAIN-STATION 1 * 12 LEAD EKG (06/09/2018 10:40 AM COSTUMING SUPERVISOR) 12 LEAD EKG FOR [facility] Test Date:2018-06-09 Pat Name: JACKIE ALBERTO Department: 5520 Room: [place] [address] Gender: M Information Management Manager: [id number] :1951-0 07-17 Requested By: ALOK YORK Order Number: [id number] Reading MD: Yobani Arora M.D. Measurements Intervals [place] Rate: 83 P:48 TN: 189 QRS: 193 QRSD: 161 T: 85 QT: 411 QTc:485 Interpretive Statements SINUS RHYTHM POSSIBLE LEFT ATRIAL ENLARGEMENT INDETERMINATE AXIS RIGHT BUNDLE BRANCH BLOCK ANTEROSEPTAL MYOCARDIAL INFARCTION, OF INDETERMINATE AGE Electronically Signed On 06-09-2018 15:49:03 COSTUMING SUPERVISOR by Yobani Arora M.D. Performing Organization Address City/State/[place] Phone Number SMS after 11/06/2017 Insurance Type Payer Benefit Subscriber ID Effective Phone Address Plan / Dates Group AETNA MEDICARE AETNA xxxxxxxx 2018-P [phone] [address] [facility] resent [id number] [place] [address] [facility] SELF-PAY SELF-PAY xxxxxxxxx 2018-P [phone] [place] [address] [place] [address] Advance Directives For more information, please contact: [facility] [address] [place] [address] Date Inactivated Comments Code Status Date Activated 06/12/2018 5:59 PM Full Code 06/09/2018 1:38 PM 03/19/2015 7:40 PM Full Code 03/16/2015 10:08 PM
--- OUTSIDE RECORDS SUMMARY | 2019-01-11 06:20 | XMS REPORT ---
Author Author [facility] Organization [facility] Address Unknown Phone Unavailable Care Team Providers Care Circuits Engineer Name Role Phone UNKNOWN, REFFERING PP Unavailable ANTOINETTE ACHARYA Unavailable Unavailable ERUM MAYBERRY III, M.D. Unavailable Unavailable Payers Payer Name Policy Type Policy Number Effective Date Expiration Date Problems This patient has no known problems. Allergies, Adverse Reactions, Alerts Allergy Name Allergy Type Status Severity Reaction(s) Onset Date Inactive Date Treating Clinician Comments No Known Allergies DA Active U 2018-10-17 00:00:00 Medications This patient has no known medications. Encounters Start Date/Time End Date/Time Encounter Type Admission Type Attending Clinicians Care Facility Care Department Encounter ID 2018-06-11 16:26:43 Inpatient [facility] [id number] 2018-07-09 12:31:27 2018-07-09 12:31:27 Emergency [facility] [id number] 2018-07-09 10:48:00 2018-07-09 10:48:00 Emergency [facility] [id number] 2018-06-11 08:18:04 2018-06-11 08:18:04 Outpatient [facility] [id number] 2018-06-09 20:36:46 2018-06-09 20:36:46 Outpatient [facility] [id number] 2018-06-09 10:41:40 2018-06-09 10:41:40 Emergency [facility] [id number] 2018-06-09 10:32:49 2018-06-09 10:32:49 Inpatient [facility] [id number] 2017-08-11 00:00:2017-08-11 00:00:00 Outpatient [facility] [id number] 2017-06-29 00:00:00 2017-06-29 00:00:00 Outpatient [facility] [id number] 2017-06-19 00:00:00 2017-06-19 00:00:00 Outpatient [facility] [id number] 2017-06-19 00:00:00 2017-06-19 00:00:00 Outpatient [facility] [id number] 2017-06-09 00:00:00 2017-06-09 00:00:00 Outpatient [facility] [id number] 2017-05-19 00:00:00 2017-05-19 00:00:00 Outpatient [facility] [id number] 2017-05-17 14:43:09 2017-05-17 14:43:09 Outpatient [facility] [id number] 2017-04-14 13:53:49 2017-04-14 13:53:49 Outpatient [facility] [id number] 2017-04-14 13:53:45 2017-04-14 13:53:45 Outpatient [facility] [id number] 2017-04-14 00:00:00 2017-04-14 00:00:00 Outpatient [facility] [id number] 2017-04-04 08:27:01 2017-04-04 08:27:01 Outpatient [facility] [id number] 2017-02-28 00:00:00 2017-02-28 00:00:00 Outpatient [facility] [id number] 2016-12-14 08:52:33 2016-12-14 08:52:33 Outpatient [facility] [id number] 2016-12-14 07:38:52 2016-12-14 07:38:52 Outpatient [facility] [id number] Results Test Description Test Time Test Comments Text Results Atomic Results Result Comments CHEST 2 VIEWS 2019-01-09 10:44:00 [place] [address] Patient Name: JACKIE CAREY MR #: [id number] : 1950 Age/Sex: 68/M Req #: [id number] Adm Physician: Ordered by: ANTOINETTE ACHARYA MD Report #: [id number] 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 COMPARISON: None FINDINGS: TUBES and LINES: Right sided AICD device with leads overlying the right atrium, right ventricle, and coronary sinus. LUNGS: Lungs are moderately inflated. There is no evidence of pneumonia or pulmonary edema. PLEURA: No pleural effusion or pneumothorax. HEART AND MEDIASTINUM: The cardiomediastinal silhouette is unremarkable. There are atherosclerotic calcifications within the aorta. Surgical clips overlie the anterior mediastinum. BONES AND SOFT TISSUES: No acute osseous abnormality. UPPER ABDOMEN: No free air under the diaphragm. IMPRESSION: No acute radiographic abnormality. Signed by: Dr. New Leal MD on 01/09/2019 10:47 AM Dictated By: NEW LEAL MD 46 Transcribed By: ADEBAYO on 01/09/191046 COPY TO: ANTOINETTE ACHARYA MD GLUBED 2018-10-24 12:09:00 GLUBED (test code=GLUBED) 117 MG/DL 70-110 Performed by certified dustless operator at [facility] [id number] 08:36:00* Test Item Value Reference Range Comments GLUBED (test code=GLUBED) 120 MG/DL 70-110 Performed by certified dustless operator at [facility] [id number] 20:22:00* Test Item Value Reference Range Comments GLUBED (test code=GLUBED) 142 MG/DL 70-110 Performed by certified dustless operator at [facility] [id number] 17:13:00* Test Item Value Reference Range Comments GLUBED (test code=GLUBED) 133 MG/DL 70-110 Performed by certified dustless operator at [facility] [id number] 13:05:00* Test Item Value Reference Range Comments GLUBED (test code=GLUBED) 132 MG/DL 70-110 Performed by certified dustless operator at [facility] CBC W/AUTO [id number] 11:26:00* Test Item Value Reference Range Comments WHITE BLOOD CELL (test code=WBC) 11.91 x10 3/uL 4.5-11.0 RED BLOOD CELL (test code=RBC) 4.76 x10 6/uL 4.00-5.60 HEMOGLOBIN (test code=HGB) 14.7 g/dL 12.5-16.9 HEMATOCRIT (test code=HCT) 42.8 % 37.5-50.7 MEAN CELL VOLUME (test code=MCV) 89.9 fL 81.0-99.0 MEAN CELL HGB (test code=MCH) 30.9 pg 27.0-33.0 MEAN CELL HGB CONCETRATION (test code=MCHC) 34.3 g/dL 33.0-37.0 RED CELL DISTRIBUTION WIDTH CV (test code=RDW) 14.0 % 11.5-14.5 RED CELL DISTRIBUTION WIDTH SD (test code=RDW-SD) 46.6 fL 37.0-54.0 PLATELET COUNT (test code=PLT) x10 3/uL 150-400 SEE PLATELET ESTIMATE MEAN PLATELET VOLUME (test code=MPV) 11.3 fL 7.0-9.0 NEUTROPHIL % (test code=NT%) 85.6 % 56.0-77.0 IMMATURE GRANULOCYTE % (test code=IG%) 0.3 % 0.0-2.0 LYMPHOCYTE % (test code=LY%) 4.5 % 14.0-32.0 MONOCYTE % (test code=MO%) 7.6 % 4.8-9.0 EOSINOPHIL % (test code=EO%) 1.7 % 0.3-3.7 BASOPHIL % (test code=BA%) 0.3 % 0.0-2.0 NUCLEATED RBC % (test code=NRBC%) 0.0 % 0-0 NEUTROPHIL # (test code=NT#) 10.20 x10 3/uL 2.0-7.6 IMMATURE GRANULOCYTE # (test code=IG#) 0.04 x10 3/uL 0.00-0.03 LYMPHOCYTE # (test code=LY#) 0.53 x10 3/uL 1.0-3.8 MONOCYTE # (test code=MO#) 0.90 x10 3/uL 0.1-0.8 EOSINOPHIL # (test code=EO#) 0.20 x10 3/uL 0.0-0.2 BASOPHIL # (test code=BA#) 0.04 x10 3/uL 0.0-0.2 NUCLEATED RBC # (test code=NRBC#) 0.00 x10 3/uL 0.0-0.1 MANUAL DIFF REQUIRED (test code=MDIFF) NO PLT [id number] 11:26:00* Test Item Value Reference Range Comments PLATELET ESTIMATE (test code=PLTEST) 348-435 THOUSAND ADEQUATE PLATELET MORPHOLOGY (test code=PLTMORPH) LARGE PLATELETS [id number] 08:36:00* Test Item Value Reference Range Comments GLUBED (test code=GLUBED) 122 MG/DL 70-110 Performed by certified dustless operator at [facility] COMPREHENSIVE METABOLIC [id number] 08:31:00* Test Item Value Reference Range Comments SODIUM (test code=NA) 139 mEq/L 134-147 POTASSIUM (test code=K) 4.5 mEq/L 3.4-5.0 CHLORIDE (test code=CL) 108 mEq/L 100-108 CARBON DIOXIDE (test code=CO2) 24 mEq/L 21-33 ANION GAP (test code=GAP) 12 0-20 GLUCOSE (test code=GLU) 150 mg/dL 70-110 BLOOD UREA NITROGEN (test code=BUN) 13 mg/dL 7-18 GLOMERULAR FILTRATION RATE (test code=GFR) 112.8 80-90 Units of measure=ml/min/1.73 m2 CREATININE (test code=CREAT) 0.7 mg/dL 0.6-1.3 TOTAL PROTEIN (test code=PROT) 7.2 g/dL 6.4-8.2 ALBUMIN (test code=ALB) 3.40 g/dL 3.4-5.0 CALCIUM (test code=CA) 8.9 mg/dL 8.0-10.5 BILIRUBIN TOTAL (test code=BILT) 0.50 mg/dL 0.0-1.0 SGOT/AST (test code=AST) 38 IUnit/L 15-37 SGPT/ALT (test code=ALT) 33 IUnit/L 15-65 ALKALINE PHOSPHATASE TOTAL (test code=ALKP) 93 IUnit/L 20-125 LIPID PROFILE (CORONARY RISK)2018-10-23 08:31:00* Test Item Value Reference Range Comments TRIGLYCERIDES (test code=TRIG) 98 mg/dL 40-150 CHOLESTEROL (test code=CHOL) 154 mg/dL <200 CHOLESTEROL/HDL RATIO (test code=CHOLHDL) 3.50 RATIO 3.43-4.97 RISK ASSOCIATED WITH CHOL/HDL RATIOS: RISK MALE FEMALE1/2 AVERAGE 3.43 3.27AVERAGE 4.97 4.442X AVERAGE 9.55 7.053X AVERAGE 23.39 11.04 NOTE THAT THE REFERENCE VALUE IS RELATEDTO RISK LEVELS RECOMMENDED BY THE NATL.HEART, LUNG, AND BLOOD INST. HDL CHOLESTEROL (test code=HDL) 44.0 mg/dL 32-72 LIPOPROTEIN LDL (test code=LDL) 91 mg/dL 0-100 <100 [id number] NEAR OPTIMAL/ABOVE [id number] HIGH>QH=172 VERY HIGH*Guidelines provided by the National Cholesterol EducationProgram Adult Treatment Panel III CBC W/AUTO [id number] 07:07:00* Test Item Value Reference Range Comments WHITE BLOOD CELL (test code=WBC) 11.91 x10 3/uL 4.5-11.0 RED BLOOD CELL (test code=RBC) 4.76 x10 6/uL 4.00-5.60 HEMOGLOBIN (test code=HGB) 14.7 g/dL 12.5-16.9 HEMATOCRIT (test code=HCT) 42.8 % 37.5-50.7 MEAN CELL VOLUME (test code=MCV) 89.9 fL 81.0-99.0 MEAN CELL HGB (test code=MCH) 30.9 pg 27.0-33.0 MEAN CELL HGB CONCETRATION (test code=MCHC) 34.3 g/dL 33.0-37.0 RED CELL DISTRIBUTION WIDTH CV (test code=RDW) 14.0 % 11.5-14.5 RED CELL DISTRIBUTION WIDTH SD (test code=RDW-SD) 46.6 fL 37.0-54.0 PLATELET COUNT (test code=PLT) x10 3/uL 150-400 MEAN PLATELET VOLUME (test code=MPV) 11.3 fL 7.0-9.0 NEUTROPHIL % (test code=NT%) 85.6 % 56.0-77.0 IMMATURE GRANULOCYTE % (test code=IG%) 0.3 % 0.0-2.0 LYMPHOCYTE % (test code=LY%) 4.5 % 14.0-32.0 MONOCYTE % (test code=MO%) 7.6 % 4.8-9.0 EOSINOPHIL % (test code=EO%) 1.7 % 0.3-3.7 BASOPHIL % (test code=BA%) 0.3 % 0.0-2.0 NUCLEATED RBC % (test code=NRBC%) 0.0 % 0-0 NEUTROPHIL # (test code=NT#) 10.20 x10 3/uL 2.0-7.6 IMMATURE GRANULOCYTE # (test code=IG#) 0.04 x10 3/uL 0.00-0.03 LYMPHOCYTE # (test code=LY#) 0.53 x10 3/uL 1.0-3.8 MONOCYTE # (test code=MO#) 0.90 x10 3/uL 0.1-0.8 EOSINOPHIL # (test code=EO#) 0.20 x10 3/uL 0.0-0.2 BASOPHIL # (test code=BA#) 0.04 x10 3/uL 0.0-0.2 NUCLEATED RBC # (test code=NRBC#) 0.00 x10 3/uL 0.0-0.1 MANUAL DIFF REQUIRED (test code=MDIFF) NO PLT [id number] 07:07:00* Test Item Value Reference Range Comments PLATELET ESTIMATE (test code=PLTEST) THOUSAND ADEQUATE CBC W/AUTO [id number] 07:07:00* Test Item Value Reference Range Comments WHITE BLOOD CELL (test code=WBC) 11.91 x10 3/uL 4.5-11.0 RED BLOOD CELL (test code=RBC) 4.76 x10 6/uL 4.00-5.60 HEMOGLOBIN (test code=HGB) 14.7 g/dL 12.5-16.9 HEMATOCRIT (test code=HCT) 42.8 % 37.5-50.7 MEAN CELL VOLUME (test code=MCV) 89.9 fL 81.0-99.0 MEAN CELL HGB (test code=MCH) 30.9 pg 27.0-33.0 MEAN CELL HGB CONCETRATION (test code=MCHC) 34.3 g/dL 33.0-37.0 RED CELL DISTRIBUTION WIDTH CV (test code=RDW) 14.0 % 11.5-14.5 RED CELL DISTRIBUTION WIDTH SD (test code=RDW-SD) 46.6 fL 37.0-54.0 PLATELET COUNT (test code=PLT) x10 3/uL 150-400 MEAN PLATELET VOLUME (test code=MPV) 11.3 fL 7.0-9.0 NEUTROPHIL % (test code=NT%) 85.6 % 56.0-77.0 IMMATURE GRANULOCYTE % (test code=IG%) 0.3 % 0.0-2.0 LYMPHOCYTE % (test code=LY%) 4.5 % 14.0-32.0 MONOCYTE % (test code=MO%) 7.6 % 4.8-9.0 EOSINOPHIL % (test code=EO%) 1.7 % 0.3-3.7 BASOPHIL % (test code=BA%) 0.3 % 0.0-2.0 NUCLEATED RBC % (test code=NRBC%) 0.0 % 0-0 NEUTROPHIL # (test code=NT#) 10.20 x10 3/uL 2.0-7.6 IMMATURE GRANULOCYTE # (test code=IG#) 0.04 x10 3/uL 0.00-0.03 LYMPHOCYTE # (test code=LY#) 0.53 x10 3/uL 1.0-3.8 MONOCYTE # (test code=MO#) 0.90 x10 3/uL 0.1-0.8 EOSINOPHIL # (test code=EO#) 0.20 x10 3/uL 0.0-0.2 BASOPHIL # (test code=BA#) 0.04 x10 3/uL 0.0-0.2 NUCLEATED RBC # (test code=NRBC#) 0.00 x10 3/uL 0.0-0.1 MANUAL DIFF REQUIRED (test code=MDIFF) NO PLT [id number] 07:07:00* Test Item Value Reference Range Comments PLATELET ESTIMATE (test code=PLTEST) THOUSAND ADEQUATE - XR CHEST 1 [id number] 06:43:00 FAX: Ana Rascon [facility] [phone] [place]: St: ADM FAX: Antoinette Javier MD [phone] Name: JACKIE CAREY [facility] : 1950 Age/S: 68/M [address] [place] [address] Blvd Unit #: [id number] Loc: G.28 [place] [address] Phys: Ana Rascon Acct: [id number] Dis Date: Status: ADM IN PHONE #: [phone] Exam Date: 10/23/2018 05 FAX #: [phone] Reason: Post PM/ICD EXAMS: CPT CODE: [id number] XR CHEST 1 V 90855 EXAM: CR, XR chest one view: 10/22/2018, 0502 hours HISTORY: Post PM/ICD TECHNIQUE: 1 view of the chest. COMPARISON: 10/22/2018, 1906 hours FINDINGS: Trachea is midline. Heart is normal in size. Midline sternotomy clips and a right cardiac pacer device are stable. Mild calcified plaque in aortic arch seen. Pulmonary vascularity is unremarkable. There is no airspace consolidation, pleural effusion or pneumothorax. Osseous structures are stable. IMPRESSION: No appreciable interval change since prior study. SL: [JSYED-H] at 0643 Reported and signed by: Guanako Joy M.D. CC: Ana Acharya MD Technologist: Debbie Bain RT(R)(M); Milton Hsu RT(R) Trnelsy Date/Time/By: 10/23/2018 (0643) : By: [email or web address] Orig Print D/T: S: 10/23/2018 (0670) PAGE 1 Signed Report [id number] 20:24:00* Test Item Value Reference Range Comments GLUBED (test code=GLUBED) 136 MG/DL 70-110 Performed by certified dustless operator at [facility] - XR CHEST 1 [id number] 19:50:00 FAX: Ana Rascon [phone] [place]: St: ADM FAX: Antoinette Javier MD [phone] Name: JACKIE CAREY [facility] : 1950 Age/S: 68/M [address] [place] [address] Unit #: [id number] Loc: G.[address] [place] [address] Phys: Ana Rascon Acct: [id number] Dis Date: Status: ADM IN PHONE #: [phone] Exam Date: 10/22/20181945 FAX #: [phone] Reason: Post PM/ICD EXAMS: CPT CODE: [id number] XR CHEST 1 V 19535 1 VIEW CXR. PORTABLE EXAM 7:11 PM HISTORY: Post pacemaker/ICD placement. COMPARISON: 10/17/2018 chest x-ray. The lungs are clear with normal pulmonary vasculature. Cardiomediastinal silhouette normal. No pleural abnormality. Bony thorax intact. Sternal suture wires in place. Pacemaker device appears well-positioned. No pneumothorax. IMPRESSION: Pacemaker appears well-positioned. No acute process evident. END OF IMPRESSION SL: WR1-H at 1948 Reported and signed by: Dickson Lorenzo M.D. CC: Ana Rascon; Antoinette Acharya MD Technologist: Lillie Mckeon) Trnscrd Date/Time/By: 10/22/2018 (1949) : By: [email or web address] Orig Print D/T: S: 10/22/2018 (1950) PAGE 1 Signed Report GLUVALARIE 2018-10-22 12:31:00* Test Item Value Reference Range Comments YARY (test code=YARY) 224 MG/DL 70-110 Performed by certified dustless operator at [facility] - XR CHEST 2 [id number] 10:59:00 FAX: Antoinette Javier MD [phone] [place]: St: PRE Name: JACKIE KENNEDY [facility] [place] : [birth year] Age/S: 68/M [address] [place] [address] Blvd Unit #: [id number] Loc: [place] [address] Phys: Antoinette Acharya MD Acct: [id number] Dis Date: Status: PRE SDC PHONE #: [phone] Exam Date: 10/17/2018 1044 FAX #: [phone] Reason: CAD EXAMS: CPT CODE: [id number] XR CHEST 2 V 94952 Two-view chest INDIC ATION: Abnormal stress test. Coronary artery disease. FINDINGS: N o prior for comparison. The cardiomediastinal silhouette is normal in siz e. Aorta is partially calcified. 6 mm partially obscured nodular opacity projects over the right anterior sixth rib over the lower lung. Remaining lungs are well inflated and clear. Costophrenic angles are sharp. Medi astinal wires present. IMPRESSION: 1. Nodular opacity o taya the right lower lung may represent nipple shadow or other superimpos ed shadow and doubtful for pulmonary nodule. No prior study for compari son. Correlate with chest CT if clinically indicated. 2. Other moses, no acute or active pulmonary findings. FOR INTERNAL CODING PURPOSES ONLY RESULT CODE: NOD SL: [id number] Electronically S igned by Elena Guzman on 10/17/2018 at 1059 Reported and signed by: Michelet Guzman M.D. CC: Antoinette Acharya MD Tech nologist: Kady Garcia, RT(R) Trnscrd Date/Ti me/By: 10/17/2018 (6287) : By: [email or web address] Orig Print D/T: S: 10/17/2018 (2446) PAGE 1 Signed Report BASIC METABOLIC [id number] 10:24:00* Test Item Value Reference Range Comments SODIUM (test code=NA) 139 mEq/L 134-147 POTASSIUM (test code=K) 4.0 mEq/L 3.4-5.0 CHLORIDE (test code=CL) 104 mEq/L 100-108 CARBON DIOXIDE (test code=CO2) 29 mEq/L 21-33 ANION GAP (test code=GAP) 10 0-20 GLUCOSE (test code=GLU) 92 mg/dL 70-110 BLOOD UREA NITROGEN (test code=BUN) 15 mg/dL 7-18 GLOMERULAR FILTRATION RATE (test code=GFR) 96.7 80-90 Units of measure=ml/min/1.73 m2 CREATININE (test code=CREAT) 0.8 mg/dL 0.6-1.3 CALCIUM (test code=CA) 9.2 mg/dL 8.0-10.5 CBC W/AUTO [id number] 10:23:00* Test Item Value Reference Range Comments WHITE BLOOD CELL (test code=WBC) 9.68 x10 3/uL 4.5-11.0 RED BLOOD CELL (test code=RBC) 5.14 x10 6/uL 4.00-5.60 HEMOGLOBIN (test code=HGB) 15.5 g/dL 12.5-16.9 HEMATOCRIT (test code=HCT) 46.4 % 37.5-50.7 MEAN CELL VOLUME (test code=MCV) 90.3 fL 81.0-99.0 MEAN CELL HGB (test code=MCH) 30.2 pg 27.0-33.0 MEAN CELL HGB CONCETRATION (test code=MCHC) 33.4 g/dL 33.0-37.0 RED CELL DISTRIBUTION WIDTH CV (test code=RDW) 13.5 % 11.5-14.5 RED CELL DISTRIBUTION WIDTH SD (test code=RDW-SD) 45.1 fL 37.0-54.0 PLATELET COUNT (test code=PLT) 291 x10 3/uL 150-400 MEAN PLATELET VOLUME (test code=MPV) 10.4 fL 7.0-9.0 NEUTROPHIL % (test code=NT%) 71.6 % 56.0-77.0 IMMATURE GRANULOCYTE % (test code=IG%) 0.2 % 0.0-2.0 LYMPHOCYTE % (test code=LY%) 11.9 % 14.0-32.0 MONOCYTE % (test code=MO%) 10.4 % 4.8-9.0 EOSINOPHIL % (test code=EO%) 5.4 % 0.3-3.7 BASOPHIL % (test code=BA%) 0.5 % 0.0-2.0 NUCLEATED RBC % (test code=NRBC%) 0.0 % 0-0 NEUTROPHIL # (test code=NT#) 6.93 x10 3/uL 2.0-7.6 IMMATURE GRANULOCYTE # (test code=IG#) 0.02 x10 3/uL 0.00-0.03 LYMPHOCYTE # (test code=LY#) 1.15 x10 3/uL 1.0-3.8 MONOCYTE # (test code=MO#) 1.01 x10 3/uL 0.1-0.8 EOSINOPHIL # (test code=EO#) 0.52 x10 3/uL 0.0-0.2 BASOPHIL # (test code=BA#) 0.05 x10 3/uL 0.0-0.2 NUCLEATED RBC # (test code=NRBC#) 0.00 x10 3/uL 0.0-0.1 MANUAL DIFF REQUIRED (test code=MDIFF) NO PROTHROMBIN [id number] 10:14:00* Test Item Value Reference Range Comments PROTHROMBIN TIME PATIENT (test code=PTP) 12.5 SECONDS 9.3-12.9 INTERNATIONAL NORMAL RATIO (test code=INR) 1.1 0.8-1.2 TARGET INR BY INDICATION Indication INR1. Prophylaxis of venous thrombosis 2.0 - 3.0 (orthopedic surgery), Prophylaxis of venous thrombosis (other than high-risk surgery), Treatment of Deep Vein Thrombosis/Pulmonary Embolism, Prevention of systemic embolism - Tissue heart valves, Acute Myocardial Infarction (to prevent systemic embolism), Valvular heart disease, Atrial Fibrillation, Bileaflet mechanical valve in aortic position.2. Mechanical prosthetic valves (high risk), 2.5 - 3.5 Presence of Lupus Anticoagulant or Antiphospholipid Antibodies, Prevention of systemic embolism - Acute Myocardial Infarction (to prevent recurrent infarct). POC Glucose, [id number] 09:56:00* Test Item Value Reference Range Comments POC Glucose (test code=POCGLUC) 118 mg/dL 70-115 If you consider your patient critically ill, the Rashmi Accu-Chek InformII metershould not be used for Glucose determinations.Draw a venous Glucose and send to the Main Lab for Analysis.
--- NOTE | 2019-01-11 08:45 | NUR ---
0845am Bedside report received from MARY ANN May.Identiferx3. In rm #9.Alert oriented and appropriate, PERRLA, respirations even and unlabored to room air. Pulses x4 extremities equal and strong. Pedal pulses PT/DP x4 Cap fill brisk < 3 sec. Bilateral sheaths in place.Ok to dc when ACT 150 Nex ACT due 0945. Skin warm and dry integrity appears intact IV 20g to arm, presents healthy w/o s/s of infiltration or complaint. Abdomen soft and supple. Pt offered toileting, denies need to urinate or defecate. No personal affects with patient. Family son at bedside. Pt and family verbalizes understanding of POC. Has copies of dc plans. No gross issues pain pallor pressure or dysrhythmia Remains paced rhythm. Bilateral sheath sites remain intact. ds/r
--- NOTE | 2019-01-11 09:45 | NUR ---
0945 ACT 243 (Pull goal 150 ) sreedhar 1 hour No gross issues pain pallor pressure or dysrhythmia. No oozes Bilateral 1115 ACT 187 sreedhar 1 hour,No gross issues pain pallor or dysrhythmia 1215 ACT 163 sreedhar 1hour,No gross issues pain pallor or dysrhythmia 1315 ACT 151 sreedhar 30min, No gross issues pain,pallor or dysrhythmia 1345 ACT 146 Notified support team for removal Sites stable no gross issues pain pallor pressure. medardo/rn
--- NOTE | 2019-01-11 12:03 | Operative Report ---
DATE OF PROCEDURE: 01/11/2019 SURGEON: Augustus Acharya MD PROCEDURES: 1. Right iliac stent placement. 2. First order peripheral angiogram. INDICATION: 1. Claudication. 2. Peripheral vascular disease. ANESTHESIA: Versed, fentanyl, and lidocaine. COMPLICATIONS: None. TECHNIQUE: Both the right and left groins were draped and prepped in the usual manner. The left groin was anesthetized with lidocaine. A 6-[place] sheath was placed using standard Seldinger technique. An aortogram was done using an Omni Flush catheter from the left groin. The patient was noted to have a 95% stenosis in the right common iliac artery. The right femoral artery was accessed using standard Seldinger technique and a 6-[place] sheath was placed. A 7 mm x 26 mm balloon expandable stent was placed in the site of stenosis and inflated up to 12 atmospheres for 1 minute. The stent was then post dilated with an 8.0 x 40 mm balloon, which was inflated up to 6 atmospheres for 1 minute. There was no residual stenosis. There were no complications. CONCLUSION: Successful stent placement in the right common iliac artery. Augustus Acharya MD D[facility]/MODL /[id number]
--- NOTE | 2019-01-11 14:00 | NUR ---
1400 sheath pull initiated by Charlene, RN to Rt groin ,held for stasis achieved in 30min .Tonja REESE at bedside with textile technologist Renae he held pressure to left groin for 20 min stasis achieved and down time till 1615pm Family and pt aware of importance of f/o care and keeping HOB down till 1815 all dc plans has been reviewed and Dr Acharya made 2nd rounds to explain additional procedure dates Remains stable vs ,no gross signs pain pallor pressure or dysthrhmia. Bilateral Katelyn patches in place no oozing or hematoma. FAMILY AT BS AWARE OF poc INSTRUCTIONS. OK'D DC TIME 1815PM. medardo/rn
--- NOTE | 2019-01-11 18:15 | NUR ---
1815pt meets DC criteria. Bilateral femoral Katelyn patches intact no hematomas or oozing.Assessed for s/s of complication ,Skin warm, dry, no discolor, and pulses present. IV removed from left arm. Distal tip appears intact. VS WNL. Pt denies pain, sob, or need at this time. 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 verbalized understanding. Pt to wheelchair and transported to front of hospital. Transferred to private vehicle under own strength w/o incident with DC paperwork in hand. - ds/rn
== END | disposition home or self-care (01) ==
LOC: CATH LAB 06:07
PROVIDERS: ATTEND Internal Medicine Cardiovascular Disease
DX: I70.213 Atherosclerosis of native arteries of extremities with intermittent claudication, bilateral legs (principal); E78.00 Pure hypercholesterolemia, unspecified; I11.0 Hypertensive heart disease with heart failure; I50.22 Chronic systolic (congestive) heart failure; E11.9 Type 2 diabetes mellitus without complications; K21.9 Gastro-esophageal reflux disease without esophagitis; Z01.810 Encounter for preprocedural cardiovascular examination; Z01.812 Encounter for preprocedural laboratory examination; Z01.818 Encounter for other preprocedural examination; Z79.82 Long term (current) use of aspirin; Z95.0 Presence of cardiac pacemaker; Z95.1 Presence of aortocoronary bypass graft
CPT/HCPCS: 36415; 37221; 71046; 75710; 80053; 85025; 85610; 85730; 93005; C1725; C1769 ×3; J1644; J2001; J2250; J3010; J7030; Q9967; 75625; C1876

== ENCOUNTER 2019-02-01 07:08 | Observation (INO) | payer MEDICARE ==
[2019-01-28 12:11] LABS: BASOPHILS # (AUTO) 0.1 (0.0-0.1); BASOPHILS % 0.6 % (0.0-1.0); EOSINOPHILS # (AUTO) 0.4 (0.0-0.4); EOSINOPHILS % 4.9 % (0.0-6.0); HEMATOCRIT 53.4 % (38.2-49.6); HEMOGLOBIN 17.5 g/dL (14.0-18.0); LYMPHOCYTES # (AUTO) 1.2 (1.0-3.2); LYMPHOCYTES % 13.5 % (18.0-39.1); MEAN CORPUSCULAR HEMOGLOBIN 30.3 pg (28-32); MEAN CORPUSCULAR HGB CONC 32.8 g/dL (31-35); MEAN CORPUSCULAR VOLUME 92.4 fL (81-99); MONOCYTES # (AUTO) 0.8 (0.2-0.8); MONOCYTES % 9.1 % (4.4-11.3); NEUTROPHILS # (AUTO) 6.5 (2.1-6.9); NEUTROPHILS % 71.7 % (38.7-80.0); PLATELET COUNT 230 x10e3/uL (140-360); RED BLOOD COUNT 5.78 x10e6/uL (4.3-5.7); RED CELL DISTRIBUTION WIDTH 14.8 % (11.7-14.4)
[2019-01-28 12:22] LABS: INR 0.87; PARTIAL THROMBOPLASTIN TIME 30.7 seconds (23.8-35.5); PROTHROMBIN TIME 12.3 seconds (11.9-14.5)
[2019-01-28 12:29] LABS: ALANINE AMINOTRANSFERASE 31 IU/L (0-55); ALBUMIN 4.4 g/dL (3.5-5.0); ALKALINE PHOSPHATASE 99 IU/L (40-150); ANION GAP 17.8 mmol/L (8-16); BLOOD UREA NITROGEN 10 mg/dL (7-26); BUN/CREATININE RATIO 13 (6-25); CALCIUM 10.8 mg/dL (8.4-10.2); CARBON DIOXIDE 26 mmol/L (22-29); CHLORIDE 101 mmol/L (98-107); CREATININE, SERUM 0.77 mg/dL (0.72-1.25); EST GLOMERULAR FILTRATION RATE > 60 ML/MIN (60-); GLUCOSE 99 mg/dL (74-118); POTASSIUM 4.8 mmol/L (3.5-5.1); SODIUM 140 mmol/L (136-145)
[~2019-02-01] VITALS: Ht 172.7 cm; Wt 71.2 kg
[2019-02-01] VITALS (25 sets, daily range): BP systolic 110–138; BP diastolic 56–88
[~2019-02-01 07:08] MED LIST changes: -ATROPINE SULFATE 0.1 MG/ML 10ML SYR ONE; -FENTANYL CITRATE/PF 100MCG/2 ML INJ ONE; -HEPARIN SOD (PORCINE) 1000 UNIT/ML 30ML ONE; -HEPARIN SOD/SOD CHLORIDE 2,000 ML ONE; -IOPAMIDOL 300MG/ML 100 ML INFUS..BTL IV ONE; -LIDOCAINE HCL 2% LOCAL 20 ML VIAL ONE; -MIDAZOLAM HCL 2 MG/2 ML VIAL ONE; -NITROGLYCERIN/D5W 200 MCG/ML 250 ML ONE; -SODIUM CHLORIDE 0.9% 1000ML 1,000 ML ONE
--- OUTSIDE RECORDS SUMMARY | 2019-02-01 07:11 | XMS REPORT | Clinical Summary ---
Author Author [facility] Organization [facility] Address Unknown Phone Unavailable Care Team Providers Care Diver Tender Name Role Phone Nicholas Cunningham MD PCP [...] Overview: Added automatically from request for surgery [id number] Glaucoma suspect 10/21/2016 Iron deficiency anemia 07/02/2015 [...] Hospital - Encounter 06/12/2018 06/09/2018 Travel after 01/31/2018 Immunizations Name Administration Dates Next Due Herpes [...] Comments Vital Sign 159/93 07/09/2018 3:34 PM STUDENT CAREER DEVELOPMENT SPECIALIST Blood Pressure 81 07/09/2018 3:34 PM STUDENT CAREER DEVELOPMENT SPECIALIST Pulse 36.6 C (97.9 F) 07/09/2018 3:34 PM STUDENT CAREER DEVELOPMENT SPECIALIST Temperature 18 07/09/2018 3:34 PM STUDENT CAREER DEVELOPMENT SPECIALIST Respiratory Rate 98% 07/09/2018 3:34 PM STUDENT CAREER DEVELOPMENT SPECIALIST Oxygen Saturation - - Inhaled Oxygen Concentration 70.9 kg (156 lb 6.4 oz) 06/09/2018 9:59 PM STUDENT CAREER DEVELOPMENT SPECIALIST Weight 170.2 cm (5' 7") 06/09/2018 9:59 PM STUDENT CAREER DEVELOPMENT SPECIALIST Height 24.5 06/09/2018 9:59 PM STUDENT CAREER DEVELOPMENT SPECIALIST Body Mass Index Plan of Treatment Health [...] 07/09/2018 SOB (shortness of breath) 1:07 PM STUDENT CAREER DEVELOPMENT SPECIALIST POCT BNP (B-TYPE Routine 07/09/2018 NATRIURETIC PEPTIDE) 12:41 PM STUDENT CAREER DEVELOPMENT SPECIALIST BMP POC Routine 07/09/2018 11:06 AM STUDENT CAREER DEVELOPMENT SPECIALIST TROPONIN I POC Routine 07/09/2018 11:03 AM STUDENT CAREER DEVELOPMENT SPECIALIST HIV-1/HIV-2 ROUTINE STAT 07/09/2018 SCREENING 11:00 AM STUDENT CAREER DEVELOPMENT SPECIALIST LIPASE STAT 07/09/2018 11:00 AM STUDENT CAREER DEVELOPMENT SPECIALIST LIVER PROFILE STAT 07/09/2018 11:00 AM STUDENT CAREER DEVELOPMENT SPECIALIST CBC/DIFF STAT 07/09/2018 11:00 AM STUDENT CAREER DEVELOPMENT SPECIALIST 12 LEAD EKG Routine 07/09/2018 10:55 AM STUDENT CAREER DEVELOPMENT SPECIALIST POC GLUCOSE - IN LAB Routine 06/12/2018 (STAT) 11:52 AM STUDENT CAREER DEVELOPMENT SPECIALIST POC GLUCOSE - IN LAB Routine 06/12/2018 (STAT) 7:34 AM STUDENT CAREER DEVELOPMENT SPECIALIST CBC/DIFF Routine 06/12/2018 3:45 AM STUDENT CAREER DEVELOPMENT SPECIALIST PT/INR/PTT Routine 06/12/2018 3:45 AM STUDENT CAREER DEVELOPMENT SPECIALIST BASIC METABOLIC PANEL Routine 06/12/2018 3:45 AM STUDENT CAREER DEVELOPMENT SPECIALIST PT/INR Routine 06/11/2018 9:30 PM STUDENT CAREER DEVELOPMENT SPECIALIST POC GLUCOSE - IN LAB Routine 06/11/2018 (STAT) 8:39 PM STUDENT CAREER DEVELOPMENT SPECIALIST POC GLUCOSE - IN LAB Routine 06/11/2018 (STAT) 5:09 PM STUDENT CAREER DEVELOPMENT SPECIALIST POC GLUCOSE - IN LAB Routine 06/11/2018 (STAT) 12:08 PM STUDENT CAREER DEVELOPMENT SPECIALIST POC GLUCOSE - IN LAB Routine 06/11/2018 (STAT) 7:38 AM STUDENT CAREER DEVELOPMENT SPECIALIST TRANSTHORACIC ECHO (TTE) STAT 06/11/2018 7:24 AM STUDENT CAREER DEVELOPMENT SPECIALIST MAGNESIUM Routine 06/11/2018 3:45 AM STUDENT CAREER DEVELOPMENT SPECIALIST BASIC METABOLIC PANEL Routine 06/11/2018 3:45 AM STUDENT CAREER DEVELOPMENT SPECIALIST POC GLUCOSE - IN LAB Routine 06/10/2018 (STAT) 8:31 PM STUDENT CAREER DEVELOPMENT SPECIALIST POC GLUCOSE - IN LAB Routine 06/10/2018 (STAT) 4:44 PM STUDENT CAREER DEVELOPMENT SPECIALIST POC GLUCOSE - IN LAB Routine 06/10/2018 (STAT) 11:23 AM STUDENT CAREER DEVELOPMENT SPECIALIST 12 LEAD EKG Routine 06/10/2018 5:10 AM STUDENT CAREER DEVELOPMENT SPECIALIST TROPONIN I Routine 06/10/2018 4:35 AM STUDENT CAREER DEVELOPMENT SPECIALIST CORTISOL, TOTAL STAT 06/10/2018 4:35 AM STUDENT CAREER DEVELOPMENT SPECIALIST HEMOGLOBIN A1C STAT 06/10/2018 4:35 AM STUDENT CAREER DEVELOPMENT SPECIALIST LIPID PROFILE STAT 06/10/2018 4:35 AM STUDENT CAREER DEVELOPMENT SPECIALIST THYROID STIMULATING STAT 06/10/2018 HORMONE (TSH) 4:35 AM STUDENT CAREER DEVELOPMENT SPECIALIST BASIC METABOLIC PANEL Routine 06/10/2018 4:35 AM STUDENT CAREER DEVELOPMENT SPECIALIST CBC/DIFF Routine 06/10/2018 4:35 AM STUDENT CAREER DEVELOPMENT SPECIALIST TROPONIN I STAT 06/09/2018 11:00 PM STUDENT CAREER DEVELOPMENT SPECIALIST CT CHEST PE PROTOCOL STAT 06/09/2018 QUINTANA (dyspnea on exertion) 9:00 PM STUDENT CAREER DEVELOPMENT SPECIALIST TROPONIN I POC Routine 06/09/2018 8:40 PM STUDENT CAREER DEVELOPMENT SPECIALIST D-DIMER STAT 06/09/2018 8:36 PM STUDENT CAREER DEVELOPMENT SPECIALIST FREE T4 STAT 06/09/2018 8:36 PM STUDENT CAREER DEVELOPMENT SPECIALIST 12 LEAD EKG Routine 06/09/2018 8:25 PM STUDENT CAREER DEVELOPMENT SPECIALIST POC GLUCOSE - IN LAB Routine 06/09/2018 (STAT) 6:18 PM STUDENT CAREER DEVELOPMENT SPECIALIST URINALYSIS STAT 06/09/2018 6:10 PM STUDENT CAREER DEVELOPMENT SPECIALIST ELECTROLYTES, URINE STAT 06/09/2018 6:10 PM STUDENT CAREER DEVELOPMENT SPECIALIST OSMOLALITY, URINE STAT 06/09/2018 6:10 PM STUDENT CAREER DEVELOPMENT SPECIALIST FREE T4 STAT 06/09/2018 5:30 PM STUDENT CAREER DEVELOPMENT SPECIALIST D-DIMER STAT 06/09/2018 5:30 PM STUDENT CAREER DEVELOPMENT SPECIALIST OSMOLALITY,SERUM Routine 06/09/2018 5:30 PM STUDENT CAREER DEVELOPMENT SPECIALIST PHOSPHORUS Routine 06/09/2018 5:30 PM STUDENT CAREER DEVELOPMENT SPECIALIST MAGNESIUM Routine 06/09/2018 5:30 PM STUDENT CAREER DEVELOPMENT SPECIALIST COMPREHENSIVE METABOLIC Routine 06/09/2018 PANEL 5:30 PM STUDENT CAREER DEVELOPMENT SPECIALIST TROPONIN I STAT 06/09/2018 5:30 PM STUDENT CAREER DEVELOPMENT SPECIALIST CK, TOTAL STAT 06/09/2018 5:30 PM STUDENT CAREER DEVELOPMENT SPECIALIST 12 LEAD EKG Routine 06/09/2018 2:42 PM STUDENT CAREER DEVELOPMENT SPECIALIST TROPONIN I STAT 06/09/2018 1:12 PM STUDENT CAREER DEVELOPMENT SPECIALIST CK, TOTAL STAT 06/09/2018 1:12 PM STUDENT CAREER DEVELOPMENT SPECIALIST VBG POC Routine 06/09/2018 12:47 PM STUDENT CAREER DEVELOPMENT SPECIALIST INFLUENZA A/B AND RSV PCR STAT 06/09/2018 12:00 PM STUDENT CAREER DEVELOPMENT SPECIALIST VBG POC Routine 06/09/2018 11:30 AM STUDENT CAREER DEVELOPMENT SPECIALIST BASIC METABOLIC PANEL STAT 06/09/2018 10:56 AM STUDENT CAREER DEVELOPMENT SPECIALIST XRAY CHEST 1 VIEW STAT 06/09/2018 CAD, multiple vessel 10:55 AM STUDENT CAREER DEVELOPMENT SPECIALIST B-TYPE NATRIURETIC STAT 06/09/2018 PEPTIDE (BNP) 10:50 AM STUDENT CAREER DEVELOPMENT SPECIALIST CBC/DIFF STAT 06/09/2018 10:50 AM STUDENT CAREER DEVELOPMENT SPECIALIST POCT BNP (B-TYPE Routine 06/09/2018 NATRIURETIC PEPTIDE) 10:46 AM STUDENT CAREER DEVELOPMENT SPECIALIST VBG POC Routine 06/09/2018 10:42 AM STUDENT CAREER DEVELOPMENT SPECIALIST BMP POC Routine 06/09/2018 10:42 AM STUDENT CAREER DEVELOPMENT SPECIALIST 12 LEAD EKG Routine 06/09/2018 10:40 AM STUDENT CAREER DEVELOPMENT SPECIALIST TROPONIN I POC Routine 06/09/2018 10:40 AM STUDENT CAREER DEVELOPMENT SPECIALIST after 01/31/2018 Results * XRAY CHEST 2 VIEWS (07/09/2018 1:07 PM STUDENT CAREER DEVELOPMENT SPECIALIST) Specimen Impressions Performed At IMPRESSION: [facility] No acute cardiothoracic findings. Dictated By: Barry Mcfadden MD, 07/09/2018 1:21 PM I have reviewed the study and agree with the findings in this report. Signed By: Miguel Coronado MD, 07/09/2018 1:47 PM Narrative Performed At EXAM: XRAY CHEST 2 VIEWS [facility] DATE: 07/09/2018 1:07 PM INDICATION: sob [...] Interface, Rad/Mammog In - 07/09/2018 1:52 PM STUDENT CAREER DEVELOPMENT SPECIALIST EXAM: XRAY CHEST 2 VIEWS DATE: 07/09/2018 [...] BNP (BRAIN NATRIURETIC PEPTIDE) (07/09/2018 12:41 PM STUDENT CAREER DEVELOPMENT SPECIALIST) Only the most recent of 2 results within the time period is included. B Natr Pept POC 853 (H) 0 - 100 pg/mL BT MAIN-STATION 1 Specimen Performing Organization Address City/[facility] Number [facility] BT MAIN-STATION 1 * BMP POC (07/09/2018 11:06 AM STUDENT CAREER DEVELOPMENT SPECIALIST) Only the most recent of 2 results [...] MAIN-STATION Afr-Am 1 Specimen Performing Organization Address City/[facility] Phone Number MISYS BT MAIN-STATION 1 * TROPONIN I POC (07/09/2018 11:03 AM STUDENT CAREER DEVELOPMENT SPECIALIST) Only the most recent of 3 results within the time period is included. Troponin POC 0.02 0.00 - 0.08 ng/mL BT MAIN-STATION 1 Specimen Performing Organization Address City/[facility] Phone Number MISYS BT MAIN-STATION 1 * HIV-1/HIV-2 ROUTINE SCREENING (07/09/2018 11:00 AM STUDENT CAREER DEVELOPMENT SPECIALIST) HIV-1/HIV-2 Negative NEG BT MAIN-STATION 3 Specimen Performing Organization Address City/[facility]/[employer] Phone Number MISYS BT MAIN-STATION 3 * LIVER PROFILE (07/09/2018 11:00 AM STUDENT CAREER DEVELOPMENT SPECIALIST) Protein, Total, 6.7 6.0 - 8.3 g/dL [...] MAIN-STATION 1 * LIPASE (07/09/2018 11:00 AM STUDENT CAREER DEVELOPMENT SPECIALIST) Lipase 12 11 - 82 U/L BT MAIN-STATION 1 Specimen Blood Performing Organization Address City/[facility] Phone Number MISYS BT MAIN-STATION 1 * CBC/DIFF (07/09/2018 11:00 AM STUDENT CAREER DEVELOPMENT SPECIALIST) Only the most recent of 4 results [...] (Abs) 2 Specimen Blood Performing Organization Address [facility] Phone Number MISYS BT MAIN-STATION 2 * 12 LEAD EKG (07/09/2018 10:55 AM STUDENT CAREER DEVELOPMENT SPECIALIST) 12 LEAD EKG FOR [facility] Test Date:2018-07-09 Pat Name: JACKIE ALBERTO Department: 5520 Room: 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 Measurements Intervals [place] Rate: 92 P:50 [place]: 173 QRS: 115 QRSD: 162 T: 48 QT: 376 QTc:467 Interpretive Statements SINUS RHYTHM POSSIBLE LEFT ATRIAL ENLARGEMENT INDETERMINATE AXIS RIGHT BUNDLE BRANCH BLOCK Electronically Signed On 07-09-2018 14:05:50 STUDENT CAREER DEVELOPMENT SPECIALIST by Yobani Arora M.D. Specimen Performing Organization Address [facility] Phone Number SMS * GLUCOSE POC (06/12/2018 11:52 AM STUDENT CAREER DEVELOPMENT SPECIALIST) Only the most recent of 10 results within the time period is included. Glucose POC 88 74 - 106 mg/dL BT MAIN-STATION 1 Specimen Performing Organization Address City/[facility] Phone Number MISYS BT MAIN-STATION 1 * PT/INR/PTT (06/12/2018 3:45 AM STUDENT CAREER DEVELOPMENT SPECIALIST) PT 13.8 11.8 - 15.0 Seconds BT MAIN-STATION 3 INR 1.1 BT MAIN-STATION SUGGESTED THERAPEUTIC RANGES: 3 INR 2.0-3.0 for MODERATE INTENSITY ANTICOAGULATION INR 2.5-3.5 for HIGH INTENSITY ANTICOAGULATION PTT 36.9 (H) 23.6 - 36.4 Seconds BT MAIN-STATION 3 Specimen Blood Performing Organization Address [facility] Phone Number MISYS BT MAIN-STATION 3 * BASIC METABOLIC PANEL (06/12/2018 3:45 AM STUDENT CAREER DEVELOPMENT SPECIALIST) Only the most recent of 4 results [...] Am 1 Specimen Blood Performing Organization Address [facility] Phone Number MISYS BT MAIN-STATION 1 * PT/INR (06/11/2018 9:30 PM STUDENT CAREER DEVELOPMENT SPECIALIST) PT 13.1 11.8 - 15.0 Seconds BT MAIN-STATION 3 INR 1.0 BT MAIN-STATION SUGGESTED THERAPEUTIC RANGES: 3 INR 2.0-3.0 for MODERATE INTENSITY ANTICOAGULATION INR 2.5-3.5 for HIGH INTENSITY ANTICOAGULATION Specimen Blood Performing Organization Address [facility] Phone Number MISYS BT MAIN-STATION 3 * TRANSTHORACIC ECHO (TTE) (06/11/2018 7:24 AM STUDENT CAREER DEVELOPMENT SPECIALIST) Pathologist [facility] TRANSTHORACIC Transthoracic SMS ECHO (TTE) Echo Report JACKIE ALBERTO Age:67 Gender: M :1950 Exam Date: 06/11/2018 07:24 Exam Location: [facility] Echo Ordering Phys: JUAN F SEGURA Referring Phys: Reading Phys:Sherly Manning MD Fellow Phys: Karoline Gomez M.D. Fellow Phys: Dye Mixer: Jeremías Wilkinson Reason For Exam: Indications: Stroke, Transient cerebral ischemic attack, unspecified ICD-9 Codes: I67.89G45.9 Exam Type: TRANSTHORACIC ECHO (TTE) Procedure CPT:45021 Addtional CPT: Ht (in): 67 BSA: 1.84HR: [...] BP 58.9 cm LV Cardiac Output MOD [id number] cm/min LV Cardiac Index MOD BP 2437 cm/minm LA Volume 97.3 cm LA Volume Index 53 cm/m 16 - 34 cm/m RV Diastolic Basal Diameter 3.4 cm 2.5 - 4.1 cm LV Mass by linear [id number] g LV Mass by linear method Kkelj889 g/m DOPPLER AV Peak Velocity 159 cm/s [...] BP 58.9 cm LV Cardiac Output MOD [id number] cm/min LV Cardiac Index MOD BP 2437 cm/minm LA Volume 97.3 cm LA Volume Index 53 cm/m 16 - 34 cm/m RV Diastolic Basal Diameter 3.4 cm 2.5 - 4.1 cm LV Mass by linear pwogdr429 g LV Mass by linear method Jgnwe196 g/m DOPPLER AV Peak Velocity 159 cm/s [...] E' Septal Ratio20.3 Specimen Performing Organization Address [facility] Phone Number SMS * MAGNESIUM (06/11/2018 3:45 AM STUDENT CAREER DEVELOPMENT SPECIALIST) Only the most recent of 2 results within the time period is included. 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 Measurements Intervals [place] Rate: 72 P:66 IL: 197 QRS: 228 QRSD: 177 T: 79 QT: 508 QTc:557 Interpretive Statements SINUS RHYTHM WITH OCCASIONAL VENTRICULAR PREMATURE COMPLEXES RIGHT BUNDLE BRANCH BLOCK AND POSSIBLE RIGHT VENTRICULAR HYPERTROPHY [RBBB, 1.5 mV R IN V1, RAD] LEFT POSTERIOR FASCICULAR BLOCK [QRS AXIS > 109, INFERIOR Q] SEPTAL MYOCARDIAL INFARCTION [40+ ms Q WAVE IN V1/V2], OF INDETERMINATE AGE Electronically Signed On 06-10-2018 5:31:46 STUDENT CAREER DEVELOPMENT SPECIALIST by Yobani Arora M.D. Specimen Performing Organization Address City/[facility] Phone Number SMS * HEMOGLOBIN A1C (06/10/2018 4:35 AM STUDENT CAREER DEVELOPMENT SPECIALIST) Hemoglobin A1c 5.8 4.3 - 6.1 % BT DIAGNOSTIC IMMUNOLOGY Est Average 119.8 mg/dL BT DIAGNOSTIC Gluc IMMUNOLOGY Specimen Blood Performing Organization Address [facility] Phone Number MISYS BT DIAGNOSTIC IMMUNOLOGY * CORTISOL, TOTAL (06/10/2018 4:35 AM STUDENT CAREER DEVELOPMENT SPECIALIST) Cortisol, Total 12.1 3.44 - 22.45 mcg/dL BT MAIN-STATION 1 Specimen Blood Performing Organization Address [facility] Phone Number MISYS BT MAIN-STATION 1 * TSH (06/10/2018 4:35 AM STUDENT CAREER DEVELOPMENT SPECIALIST) TSH 1.82 0.57 - 3.74 uIU/mL BT MAIN-STATION 1 Specimen Blood Performing Organization Address [facility] Phone Number MISYS BT MAIN-STATION 1 * TROPONIN I (06/10/2018 4:35 AM STUDENT CAREER DEVELOPMENT SPECIALIST) Only the most recent of 4 results within the time period is included. Troponin I 0.06 (H) <0.04 ng/mL BT MAIN-STATION 1 Specimen Performing Organization Address [facility] Phone Number MISYS BT MAIN-STATION 1 * LIPID PROFILE (06/10/2018 4:35 AM STUDENT CAREER DEVELOPMENT SPECIALIST) Cholesterol 291 mg/dL BT MAIN-STATION Comment: 1 REFERENCE RANGE: Desirable: <200 mg/dL Borderline: 200-240 mg/dL High Risk: >240 mg/dL Triglyceride 156 (H) <150 mg/dL BT MAIN-STATION Comment: 1 REFERENCE RANGE: Normal: <150 mg/dL Borderline High: 150-199 mg/dL High: 200-499 mg/dL Very High: >sh=289 mg/dL HDL 60 mg/dL BT MAIN-STATION Comment: 1 Increased CHD risk: <40 mg/dL Decreased CHD risk: >60 mg/dL LDL 200 mg/dL BT MAIN-STATION Comment: 1 REFERENCE RANGE: Optimal: <100 mg/dL Near Optimal: 100-129 mg/dL Borderline High: 130-159 mg/dL High: 160-189 mg/dL Very High: >zr=248 mg/dL Specimen Blood Performing Organization Address City/[facility] Phone Number MISYS BT MAIN-STATION 1 * CT CHEST PE PROTOCOL (06/09/2018 9:00 PM STUDENT CAREER DEVELOPMENT SPECIALIST) Specimen Impressions Performed At IMPRESSION: SMS 1.No [...] Interface, Rad/Mammog In - 06/09/2018 10:23 PM STUDENT CAREER DEVELOPMENT SPECIALIST EXAM: Chest CT, PE protocol TECHNIQUE: CT [...] SMS * FREE T4 (06/09/2018 8:36 PM STUDENT CAREER DEVELOPMENT SPECIALIST) Only the most recent of 2 results within the time period is included. Free T4 0.92 0.61 - 1.18 ng/dl BT MAIN-STATION 1 Specimen Blood Performing Organization Address [facility] Phone Number MISYS BT MAIN-STATION 1 * D-DIMER (06/09/2018 8:36 PM STUDENT CAREER DEVELOPMENT SPECIALIST) Only the most recent of 2 results within the time period is included. D-Dimer 2.21 ug/mL,FEU BT MAIN-STATION Comment: 3 Values of quantitative d-Dimer less than 0.40 ug/mL FEU have been reported to be associated with a low probability of deep vein thrombosis/pulmonary embolism. This test alone should not be used to rule out DVT/PE. Specimen Blood Performing Organization Address [facility] Phone Number MISYS BT MAIN-STATION 3 * 12 LEAD EKG (06/09/2018 8:25 PM STUDENT CAREER DEVELOPMENT SPECIALIST) 12 LEAD EKG FOR [facility] Test Date:2018-06-09 Pat Name: JACKIE ALBERTO Department: 5520 Room: [facility] Gender: M Cavity Pump Operator: [id number] :1951-0 07-17 Requested By: JUAN F SEGURA Order Number: [id number] Reading MD: Yobani Arora M.D. Measurements Intervals [place] Rate: 68 P:49 IL: 192 QRS: 225 QRSD: 165 T: 89 QT: 473 QTc:506 Interpretive Statements SINUS RHYTHM POSSIBLE LEFT ATRIAL ENLARGEMENT [-0.1mV P WAVE IN V1/V2] INDETERMINATE AXIS RIGHT BUNDLE BRANCH BLOCK AND POSSIBLE RIGHT VENTRICULAR HYPERTROPHY [RBBB, 1.5 mV R IN V1, RAD] ANTEROSEPTAL MYOCARDIAL ISCHEMIA [40+ ms Q WAVE IN V1-V4], OF INDETERMINATE AGE Reviewed by Electronically Signed On 06-10-2018 5:31:41 STUDENT CAREER DEVELOPMENT SPECIALIST by Yobani Arora M.D. Specimen Performing Organization Address [facility]/Zipcode Phone Number SMS * UA CHEMISTRIES (06/09/2018 6:10 PM STUDENT CAREER DEVELOPMENT SPECIALIST) Color Colorless BT MAIN-STATION 3 Clarity Clear BT MAIN-STATION 3 Specific 1.004 1.001 - 1.035 BT MAIN-STATION [place] 3 pH 6.0 5 - 8 BT [...] BT MAIN-STATION 3 Specimen Performing Organization Address [facility] Phone Number MISYS BT MAIN-STATION 3 * OSMOLALITY, UR (06/09/2018 6:10 PM STUDENT CAREER DEVELOPMENT SPECIALIST) Pathologist [facility] Osmolality, Ur 190Comment: Test performed at 50 - 1,400 mOsm/kg BT MAIN-STATION [facility]. 4 Specimen Urine Performing Organization Address [facility] Phone Number MISYS BT MAIN-STATION 4 * ELECTROLYTES, UR (06/09/2018 6:10 PM STUDENT CAREER DEVELOPMENT SPECIALIST) Pathologist [facility] Sodium, Ur 65 40 - 220 mmol/L BT MAIN-STATION 1 Potassium, Ur 16 (L) 25 - 125 mmol/L BT MAIN-STATION 1 Chloride, Ur 75 (L) 110 - 250 mmol/L BT MAIN-STATION 1 Specimen Performing Organization Address [facility] Phone Number MISYS BT MAIN-STATION 1 * COMPREHENSIVE METABOLIC PANEL(DBIL NOT INCLUDED) (06/09/2018 5:30 PM STUDENT CAREER DEVELOPMENT SPECIALIST) Pathologist [facility] Albumin 4.3 4.2 - 5.5 g/dL BT [...] MAIN-STATION 1 Specimen Blood Performing Organization Address City/[facility] Phone Number MISYS BT MAIN-STATION 1 * PHOSPHORUS (06/09/2018 5:30 PM STUDENT CAREER DEVELOPMENT SPECIALIST) Phosphorus 3.8 2.5 - 5.0 mg/dL BT MAIN-STATION 1 Specimen Blood Performing Organization Address City/[facility] Phone Number MISYS BT MAIN-STATION 1 * OSMOLALITY (06/09/2018 5:30 PM STUDENT CAREER DEVELOPMENT SPECIALIST) Osmolality 265 (L)Comment: Test 280 - 301 mOsm/kg BT MAIN-STATION performed at [facility]. 4 Specimen Performing Organization Address City/[facility] Phone Number MISYS BT MAIN-STATION 4 * CK, TOTAL (06/09/2018 5:30 PM STUDENT CAREER DEVELOPMENT SPECIALIST) Only the most recent of 2 results within the time period is included. CK, Total 99 30 - 223 U/L BT MAIN-STATION Comment: 1 CKMB not performed if CK <100, if CKMB is required, please notify laboratory immediately. 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 Measurements Intervals [place] Rate: 61 P:55 IL: 190 QRS: 191 QRSD: 168 T: 114 QT: 474 QTc:480 Interpretive Statements SINUS RHYTHM INDETERMINATE AXIS RIGHT BUNDLE BRANCH BLOCK AND POSSIBLE RIGHT VENTRICULAR HYPERTROPHY LEFT POSTERIOR FASCICULAR BLOCK SEPTAL MYOCARDIAL INFARCTION, OF INDETERMINATE AGE MODERATE T-WAVE ABNORMALITY, CONSIDER LATERAL ISCHEMIA Electronically Signed On 06-09-2018 15:49:06 STUDENT CAREER DEVELOPMENT SPECIALIST by Yobani Arora M.D. Specimen Performing Organization Address [facility] Phone Number SMS * VBG POC (06/09/2018 12:47 PM STUDENT CAREER DEVELOPMENT SPECIALIST) Only the most recent of 3 results [...] BT MAIN-STATION 1 Specimen Performing Organization Address [facility] Phone Number MISYS BT MAIN-STATION 1 * INFLUENZA A/B AND RSV PCR (06/09/2018 12:00 PM STUDENT CAREER DEVELOPMENT SPECIALIST) Influenza A Not detected BT MOLECULAR PATHOLOGY [...] Description DRAW 2 Specimen Performing Organization Address [facility] Phone Number MISYS BT MOLECULAR PATHOLOGY BT OUTPATIENT DRAW 2 * XRAY CHEST 1 VIEW (06/09/2018 10:55 AM STUDENT CAREER DEVELOPMENT SPECIALIST) Specimen Impressions Performed At IMPRESSION: [facility] Mild cardiomegaly with interstitial pulmonary edema. A "PRELIMINARY" report was made available via [employer] at the time of dictation by the [...] Interface, Rad/Mammog In - 06/09/2018 11:21 AM STUDENT CAREER DEVELOPMENT SPECIALIST EXAMINATION: XRAY CHEST 1 VIEW, AP INDICATION: [...] A "PRELIMINARY" report was made available via [employer] at the time of dictation by the [...] MD, 06/09/2018 11:16 AM Performing Organization Address City/[facility] Phone Number SMS * B-TYPE NATRIURETIC PEPTIDE (BNP) (06/09/2018 10:50 AM STUDENT CAREER DEVELOPMENT SPECIALIST) B Natriuretic 271 (H) <101 pg/mL BT MAIN-STATION Pept 1 Specimen Blood Performing Organization Address [facility] Phone Number MISYS BT MAIN-STATION 1 * 12 LEAD EKG (06/09/2018 10:40 AM STUDENT CAREER DEVELOPMENT SPECIALIST) 12 LEAD EKG FOR [facility] Test Date:2018-06-09 Pat Name: JACKIE ALBETRO Department: 5520 Room: [place] [address] Gender: M Cavity Pump Operator: [id number] :1951-0 07-17 Requested By: ALOK YORK Order Number: [id number] Juan MD: Yobani Arora M.D. Measurements Intervals [place] Rate: 83 P:48 [place]: 189 QRS: 193 QRSD: 161 T: 85 QT: 411 QTc:485 Interpretive Statements SINUS RHYTHM POSSIBLE LEFT ATRIAL ENLARGEMENT INDETERMINATE AXIS RIGHT BUNDLE BRANCH BLOCK ANTEROSEPTAL MYOCARDIAL INFARCTION, OF INDETERMINATE AGE Electronically Signed On 06-09-2018 15:49:03 STUDENT CAREER DEVELOPMENT SPECIALIST by Yobani Arora M.D. Specimen Performing Organization Address City/State/Zipcode Phone Number SMS after 01/31/2018 Insurance Type Payer Benefit Subscriber ID Effective Phone Address Plan / Dates Group [employer] MEDICARE AETNA xxxxxxxx 2018-P [phone] [address] [facility] resent [id number] SELF-PAY SELF-PAY xxxxxxxxx 2018-P [phone] [address] [place] [address] Advance Directives Date Inactivated Comments Code Status Date Activated 06/12/2018 5:59 PM Full Code 06/09/2018 1:38 PM 03/19/2015 7:40 PM Full Code 03/16/2015 10:08 PM
--- OUTSIDE RECORDS SUMMARY | 2019-02-01 07:12 | XMS REPORT | Continuity of Care Document ---
Author Author SNTMNT Address Unknown Phone Unavailable Care Team Providers Care Machine Assembler For Puller Over Name Role Phone [employer] Unavailable Unavailable Problems Problem Status Onset Date Classification Date Reported Comments Source Heart failure Active 06/11/2018 11/07/2018 [facility] Cataract Active 04/14/2017 11/07/2018 [facility] Glaucoma suspect Active 10/21/2016 11/07/2018 [facility] Iron deficiency anemia Active 07/02/2015 11/07/2018 [facility] Constipation Active 07/02/2015 11/07/2018 [facility] Tinea versicolor Active 05/22/2015 11/07/2018 [facility] S/P CABG Active 03/19/2015 11/07/2018 [facility] Ischemic cardiomyopathy Active 03/19/2015 11/07/2018 [facility] 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 11/07/2018 [facility] Severe left ventricular systolic dysfunction Active 03/19/2015 11/07/2018 [facility] Abdominal pain Active 03/16/2015 11/07/2018 [facility] SOB Active 03/16/2015 11/07/2018 [facility] CAD, multiple vessel Active 03/16/2015 11/07/2018 [facility] HTN Active 03/16/2015 11/07/2018 [facility] HLD Active 03/16/2015 11/07/2018 [facility] Acute systolic CHF Active 11/07/2018 [facility] Acute on chronic systolic heart failure Active 11/07/2018 [facility] Cough Active 11/07/2018 [facility] QUINTANA Active 11/07/2018 [facility] History of itching of eye Active 11/07/2018 [facility] Seasonal allergic conjunctivitis Active 11/07/2018 [facility] Ocular hypertension, bilateral Active 11/07/2018 [facility] Essential hypertension Active 11/07/2018 [facility] Pruritus of genital organs Active 11/07/2018 [facility] Seasonal allergic rhinitis due to other allergic trigger Active 11/07/2018 [facility] Mixed hyperlipidemia Active 11/07/2018 [facility] Gastroesophageal reflux disease without esophagitis Active 11/07/2018 [facility] Medications Medication Details Route Status Patient Instructions Ordering Provider Order Date Source budesonide-formoterol (SYMBICORT) 160-4.5 mcg/actuation inhaler Inhale 2 Puffs by mouth 2 times daily. Inhalation Active 06/12/2018 [facility] latanoprost (XALATAN) 0.005 % ophthalmic solution Instill 1 Drop in each eye at bedtime nightly. Active 06/12/2018 [facility] lisinopril (ZESTRIL) 40 mg tablet Take 1 tablet by mouth daily. Oral Active 06/12/2018 [facility] loratadine (CLARITIN) 10 mg tablet Take 1 tablet by mouth daily. Oral Active 06/12/2018 [facility] aspirin (ASPIRIN) 81 mg chewable tablet Chew and swallow 1 tablet by mouth daily. Active 06/12/2018 [facility] brimonidine (ALPHAGAN P) 0.15 % ophthalmic solution Instill 1 Drop in each eye 2 times daily. Active 06/12/2018 [facility] carvedilol (COREG) 25 mg tablet Take 1 tablet by mouth 2 times daily (with meals). Oral Active 06/12/2018 [facility] furosemide (LASIX) 40 mg tablet Take 1 tablet by mouth 2 times daily. Oral Active 06/12/2018 [facility] rosuvastatin (CRESTOR) 40 mg tablet Take 1 tablet by mouth at bedtime nightly. Oral Active 06/12/2018 [facility] dexlansoprazole (DEXILANT) 30 mg delayed release capsule Take 1 capsule by mouth daily. Oral Active 06/12/2018 [facility] albuterol (PROVENTIL) 2.5 mg /3 mL (0.083 %) nebulizer solution Inhale 3 mL by mouth every 4 hours as needed for Wheezing. Inhalation Active 06/12/2018 [facility] furosemide (LASIX) 40 mg tablet Take 1 tablet by mouth 2 times daily. Oral No Longer Active 05/17/2017 [facility] hydrocortisone 2.5 % ointment Apply to affected area 2 times daily. Topical No Longer Active 05/17/2017 [facility] latanoprost (XALATAN) 0.005 % ophthalmic solution Instill 1 Drop in each eye at bedtime nightly. No Longer Active 04/14/2017 [facility] rosuvastatin (CRESTOR) 40 mg tablet Take 1 tablet by mouth at bedtime nightly. Oral No Longer Active 03/30/2017 [facility] lisinopril (ZESTRIL) 40 mg tablet Take 1 tablet by mouth daily. Oral No Longer Active 12/14/2016 [facility] ketoconazole (NIZORAL) 2 % topical cream Apply to affected area daily. Topical No Longer Active 12/14/2016 [facility] latanoprost (XALATAN) 0.005 % ophthalmic solution Instill 1 Drop in each eye at bedtime nightly. No Longer Active 08/25/2016 [facility] brimonidine (ALPHAGAN P) 0.15 % ophthalmic solution Instill 1 Drop in each eye 2 times daily. No Longer Active 08/25/2016 [facility] carvedilol (COREG) 25 mg tablet Take 1 tablet by mouth 2 times daily (with meals). Oral No Longer Active 07/14/2016 [facility] loratadine (CLARITIN) 10 mg tablet Take 1 tablet by mouth daily. Oral No Longer Active 04/21/2016 [facility] polyethylene glycol (GOLYTELY) 236-22.74-6.74 -5.86 gram oral solution Add lukewarm drinking water to the fill cole (4 liters) and shake. Drink as directed by your doctor.. No Longer Active 12/11/2015 [facility] azelastine (OPTIVAR) 0.05 % ophthalmic solution Instill 1 Drop in each eye 2 times daily. Active 09/11/2015 [facility] dexlansoprazole (DEXILANT) 30 mg delayed release capsule Take 1 capsule by mouth daily. Oral No Longer Active 09/11/2015 [facility] budesonide-formoterol (SYMBICORT) 160-4.5 mcg/actuation inhaler Inhale 2 Puffs by mouth 2 times daily. Inhalation No Longer Active 09/08/2015 [facility] rivaroxaban (XARELTO) 20 mg tablet Take 1 tablet by mouth daily (with dinner). Oral No Longer Active 05/19/2015 [facility] aspirin (ASPIRIN) 81 mg chewable tablet Chew and swallow 1 tablet by mouth daily. No Longer Active 03/19/2015 [facility] Allergies, Adverse Reactions, Alerts No Known Medication Allergies Immunizations Immunization Date Given Site Status Last Updated Comments Source Influenza Vaccine, Seasonal, Injectable 05/17/2017 completed [facility] Influenza Vaccine 04/21/2016 completed [facility] Tdap Tetanus, diphtheria, acellular pertussis Vaccine 10/09/2015 completed [facility] Influenza Vaccine 05/22/2015 completed [facility] PPV 23 Pneumococcal Polysaccaride 04/02/2015 completed [facility] Herpes Zoster Vaccine In Clinic 04/02/2015 completed [facility] Results Order Name Results Value Reference Range Date Interpretation Comments Source 12 LEAD EKG 12 LEAD EKG FOR [facility] Test Date:2018-07-09 Pat Name: JACKIE CAREY Department: 5520 : Gender: MTechnician: [id number] :1950 Requested By: RAMONA FREIRE Order Number: [id number] MD: Yobani Arora M.D. Measurements IntervalsAxis Rate: 92 P:50 [place]: 173QRS:115 QRSD: 162T:48 QT: 376 QTc:467 Interpretive Statements SINUS RHYTHM POSSIBLE LEFT ATRIAL ENLARGEMENT INDETERMINATE AXIS RIGHT BUNDLE BRANCH BLOCK Electronically Signed On 07-09-2018 14:05:50 DISTRICT LEADER by Yobani Arora M.D. 07/09/2018 [facility] HIV-1/HIV-2 ROUTINE SCREENING HIV-1/HIV-2 Negative NEG 07/09/2018 [facility] POCT BNP (BRAIN NATRIURETIC PEPTIDE) B Natr Pept POC 853 0 - 100 07/09/2018 [facility] POCT BNP (BRAIN NATRIURETIC PEPTIDE) Lab Interpretation Abnormal 07/09/2018 [facility] LIPASE Lipase 12 11 - 82 07/09/2018 [facility] LIVER PROFILE T Protein 6.7 6 - 8.3 07/09/2018 [facility] LIVER PROFILE Albumin 4.2 4.2 - 5.5 07/09/2018 [facility] LIVER PROFILE T Bilirubin 0.8 0.2 - 1.2 07/09/2018 [facility] LIVER PROFILE Alk Phos 59 34 - 104 07/09/2018 [facility] LIVER PROFILE AST 38 13 - 39 07/09/2018 [facility] LIVER PROFILE ALT 31 7 - 52 07/09/2018 [facility] LIVER PROFILE D Bilirubin 0.2 0 - 0.2 07/09/2018 [facility] CBC/DIFF WBC 11.7 4.5 - 12 07/09/2018 [facility] CBC/DIFF RBC 4.97 4.60 - 6.20 07/09/2018 [facility] CBC/DIFF Hemoglobin 15.9 14 - 18 07/09/2018 [facility] CBC/DIFF Hematocrit 47.0 40 - 54 07/09/2018 [facility] CBC/DIFF MCV 95 82 - 92 07/09/2018 [facility] CBC/DIFF MCH 32.0 27 - 31 07/09/2018 [facility] CBC/DIFF MCHC 33.8 32 - 36 07/09/2018 [facility] CBC/DIFF RDW 45.4 35.1 - 43.9 07/09/2018 [facility] CBC/DIFF Platelet 228 150 - 400 07/09/2018 [facility] CBC/DIFF Mean Platelet Volume 11.2 9.4 - 12.4 07/09/2018 [facility] CBC/DIFF Percent NRBC 0.0 07/09/2018 [facility] CBC/DIFF Absolute NRBC 0.00 07/09/2018 [facility] CBC/DIFF Neutrophil 81.6 34 - 67.9 07/09/2018 [facility] CBC/DIFF Lymphocyte 10.4 21.8 - 50 07/09/2018 [facility] CBC/DIFF Monocyte 5.1 5.3 - 12 07/09/2018 [facility] CBC/DIFF Eosinophil 2.1 0.8 - 5 07/09/2018 [facility] CBC/DIFF Basophil 0.3 0.2 - 1.2 07/09/2018 [facility] CBC/DIFF Pct Immat Gran 0.5 0.0 - 0.5 07/09/2018 [facility] CBC/DIFF Neutrophil, Abs 9.58 1.78 - 5.36 07/09/2018 [facility] CBC/DIFF Lymphocyte, Abs 1.22 1.32 - 3.57 07/09/2018 [facility] CBC/DIFF Monocyte, Abs 0.60 0.3 - 0.82 07/09/2018 [facility] CBC/DIFF Eosinophil, Abs 0.25 0.04 - 0.54 07/09/2018 [facility] CBC/DIFF Basophil, Abs 0.03 0.01 - 0.08 07/09/2018 [facility] CBC/DIFF Absol Immat Gran 0.06 0 - 0.03 07/09/2018 [facility] CBC/DIFF Lab Interpretation Abnormal 07/09/2018 [facility] TROPONIN I POC Troponin POC 0.02 0 - 0.08 07/09/2018 [facility] POC CO2 POC 25 21 - 32 07/09/2018 [facility] POC Chloride POC 95 98 - 107 07/09/2018 [facility] POC Potassium POC 4.5 3.5 - 5.1 07/09/2018 [facility] POC Sodium POC 131 136 - 145 07/09/2018 [facility] POC Glucose POC 144 74 - 106 07/09/2018 [facility] POC Urea Nitrogen POC 14 7 - 18 07/09/2018 [facility] POC Creatinine POC 0.7 0.6 - 1.3 07/09/2018 [facility] POC Calcium Ionized POC 1.17 1.15 - 1.29 07/09/2018 [facility] POC Hemoglobin POC 17.3 14 - 18 07/09/2018 [facility] POC Hematocrit POC 51.0 40 - 54 07/09/2018 [facility] POC GFR, Estimated >60 mL/min/1.73 m2 07/09/2018 [facility] POC GFR, Estim, Afr-Am >60 mL/min/1.73 m2 07/09/2018 [facility] POC Lab Interpretation Abnormal 07/09/2018 [facility] GLUCOSE POC Glucose POC 88 74 - 106 06/12/2018 [facility] BASIC METABOLIC PANEL CO2 27 21 - 31 06/12/2018 [facility] BASIC METABOLIC PANEL Chloride 93 98 - 107 06/12/2018 [facility] BASIC METABOLIC PANEL Potassium 3.9 3.5 - 5.1 06/12/2018 [facility] BASIC METABOLIC PANEL Sodium 133 136 - 145 06/12/2018 [facility] BASIC METABOLIC PANEL Glucose 105 70 - 110 06/12/2018 [facility] BASIC METABOLIC PANEL Urea Nitrogen 30 7 - 25 06/12/2018 [facility] BASIC METABOLIC PANEL Creatinine 1.10 0.7 - 1.3 06/12/2018 [facility] BASIC METABOLIC PANEL Anion Gap 13 06/12/2018 [facility] BASIC METABOLIC PANEL Calcium 9.6 8.6 - 10.3 06/12/2018 [facility] METABOLIC PANEL GFR, Estimated >60 mL/min/1.73 m2 06/12/2018 [facility] BASIC METABOLIC PANEL GFR, Estim, Afr-Am >60 mL/min/1.73 m2 06/12/2018 [facility] BASIC METABOLIC PANEL Lab Interpretation Abnormal 06/12/2018 [facility] PT/INR/PTT PT 13.8 11.8 - 15.0 06/12/2018 [facility] PT/INR/PTT INR 1.1 SUGGESTED THERAPEUTIC RANGES: INR 2.0-3.0 for MODERATE INTENSITY ANTICOAGULATION INR 2.5-3.5 for HIGH INTENSITY ANTICOAGULATION 06/12/2018 [facility] PT/INR/PTT PTT 36.9 23.6 - 36.4 06/12/2018 [facility] PT/INR/PTT Lab Interpretation Abnormal 06/12/2018 [facility] PT/INR PT 13.1 11.8 - 15.0 06/12/2018 [facility] PT/INR INR 1.0 SUGGESTED THERAPEUTIC RANGES: INR 2.0-3.0 for MODERATE INTENSITY ANTICOAGULATION INR 2.5-3.5 for HIGH INTENSITY ANTICOAGULATION 06/12/2018 [facility] TRANSTHORACIC ECHO (TTE) TRANSTHORACIC ECHO (TTE) Transthoracic Echo Report JACKIE CAREY Age:67 Gender: M :1950 Exam Date: 06/11/2018 07:24 Exam Location: [facility] Echo Ordering Phys: JUAN F SEGURA Referring Phys: Reading Phys:Sherly Manning MD Fellow Phys: Karoline Gomez M.D. Fellow Phys: National Account Manager: Jeremías Wilkinson Reason For Exam: Indications:Stroke, Transient cerebral ischemic attack, unspecified ICD-9 Codes: I67.89G45.9 Exam Type: TRANSTHORACIC ECHO (TTE) Procedure CPT:27061 Addtional CPT: Ht (in): 67 BSA: 1.84HR: [...] BP 58.9 cm LV Cardiac Output MOD [id number] cm/min LV Cardiac Index MOD BP 2437 cm/minm LA Volume 97.3 cm LA Volume Index 53 cm/m 16 - 34 cm/m RV Diastolic Basal Diameter 3.4 cm2.5 - 4.1 cm LV Mass by linear oumbmj068 g LV Mass by linear method Lqvia353 g/m DOPPLER AV Peak Uhsxhfif212 cm/s AV Peak Yifqvzwl56.1 mmHg AV Mean Gsvshsjb95.8 cm/s AV Mean Gradient3.7 mmHg AV Velocity Time Integral 31.5 cm LVOT Peak Mmqqrxbk32.8 cm/s LVOT Peak Gradient1.2 mmHg LVOT Mean Xdxylhyp07.1 cm/s LVOT Mean Gradient0.47 mmHg LVOT Velocity Time Integral 10.9 cm LVOT Stroke Vjmemr23.4 cm AV Area Cont Eq vti 1.5 [...] BP 58.9 cm LV Cardiac Output MOD [id number] cm/min LV Cardiac Index MOD BP 2437 cm/minm LA Volume 97.3 cm LA Volume Index 53 cm/m 16 - 34 cm/m RV Diastolic Basal Diameter 3.4 cm2.5 - 4.1 cm LV Mass by linear g LV Mass by linear method Nclki694 g/m DOPPLER AV Peak Ncdbxlmg855 cm/s AV Peak Alleudxk26.1 mmHg AV Mean Oyfphphc76.8 cm/s AV Mean Gradient3.7 mmHg AV Velocity Time Integral 31.5 cm LVOT Peak Qzupprev62.8 cm/s LVOT Peak Gradient1.2 mmHg LVOT Mean Mhyclpqp17.1 cm/s LVOT Mean Gradient0.47 mmHg LVOT Velocity Time Integral 10.9 cm LVOT Stroke Ewtllo11.4 cm AV Area Cont Eq vti 1.5 cm AV Area Cont Eq pk1.5 cm Mitral E Point Velocity 90.7 cm/s Mitral A Point Velocity 28.1 cm/s Mitral E to A Ratio 3.2 LV E' Lateral Velocity9.9 cm/s Mitral E to LV E' Lateral Ratio 9.1 LV E' Septal Velocity 4.5 cm/s Mitral E to LV E' Septal Ratio20.3 06/11/2018 [facility] MAGNESIUM Magnesium 1.8 1.9 - 2.7 06/11/2018 [facility] MAGNESIUM Lab Interpretation Abnormal 06/11/2018 [facility] HEMOGLOBIN A1C Hemoglobin A1c 5.8 4.3 - 6.1 06/10/2018 [facility] HEMOGLOBIN A1C Est Average Gluc 119.8 06/10/2018 [facility] TSH TSH 1.82 0.57 - 3.74 06/10/2018 [facility] CORTISOL, TOTAL Cortisol, Total 12.1 3.44 - 22.45 06/10/2018 [facility] LIPID PROFILE Cholesterol 291 06/10/2018 REFERENCE RANGE:
Desirable: <200 mg/dL
Borderline: 200-240 mg/dL
High Risk: >240 mg/dL

[facility] LIPID PROFILE Triglyceride 156 <150 06/10/2018 REFERENCE RANGE:
Normal: <150 mg/dL
Borderline High: 150-199 mg/dL
High: 200-499 mg/dL
Very High: >ky=962 mg/dL

[facility] LIPID PROFILE HDL 60 06/10/2018 Increased CHD risk: <40 mg/dL
Decreased CHD risk: >60 mg/dL

[facility] LIPID PROFILE LDL 200 06/10/2018 REFERENCE RANGE:
Optimal: <100 mg/dL
Near Optimal: 100-129 mg/dL
Borderline High: 130-159 mg/dL
High: 160-189 mg/dL
Very High: >ey=192 mg/dL

[facility] LIPID PROFILE Lab Interpretation Abnormal 06/10/2018 [facility] TROPONIN I Troponin I 0.06 <0.04 06/10/2018 [facility] TROPONIN I Lab Interpretation Abnormal 06/10/2018 [facility] 12 LEAD EKG 12 LEAD EKG FOR [facility] Test Date:2018-06-10 Pat Name: [facility] Department: 5GMS : Gender: MTechnician: [id number] :1950 Requested By: JUAN F SEGURA Order Number: [id number] MD: Yobani Arora M.D. Measurements IntervalsAxis Rate: 72 P:66 [place]: 197QRS:228 QRSD: 177T:79 QT: 508 QTc:557 Interpretive Statements SINUS RHYTHM WITH OCCASIONAL VENTRICULAR PREMATURE COMPLEXES RIGHT BUNDLE BRANCH BLOCK AND POSSIBLE RIGHT VENTRICULAR HYPERTROPHY [RBBB, 1.5 mV R IN V1, RAD] LEFT POSTERIOR FASCICULAR BLOCK [QRS AXIS > 109, INFERIOR Q] SEPTAL MYOCARDIAL INFARCTION [40+ ms Q WAVE IN V1/V2], OF INDETERMINATE AGE Electronically Signed On 06-10-2018 5:31:46 DISTRICT LEADER by Yobani Arora M.D. 06/10/2018 [facility] 12 LEAD EKG 12 LEAD EKG FOR [facility] Test Date:2018-06-09 Pat Name: [facility] Department: 5520 : 5G02 Gender: MTechnician: [id number] :1950 Requested By: JUAN F SEGURA Order Number: [id number] MD: Yobani Arora M.D. Measurements IntervalsAxis Rate: 68 P:49 [place]: 192QRS:225 QRSD: 165T:89 QT: 473 QTc:506 Interpretive Statements SINUS RHYTHM POSSIBLE LEFT ATRIAL ENLARGEMENT [-0.1mV P WAVE IN V1/V2] INDETERMINATE AXIS RIGHT BUNDLE BRANCH BLOCK AND POSSIBLE RIGHT VENTRICULAR HYPERTROPHY [RBBB, 1.5 mV R IN V1, RAD] ANTEROSEPTAL MYOCARDIAL ISCHEMIA [40+ ms Q WAVE IN V1-V4], OF INDETERMINATE AGE Reviewed by Electronically Signed On 06-10-2018 5:31:41 DISTRICT LEADER by Yobani Arora M.D. 06/10/2018 [facility] OSMOLALITY, UR Osmolality, Ur 190 50 - 1400 06/10/2018 Test performed at [facility]. [facility] OSMOLALITY Osmolality 265 280 - 301 06/10/2018 Test performed at [facility]. [facility] OSMOLALITY Lab Interpretation Abnormal 06/10/2018 [facility] FREE T4 Free T4 0.92 0.61 - 1.18 06/10/2018 [facility] D-DIMER D-Dimer 2.21 ug/mL,FEU 06/10/2018 Values of quantitative d-Dimer less than 0.40 ug/mL FEU have been reported to
be associated with a low probability of deep vein thrombosis/pulmonary
embolism. This test alone should not be used to rule out DVT/PE.

[facility] ELECTROLYTES, UR Sodium, Ur 65 40 - 220 06/10/2018 [facility] ELECTROLYTES, UR Potassium, Ur 16 25 - 125 06/10/2018 [facility] ELECTROLYTES, UR Chloride, Ur 75 110 - 250 06/10/2018 [facility] ELECTROLYTES, UR Lab Interpretation Abnormal 06/10/2018 [facility] UA CHEMISTRIES Color Colorless 06/10/2018 [facility] UA CHEMISTRIES Clarity Clear 06/10/2018 [facility] UA CHEMISTRIES Spec [place] 1.004 1.001 - 1.035 06/10/2018 [facility] UA CHEMISTRIES pH 6.0 5 - 8 06/10/2018 [facility] UA CHEMISTRIES Protein Negative NEG 06/10/2018 [facility] UA CHEMISTRIES Glucose Negative NEG 06/10/2018 [facility] UA CHEMISTRIES Ketone Negative NEG 06/10/2018 [facility] UA CHEMISTRIES Bilirubin Negative NEG 06/10/2018 [facility] UA CHEMISTRIES Nitrate Negative NEG 06/10/2018 [facility] UA CHEMISTRIES Urobilinogen <1.0 0.2 - 1 06/10/2018 [facility] UA CHEMISTRIES Leukocyte Negative NEG 06/10/2018 [facility] UA CHEMISTRIES Blood Negative NEG 06/10/2018 [facility] CK, TOTAL CK, Total 99 30 - 223 06/10/2018 CKMB not performed if CK <100, if CKMB is required, please notify laboratory
immediately.

[facility] COMPREHENSIVE METABOLIC PANEL(DBIL NOT INCLUDED) Albumin 4.3 4.2 - 5.5 06/10/2018 [facility] COMPREHENSIVE METABOLIC PANEL(DBIL NOT INCLUDED) Calcium 9.5 8.6 - 10.3 06/10/2018 [facility] COMPREHENSIVE METABOLIC PANEL(DBIL NOT INCLUDED) CO2 26 21 - 31 06/10/2018 [facility] COMPREHENSIVE METABOLIC PANEL(DBIL NOT INCLUDED) Chloride 87 98 - 107 06/10/2018 [facility] METABOLIC PANEL(DBIL NOT INCLUDED) Creatinine 0.80 0.7 - 1.3 06/10/2018 [facility] COMPREHENSIVE METABOLIC PANEL(DBIL NOT INCLUDED) Glucose 100 70 - 110 06/10/2018 [facility] COMPREHENSIVE METABOLIC PANEL(DBIL NOT INCLUDED) Alk Phos 76 34 - 104 06/10/2018 [facility] COMPREHENSIVE METABOLIC PANEL(DBIL NOT INCLUDED) Potassium 4.1 3.5 - 5.1 06/10/2018 [facility] METABOLIC PANEL(DBIL NOT INCLUDED) Sodium 127 136 - 145 06/10/2018 [facility] COMPREHENSIVE METABOLIC PANEL(DBIL NOT INCLUDED) ALT 21 7 - 52 06/10/2018 [facility] COMPREHENSIVE METABOLIC PANEL(DBIL NOT INCLUDED) AST 26 13 - 39 06/10/2018 [facility] COMPREHENSIVE METABOLIC PANEL(DBIL NOT INCLUDED) Urea Nitrogen 16 7 - 25 06/10/2018 [facility] COMPREHENSIVE METABOLIC PANEL(DBIL NOT INCLUDED) T Bilirubin 1.2 0.2 - 1.2 06/10/2018 [facility] COMPREHENSIVE METABOLIC PANEL(DBIL NOT INCLUDED) T Protein 7.1 6 - 8.3 06/10/2018 [facility] COMPREHENSIVE METABOLIC PANEL(DBIL NOT INCLUDED) GFR, Estimated >60 mL/min/1.73 m2 06/10/2018 [facility] METABOLIC PANEL(DBIL NOT INCLUDED) GFR, Estim, Afr-Am >60 mL/min/1.73 m2 06/10/2018 [facility] COMPREHENSIVE METABOLIC PANEL(DBIL NOT INCLUDED) Anion Gap 14 06/10/2018 [facility] COMPREHENSIVE METABOLIC PANEL(DBIL NOT INCLUDED) Lab Interpretation Abnormal 06/10/2018 [facility] PHOSPHORUS Phosphorus 3.8 2.5 - 5 06/10/2018 [facility] 12 LEAD EKG 12 LEAD EKG FOR [facility] Test Date:2018-06-09 Pat Name: [facility] Department: 5520 : Gender: MTechnician: [id number] :1950 Requested By: JUAN F SEGURA Order Number: [id number] MD: Yobani Arora M.D. Measurements IntervalsAxis Rate: 61 P:55 [place]: 190QRS:191 QRSD: 168T:114 QT: 474 QTc:480 Interpretive Statements SINUS RHYTHM INDETERMINATE AXIS RIGHT BUNDLE BRANCH BLOCK AND POSSIBLE RIGHT VENTRICULAR HYPERTROPHY LEFT POSTERIOR FASCICULAR BLOCK SEPTAL MYOCARDIAL INFARCTION, OF INDETERMINATE AGE MODERATE T-WAVE ABNORMALITY, CONSIDER LATERAL ISCHEMIA Electronically Signed On 06-09-2018 15:49:06 DISTRICT LEADER by Yobani Arora M.D. 06/09/2018 [facility] 12 LEAD EKG 12 LEAD EKG FOR [facility] Test Date:2018-06-09 Pat Name: [facility] Department: 5520 : [facility] [address] Gender: MTechnician: [id number] :1950 Requested By: ALOK YORK Order Number: [id number] : Yobani Arora M.D. Measurements IntervalsAxis Rate: 83 P:48 [place]: 189QRS:193 QRSD: 161T:85 QT: 411 QTc:485 Interpretive Statements SINUS RHYTHM POSSIBLE LEFT ATRIAL ENLARGEMENT INDETERMINATE AXIS RIGHT BUNDLE BRANCH BLOCK ANTEROSEPTAL MYOCARDIAL INFARCTION, OF INDETERMINATE AGE Electronically Signed On 06-09-2018 15:49:03 DISTRICT LEADER by Yobani Arora M.D. 06/09/2018 [facility] POC pH, Erick POC 7.38 7.33 - 7.43 06/09/2018 [facility] POC pCO2, Erick POC 46.7 38.0 - 50.0 06/09/2018 [facility] POC pO2, Erick POC 21 50 - 75 06/09/2018 [facility]BG POC Base Excess, Erick POC 1 [facility], [facility] P[facility] 27.4 22 - 26 06/09/2018 [facility] POC % Sat, Erick POC 33 60 - 85 06/09/2018 [facility] POC Lactic Acid, Erick POC 0.82 0.4 - 2 06/09/2018 [facility] POC TCO2, ERICK POC 29 21 - 32 06/09/2018 [facility] POC Lab Interpretation Abnormal 06/09/2018 [facility] INFLUENZA A/B AND RSV PCR Influenza A Not detected 06/09/2018 [facility] INFLUENZA A/B AND RSV PCR Influenza B Not detected 06/09/2018 [facility] INFLUENZA A/B AND RSV PCR RSV PCR Not detected This test utilizes FDA cleared Rashmi mindi Influenza A/B and RSV real-time RT-PCR assay for qualitative detection and discrimination of Influenza A virus,Influenza B virus and Respiratory Syncytial virus(RSV). Additional testing is required to differentiate any specific Influenza A subtype or strains or specific RSV subgroups. 06/09/2018 [facility] INFLUENZA A/B AND RSV PCR Spec Description Nasal 06/09/2018 [facility] B NATRIURETIC PEPT B Natriuretic Pept 271 <101 06/09/2018 [facility] B NATRIURETIC PEPT Lab Interpretation Abnormal 06/09/2018 [facility] Pathology Reports No Data Provided for This [...] Miguel Coronado MD, 07/09/2018 1:47 PM 07/09/[address] [facility] [address] CHEST PE PROTOCOL IMPRESSION: 1.No acute [...] Aliya Maldonado MD, 06/09/2018 10:18 PM 06/10/2018 [facility] XRAY CHEST 1 VIEW IMPRESSION: Mild cardiomegaly with interstitial pulmonary edema. A "PRELIMINARY" report was made available via Appiny at the time ofdictation by the resident [...] A "PRELIMINARY" report was made available via Appiny at the time of dictation by the resident indicated below. If the report is described as "FINALIZED" it indicates the attending/staff radiologist below has reviewed the images and agrees with the resident's interpretation. Dictated By: Meir Hoffman MD, 06/09/2018 11:12 AM I have reviewed the study and agree with the findings in this report. Signed By: Jamaal Felix MD, 06/09/2018 11:16 AM 06/09/2018 [facility] Consultation Notes No Data Provided for This Section Discharge Summaries No Data Provided for This Section History and Physicals No Data Provided for This Section Vital Signs Vital Sign Value Date Comments Source Systolic (mm Hg) 159 07/09/2018 [facility] Diastolic (mm Hg) 93 07/09/2018 [facility] Heart Rate 81 07/09/2018 [facility] Temperature Oral (F) 36.61 Kayley 07/09/2018 [facility] Respitory Rate 18 07/09/2018 [facility] Height 170.2 cm 06/10/2018 [facility] Weight 70.943 06/10/2018 [facility] Encounters Location Location Details Encounter Type Encounter Number Reason For Visit Attending Provider ADM Date DC Date Status Source Travel [id number] 06/09/2018 [facility] 5G MED/SURG Hospital Encounter [id number] Alok York MD 06/09/2018 06/12/2018 [facility] [employer] Telephone [id number] Milady Valdez 06/12/2018 [facility] Travel [id number] 07/09/2018 [facility] BT Emergency [id number] 07/09/2018 07/10/2018 [facility] 5E Cardiac IMU (5E/CI) Telephone [id number] LadyMark Anthony Oswald 07/18/2018 [facility] Procedures Procedure Code Date Perfomer Comments Source XRAY CHEST 2 VIEWS 16233 07/10/2018 [facility] POCT BNP (BRAIN NATRIURETIC PEPTIDE) 43037 07/10/2018 Unknown [facility] BMP POC 93588 07/09/2018 Unknown [facility] TROPONIN I POC 06085 07/09/2018 Unknown [facility] CBC/DIFF 99021 07/09/2018 [place] [facility] LIVER PROFILE 33948 07/09/2018 [place] [facility] LIPASE 50834 07/09/2018 [place] [facility] HIV-1/HIV-2 ROUTINE SCREENING 43906 [facility] 0[facility]13 07/09/2018 [place] [facility] GLUCOSE POC 06663 06/12/2018 [facility] GLUCOSE POC 32281 06/12/2018 [facility] BASIC METABOLIC PANEL 33379 06/12/2018 [place] [facility] PT/INR/PTT 06785 06/12/2018 [facility] CBC/DIFF 25906 06/12/2018 Anush[facility] PT/INR 50743 06/12/2018 Inchausteji Mcneil [facility] GLUCOSE POC 25732 06/12/2018 [place] [facility] GLUCOSE POC 60118 [facility] 54056 06/12/2018 [facility] GLUCOSE POC 09485 06/11/2018 [facility] TRANSTHORACIC ECHO (TTE) 69089 06/11/2018 [facility] BASIC METABOLIC PANEL 73382 06/11/2018 [facility] MAGNESIUM 97733 06/11/2018 [facility] GLUCOSE POC 58922 06/11/2018 [place] [facility] GLUCOSE POC 41467 06/11/2018 [place] [facility] GLUCOSE POC 11817 06/10/2018 [facility] 12 LEAD EKG 55582 06/10/2018 E[place] [facility] CBC/DIFF 21101 06/10/2018 [facility] BASIC METABOLIC PANEL 19497 06/10/2018 [facility] TSH 92178 06/10/2018 [facility] LIPID PROFILE 23957 06/10/2018 [facility] HEMOGLOBIN A1C 78085 06/10/2018 [facility] CORTISOL, TOTAL 04075 06/10/2018 [facility] TROPONIN I 78025 06/10/[facility] [address] 06/10/[address] [facility] [address] CHEST PE PROTOCOL 54465 06/10/2018 [facility] TROPONIN I POC 36548 06/10/2018 [facility] FREE T4 32765 06/10/2018 [facility] D-DIMER 61843 06/10/2018 [facility] 12 LEAD EKG 61611 06/10/2018 [facility] GLUCOSE POC 69572 06/10/2018 [facility] [place] [address] 06/10/2018 [facility] [place] [address] 06/10/2018 [facility] UA CHEMISTRIES 53070 06/10/2018 [facility] CK, TOTAL 07224 06/10/2018 [facility] TROPONIN I 95809 06/10/2018 [facility] COMPREHENSIVE METABOLIC PANEL(DBIL NOT INCLUDED) 51171 06/10/2018 [facility] MAGNESIUM 03181 06/10/2018 [facility] PHOSPHORUS 77623 06/10/2018 [facility] OSMOLALITY 76982 06[facility]10/[facility] 66826 06/10/[facility] FREE T4 39521 06/10/2018 [facility] 12 LEAD EKG 09046 06/10/2018 [facility] CK, TOTAL [id number] 06/10/2018 [facility] TROPONIN I 08861 06/10/2018 [facility] VBG POC 02484 06/10/2018 [facility] INFLUENZA A/B AND RSV PCR 96519 06/10/2018 Vick[place] [facility] VBG POC 55629 06/09/2018 [facility] BASIC METABOLIC PANEL 92107 06/09/2018 [facility] XRAY CHEST 1 VIEW 05694 06/09/2018 [facility] CBC/DIFF 89593 06/09/2018 [facility] B NATRIURETIC PEPT 34708 06/09/2018 [facility] POCT BNP (BRAIN NATRIURETIC PEPTIDE) 48777 06/09/2018 [facility] BMP POC 08892 06/09/2018 Unknown [facility] VBG POC 52984 06/09/2018 [facility] 12 LEAD EKG 63184 06/09/2018 [facility] TROPONIN I POC 16229 06/09/2018 Unknown [facility] Assessment and Plan No Data Provided for This Section Plan of Care Plan of Care Date Source Colonoscopy 10yr 02/28/2026 [facility] CORONARY ARTERY DISEASE AGE 18 AND UP 06/10/2019 [facility] IMM Influenza Seasonal Oct to August (>/=19 yrs) 04/02/2019 [facility] IMM Pneumococcal Age 65 and Up 2017 [facility] Social History Social History Date Source Tobacco UseTypesPacks/DayYears UsedDate Former Smoker Cigarettes 1 20 Quit: 11/09/2014 Smokeless Tobacco: Never Used Tobacco Cessation: Counseling Given: Yes Alcohol UseDrinks/Weekoz/WeekComments Yes 12 Cans of beer 7.2 Sex Assigned at BirthDate Recorded Not on file Job Start DateOccupationIndustry Not on file Not on file Not on file Travel HistoryTravel StartTravel End No recent travel history available. 06/09/2018 [facility] Family History Value Date Source Medical HistoryRelationNameComments Hypertension Brother Hypertension Sister Diabetes Sister Diabetes Sister Hypertension Sister RelationNameStatusComments Brother Alive Brother Alive Brother Sister Alive Sister Alive Sister Sister Sister Sister 11/07/2018 [facility] Advance Directives Order Name Results Value Date Source Advance Directives Advance Directives For more information, please contact:[address] [id number] Code Status on FileCode StatusDate ActivatedDate InactivatedComments Full Code 06/09/2018 1:38 PM 06/12/2018 5:59 PM Full Code 03/16/2015 10:08 PM 03/19/2015 7:40 PM 11/07/2018 [facility] Functional Status No Data Provided for This Section
--- OUTSIDE RECORDS SUMMARY | 2019-02-01 07:12 | XMS REPORT | Clinical Summary ---
Author Author [facility] Organization [facility] Address Unknown Phone Unavailable Care Team Providers Care Sound Recording Technician Name Role Phone Asked, No Pcp PCP [...] King RN 07/02/2018 Patient Quality Outreach after 01/31/2018 Social History Date Tobacco Use Types Packs/Day [...] Taken Vital Sign Reading 07/16/2018 11:25 AM ELECTROLYTIC ETCHER Blood Pressure 99/60 07/16/2018 11:25 AM ELECTROLYTIC ETCHER Pulse 82 07/16/2018 11:25 AM ELECTROLYTIC ETCHER Temperature 37.2 C (99 F) 07/16/2018 7:27 AM ELECTROLYTIC ETCHER Respiratory Rate 16 07/16/2018 11:25 AM ELECTROLYTIC ETCHER Oxygen Saturation 97% - Inhaled Oxygen - Concentration 07/14/2018 6:42 AM ELECTROLYTIC ETCHER Weight 69.2 kg (152 lb 8 oz) 07/12/2018 3:12 AM ELECTROLYTIC ETCHER Height 170.2 cm (5' 7") 07/12/2018 3:12 AM ELECTROLYTIC ETCHER Body Mass Index 23.88 Plan of Treatment Health Maintenance Due Date Last Done Comments COLONOSCOPY SCREENING 2002 SHINGLES VACCINES (#1) 2002 65+ PNEUMOCOCCAL VACCINE 2017 (1 of 2 - PCV13) INFLUENZA VACCINE 01/31/2019 Procedures Comments Procedure Name Priority Date/Time Associated Diagnosis POC GLUCOSE Routine 07/16/2018 9:24 AM ELECTROLYTIC ETCHER ESTIMATED GFR Routine 07/16/2018 5:36 AM ELECTROLYTIC ETCHER BASIC METABOLIC PANEL Routine 07/16/2018 5:36 AM ELECTROLYTIC ETCHER ESTIMATED GFR Routine 07/15/2018 5:22 AM ELECTROLYTIC ETCHER BASIC METABOLIC PANEL Routine 07/15/2018 5:22 AM ELECTROLYTIC ETCHER POC GLUCOSE Routine 07/14/2018 4:51 PM ELECTROLYTIC ETCHER US DUPLEX ARTERIAL LOWER Routine 07/14/2018 EXTREMITY BILATERAL 3:52 PM ELECTROLYTIC ETCHER US CAROTID DUPLEX Routine 07/14/2018 BILATERAL 2:35 PM ELECTROLYTIC ETCHER POC GLUCOSE Routine 07/14/2018 12:07 PM ELECTROLYTIC ETCHER POC GLUCOSE Routine 07/14/2018 8:17 AM ELECTROLYTIC ETCHER ESTIMATED GFR Routine 07/14/2018 5:00 AM ELECTROLYTIC ETCHER BASIC METABOLIC PANEL Routine 07/14/2018 5:00 AM ELECTROLYTIC ETCHER ECG 12-LEAD Routine 07/12/2018 8:06 PM ELECTROLYTIC ETCHER TROPONIN Routine 07/12/2018 5:00 PM ELECTROLYTIC ETCHER B NATRIURETIC PEPTIDE Routine 07/12/2018 10:26 AM ELECTROLYTIC ETCHER ECHOCARDIOGRAM 2D Routine 07/12/2018 COMPLETE W MMODE SPECTRAL 7:29 AM ELECTROLYTIC ETCHER COLOR DOPPLER (84012) ESTIMATED GFR Routine 07/12/2018 4:39 AM ELECTROLYTIC ETCHER BASIC METABOLIC PANEL Routine 07/12/2018 4:[address] ANGIOGRAM PE CHEST STAT 07/12/2018 12:53 AM ELECTROLYTIC ETCHER LIPASE LEVEL STAT 07/11/2018 11:48 PM ELECTROLYTIC ETCHER B NATRIURETIC PEPTIDE Routine 07/11/2018 8:30 PM ELECTROLYTIC ETCHER PARTIAL THROMBOPLASTIN Routine 07/11/2018 TIME (PTT) 8:30 PM ELECTROLYTIC ETCHER PROTHROMBIN TIME WITH INR Routine 07/11/2018 8:30 PM ELECTROLYTIC ETCHER HC COMPLETE BLD COUNT Routine 07/11/2018 W/AUTO DIFF 8:30 PM ELECTROLYTIC ETCHER RESPIRATORY PATHOGEN Routine 07/11/2018 PANEL 8:30 PM ELECTROLYTIC ETCHER INFLUENZA ANTIGEN TEST, Routine 07/11/2018 REFLEX NEGATIVE TO RPP 8:30 PM ELECTROLYTIC ETCHER BLOOD CULTURE, AEROBIC & Routine 07/11/2018 ANAEROBIC 8:30 PM ELECTROLYTIC ETCHER BLOOD CULTURE, AEROBIC & Routine 07/11/2018 ANAEROBIC 8:30 PM ELECTROLYTIC ETCHER XR CHEST 2 VW STAT 07/11/2018 8:26 PM ELECTROLYTIC ETCHER ECG 12-LEAD STAT 07/11/2018 8:13 PM ELECTROLYTIC ETCHER ECG ED PRELIMINARY Routine 07/11/2018 INTERPRETATION 8:11 PM ELECTROLYTIC ETCHER ESTIMATED GFR Routine 07/11/2018 8:11 PM ELECTROLYTIC ETCHER TROPONIN Routine 07/11/2018 8:11 PM ELECTROLYTIC ETCHER COMPREHENSIVE METABOLIC Routine 07/11/2018 PANEL 8:11 PM ELECTROLYTIC ETCHER after 01/31/2018 Results * POC glucose (07/16/2018 9:24 AM ELECTROLYTIC ETCHER) Only the most recent of 4 results within the time period is included. [facility] POC glucose 119 (H) 65 - 99 mg/dL [facility] Comment: [facility] Notified RN HOSPITAL Meter ID: [id number] Air Conditioning Technician: Hector Rick Specimen Performing Organization Address City/[facility] Phone Number [facility] DEPARTMENT OF [address] [place] [address] * Estimated GFR (07/16/2018 5:36 AM ELECTROLYTIC ETCHER) Only the most recent of 5 results within the time period is included. [facility] Estimated GFR 90 mL/min/1.73 m2 [facility] Comment: [facility] rpretation G1 >=90 Normal or high G2 60-89Mildly decreased P3l79-32 Mildly to moderately decreased M9s56-47 Moderately to severely decreased G4 15-29Severely decreased G5 <15Kidney failure The eGFR was calculated using the Chronic Kidney Disease Epidemiology Collaboration (CKD-EPI) equation. Interpretation is based on recommendations of the National Kidney Foundation-Kidney Disease Outcomes Quality Initiative (NKF-KDOQI) published in 2014. Specimen Plasma specimen Performing Organization Address City/[facility] Phone Number [facility] DEPARTMENT [address] * Basic metabolic panel (07/16/2018 5:36 AM ELECTROLYTIC ETCHER) Only the most recent of 4 results within the time period is included. Sodium 136 135 - 148 mEq/L [facility] Potassium 3.8 3.5 - 5.0 mEq/L [facility] Chloride 96 (L) 98 - 112 mEq/L [facility] CO2 23 (L) 24 - 31 mEq/L [facility] Anion gap 17@ANIO (H) 7 - 15 mEq/L [facility] BUN 17 8 - 23 mg/dL [facility] Creatinine 0.88 0.70 - 1.20 mg/dL [facility] Glucose 133 (H) 65 - 99 mg/dL [facility] Calcium 9.7 8.8 - 10.2 mg/dL [facility] Specimen Plasma specimen Performing Organization Address City/State/Zipcode Phone Number [facility] DEPARTMENT OF [address] [place] [address] PATHOLOGY AND GENOMIC MEDICINE [address] * Us duplex arterial lower extremity (07/14/2018 3:52 PM ELECTROLYTIC ETCHER) Specimen Narrative Performed At [facility] Vascular Ultrasound Laboratory Lower Extremity Arterial Duplex Report [address] [place] [address] Pat.Name:JACKIE ALBERTO Pat.ID:[id number] St.Date: 07/14/2018 Refer.MD:IMELDA GILLIAM MD Exam Time: 2:39:00 PMStudy Type:LE Arterial Height:67inWeight:152lb BSA: 1.8 e8FMYWmi:1950,67Y Sex: MALESonogrphr: Kip oRbbins, MARY ANN, [facility] Pat. Stat.:Inpatient Room:[facility] TapeVol: , CPT - 4: 74794 Echo Event ID:[id number] Order ID:[id number] Reason for Study:Claudication, PVD, assess for revascularization. [...] ANKLE/BRACHIAL INDEX: RIGHTLEFT Brachial Artery Pressure 93 hgPz324 mmHg DP70 mmHg72 mmHg PT67 mmHg73 mmHg [...] obtained due to non-compressible vessels. MEASUREMENTS: DOPPLER FINISH OFF OPERATOR Dist FINISH OFF OPERATOR Dist PSV40 cm/s Right FINISH OFF OPERATOR prox FINISH OFF OPERATOR prox PSV45.6 cm/s Profunda Profunda PSV95 cm/s SFA Dist SFA Dist PSV46 cm/sSFA Dist PSV29 cm/s SFA Mid SFA Mid PSV 46 cm/s SFA Prox SFA Prox PSV55 cm/s Right Pop Dist Pop Dist PSV36 cm/s Pop Prox Pop Prox PSV44 cm/s Right OCCUPATIONAL THER Dist OCCUPATIONAL THER Dist PSV7.92 cm/s OCCUPATIONAL THER Mid OCCUPATIONAL THER Mid PSV 11 cm/sPTA Mid PSV 13 cm/s Right OCCUPATIONAL THER Prox OCCUPATIONAL THER Prox PSV15.4 cm/sPTA Prox PSV15 cm/s Peroneal Dist Peroneal Dist P 7 cm/s Peroneal Mid Peroneal Mid PS 9 cm/s Peroneal Mid PS12 cm/s Peroneal Prox Peroneal Prox P11 cm/s Right DARRICK Dist DARRICK Dist PSV14.3 cm/s Right DARRICK Mid DARRICK Mid PSV 15 cm/s Left FINISH OFF OPERATOR Dist FINISH OFF OPERATOR Dist PSV 105 cm/s Left Profunda Profunda PSV 142 cm/s Left SFA Mid SFA Mid YBO319 cm/s Left SFA Prox SFA Prox PSV 115 cm/s Pop Dist Pop Dist PSV27 cm/s Left Pop Prox Pop Prox PSV21.5 cm/sPop Prox PSV22 cm/s Left OCCUPATIONAL THER Dist OCCUPATIONAL THER Dist PSV12.7 cm/s OCCUPATIONAL THER Prox OCCUPATIONAL THER Prox PSV19 cm/s Left DARRICK Dist DARRICK Dist PSV14.1 cm/s DARRICK Mid DARRICK Mid PSV 12 cm/s Left DARRICK Prox DARRICK Prox PSV20.7 cm/sATA Prox PSV21 cm/s Right FINISH OFF OPERATOR Mid FINISH OFF OPERATOR Mid PSV 46 cm/s Right SFA Prox 1 SFA Prox 1 PSV70 cm/s Left SFA Prox 1 SFA Prox 1 PSV50 cm/s Left SFA Mid 1 SFA Mid 1 LCV984 cm/s Right OCCUPATIONAL THER Distal OCCUPATIONAL THER Distal PSV 7 cm/s Left OCCUPATIONAL THER Distal OCCUPATIONAL THER Distal PSV13 cm/s Left Peroneal Prox Peroneal Prox P11 cm/s Left Peroneal Dist Peroneal Dist P 4 cm/s Right DARRICK Prox DARRICK Prox PSV17 cm/s Right DARRICK Distal DARRICK Distal PSV14 cm/s Left DARRICK Distal DARRICK Distal PSV14 cm/s Signed 07/15/2018 08:57 AM Joseph Riggs MD, RPVI Procedure Note Interface, Radiology Results In - 07/15/2018 8:57 AM [facility] Vascular Ultrasound Laboratory Lower Extremity Arterial Duplex Report [id number] [address] Pat.Name: JACKIE ALBERTO Pat.ID: [id number] .Date: 07/14/2018 Refer.MD: IMELDA GILLIAM MD Exam Time: 2:39:00 PM Study Type:LE Arterial Height: 67in Weight: 152lb BSA: 1.8 m2 Age: 1 1950,67Y Sex: MALE Sonogrphr: MARY ANN Fermin RCS Pat. Stat.:[facility] T[facility] Vol: SB, CPT - 4: 10168 Echo Event ID:[id number] Order ID: [id number] Reason for Study:Claudication, PVD, assess for revascularization. [...] obtained due to non-compressible vessels. MEASUREMENTS: DOPPLER FINISH OFF OPERATOR Dist FINISH OFF OPERATOR Dist PSV 40 cm/s Right FINISH OFF OPERATOR prox FINISH OFF OPERATOR prox PSV 45.6 cm/s Profunda Profunda PSV 95 cm/s SFA Dist SFA Dist PSV 46 cm/s SFA Dist PSV 29 cm/s SFA Mid SFA Mid PSV 46 cm/s SFA Prox SFA Prox PSV 55 cm/s Right Pop Dist Pop Dist PSV 36 cm/s Pop Prox Pop Prox PSV 44 cm/s Right OCCUPATIONAL THER Dist OCCUPATIONAL THER Dist PSV 7.92 cm/s OCCUPATIONAL THER Mid OCCUPATIONAL THER Mid PSV 11 cm/s OCCUPATIONAL THER Mid PSV 13 cm/s Right OCCUPATIONAL THER Prox OCCUPATIONAL THER Prox PSV 15.4 cm/s OCCUPATIONAL THER Prox PSV 15 cm/s Peroneal Dist Peroneal Dist P 7 cm/s Peroneal Mid Peroneal Mid PS 9 cm/s Peroneal Mid PS 12 cm/s Peroneal Prox Peroneal Prox P 11 cm/s Right DARRICK Dist DARRICK Dist PSV 14.3 cm/s Right DARRICK Mid DARRICK Mid PSV 15 cm/s Left FINISH OFF OPERATOR Dist FINISH OFF OPERATOR Dist PSV 105 cm/s Left Profunda Profunda PSV 142 cm/s Left SFA Mid SFA Mid PSV 222 cm/s Left SFA Prox SFA Prox PSV 115 cm/s Pop Dist Pop Dist PSV 27 cm/s Left Pop Prox Pop Prox PSV 21.5 cm/s Pop Prox PSV 22 cm/s Left OCCUPATIONAL THER Dist OCCUPATIONAL THER Dist PSV 12.7 cm/s OCCUPATIONAL THER Prox OCCUPATIONAL THER Prox PSV 19 cm/s Left DARRICK Dist DARRICK Dist PSV 14.1 cm/s DARRICK Mid DARRICK Mid PSV 12 cm/s Left DARRICK Prox DARRICK Prox PSV 20.7 cm/s DARRICK Prox PSV 21 cm/s Right FINISH OFF OPERATOR Mid FINISH OFF OPERATOR Mid PSV 46 cm/s Right SFA Prox 1 SFA Prox 1 PSV 70 cm/s Left SFA Prox 1 SFA Prox 1 PSV 50 cm/s Left SFA Mid 1 SFA Mid 1 PSV 218 cm/s Right OCCUPATIONAL THER Distal OCCUPATIONAL THER Distal PSV 7 cm/s Left OCCUPATIONAL THER Distal OCCUPATIONAL THER Distal PSV 13 cm/s Left Peroneal Prox Peroneal Prox P 11 cm/s Left Peroneal Dist Peroneal Dist P 4 cm/s Right DARRICK Prox DARRICK Prox PSV 17 cm/s Right DARRICK Distal DARRICK Distal PSV 14 cm/s Left DARRICK Distal DARRICK Distal PSV 14 cm/s Signed 07/15/2018 08:57 AM Joseph Riggs MD, RPVI Performing Organization Address City/State/Zipcode Phone Number [facility] [address] [phone] * Us carotid duplex (07/14/2018 2:35 PM ELECTROLYTIC ETCHER) Specimen Narrative Performed At [facility] Vascular Ultrasound Laboratory Carotid Artery Duplex Report [address] [id number] For vendor quality supervisor purposes, the categorization of the degree of the stenosis of this exam is based on criteria described in the IAC carotid stenosis grading white paper( www.intersocietal.org/Vascular) and Spencer Maldonado., Keely Crane., et al. Carotid artery stenosis: baeza-scale and Doppler US diagnosis--Society of Radiologists in Ultrasound Consensus Conference. Radiology. 2002; 229(2):340-6. Pat.Name:JACKIE ALBERTO Pat.ID:[id number] .Date: 07/14/2018 Refer.MD:MENDEZ PABON MD Exam Time: 1:57:00 PMStudy Type:Carotid Height:67inWeight:152lb BSA: 1.8 w0SSEWes:1950,67Y Sex: MALESonogrphr: Kip Robbins, RVS, RCS Pat. Stat.:Inpatient Room:[facility] TapeVol: , CPT - 4: 03539 Echo Event ID:[id number] Order ID:[id number] Reason for Study:Dizziness, lightheadedness.History of diabetes, hypertension, [...] Both vertebral arteries are antegrade. Carotid Findings:RightLeft Mgb.Flw AntegradeAntegrade Subclavian Biphasic MEASUREMENTS: DOPPLER Right CCA Dist CCA Dist PSV61.2 cm/sCCA Dist EDV14.2 cm/s Right CCA Mid CCA Mid PSV 70.3 cm/sCCA Mid EDV 10.3 cm/s Right CCA Prox CCA Prox PSV75.5 cm/sCCA Prox EDV14.2 cm/s Right ECA Prox ECA Prox PSV 103 cm/sECA Prox EDV7.43 cm/s Right ICA Dist ICA Dist PSV61.6 cm/Oneyda Dist EDV17.5 cm/s Right ICA Mid ICA Mid ZDS757 cm/Oneyda Mid EDV 43.1 cm/s Right ICA [...] Radiology Results In - 07/14/2018 10:11 PM [facility] Vascular Ultrasound Laboratory Carotid Artery Duplex Report [address] [address], [place] [address] For vendor quality supervisor purposes, the categorization of the degree of the stenosis of this exam is based on criteria described in the IAC carotid stenosis grading white paper( www.intersocietal.org/Vascular) and Spencer Maldonado., Renea Crane, et al. Carotid artery stenosis: baeza-scale and Doppler US diagnosis--Society of Radiologists in Ultrasound Consensus Conference. Radiology. 2003 Nov; 229(2):340-6. Pat.Name: JACKIE ALBERTO Pat.ID: [id number] St.Date: 07/14/2018 Refer.MD: MENDEZ PABON MD Exam Time: 1:57:00 PM Study Type:Carotid Height: 67in Weight: 152lb BSA: 1.8 m2 Age: 1 1950,67Y Sex: MALE Sonogrphr: MARY ANN Fermin RCS Pat. Stat.:Inpatient Room: [address] Vol: SB, CPT - 4: 41649 Echo Event ID:[id number] Order ID: [id number] Reason for Study:Dizziness, lightheadedness. History of diabetes, [...] ICA/CCA PSV 0.708 Signed 07/14/2018 10:11 PM oJseph Riggs MD, RPVI Performing Organization Address [facility] Phone Number [facility] [address] [place] [address] * ECG 12 lead (07/12/2018 8:06 PM ELECTROLYTIC ETCHER) Only the most recent of 2 results within the time period is included. Pathologist [facility] Ventricular 67 [facility] MUSE rate Atrial rate 67 [facility] MUSE HI interval 184 [facility] MUSE QRSD interval 152 [...] Specimen Narrative Performed At Performing Organization Address [facility] Phone Number [facility] [address] [place] [address] * Troponin (07/12/2018 5:00 PM ELECTROLYTIC ETCHER) Only the most recent of 2 results within the time period is included. Troponin <0.30 0.00 - 0.30 ng/mL [facility] Comment: [facility] 0.30 - 1.49 HOSPITAL ng/mlMay indicate increased risk of acute coronary syndrome. >=1.5 ng/ml Consistent with acute myocardial infarction. The diagnostic value of a single normal or non-diagnostic result is questionable.Serial samples at 2-6 hour intervals are required to rule out acute myocardial injury. Specimen Plasma specimen Performing Organization Address City/State/Zipcode Phone Number [facility] DEPARTMENT OF [address] [place] [address] PATHOLOGY AND GENOMIC MEDICINE [address] * B natriuretic peptide (07/12/2018 10:26 AM ELECTROLYTIC ETCHER) Only the most recent of 2 results within the time period is included. BNP 206 (H) 0 - 100 pg/mL [facility] Specimen Blood Performing Organization Address [facility] Phone Number [facility] [place] [address] PATHOLOGY AND GENOMIC MEDICINE [address] * Echocardiogram complete w contrast and 3D if needed (07/12/2018 7:29 AM ELECTROLYTIC ETCHER) Specimen Narrative Performed At [facility] Echocardiography Report [address] [place] [address] Pat.Name:JACKIE ALBERTO Pat.ID:[id number] .Date: 07/12/2018 Refer.MD:ARMEN RUGGIERO MD Exam Time: 6:57:00 AMStudy Type:Routine Echo Height:67inWeight:154lb BSA: 1.81 m2 DOBAge:1950,67Y Sex: MALEBP:106/59 HR:58 bpmSonogrphr: James Sauceda RDCS Pat. Stat.:[facility] Status:Final Echo Event ID:[id number] Order ID:[id number] Reason for Study:ETIOLOGY-SYMPTOMS OR CONDITIONS POTENTIALLY RELATED TO SUSPECTED CARDIAC ETIOLOGY Procedures:2D Echo, Colorflow Doppler, Strain, Intravenous Optison Contrast Race: SUMMARY: LV size is vcqlwwup-yi-gzjwuzqp enlarged. There is mild eccentric LV hypertrophy. LV EF is severely depressed. Regional wall motion abnormalities present. Mild to moderate mitral regurgitation. LV relaxation is impaired. LV filling pressure is elevated. FINDINGS: LV: LV size is vbhyipkj-gk-cvkphhkb enlarged. There is mild eccentricLV hypertrophy. LV [...] PA systolic pressure. MEASUREMENTS: 2D Parasternal Long [place] Ds5.1 cmLVPWd0.8 cm LVOT 2.2 cmAo An2.6 cm LVIDd6.8 cmIndex3.8 cm/m Ao Rtd 3.1 cm Index1.7 cm/m LVIDs5.4 cm LV Lszl064.6 g(122-174) LV%fs 20.9 % LVM Ngqmz139.4 g/m2 IVSd 0.8 cmRWT0.2 LA Sng Plane LA Area 23.7 cm2(8.8-23.4) LA Vol73.9 ml Index40.8 ml/m LA LngAx 6.8 cm RA Sng Plane RA Area 18.6 cm2(8.3-19.5) RA Vol58.5 ml Index32.3 ml/m RA LngAx 5.1 cm EF Biplane JSL173 mlSV58.6 ml VML931.4 mlEF29.6 % DOPPLER LVOT Stroke Vol LVOT [...] Radiology Results In - 07/12/2018 4:46 PM ELECTROLYTIC ETCHER Echocardiography Report [address]Name: JACKIE ALBERTO.ID: [id number] .Date: 07/12/2018 Refer.MD: ARMEN RUGGIERO MD Exam Time: 6:57:00 AM Study Type:Routine Echo Height: 67in Weight: 154lb BSA: 1.81 m2 Age: 1 1950,67Y Sex: MALE BP: 106/59 HR: 58 bpm Sonogrphr: James Sauceda RDCS Pat. Stat.:Inpatient Room: J809 Study Status:Final Echo Event ID:[id number] Order ID: [id number] Reason for Study:ETIOLOGY-SYMPTOMS OR CONDITIONS POTENTIALLY RELATED TO SUSPECTED CARDIAC ETIOLOGY Procedures:2D Echo, Colorflow Doppler, Strain, Intravenous Optison Contrast Race: SUMMARY: LV size is jblznxnj-pm-fhpqpzfu enlarged. There is mild eccentric LV hypertrophy. LV EF is severely depressed. Regional wall motion abnormalities present. Mild to moderate mitral regurgitation. LV relaxation is impaired. LV filling pressure is elevated. FINDINGS: LV: LV size is ksuffcrs-ma-ekzfielh enlarged. There is mild eccentric LV hypertrophy. [...] PA systolic pressure. MEASUREMENTS: 2D Parasternal Long [place] LA Ds 5.1 cm LVPWd 0.8 cm [...] Organization Address City/State/Zipcode Phone Number [facility] [address] [place] [address] * CT Angiogram Pe Chest (07/12/2018 12:53 AM ELECTROLYTIC ETCHER) Specimen Narrative Performed At EXAMINATION:CT ANGIOGRAM PE [...] identified in the chest. [facility]-[id number] Procedure Note Interface, Radiology Results Incoming - 07/12/2018 1:02 AM ELECTROLYTIC ETCHER EXAMINATION: CT ANGIOGRAM PE CHEST CLINICAL HISTORY: [...] identified in the chest. [facility]-[id number] Performing Organization Address City/[facility]/[place] [address] * Lipase level (07/11/2018 11:48 PM ELECTROLYTIC ETCHER) [facility] Lipase 41 13 - 60 U/L [facility] Specimen Plasma specimen Performing Organization Address City/[facility] Phone Number [facility] DEPARTMENT OF [address] [place] [address] PATHOLOGY AND [facility] MEDICINE [address] * Respiratory pathogen panel (07/11/2018 8:30 PM ELECTROLYTIC ETCHER) [facility] Respiratory Negative for all pathogens [facility] pathogen panel tested: [facility] Negative for Adenovirus [facility] Negative for Coronavirus HKU1 Negative for [...] Specimen Nares - Right Performing Organization Address City/[facility]/Zipcode Phone Number [facility] DEPARTMENT OF [address] [place] [address] [address] * Influenza antigen test, reflex negative to RPP (07/11/2018 8:30 PM ELECTROLYTIC ETCHER) [facility] Influenza Negative for Influenza A/B [facility] antigen antigen. [facility] Comment: HOSPITAL Specimen Information Specimen Source: Nares Specimen Site: Right Specimen Nares - Right Performing Organization Address [facility]/Zipcode Phone Number [facility] DEPARTMENT OF [address] [place] [address] PATHOLOGY AND [facility] MEDICINE [address] * Blood culture, aerobic & anaerobic (07/11/2018 8:30 PM ELECTROLYTIC ETCHER) Only the most recent of 2 results within the time period is included. Pathologist [facility] Blood culture No growth after 5 days of [facility] isolate incubation. [facility] Comment: HOSPITAL Specimen Information Specimen Source: Blood Specimen Site: Antecubital, left Specimen Blood - Antecubital, left Performing Organization Address [facility] Phone Number [facility] [place] [address] PATHOLOGY AND [facility] MEDICINE [facility] * Partial thromboplastin time, activated (07/11/2018 8:30 PM ELECTROLYTIC ETCHER) Pathologist [facility] PTT 28.3 23.0 - 36.0 sec [facility] Comment: [facility] PTT therapeutic range for HOSPITAL unfractionated heparin is 61.0-112.0 seconds which corresponds to Anti-Xa 0.3-0.7 U/ml. Specimen Blood Performing Organization Address [facility] Phone Number [facility] DEPARTMENT OF [address] [place] [address] PATHOLOGY AND [facility] MEDICINE [address] * Prothrombin time with INR (07/11/2018 8:30 PM ELECTROLYTIC ETCHER) Pathologist [facility] Prothrombin 12.8 11.5 - 14.5 sec [facility] INR 1.0 [facility] Comment: [facility] The International Normalized HOSPITAL Ratio (INR) is a therapeutic monitoring tool for patients who are stable on oral anticoagulant therapy. An INR of 2.0-3.0 is suggested for deep vein thrombosis/pulmonary embolism. Specimen Blood Performing Organization Address [facility]/Zipcode Phone Number [facility] [place] [address] PATHOLOGY AND [facility] MEDICINE [address] * CBC with platelet and differential (07/11/2018 8:30 PM ELECTROLYTIC ETCHER) [facility] WBC 9.57 4.50 - 11.00 k/uL [facility] RBC 5.16 4.40 - 6.00 m/uL [facility] HGB 16.8 14.0 - 18.0 g/dL [facility] HCT 49.0 41.0 - 51.0 % [facility] MCV 95.0 82.0 - 100.0 fL [facility] MCH 32.6 27.0 - 34.0 pg [facility] MCHC 34.3 31.0 - 37.0 g/dL [facility] RDW - SD 45.2 37.0 - 55.0 fL [facility] MPV 11.3 8.8 - 13.2 fL [facility] Platelet count 195 150 - 400 k/uL [facility] Nucleated RBC 0.00 /100 WBC [facility] Neutrophils 68.3 39.0 - 69.0 % [facility] Lymphocytes 17.5 (L) 25.0 - 45.0 % [facility] Monocytes 9.7 0.0 - 10.0 % [facility] Eosinophils 4.0 0.0 - 5.0 % [facility] Basophils 0.2 0.0 - 1.0 % [facility] Immature 0.3Comment: "Immature 0.0 - 1.0 % [facility] granulocytes granulocytes" (promyelocytes, [facility] myelocytes, metamyelocytes) [facility] Specimen Blood Performing Organization Address City/State/Zipcode Phone Number [facility] DEPARTMENT OF [address] [place] [id number] PATHOLOGY AND GENOMIC MEDICINE [address] Street * XR Chest 2 Vw (07/11/2018 8:26 PM ELECTROLYTIC ETCHER) Specimen Narrative Performed At EXAMINATION: XR CHEST 2 VW RADIANT CLINICAL HISTORY: chest pain COMPARISON:None. IMPRESSION: The lungs are clear. No pleural effusion or pneumothorax. The cardiomediastinal silhouette is normal. Mediastinal clips are noted. Thoracic aorta atherosclerotic calcifications. Diffuse osteopenia. Status post median sternotomy. Degenerative spine changes. No acute osseous abnormalities. [facility]-[id number] Procedure Note Interface, Radiology Results Incoming - 07/11/2018 8:31 PM ELECTROLYTIC ETCHER EXAMINATION: XR CHEST 2 VW CLINICAL HISTORY: chest pain COMPARISON: None. IMPRESSION: The lungs are clear. No pleural effusion or pneumothorax. The cardiomediastinal silhouette is normal. Mediastinal clips are noted. Thoracic aorta atherosclerotic calcifications. Diffuse osteopenia. Status post median sternotomy. Degenerative spine changes. No acute osseous abnormalities. [facility]-[id number] Performing Organization Address City/State/Zipcode Phone Number DEYANIRA GARCIA [address] [place] [address] * ECG ED Preliminary Interpretation - Not an Order (07/11/2018 8:11 PM ELECTROLYTIC ETCHER) Narrative Performed At Armen Ruggiero MD 07/14/20181:39 AM ECG ED Preliminary Interpretation - Not an Order Performed by: Armen Ruggiero MD Authorized by: Armen Ruggiero MD ECG reviewed by ED Physician in the absence of a parts counterperson: yes Previous ECG: Previous ECG:Unavailable Interpretation: Interpretation: abnormal Rate: ECG rate:64 ECG rate assessment: normal Rhythm: Rhythm: sinus rhythm Conduction: Conduction: abnormal Abnormal conduction: incomplete RBBB ST segments: ST segments:Non-specific T waves: T waves: normal * Comprehensive metabolic panel (07/11/2018 8:11 PM ELECTROLYTIC ETCHER) Sodium 137 135 - 148 mEq/L [facility] Potassium 3.8 3.5 - 5.0 mEq/L [facility] Chloride 95 (L) 98 - 112 mEq/L [facility] CO2 27 24 - 31 mEq/L [facility] Anion gap 15@ANIO 7 - 15 mEq/L [facility] BUN 19 8 - 23 mg/dL [facility] Creatinine 0.93 0.70 - 1.20 mg/dL [facility] Glucose 134 (H) 65 - 99 mg/dL [facility] Calcium 9.7 8.8 - 10.2 mg/dL [facility] Protein 7.6 6.3 - 8.3 g/dL [facility] Comment: [facility] 4.6-7.0 g/dL 1 week 4.4-7.6 g/dL 7 months-1year 5.1-7.3 g/dL 1-2 years5.6-7 .5 g/dL >3 years6.0-8 .0 g/dL 18-150 6.3-8.3 g/dL Albumin 3.9 3.5 - 5.0 g/dL [facility] A/G ratio 1.1 0.7 - 3.8 [facility] Alkaline 92 40 - 129 U/L [facility] AST 29 10 - 50 U/L [facility] ALT 31 5 - 50 U/L [facility] Total bilirubin 0.3 0.0 - 1.2 mg/dL [facility] Specimen Plasma specimen Performing Organization Address City/State/Zipcode Phone Number [facility] DEPARTMENT OF [address] [place] [address] PATHOLOGY AND GENOMIC MEDICINE [address] [address] HOSPITAL after 01/31/2018 Insurance Type Payer Benefit Subscriber ID Effective Phone Address Plan / Dates Group HMO AETNA MEDICARE AETNA xxxxxxxx [id number] MEDICARE resent HMO/PPO [facility] Advance Directives Patient has advance care planning documents on file. For more information, mike preciado contact: Stephen Lux [address] [place] [id number]
[2019-02-01] MEDS ORDERED: MIDAZOLAM HCL 2 MG/2 ML VIAL ONE (08:24)
[2019-02-01] MEDS ORDERED: LIDOCAINE HCL 2% LOCAL 20 ML VIAL ONE (08:24)
[2019-02-01] MEDS ORDERED: HEPARIN SOD/SOD CHLORIDE 2,000 ML ONE (08:24)
[2019-02-01] MEDS ORDERED: FENTANYL CITRATE/PF 100MCG/2 ML INJ ONE (08:24)
[2019-02-01] MEDS ORDERED: IOPAMIDOL 300MG/ML 100 ML INFUS..BTL IV ONE ×2 (08:25→09:07)
[2019-02-01] MEDS ORDERED: SODIUM CHLORIDE 0.9% 1000ML 1,000 ML ONE (08:25)
--- NOTE | 2019-02-01 09:27 | NUR ---
0927am bedside report received from LOUISE Young. Alert oriented and appropriate, PERRLA, respirations even and unlabored to room air. Pulses x4 extremities equal and strong. Pedal pulses PT/DP 4 and marked. Cap fill brisk < 3 sec. Skin warm and dry integrity appears D/I. IV 20g to left at KVO presents healthy w/o s/s of infiltration or complaint. Abdomen soft and supple. pt offered toileting, denies need to urinate or defecate. No personal affects with patient. Family Jem son . Pt and family verbalizes understanding of POC. No gross issues pain,pallor,pressure or dysrhythmia. ACT due in 1hr (10:20am) medardo/louise
--- NOTE | 2019-02-01 10:20 | NUR ---
1020am ACT 259 ,sreedhar in 1hr,No gross issues pain pallor pressure.Resting quietly family will return prior to dc. Received premedication orders Dr Acharya if needed. medardo/rn
[2019-02-01] MEDS ORDERED: ATROPINE SULFATE 0.1 MG/ML 10ML SYR ONE (11:06)
--- NOTE | 2019-02-01 11:30 | NUR ---
1130 ACT 203 No gross issues pain pallor pressure or dysrhythmia 1300 ACT [address] Marck farias time pushed back till 6pm No gross issues pain pallor pressure or dysrhythmia ds/rn
--- NOTE | 2019-02-01 14:00 | NUR ---
ACT no read. Dominik ACT 115 at 15[address] Acharya here Medicated 4mg Morphine Sulfate Ivp. Dr Acharya arrived. Pull sheath to Rt groin 20min stasis. PPx4 palpable. Katelyn 4x4 Tegaderm dressing. No gross issue pain pallor pressure or dysrhythmia.Still ok to dc at 730pm. Previous left leg pain relieved with Morphine. Tolerating po intake. Family at bedside Jem. medardo/rn
--- NOTE | 2019-02-01 15:02 | Operative Report ---
DATE OF PROCEDURE: SURGEON: Augustus Acharya MD PROCEDURE: Third order peripheral angiogram of the left leg. INDICATIONS: 1. Peripheral vascular disease. 2. Claudication. COMPLICATIONS: None. ANESTHESIA: Versed, fentanyl and lidocaine. TECHNIQUE: The patient's right groin was draped and prepped in the usual fashion. The area was anesthetized with lidocaine. Standard Seldinger technique was used to place a 6-Slovak sheath into the right femoral artery without difficulty. A short internal mammary artery catheter was used to cross over the bifurcation and was positioned from the right common femoral artery to the left external iliac artery with selective injections of the left leg were obtained. An Advantage guidewire was then positioned in the left leg and the internal mammary artery gliding catheter was removed. A 45 cm destination sheath was placed. A support catheter was positioned over the Advantage wire. The patient was given 8000 units of heparin. An attempt to cross the short 100% occlusion in the distal SFA with the Advantage wire was unsuccessful. Selective injections were obtained through the Seeker support catheter. There were no complications. RESULTS: As follows: 1. The left common iliac artery had about 50% stenosis at the bifurcation of the external iliac in the internal iliac artery. 2. The left internal iliac artery, left external iliac artery, left profunda femoral artery were all widely patent. 3. There was a short segment of 100% occlusion in the left superficial femoral artery distally, which was very well collateralized with brisk reconstitution in the very distal superficial femoral artery. 4. There was a widely patent popliteal artery. 5. Trifurcation was widely patent and there were three-vessel runoff to the left foot. CONCLUSION: The patient has a short-segment of 100% occlusion in the distal superficial femoral artery, which is very well calcified and appears to be chronic. The patient's symptoms are minimal. I would favor a trial of medical management. Augustus Acharya MD [facility] /[id number]
[2019-02-01] MEDS ORDERED: MORPHINE SULFATE INJ 4 MG/ML INJ 1ML ONE (15:15)
--- NOTE | 2019-02-01 15:15 | NUR ---
1515 Medicated for left leg pain 10/10 Morphine 4mg ivp with immediate relief. Dr Acharya ast bedside. Orders recieved for claudia obsv bed per Earline REESE/Dr Acharya
--- OUTSIDE RECORDS SUMMARY | 2019-02-01 15:51 | XMS REPORT | Clinical Summary ---
Author Author [facility] Organization [facility] Address Unknown Phone Unavailable Care Team Providers Care Service Advisor Name Role Phone Nicholas Cunningham MD PCP [...] Overview: Added automatically from request for surgery [id number] Glaucoma suspect 10/21/2016 Iron deficiency anemia 07/02/2015 [...] Comments Vital Sign 159/93 07/09/2018 3:34 PM DAMPPROOFER Blood Pressure 81 07/09/2018 3:34 PM DAMPPROOFER Pulse 36.6 C (97.9 F) 07/09/2018 3:34 PM DAMPPROOFER Temperature 18 07/09/2018 3:34 PM DAMPPROOFER Respiratory Rate 98% 07/09/2018 3:34 PM DAMPPROOFER Oxygen Saturation - - Inhaled Oxygen Concentration 70.9 kg (156 lb 6.4 oz) 06/09/2018 9:59 PM DAMPPROOFER Weight 170.2 cm (5' 7") 06/09/2018 9:59 PM DAMPPROOFER Height 24.5 06/09/2018 9:59 PM DAMPPROOFER Body Mass Index Plan of Treatment Health [...] 07/09/2018 SOB (shortness of breath) 1:07 PM DAMPPROOFER POCT BNP (B-TYPE Routine 07/09/2018 NATRIURETIC PEPTIDE) 12:41 PM DAMPPROOFER BMP POC Routine 07/09/2018 11:06 AM DAMPPROOFER TROPONIN I POC Routine 07/09/2018 11:03 AM DAMPPROOFER HIV-1/HIV-2 ROUTINE STAT 07/09/2018 SCREENING 11:00 AM DAMPPROOFER LIPASE STAT 07/09/2018 11:00 AM DAMPPROOFER LIVER PROFILE STAT 07/09/2018 11:00 AM DAMPPROOFER CBC/DIFF STAT 07/09/2018 11:00 AM DAMPPROOFER 12 LEAD EKG Routine 07/09/2018 10:55 AM DAMPPROOFER POC GLUCOSE - IN LAB Routine 06/12/2018 (STAT) 11:52 AM DAMPPROOFER POC GLUCOSE - IN LAB Routine 06/12/2018 (STAT) 7:34 AM DAMPPROOFER CBC/DIFF Routine 06/12/2018 3:45 AM DAMPPROOFER PT/INR/PTT Routine 06/12/2018 3:45 AM DAMPPROOFER BASIC METABOLIC PANEL Routine 06/12/2018 3:45 AM DAMPPROOFER PT/INR Routine 06/11/2018 9:30 PM DAMPPROOFER POC GLUCOSE - IN LAB Routine 06/11/2018 (STAT) 8:39 PM DAMPPROOFER POC GLUCOSE - IN LAB Routine 06/11/2018 (STAT) 5:09 PM DAMPPROOFER POC GLUCOSE - IN LAB Routine 06/11/2018 (STAT) 12:08 PM DAMPPROOFER POC GLUCOSE - IN LAB Routine 06/11/2018 (STAT) 7:38 AM DAMPPROOFER TRANSTHORACIC ECHO (TTE) STAT 06/11/2018 7:24 AM DAMPPROOFER MAGNESIUM Routine 06/11/2018 3:45 AM DAMPPROOFER BASIC METABOLIC PANEL Routine 06/11/2018 3:45 AM DAMPPROOFER POC GLUCOSE - IN LAB Routine 06/10/2018 (STAT) 8:31 PM DAMPPROOFER POC GLUCOSE - IN LAB Routine 06/10/2018 (STAT) 4:44 PM DAMPPROOFER POC GLUCOSE - IN LAB Routine 06/10/2018 (STAT) 11:23 AM DAMPPROOFER 12 LEAD EKG Routine 06/10/2018 5:10 AM DAMPPROOFER TROPONIN I Routine 06/10/2018 4:35 AM DAMPPROOFER CORTISOL, TOTAL STAT 06/10/2018 4:35 AM DAMPPROOFER HEMOGLOBIN A1C STAT 06/10/2018 4:35 AM DAMPPROOFER LIPID PROFILE STAT 06/10/2018 4:35 AM DAMPPROOFER THYROID STIMULATING STAT 06/10/2018 HORMONE (TSH) 4:35 AM DAMPPROOFER BASIC METABOLIC PANEL Routine 06/10/2018 4:35 AM DAMPPROOFER CBC/DIFF Routine 06/10/2018 4:35 AM DAMPPROOFER TROPONIN I STAT 06/09/2018 11:[address] CHEST PE PROTOCOL STAT 06/09/2018 QUINTANA (dyspnea on exertion) 9:00 PM DAMPPROOFER TROPONIN I POC Routine 06/09/2018 8:40 PM DAMPPROOFER D-DIMER STAT 06/09/2018 8:36 PM DAMPPROOFER FREE T4 STAT 06/09/2018 8:36 PM DAMPPROOFER 12 LEAD EKG Routine 06/09/2018 8:25 PM DAMPPROOFER POC GLUCOSE - IN LAB Routine 06/09/2018 (STAT) 6:18 PM DAMPPROOFER URINALYSIS STAT 06/09/2018 6:10 PM DAMPPROOFER ELECTROLYTES, URINE STAT 06/09/2018 6:10 PM DAMPPROOFER OSMOLALITY, URINE STAT 06/09/2018 6:10 PM DAMPPROOFER FREE T4 STAT 06/09/2018 5:30 PM DAMPPROOFER D-DIMER STAT 06/09/2018 5:30 PM DAMPPROOFER OSMOLALITY,SERUM Routine 06/09/2018 5:30 PM DAMPPROOFER PHOSPHORUS Routine 06/09/2018 5:30 PM DAMPPROOFER MAGNESIUM Routine 06/09/2018 5:30 PM DAMPPROOFER COMPREHENSIVE METABOLIC Routine 06/09/2018 PANEL 5:30 PM DAMPPROOFER TROPONIN I STAT 06/09/2018 5:30 PM DAMPPROOFER CK, TOTAL STAT 06/09/2018 5:30 PM DAMPPROOFER 12 LEAD EKG Routine 06/09/2018 2:42 PM DAMPPROOFER TROPONIN I STAT 06/09/2018 1:12 PM DAMPPROOFER CK, TOTAL STAT 06/09/2018 1:12 PM DAMPPROOFER VBG POC Routine 06/09/2018 12:47 PM DAMPPROOFER INFLUENZA A/B AND RSV PCR STAT 06/09/2018 12:00 PM DAMPPROOFER VBG POC Routine 06/09/2018 11:30 AM DAMPPROOFER BASIC METABOLIC PANEL STAT 06/09/2018 10:56 AM DAMPPROOFER XRAY CHEST 1 VIEW STAT 06/09/2018 CAD, multiple vessel 10:55 AM DAMPPROOFER B-TYPE NATRIURETIC STAT 06/09/2018 PEPTIDE (BNP) 10:50 AM DAMPPROOFER CBC/DIFF STAT 06/09/2018 10:50 AM DAMPPROOFER POCT BNP (B-TYPE Routine 06/09/2018 NATRIURETIC PEPTIDE) 10:46 AM DAMPPROOFER VBG POC Routine 06/09/2018 10:42 AM DAMPPROOFER BMP POC Routine 06/09/2018 10:42 AM DAMPPROOFER 12 LEAD EKG Routine 06/09/2018 10:40 AM DAMPPROOFER TROPONIN I POC Routine 06/09/2018 10:40 AM DAMPPROOFER after 01/31/2018 Results * XRAY CHEST 2 VIEWS (07/09/2018 1:07 PM DAMPPROOFER) Specimen Impressions Performed At IMPRESSION: [facility] No acute cardiothoracic findings. Dictated By: Barry Mcfadden MD, 07/09/2018 1:21 PM I have reviewed the study and agree with the findings in this report. Signed By: Miguel Coronado MD, 07/09/2018 1:47 PM Narrative Performed At EXAM: XRAY CHEST 2 VIEWS [facility] DATE: 07/09/2018 1:07 PM INDICATION: sob [...] Interface, Rad/Mammog In - 07/09/2018 1:52 PM DAMPPROOFER EXAM: XRAY CHEST 2 VIEWS DATE: 07/09/2018 [...] BNP (BRAIN NATRIURETIC PEPTIDE) (07/09/2018 12:41 PM DAMPPROOFER) Only the most recent of 2 results within the time period is included. B Natr Pept POC 853 (H) 0 - 100 pg/mL BT MAIN-STATION 1 Specimen Performing Organization Address City/[facility] Phone Number MISYS BT MAIN-STATION 1 * BMP POC (07/09/2018 11:06 AM DAMPPROOFER) Only the most recent of 2 results [...] MAIN-STATION Afr-Am 1 Specimen Performing Organization Address City/[facility] Phone Number MISYS BT MAIN-STATION 1 * TROPONIN I POC (07/09/2018 11:03 AM DAMPPROOFER) Only the most recent of 3 results within the time period is included. Troponin POC 0.02 0.00 - 0.08 ng/mL BT MAIN-STATION 1 Specimen Performing Organization Address City/[facility] Phone Number MISYS BT MAIN-STATION 1 * HIV-1/HIV-2 ROUTINE SCREENING (07/09/2018 11:00 AM DAMPPROOFER) HIV-1/HIV-2 Negative NEG BT MAIN-STATION 3 Specimen Performing Organization Address City/[facility]/[employer] Phone Number MISYS BT MAIN-STATION 3 * LIVER PROFILE (07/09/2018 11:00 AM DAMPPROOFER) Protein, Total, 6.7 6.0 - 8.3 g/dL [...] MAIN-STATION 1 * LIPASE (07/09/2018 11:00 AM DAMPPROOFER) Lipase 12 11 - 82 U/L BT MAIN-STATION 1 Specimen Blood Performing Organization Address City/[facility]ode Phone Number MISYS BT MAIN-STATION 1 * CBC/DIFF (07/09/2018 11:00 AM DAMPPROOFER) Only the most recent of 4 results [...] (Abs) 2 Specimen Blood Performing Organization Address [facility] Phone Number MISYS BT MAIN-STATION 2 * 12 LEAD EKG (07/09/2018 10:55 AM DAMPPROOFER) 12 LEAD EKG FOR [facility] Test Date:2018-07-09 Pat Name: AJCKIE ALBERTO Department: 5520 Room: Gender: Cash Sales Audit Clerk: [id number] :1951-0 07-17 Requested By: RAMONA POWELL Order Number: [id number] Reading MD: Yobani Arora M.D. Measurements Intervals [place] Rate: 92 P:50 WA: 173 QRS: 115 QRSD: 162 T: 48 QT: 376 QTc:467 Interpretive Statements SINUS RHYTHM POSSIBLE LEFT ATRIAL ENLARGEMENT INDETERMINATE AXIS RIGHT BUNDLE BRANCH BLOCK Electronically Signed On 07-09-2018 14:05:50 DAMPPROOFER by Yobani Arora M.D. Specimen Performing Organization Address [facility] Cent[facility]ode Phone Number SMS * GLUCOSE POC (06/12/2018 11:52 AM DAMPPROOFER) Only the most recent of 10 results within the time period is included. Glucose POC 88 74 - 106 mg/dL BT MAIN-STATION 1 Specimen Performing Organization Address City/[facility] Phone Number MISYS BT MAIN-STATION 1 * PT/INR/PTT (06/12/2018 3:45 AM DAMPPROOFER) PT 13.8 11.8 - 15.0 Seconds BT MAIN-STATION 3 INR 1.1 BT MAIN-STATION SUGGESTED THERAPEUTIC RANGES: 3 INR 2.0-3.0 for MODERATE INTENSITY ANTICOAGULATION INR 2.5-3.5 for HIGH INTENSITY ANTICOAGULATION PTT 36.9 (H) 23.6 - 36.4 Seconds BT MAIN-STATION 3 Specimen Blood Performing Organization Address [facility] Phone Number MISYS BT MAIN-STATION 3 * BASIC METABOLIC PANEL (06/12/2018 3:45 AM DAMPPROOFER) Only the most recent of 4 results [...] Am 1 Specimen Blood Performing Organization Address [facility] Phone Number MISYS BT MAIN-STATION 1 * PT/INR (06/11/2018 9:30 PM DAMPPROOFER) PT 13.1 11.8 - 15.0 Seconds BT MAIN-STATION 3 INR 1.0 BT MAIN-STATION SUGGESTED THERAPEUTIC RANGES: 3 INR 2.0-3.0 for MODERATE INTENSITY ANTICOAGULATION INR 2.5-3.5 for HIGH INTENSITY ANTICOAGULATION Specimen Blood Performing Organization Address [facility] Phone Number MISYS BT MAIN-STATION 3 * TRANSTHORACIC ECHO (TTE) (06/11/2018 7:24 AM DAMPPROOFER) Pathologist [facility] TRANSTHORACIC Transthoracic SMS ECHO (TTE) Echo Report JACKIE ALBERTO Age:67 Gender: M :1950 Exam Date: 06/11/2018 07:24 Exam Location: [facility] Echo Ordering Phys: JUAN F SEGURA Referring Phys: Reading Phys:Sherly Manning MD Fellow Phys: Karoline Gomez M.D. Fellow Phys: Blender/Braze Applicator: Jeremías Wilkinson Reason For Exam: Indications: Stroke, Transient cerebral ischemic attack, unspecified ICD-9 Codes: I67.89G45.9 Exam Type: TRANSTHORACIC ECHO (TTE) Procedure CPT:45293 Addtional CPT: Ht (in): 67 BSA: 1.84HR: [...] BP 58.9 cm LV Cardiac Output MOD [id number] cm/min LV Cardiac Index MOD BP 2437 cm/minm LA Volume 97.3 cm LA Volume Index 53 cm/m 16 - 34 cm/m RV Diastolic Basal Diameter 3.4 cm 2.5 - 4.1 cm LV Mass by linear exiefd789 g LV Mass by linear method Tgyuz774 g/m DOPPLER AV Peak Velocity 159 cm/s [...] BP 58.9 cm LV Cardiac Output MOD QD0262 cm/min LV Cardiac Index MOD BP 2437 cm/minm LA Volume 97.3 cm LA Volume Index 53 cm/m 16 - 34 cm/m RV Diastolic Basal Diameter 3.4 cm 2.5 - 4.1 cm LV Mass by linear eseuci441 g LV Mass by linear method Fdoxx660 g/m DOPPLER AV Peak Velocity 159 cm/s [...] E' Septal Ratio20.3 Specimen Performing Organization Address [facility] Phone Number SMS * MAGNESIUM (06/11/2018 3:45 AM DAMPPROOFER) Only the most recent of 2 results within the time period is included. Magnesium 1.8 (L) 1.9 - 2.7 mg/dL BT MAIN-STATION 1 Specimen Blood Performing Organization Address [facility] Phone Number MISYS BT MAIN-STATION 1 * 12 LEAD EKG (06/10/2018 5:10 AM DAMPPROOFER) 12 LEAD EKG FOR [facility] Test Date:2018-06-10 Pat Name: JACKIE ALBERTO Department: [facility] [place]: Gender: M Cash Sales Audit Clerk: [id number] :1951-0 07-17 Requested By: JUAN F SEGURA Order Number: [id number] Reading MD: Yobani Aroar M.D. Measurements Intervals [place] Rate: 72 P:66 WA: 197 QRS: 228 QRSD: 177 T: 79 QT: 508 QTc:557 Interpretive Statements SINUS RHYTHM WITH OCCASIONAL VENTRICULAR PREMATURE COMPLEXES RIGHT BUNDLE BRANCH BLOCK AND POSSIBLE RIGHT VENTRICULAR HYPERTROPHY [RBBB, 1.5 mV R IN V1, RAD] LEFT POSTERIOR FASCICULAR BLOCK [QRS AXIS > 109, INFERIOR Q] SEPTAL MYOCARDIAL INFARCTION [40+ ms Q WAVE IN V1/V2], OF INDETERMINATE AGE Electronically Signed On 06-10-2018 5:31:46 DAMPPROOFER by Yobani Arora M.D. Specimen Performing Organization Address City/[facility] Phone Number SMS * HEMOGLOBIN A1C (06/10/2018 4:35 AM DAMPPROOFER) Hemoglobin A1c 5.8 4.3 - 6.1 % BT DIAGNOSTIC IMMUNOLOGY Est Average 119.8 mg/dL BT DIAGNOSTIC Gluc IMMUNOLOGY Specimen Blood Performing Organization Address [facility] Phone Number MISYS BT DIAGNOSTIC IMMUNOLOGY * CORTISOL, TOTAL (06/10/2018 4:35 AM DAMPPROOFER) Cortisol, Total 12.1 3.44 - 22.45 mcg/dL BT MAIN-STATION 1 Specimen Blood Performing Organization Address [facility] Phone Number MISYS BT MAIN-STATION 1 * TSH (06/10/2018 4:35 AM DAMPPROOFER) TSH 1.82 0.57 - 3.74 uIU/mL BT MAIN-STATION 1 Specimen Blood Performing Organization Address [facility] Phone Number MISYS BT MAIN-STATION 1 * TROPONIN I (06/10/2018 4:35 AM DAMPPROOFER) Only the most recent of 4 results within the time period is included. Troponin I 0.06 (H) <0.04 ng/mL BT MAIN-STATION 1 Specimen Performing Organization Address [facility] Phone Number MISYS BT MAIN-STATION 1 * LIPID PROFILE (06/10/2018 4:35 AM DAMPPROOFER) Cholesterol 291 mg/dL BT MAIN-STATION Comment: 1 REFERENCE RANGE: Desirable: <200 mg/dL Borderline: 200-240 mg/dL High Risk: >240 mg/dL Triglyceride 156 (H) <150 mg/dL BT MAIN-STATION Comment: 1 REFERENCE RANGE: Normal: <150 mg/dL Borderline High: 150-199 mg/dL High: 200-499 mg/dL Very High: >vo=901 mg/dL HDL 60 mg/dL BT MAIN-STATION Comment: 1 Increased CHD risk: <40 mg/dL Decreased CHD risk: >60 mg/dL LDL 200 mg/dL BT MAIN-STATION Comment: 1 REFERENCE RANGE: Optimal: <100 mg/dL Near Optimal: 100-129 mg/dL Borderline High: 130-159 mg/dL High: 160-189 mg/dL Very High: >kn=867 mg/dL Specimen Blood Performing Organization Address City/[facility] Phone Number MISYS BT MAIN-STATION 1 * CT CHEST PE PROTOCOL (06/09/2018 9:00 PM DAMPPROOFER) Specimen Impressions Performed At IMPRESSION: SMS 1.No [...] Interface, Rad/Mammog In - 06/09/2018 10:23 PM DAMPPROOFER EXAM: Chest CT, PE protocol TECHNIQUE: CT [...] SMS * FREE T4 (06/09/2018 8:36 PM DAMPPROOFER) Only the most recent of 2 results within the time period is included. Free T4 0.92 0.61 - 1.18 ng/dl BT MAIN-STATION 1 Specimen Blood Performing Organization Address [facility] Phone Number MISYS BT MAIN-STATION 1 * D-DIMER (06/09/2018 8:36 PM DAMPPROOFER) Only the most recent of 2 results within the time period is included. D-Dimer 2.21 ug/mL,FEU BT MAIN-STATION Comment: 3 Values of quantitative d-Dimer less than 0.40 ug/mL FEU have been reported to be associated with a low probability of deep vein thrombosis/pulmonary embolism. This test alone should not be used to rule out DVT/PE. Specimen Blood Performing Organization Address [facility] Phone Number MISYS BT MAIN-STATION 3 * 12 LEAD EKG (06/09/2018 8:25 PM DAMPPROOFER) 12 LEAD EKG FOR [facility] Test Date:2018-06-09 Pat Name: JACKIE ALBERTO Department: 5520 Room: [facility] Gender: M Cash Sales Audit Clerk: [id number] :1951-0 07-17 Requested By: JUAN F SEGURA Order Number: [id number] Reading MD: Yobani Arora M.D. Measurements Intervals [place] Rate: 68 P:49 WA: 192 QRS: 225 QRSD: 165 T: 89 QT: 473 QTc:506 Interpretive Statements SINUS RHYTHM POSSIBLE LEFT ATRIAL ENLARGEMENT [-0.1mV P WAVE IN V1/V2] INDETERMINATE AXIS RIGHT BUNDLE BRANCH BLOCK AND POSSIBLE RIGHT VENTRICULAR HYPERTROPHY [RBBB, 1.5 mV R IN V1, RAD] ANTEROSEPTAL MYOCARDIAL ISCHEMIA [40+ ms Q WAVE IN V1-V4], OF INDETERMINATE AGE Reviewed by Electronically Signed On 06-10-2018 5:31:41 DAMPPROOFER by Yobani Arora M.D. Specimen Performing Organization Address [facility]/Zipcode Phone Number SMS * UA CHEMISTRIES (06/09/2018 6:10 PM DAMPPROOFER) Color Colorless BT MAIN-STATION 3 Clarity Clear BT MAIN-STATION 3 Specific 1.004 1.001 - 1.035 BT MAIN-STATION [place] 3 pH 6.0 5 - 8 BT [...] BT MAIN-STATION 3 Specimen Performing Organization Address [facility] Phone Number MISYS BT MAIN-STATION 3 * OSMOLALITY, UR (06/09/2018 6:10 PM DAMPPROOFER) Pathologist [facility] Osmolality, Ur 190Comment: Test performed at 50 - 1,400 mOsm/kg BT MAIN-STATION [facility]. 4 Specimen Urine Performing Organization Address [facility] Phone Number MISYS BT MAIN-STATION 4 * ELECTROLYTES, UR (06/09/2018 6:10 PM DAMPPROOFER) Pathologist [facility] Sodium, Ur 65 40 - 220 mmol/L BT MAIN-STATION 1 Potassium, Ur 16 (L) 25 - 125 mmol/L BT MAIN-STATION 1 Chloride, Ur 75 (L) 110 - 250 mmol/L BT MAIN-STATION 1 Specimen Performing Organization Address [facility] Phone Number MISYS BT MAIN-STATION 1 * COMPREHENSIVE METABOLIC PANEL(DBIL NOT INCLUDED) (06/09/2018 5:30 PM DAMPPROOFER) Pathologist [facility] Albumin 4.3 4.2 - 5.5 g/dL BT [...] MAIN-STATION 1 Specimen Blood Performing Organization Address City/[facility] Phone Number MISYS BT MAIN-STATION 1 * PHOSPHORUS (06/09/2018 5:30 PM DAMPPROOFER) Phosphorus 3.8 2.5 - 5.0 mg/dL BT MAIN-STATION 1 Specimen Blood Performing Organization Address City/[facility] Phone Number MISYS BT MAIN-STATION 1 * OSMOLALITY (06/09/2018 5:30 PM DAMPPROOFER) Osmolality 265 (L)Comment: Test 280 - 301 mOsm/kg BT MAIN-STATION performed at [facility]. 4 Specimen Performing Organization Address City/[facility] Phone Number MISYS BT MAIN-STATION 4 * CK, TOTAL (06/09/2018 5:30 PM DAMPPROOFER) Only the most recent of 2 results within the time period is included. CK, Total 99 30 - 223 U/L BT MAIN-STATION Comment: 1 CKMB not performed if CK <100, if CKMB is required, please notify laboratory immediately. Specimen Blood Performing Organization Address City/[facility] Phone Number MISYS BT MAIN-STATION 1 * 12 LEAD EKG (06/09/2018 2:42 PM DAMPPROOFER) 12 LEAD EKG FOR [facility] Test Date:2018-06-09 Pat Name: JACKIE ALBERTO Department: 5520 Room: Gender: M Cash Sales Audit Clerk: [id number] :1951-0 07-17 Requested By: JUAN F SEGURA Order Number: [id number] Juan MD: Yobani Arora M.D. Measurements Intervals [place] Rate: 61 P:55 WA: 190 QRS: 191 QRSD: 168 T: 114 QT: 474 QTc:480 Interpretive Statements SINUS RHYTHM INDETERMINATE AXIS RIGHT BUNDLE BRANCH BLOCK AND POSSIBLE RIGHT VENTRICULAR HYPERTROPHY LEFT POSTERIOR FASCICULAR BLOCK SEPTAL MYOCARDIAL INFARCTION, OF INDETERMINATE AGE MODERATE T-WAVE ABNORMALITY, CONSIDER LATERAL ISCHEMIA Electronically Signed On 06-09-2018 15:49:06 DAMPPROOFER by Yobani Arora M.D. Specimen Performing Organization Address [facility] Phone Number SMS * VBG POC (06/09/2018 12:47 PM DAMPPROOFER) Only the most recent of 3 results [...] 26.0 mmol/L BT MAIN-STATION 1 % Sat, Reick POC 33 (L) 60 - 85 % BT MAIN-STATION 1 Lactic Acid, 0.82 0.4 - 2.0 mmol/L BT MAIN-STATION Erick POC 1 TCO2, ERICK POC 29 21 - 32 mmol/L BT MAIN-STATION 1 Specimen Performing Organization Address [facility] Phone Number MISYS BT MAIN-STATION 1 * INFLUENZA A/B AND RSV PCR (06/09/2018 12:00 PM DAMPPROOFER) Influenza A Not detected BT MOLECULAR PATHOLOGY [...] Description DRAW 2 Specimen Performing Organization Address [facility] Phone Number MISYS BT MOLECULAR PATHOLOGY BT OUTPATIENT DRAW 2 * XRAY CHEST 1 VIEW (06/09/2018 10:55 AM DAMPPROOFER) Specimen Impressions Performed At IMPRESSION: [facility] Mild cardiomegaly with interstitial pulmonary edema. A "PRELIMINARY" report was made available via [employer] at the time of dictation by the [...] Interface, Rad/Mammog In - 06/09/2018 11:21 AM DAMPPROOFER EXAMINATION: XRAY CHEST 1 VIEW, AP INDICATION: [...] A "PRELIMINARY" report was made available via [employer] at the time of dictation by the [...] MD, 06/09/2018 11:16 AM Performing Organization Address City/[facility] Phone Number SMS * B-TYPE NATRIURETIC PEPTIDE (BNP) (06/09/2018 10:50 AM DAMPPROOFER) B Natriuretic 271 (H) <101 pg/mL BT MAIN-STATION Pept 1 Specimen Blood Performing Organization Address [facility] Phone Number MISYS BT MAIN-STATION 1 * 12 LEAD EKG (06/09/2018 10:40 AM DAMPPROOFER) 12 LEAD EKG FOR [facility] Test Date:2018-06-09 Pat Name: JACKIE ALBERTO Department: 5520 Room: [place] [address] Gender: M Cash Sales Audit Clerk: [id number] :1951-0 07-17 Requested By: ALOK YORK Order Number: [id number] Juan MD: Yobani Arora M.D. Measurements Intervals [place] Rate: 83 P:48 WA: 189 QRS: 193 QRSD: 161 T: 85 QT: 411 QTc:485 Interpretive Statements SINUS RHYTHM POSSIBLE LEFT ATRIAL ENLARGEMENT INDETERMINATE AXIS RIGHT BUNDLE BRANCH BLOCK ANTEROSEPTAL MYOCARDIAL INFARCTION, OF INDETERMINATE AGE Electronically Signed On 06-09-2018 15:49:03 DAMPPROOFER by Yobani Arora M.D. Specimen Performing Organization Address City/State/Zipcode Phone Number SMS after 01/31/2018 Insurance Type Payer Benefit Subscriber ID Effective Phone Address Plan / Dates Group A[employer] MEDICARE AETNA xxxxxxxx 2018-P [phone] [address] [facility] resent [id number] SELF-PAY SELF-PAY xxxxxxxxx 2018-P [phone] [address] [place] [address] Advance Directives Date Inactivated Comments Code Status Date Activated 06/12/2018 5:59 PM Full Code 06/09/2018 1:38 PM 03/19/2015 7:40 PM Full Code 03/16/2015 10:08 PM
--- OUTSIDE RECORDS SUMMARY | 2019-02-01 15:52 | XMS REPORT | Clinical Summary ---
Author Author Paulina Tenriism Organization Paulina Tenriism Address Unknown Phone Unavailable Care Team Providers Care Bench Technician Name Role Phone Asked, No Pcp [...] Dx) 07/11/2018 Hospital Cardiology - Encounter 07/16/2018 lCaribel King RN 07/02/2018 Patient Quality Outreach after [...] Taken Vital Sign Reading 07/16/2018 11:25 AM BLOW MOLD OPERATOR Blood Pressure 99/60 07/16/2018 11:25 AM BLOW MOLD OPERATOR Pulse 82 07/16/2018 11:25 AM BLOW MOLD OPERATOR Temperature 37.2 C (99 F) 07/16/2018 7:27 AM BLOW MOLD OPERATOR Respiratory Rate 16 07/16/2018 11:25 AM BLOW MOLD OPERATOR Oxygen Saturation 97% - Inhaled Oxygen - Concentration 07/14/2018 6:42 AM BLOW MOLD OPERATOR Weight 69.2 kg (152 lb 8 oz) 07/12/2018 3:12 AM BLOW MOLD OPERATOR Height 170.2 cm (5' 7") 07/12/2018 3:12 AM BLOW MOLD OPERATOR Body Mass Index 23.88 Plan of Treatment Health Maintenance Due Date Last Done Comments COLONOSCOPY SCREENING 2002 SHINGLES VACCINES (#1) 2002 65+ PNEUMOCOCCAL VACCINE 2017 (1 of 2 - PCV13) INFLUENZA VACCINE 01/31/2019 Procedures Comments Procedure Name Priority Date/Time Associated Diagnosis POC GLUCOSE Routine 07/16/2018 9:24 AM BLOW MOLD OPERATOR ESTIMATED GFR Routine 07/16/2018 5:36 AM BLOW MOLD OPERATOR BASIC METABOLIC PANEL Routine 07/16/2018 5:36 AM BLOW MOLD OPERATOR ESTIMATED GFR Routine 07/15/2018 5:22 AM BLOW MOLD OPERATOR BASIC METABOLIC PANEL Routine 07/15/2018 5:22 AM BLOW MOLD OPERATOR POC GLUCOSE Routine 07/14/2018 4:51 PM BLOW MOLD OPERATOR US DUPLEX ARTERIAL LOWER Routine 07/14/2018 EXTREMITY BILATERAL 3:52 PM BLOW MOLD OPERATOR US CAROTID DUPLEX Routine 07/14/2018 BILATERAL 2:35 PM BLOW MOLD OPERATOR POC GLUCOSE Routine 07/14/2018 12:07 PM BLOW MOLD OPERATOR POC GLUCOSE Routine 07/14/2018 8:17 AM BLOW MOLD OPERATOR ESTIMATED GFR Routine 07/14/2018 5:00 AM BLOW MOLD OPERATOR BASIC METABOLIC PANEL Routine 07/14/2018 5:00 AM BLOW MOLD OPERATOR ECG 12-LEAD Routine 07/12/2018 8:06 PM BLOW MOLD OPERATOR TROPONIN Routine 07/12/2018 5:00 PM BLOW MOLD OPERATOR B NATRIURETIC PEPTIDE Routine 07/12/2018 10:26 AM BLOW MOLD OPERATOR ECHOCARDIOGRAM 2D Routine 07/12/2018 COMPLETE W MMODE SPECTRAL 7:29 AM BLOW MOLD OPERATOR COLOR DOPPLER ([id number]) ESTIMATED GFR Routine 07/12/2018 4:39 AM BLOW MOLD OPERATOR BASIC METABOLIC PANEL Routine 07/12/2018 4:39 AM BLOW MOLD O[address] CT ANGIOGRAM PE CHEST STAT 07/12/2018 12:53 AM BLOW MOLD OPERATOR LIPASE LEVEL STAT 07/11/2018 11:48 PM BLOW MOLD OPERATOR B NATRIURETIC PEPTIDE Routine 07/11/2018 8:30 PM BLOW MOLD OPERATOR PARTIAL THROMBOPLASTIN Routine 07/11/2018 TIME (PTT) 8:30 PM BLOW MOLD OPERATOR PROTHROMBIN TIME WITH INR Routine 07/11/2018 8:30 PM BLOW MOLD OPERATOR HC COMPLETE BLD COUNT Routine 07/11/2018 W/AUTO DIFF 8:30 PM BLOW MOLD OPERATOR RESPIRATORY PATHOGEN Routine 07/11/2018 PANEL 8:30 PM BLOW MOLD OPERATOR INFLUENZA ANTIGEN TEST, Routine 07/11/2018 REFLEX NEGATIVE TO RPP 8:30 PM BLOW MOLD OPERATOR BLOOD CULTURE, AEROBIC & Routine 07/11/2018 ANAEROBIC 8:30 PM BLOW MOLD OPERATOR BLOOD CULTURE, AEROBIC & Routine 07/11/2018 ANAEROBIC 8:30 PM BLOW MOLD OPERATOR XR CHEST 2 VW STAT 07/11/2018 8:26 PM BLOW MOLD OPERATOR ECG 12-LEAD STAT 07/11/2018 8:13 PM BLOW MOLD OPERATOR ECG ED PRELIMINARY Routine 07/11/2018 INTERPRETATION 8:11 PM BLOW MOLD OPERATOR ESTIMATED GFR Routine 07/11/2018 8:11 PM BLOW MOLD OPERATOR TROPONIN Routine 07/11/2018 8:11 PM BLOW MOLD OPERATOR COMPREHENSIVE METABOLIC Routine 07/11/2018 PANEL 8:11 PM BLOW MOLD OPERATOR after 01/31/2018 Results * POC glucose (07/16/2018 9:24 AM BLOW MOLD OPERATOR) Only the most recent of 4 results within the time period is included. [facility] POC glucose 119 (H) 65 - 99 mg/dL [place] Comment: QUAKER [facility] Notified RN HOSPITAL Meter ID: [id number] Crop Production Advisor: Hector Rick Specimen Performing Organization Address City/[facility] Hospital[facility] Phone Number [facility] DEPARTMENT OF [address] [place] [address] * Estimated GFR (07/16/2018 5:36 AM BLOW MOLD OPERATOR) Only the most recent of 5 results within the time period is included. [facility] Estimated GFR 90 mL/min/1.73 m2 [place] Comment: QUAKER [facility] rpretation G1 >=90 Normal or high G2 60-89Mildly decreased T7c00-30 Mildly to moderately decreased W5w97-22 Moderately to severely decreased G4 15-29Severely decreased G5 <15Kidney failure The eGFR was calculated using the Chronic Kidney Disease Epidemiology Collaboration (CKD-EPI) equation. Interpretation is based on recommendations of the National Kidney Foundation-Kidney Disease Outcomes Quality Initiative (NKF-KDOQI) published in 2014. Specimen Plasma specimen Performing Organization Address City/[facility] Hospitalcode Phone Number [facility] DEPARTMENT [address] * Basic metabolic panel (07/16/2018 5:36 AM BLOW MOLD OPERATOR) Only the most recent of 4 results within the time period is included. Sodium 136 135 - 148 mEq/L [facility] Potassium 3.8 3.5 - 5.0 mEq/L [facility] Chloride 96 (L) 98 - 112 mEq/L [facility] CO2 23 (L) 24 - 31 mEq/L [facility] Anion gap 17@ANIO (H) 7 - 15 mEq/L [facility] BUN 17 8 - 23 mg/dL [facility] Creatinine 0.88 0.70 - 1.20 mg/dL [facility] Glucose 133 (H) 65 - 99 mg/dL [facility] Calcium 9.7 8.8 - 10.2 mg/dL [facility] Specimen Plasma specimen Performing Organization Address City/State/Zipcode Phone Number [facility] DEPARTMENT OF [address] [place] [address] PATHOLOGY AND GENOMIC MEDICINE [address] * Us duplex arterial lower extremity (07/14/2018 3:52 PM BLOW MOLD OPERATOR) Specimen Narrative Performed At [facility] Vascular Ultrasound Laboratory Lower Extremity Arterial Duplex Report [address] [place] [address] Pat.Name:JACKIE ALBERTO Pat.ID:[id number] St.Date: 07/14/2018 Refer.MD:IMELDA GILLIAM MD Exam Time: 2:39:00 PMStudy Type:LE Arterial Height:67inWeight:152lb BSA: 1.8 m8DKXJft:1950,67Y Sex: MALESonogrphr: Kip Robbins, MARY ANN, [facility] Pat. Stat.:Inpatient Room:[facility] TapeVol: , CPT - 4: 77058 Echo Event ID:[id number] Order ID:[id number] Reason for Study:Claudication, PVD, assess for revascularization. [...] ANKLE/BRACHIAL INDEX: RIGHTLEFT Brachial Artery Pressure 93 jrDg959 mmHg DP70 mmHg72 mmHg PT67 mmHg73 mmHg [...] obtained due to non-compressible vessels. MEASUREMENTS: DOPPLER A AND P MECHANIC Dist A AND P MECHANIC Dist PSV40 cm/s Right A AND P MECHANIC prox A AND P MECHANIC prox PSV45.6 cm/s Profunda Profunda PSV95 cm/s SFA Dist SFA Dist PSV46 cm/sSFA Dist PSV29 cm/s SFA Mid SFA Mid PSV 46 cm/s SFA Prox SFA Prox PSV55 cm/s Right Pop Dist Pop Dist PSV36 cm/s Pop Prox Pop Prox PSV44 cm/s Right CHEMICAL LABORATORY CHIEF Dist CHEMICAL LABORATORY CHIEF Dist PSV7.92 cm/s CHEMICAL LABORATORY CHIEF Mid CHEMICAL LABORATORY CHIEF Mid PSV 11 cm/sPTA Mid PSV 13 cm/s Right CHEMICAL LABORATORY CHIEF Prox CHEMICAL LABORATORY CHIEF Prox PSV15.4 cm/sPTA Prox PSV15 cm/s Peroneal Dist Peroneal Dist P 7 cm/s Peroneal Mid Peroneal Mid PS 9 cm/s Peroneal Mid PS12 cm/s Peroneal Prox Peroneal Prox P11 cm/s Right DARRICK Dist DARRICK Dist PSV14.3 cm/s Right DARRICK Mid DARRICK Mid PSV 15 cm/s Left A AND P MECHANIC Dist A AND P MECHANIC Dist PSV 105 cm/s Left Profunda Profunda PSV 142 cm/s Left SFA Mid SFA Mid YYM791 cm/s Left SFA Prox SFA Prox PSV 115 cm/s Pop Dist Pop Dist PSV27 cm/s Left Pop Prox Pop Prox PSV21.5 cm/sPop Prox PSV22 cm/s Left CHEMICAL LABORATORY CHIEF Dist CHEMICAL LABORATORY CHIEF Dist PSV12.7 cm/s CHEMICAL LABORATORY CHIEF Prox CHEMICAL LABORATORY CHIEF Prox PSV19 cm/s Left DARRICK Dist DARRICK Dist PSV14.1 cm/s DARRICK Mid DARRICK Mid PSV 12 cm/s Left DARRICK Prox DARRICK Prox PSV20.7 cm/sATA Prox PSV21 cm/s Right A AND P MECHANIC Mid A AND P MECHANIC Mid PSV 46 cm/s Right SFA Prox 1 SFA Prox 1 PSV70 cm/s Left SFA Prox 1 SFA Prox 1 PSV50 cm/s Left SFA Mid 1 SFA Mid 1 UOI624 cm/s Right CHEMICAL LABORATORY CHIEF Distal CHEMICAL LABORATORY CHIEF Distal PSV 7 cm/s Left CHEMICAL LABORATORY CHIEF Distal CHEMICAL LABORATORY CHIEF Distal PSV13 cm/s Left Peroneal Prox Peroneal Prox P11 cm/s Left Peroneal Dist Peroneal Dist P 4 cm/s Right DARRICK Prox DARRICK Prox PSV17 cm/s Right DARRICK Distal DARRICK Distal PSV14 cm/s Left DARRICK Distal DARRICK Distal PSV14 cm/s Signed 07/15/2018 08:57 AM Joseph Riggs MD, RPVI Procedure Note Interface, Radiology Results In - 07/15/2018 8:57 AM [facility] Vascular Ultrasound Laboratory Lower Extremity Arterial Duplex Report [id number] [address] Pat.Name: JACKIE ALBERTO Pat.ID: [id number] .Date: 07/14/2018 Refer.MD: IMELDA GILLIAM MD Exam Time: 2:39:00 PM Study Type:LE Arterial Height: 67in Weight: 152lb BSA: 1.8 m2 Age: 1 1950,67Y Sex: MALE Sonogrphr: MARY ANN Fermin RCS Pat. Stat.:[facility]: SB, CPT - 4: 44153 Echo Event ID:[id number] Order ID: [id number] Reason for Study:Claudication, PVD, assess for revascularization. [...] obtained due to non-compressible vessels. MEASUREMENTS: DOPPLER A AND P MECHANIC Dist A AND P MECHANIC Dist PSV 40 cm/s Right A AND P MECHANIC prox A AND P MECHANIC prox PSV 45.6 cm/s Profunda Profunda PSV 95 cm/s SFA Dist SFA Dist PSV 46 cm/s SFA Dist PSV 29 cm/s SFA Mid SFA Mid PSV 46 cm/s SFA Prox SFA Prox PSV 55 cm/s Right Pop Dist Pop Dist PSV 36 cm/s Pop Prox Pop Prox PSV 44 cm/s Right CHEMICAL LABORATORY CHIEF Dist CHEMICAL LABORATORY CHIEF Dist PSV 7.92 cm/s CHEMICAL LABORATORY CHIEF Mid CHEMICAL LABORATORY CHIEF Mid PSV 11 cm/s CHEMICAL LABORATORY CHIEF Mid PSV 13 cm/s Right CHEMICAL LABORATORY CHIEF Prox CHEMICAL LABORATORY CHIEF Prox PSV 15.4 cm/s CHEMICAL LABORATORY CHIEF Prox PSV 15 cm/s Peroneal Dist Peroneal Dist P 7 cm/s Peroneal Mid Peroneal Mid PS 9 cm/s Peroneal Mid PS 12 cm/s Peroneal Prox Peroneal Prox P 11 cm/s Right DARRICK Dist DARRICK Dist PSV 14.3 cm/s Right DARRICK Mid DARRICK Mid PSV 15 cm/s Left A AND P MECHANIC Dist A AND P MECHANIC Dist PSV 105 cm/s Left Profunda Profunda PSV 142 cm/s Left SFA Mid SFA Mid PSV 222 cm/s Left SFA Prox SFA Prox PSV 115 cm/s Pop Dist Pop Dist PSV 27 cm/s Left Pop Prox Pop Prox PSV 21.5 cm/s Pop Prox PSV 22 cm/s Left CHEMICAL LABORATORY CHIEF Dist CHEMICAL LABORATORY CHIEF Dist PSV 12.7 cm/s CHEMICAL LABORATORY CHIEF Prox CHEMICAL LABORATORY CHIEF Prox PSV 19 cm/s Left DARRICK Dist DARRICK Dist PSV 14.1 cm/s DARRICK Mid DARRICK Mid PSV 12 cm/s Left DARRICK Prox DARRICK Prox PSV 20.7 cm/s DARRICK Prox PSV 21 cm/s Right A AND P MECHANIC Mid A AND P MECHANIC Mid PSV 46 cm/s Right SFA Prox 1 SFA Prox 1 PSV 70 cm/s Left SFA Prox 1 SFA Prox 1 PSV 50 cm/s Left SFA Mid 1 SFA Mid 1 PSV 218 cm/s Right CHEMICAL LABORATORY CHIEF Distal CHEMICAL LABORATORY CHIEF Distal PSV 7 cm/s Left CHEMICAL LABORATORY CHIEF Distal CHEMICAL LABORATORY CHIEF Distal PSV 13 cm/s Left Peroneal Prox Peroneal Prox P 11 cm/s Left Peroneal Dist Peroneal Dist P 4 cm/s Right DARRICK Prox DARRICK Prox PSV 17 cm/s Right DARRICK Distal DARRICK Distal PSV 14 cm/s Left DARRICK Distal DARRICK Distal PSV 14 cm/s Signed 07/15/2018 08:57 AM Joseph Riggs MD, RPVI Performing Organization Address City/State/Zipcode Phone Number [facility] [address] [phone] * Us carotid duplex (07/14/2018 2:35 PM BLOW MOLD OPERATOR) Specimen Narrative Performed At [facility] Vascular Ultrasound Laboratory Carotid Artery Duplex Report [address] [id number] For quality assurance representative purposes, the categorization of the degree of the stenosis of this exam is based on criteria described in the IAC carotid stenosis grading white paper( www.intersocietal.org/Vascular) and Spencer Maldonado., Keely Crane., et al. Carotid artery stenosis: baeza-scale and Doppler US diagnosis--Society of Radiologists in Ultrasound Consensus Conference. Radiology. 2002; 229(2):340-6. Pat.Name:JACKIE ALBERTO Pat.ID:[id number] .Date: 07/14/2018 Refer.MD:MENDEZ PABON MD Exam Time: 1:57:00 PMStudy Type:Carotid Height:67inWeight:152lb BSA: 1.8 y7AIJHzj:1950,67Y Sex: MALESonogrphr: Kip Robbins, RVS, RCS Pat. Stat.:Inpatient Room:[facility] TapeVol: , CPT - 4: 90225 Echo Event ID:[id number] Order ID:[id number] Reason for Study:Dizziness, lightheadedness.History of diabetes, hypertension, [...] EDV17.5 cm/s Right ICA Mid ICA Mid [id number] cm/Oneyda Mid EDV 43.1 cm/s Right ICA [...] Radiology Results In - 07/14/2018 10:11 PM [facility] Vascular Ultrasound Laboratory Carotid Artery Duplex Report [address] [address], [place] [address] For quality assurance representative purposes, the categorization of the degree of the stenosis of this exam is based on criteria described in the IAC carotid stenosis grading white paper( www.intersocietal.org/Vascular) and Spencer Maldonado., Renea Crane, et al. Carotid artery stenosis: baeza-scale and Doppler US diagnosis--Society of Radiologists in Ultrasound Consensus Conference. Radiology. 2003 Nov; 229(2):340-6. Pat.Name: JACKIE ALBERTO Pat.ID: [id number] St.Date: 07/14/2018 Refer.MD: MENDEZ PABON MD Exam Time: 1:57:00 PM Study Type:Carotid Height: 67in Weight: 152lb BSA: 1.8 m2 Age: 1 1950,67Y Sex: MALE Sonogrphr: MARY ANN Fermin RCS Pat. Stat.:Inpatient Room: [address] Vol: SB, CPT - 4: 55291 Echo Event ID:[id number] Order ID: [id number] Reason for Study:Dizziness, lightheadedness. History of diabetes, [...] Joseph Riggs MD, RPVI Performing Organization Address [facility] Hospitalconc Phone Number [facility] [address] [place] [address] * ECG 12 lead (07/12/2018 8:06 PM BLOW MOLD OPERATOR) Only the most recent of 2 results within the time period is included. Pathologist [facility] Ventricular 67 [facility] MUSE rate Atrial rate 67 [facility] MUSE [place] interval 184 [facility] MUSE QRSD interval 152 [facility] MUSE QT interval 470 [facility] MUSE QTC interval 496 [facility] P axis 1 -20 [facility] M[facility] QRS axis 1 84 [facility] MUSE T wave axis 98 [facility] MUSE EKG impression Normal sinus rhythm-Right [facility] MUSE bundle branch block-Anteroseptal infarct (cited on or before 11-JUL-2018)-Abnormal ECG- Specimen Narrative Performed At Performing Organization Address [facility] Phone Number [facility] [address] [place] [address] * Troponin (07/12/2018 5:00 PM BLOW MOLD OPERATOR) Only the most recent of 2 results within the time period is included. Troponin <0.30 0.00 - 0.30 ng/mL [place] Comment: QUAKER 0.30 - 1.49 HOSPITAL ng/mlMay indicate increased risk of acute coronary syndrome. >=1.5 ng/ml Consistent with acute myocardial infarction. The diagnostic value of a single normal or non-diagnostic result is questionable.Serial samples at 2-6 hour intervals are required to rule out acute myocardial injury. Specimen Plasma specimen Performing Organization Address City/State/Zipcode Phone Number [facility] DEPARTMENT OF [address] [place] [address] PATHOLOGY AND GENOMIC MEDICINE [address] * B natriuretic peptide (07/12/2018 10:26 AM BLOW MOLD OPERATOR) Only the most recent of 2 results within the time period is included. BNP 206 (H) 0 - 100 pg/mL [facility] Specimen Blood Performing Organization Address [facility]code Phone Number [facility] [place] [address] PATHOLOGY AND GENOMIC MEDICINE [address] * Echocardiogram complete w contrast and 3D if needed (07/12/2018 7:29 AM BLOW MOLD OPERATOR) Specimen Narrative Performed At [facility] Echocardiography Report [address] [place] [address] Pat.Name:JACKIE ALBERTO Pat.ID:[id number] .Date: 07/12/2018 Refer.MD:ARMEN RUGGIERO MD Exam Time: 6:57:00 AMStudy Type:Routine Echo Height:67inWeight:154lb BSA: 1.81 m2 DOBAge:1950,67Y Sex: MALEBP:106/59 HR:58 bpmSonogrphr: James Sauceda RDCS Pat. Stat.:[facility] Status:Final Echo Event ID:[id number] Order ID:[id number] Reason for Study:ETIOLOGY-SYMPTOMS OR CONDITIONS POTENTIALLY RELATED TO SUSPECTED CARDIAC ETIOLOGY Procedures:2D Echo, Colorflow Doppler, Strain, Intravenous Optison Contrast Race: SUMMARY: LV size is mtjzvmvu-dq-jfsiuopj enlarged. There is mild eccentric LV hypertrophy. LV EF is severely depressed. Regional wall motion abnormalities present. Mild to moderate mitral regurgitation. LV relaxation is impaired. LV filling pressure is elevated. FINDINGS: LV: LV size is orfeiunl-oc-xjnokuxz enlarged. There is mild eccentricLV hypertrophy. LV [...] PA systolic pressure. MEASUREMENTS: 2D Parasternal [place] Ds5.1 cmLVPWd0.8 cm LVOT 2.2 cmAo An2.6 cm LVIDd6.8 cmIndex3.8 cm/m Ao Rtd 3.1 cm Index1.7 cm/m LVIDs5.4 cm LV Ftfd165.6 g(122-174) LV%fs 20.9 % LVM Ztmxw137.4 g/m2 IVSd 0.8 cmRWT0.2 LA Sng Plane LA Area 23.7 cm2(8.8-23.4) LA Vol73.9 ml Index40.8 ml/m LA LngAx 6.8 cm RA Sng Plane RA Area 18.6 cm2(8.3-19.5) RA Vol58.5 ml Index32.3 ml/m RA LngAx 5.1 cm EF Biplane NOS738 mlSV58.6 ml IDS342.4 mlEF29.6 % DOPPLER LVOT Stroke Vol LVOT [...] Radiology Results In - 07/12/2018 4:46 PM BLOW MOLD OPERATOR Echocardiography Report [address]Name: JACKIE ALBERTO.ID: [id number] .Date: 07/12/2018 Refer.MD: ARMEN RUGGIERO MD Exam Time: 6:57:00 AM Study Type:Routine Echo Height: 67in Weight: 154lb BSA: 1.81 m2 Age: 1 1950,67Y Sex: MALE BP: 106/59 HR: 58 bpm Sonogrphr: James Sauceda RDCS Pat. Stat.:Inpatient Room: J809 Study Status:Final Echo Event ID:[id number] Order ID: [id number] Reason for Study:ETIOLOGY-SYMPTOMS OR CONDITIONS POTENTIALLY RELATED TO SUSPECTED CARDIAC ETIOLOGY Procedures:2D Echo, Colorflow Doppler, Strain, Intravenous Optison Contrast Race: SUMMARY: LV size is audoexph-ax-svtknfjz enlarged. There is mild eccentric LV hypertrophy. LV EF is severely depressed. Regional wall motion abnormalities present. Mild to moderate mitral regurgitation. LV relaxation is impaired. LV filling pressure is elevated. FINDINGS: LV: LV size is hzyvktym-na-axvlgock enlarged. There is mild eccentric LV hypertrophy. [...] PA systolic pressure. MEASUREMENTS: 2D Parasternal [place] Ds 5.1 cm LVPWd 0.8 cm [...] Organization Address City/State/Zipcode Phone Number [facility] [address] [place] [address] * CT Angiogram Pe Chest (07/12/2018 12:53 AM BLOW MOLD OPERATOR) Specimen Narrative Performed At EXAMINATION:CT ANGIOGRAM PE [...] No acute abnormality identified in the chest. [facility]-[id number] Procedure Note Interface, Radiology Results Incoming - 07/12/2018 1:02 AM BLOW MOLD OPERATOR EXAMINATION: CT ANGIOGRAM PE CHEST CLINICAL HISTORY: [...] No acute abnormality identified in the chest. [facility]-[id number] Performing Organization Address City/[facility]/[place]code [place] [address] * Lipase level (07/11/2018 11:48 PM BLOW MOLD OPERATOR) [facility] Lipase 41 13 - 60 U/L [facility] Specimen Plasma specimen Performing Organization Address City/[facility]code Phone Number [facility] DEPARTMENT OF [address] [place] [address] PATHOLOGY AND [facility] MEDICINE [address] * Respiratory pathogen panel (07/11/2018 8:30 PM BLOW MOLD OPERATOR) [facility] Respiratory Negative for all pathogens [place] pathogen panel tested: QUAKER Negative for Adenovirus [facility] Negative for Coronavirus HKU1 Negative for [...] Specimen Nares - Right Performing Organization Address City/[facility]/Zipcode Phone Number [facility] DEPARTMENT OF [address] [place] [address] [address] * Influenza antigen test, reflex negative to RPP (07/11/2018 8:30 PM BLOW MOLD OPERATOR) [facility] Influenza Negative for Influenza A/B [place] antigen antigen. QUAKER Comment: HOSPITAL Specimen Information Specimen Source: Nares Specimen Site: Right Specimen Nares - Right Performing Organization Address [facility]/Zipcode Phone Number [facility] DEPARTMENT OF [address] [place] [address] PATHOLOGY AND [facility] MEDICINE [address] * Blood culture, aerobic & anaerobic (07/11/2018 8:30 PM BLOW MOLD OPERATOR) Only the most recent of 2 results within the time period is included. Pathologist [facility] Blood culture No growth after 5 days of [place] isolate incubation. QUAKER Comment: HOSPITAL Specimen Information Specimen Source: Blood Specimen Site: Antecubital, left Specimen Blood - Antecubital, left Performing Organization Address [facility] Phone Number [facility] [place] [address] PATHOLOGY AND [facility] MEDICINE [place] QUAKER[address] * Partial thromboplastin time, activated (07/11/2018 8:30 PM BLOW MOLD OPERATOR) Pathologist [facility] PTT 28.3 23.0 - 36.0 sec [place] Comment: QUAKER PTT therapeutic range for HOSPITAL unfractionated heparin is 61.0-112.0 seconds which corresponds to Anti-Xa 0.3-0.7 U/ml. Specimen Blood Performing Organization Address [facility] Phone Number [facility] DEPARTMENT OF [address] [place] [address] PATHOLOGY AND [facility] MEDICINE [address] * Prothrombin time with INR (07/11/2018 8:30 PM BLOW MOLD OPERATOR) Pathologist [facility] Prothrombin 12.8 11.5 - 14.5 sec [facility] INR 1.0 [place] Comment: QUAKER The International Normalized HOSPITAL Ratio (INR) is a therapeutic monitoring tool for patients who are stable on oral anticoagulant therapy. An INR of 2.0-3.0 is suggested for deep vein thrombosis/pulmonary embolism. Specimen Blood Performing Organization Address [facility]/Zipcode Phone Number [facility] [place] [address] PATHOLOGY AND [facility] MEDICINE [address] * CBC with platelet and differential (07/11/2018 8:30 PM BLOW MOLD OPERATOR) [facility] WBC 9.57 4.50 - 11.00 k/uL [facility] RBC 5.16 4.40 - 6.00 m/uL [facility] HGB 16.8 14.0 - 18.0 g/dL [facility] HCT 49.0 41.0 - 51.0 % [facility] MCV 95.0 82.0 - 100.0 fL [facility] MCH 32.6 27.0 - 34.0 pg [facility] MCHC 34.3 31.0 - 37.0 g/dL [facility] RDW - SD 45.2 37.0 - 55.0 fL [facility] MPV 11.3 8.8 - 13.2 fL [facility] Platelet count 195 150 - 400 k/uL [facility] Nucleated RBC 0.00 /100 WBC [facility] Neutrophils 68.3 39.0 - 69.0 % [facility] Lymphocytes 17.5 (L) 25.0 - 45.0 % [facility] Monocytes 9.7 0.0 - 10.0 % [facility] Eosinophils 4.0 0.0 - 5.0 % [facility] Basophils 0.2 0.0 - 1.0 % [facility] Immature 0.3Comment: "Immature 0.0 - 1.0 % [place] granulocytes granulocytes" (promyelocytes, QUAKER myelocytes, metamyelocytes) [facility] Specimen Blood Performing Organization Address City/State/Zipcode Phone Number [facility] DEPARTMENT OF [address] [place] [phone] PATHOLOGY AND GENOMIC MEDICINE [address] * XR Chest 2 Vw (07/11/2018 8:26 PM BLOW MOLD OPERATOR) Specimen Narrative Performed At EXAMINATION: XR CHEST 2 VW RADIANT CLINICAL HISTORY: chest pain COMPARISON:None. IMPRESSION: The lungs are clear. No pleural effusion or pneumothorax. The cardiomediastinal silhouette is normal. Mediastinal clips are noted. Thoracic aorta atherosclerotic calcifications. Diffuse osteopenia. Status post median sternotomy. Degenerative spine changes. No acute osseous abnormalities. [facility]-[id number] Procedure Note Interface, Radiology Results Incoming - 07/11/2018 8:31 PM BLOW MOLD OPERATOR EXAMINATION: XR CHEST 2 VW CLINICAL HISTORY: chest pain COMPARISON: None. IMPRESSION: The lungs are clear. No pleural effusion or pneumothorax. The cardiomediastinal silhouette is normal. Mediastinal clips are noted. Thoracic aorta atherosclerotic calcifications. Diffuse osteopenia. Status post median sternotomy. Degenerative spine changes. No acute osseous abnormalities. [facility]-[id number] Performing Organization Address City/State/Zipcode Phone Number DEYANIRA GARCIA [address] [place] [address] * ECG ED Preliminary Interpretation - Not an Order (07/11/2018 8:11 PM BLOW MOLD OPERATOR) Narrative Performed At Armen Ruggiero MD 07/14/20181:39 AM ECG ED Preliminary Interpretation - Not an Order Performed by: Armen Ruggiero MD Authorized by: Amren Ruggiero MD ECG reviewed by ED Physician in the absence of a motor home electrical foreman: yes Previous ECG: Previous ECG:Unavailable Interpretation: Interpretation: abnormal Rate: ECG rate:64 ECG rate assessment: normal Rhythm: Rhythm: sinus rhythm Conduction: Conduction: abnormal Abnormal conduction: incomplete RBBB ST segments: ST segments:Non-specific T waves: T waves: normal * Comprehensive metabolic panel (07/11/2018 8:11 PM BLOW MOLD OPERATOR) Sodium 137 135 - 148 mEq/L [facility] Potassium 3.8 3.5 - 5.0 mEq/L [facility] Chloride 95 (L) 98 - 112 mEq/L [facility] CO2 27 24 - 31 mEq/L [facility] Anion gap 15@ANIO 7 - 15 mEq/L [facility] BUN 19 8 - 23 mg/dL [facility] Creatinine 0.93 0.70 - 1.20 mg/dL [facility] Glucose 134 (H) 65 - 99 mg/dL [facility] Calcium 9.7 8.8 - 10.2 mg/dL [facility] Protein 7.6 6.3 - 8.3 g/dL [facility] Comment: [facility] 4.6-7.0 g/dL 1 week 4.4-7.6 g/dL 7 months-1year 5.1-7.3 g/dL 1-2 years5.6-7 .5 g/dL >3 years6.0-8 .0 g/dL 18-150 6.3-8.3 g/dL Albumin 3.9 3.5 - 5.0 g/dL [facility] A/G ratio 1.1 0.7 - 3.8 [facility] Alkaline 92 40 - 129 U/L [facility] AST 29 10 - 50 U/L [facility] ALT 31 5 - 50 U/L [facility] Total bilirubin 0.3 0.0 - 1.2 mg/dL [facility] Specimen Plasma specimen Performing Organization Address City/State/Zipcode Phone Number [facility] DEPARTMENT OF [address] [place] [address] PATHOLOGY AND GENOMIC MEDICINE [address] [phone] HOSPITAL after 01/31/2018 Insurance Type Payer Benefit Subscriber ID Effective Phone Address Plan / Dates Group HMO AETNA MEDICARE AETNA xxxxxxxx [id number] MEDICARE resent HMO/PPO [facility] Advance Directives Patient has advance care planning documents on file. For more information, mike preciado contact: Stephen Lux [address] [place] [phone]
--- OUTSIDE RECORDS SUMMARY | 2019-02-01 15:52 | XMS REPORT | Continuity of Care Document ---
Author Author [employer] Address Unknown Phone Unavailable Care Team Providers Care [employer] Name Role Phone [facility] Unavailable Unavailable Problems Problem Status Onset Date Classification Date Reported Comments Source Heart failure Active 06/11/2018 11/07/2018 [facility] Cataract Active 04/14/2017 11/07/2018 [facility] Glaucoma suspect Active 10/21/2016 11/07/2018 [facility] Iron deficiency anemia Active 07/02/2015 11/07/2018 [facility] Constipation Active 07/02/2015 11/07/2018 [facility] Tinea versicolor Active 05/22/2015 11/07/2018 [facility] S/P CABG Active 03/19/2015 11/07/2018 [facility] Ischemic cardiomyopathy Active 03/19/2015 11/07/2018 [facility] 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 11/07/2018 [facility] Severe left ventricular systolic dysfunction Active 03/19/2015 11/07/2018 [facility] Abdominal pain Active 03/16/2015 11/07/2018 [facility] SOB Active 03/16/2015 11/07/2018 [facility] CAD, multiple vessel Active 03/16/2015 11/07/2018 [facility] HTN Active 03/16/2015 11/07/2018 [facility] HLD Active 03/16/2015 11/07/2018 [facility] Acute systolic CHF Active 11/07/2018 [facility] Acute on chronic systolic heart failure Active 11/07/2018 [facility] Cough Active 11/07/2018 [facility] QUINTANA Active 11/07/2018 [facility] History of itching of eye Active 11/07/2018 [facility] Seasonal allergic conjunctivitis Active 11/07/2018 [facility] Ocular hypertension, bilateral Active 11/07/2018 [facility] Essential hypertension Active 11/07/2018 [facility] Pruritus of genital organs Active 11/07/2018 [facility] Seasonal allergic rhinitis due to other allergic trigger Active 11/07/2018 [facility] Mixed hyperlipidemia Active 11/07/2018 [facility] Gastroesophageal reflux disease without esophagitis Active 11/07/2018 [facility] Medications Medication Details Route Status Patient Instructions Ordering Provider Order Date Source budesonide-formoterol (SYMBICORT) 160-4.5 mcg/actuation inhaler Inhale 2 Puffs by mouth 2 times daily. Inhalation Active 06/12/2018 [facility] latanoprost (XALATAN) 0.005 % ophthalmic solution Instill 1 Drop in each eye at bedtime nightly. Active 06/12/2018 [facility] lisinopril (ZESTRIL) 40 mg tablet Take 1 tablet by mouth daily. Oral Active 06/12/2018 [facility] loratadine (CLARITIN) 10 mg tablet Take 1 tablet by mouth daily. Oral Active 06/12/2018 [facility] aspirin (ASPIRIN) 81 mg chewable tablet Chew and swallow 1 tablet by mouth daily. Active 06/12/2018 [facility] brimonidine (ALPHAGAN P) 0.15 % ophthalmic solution Instill 1 Drop in each eye 2 times daily. Active 06/12/2018 [facility] carvedilol (COREG) 25 mg tablet Take 1 tablet by mouth 2 times daily (with meals). Oral Active 06/12/2018 [facility] furosemide (LASIX) 40 mg tablet Take 1 tablet by mouth 2 times daily. Oral Active 06/12/2018 [facility] rosuvastatin (CRESTOR) 40 mg tablet Take 1 tablet by mouth at bedtime nightly. Oral Active 06/12/2018 [facility] dexlansoprazole (DEXILANT) 30 mg delayed release capsule Take 1 capsule by mouth daily. Oral Active 06/12/2018 [facility] albuterol (PROVENTIL) 2.5 mg /3 mL (0.083 %) nebulizer solution Inhale 3 mL by mouth every 4 hours as needed for Wheezing. Inhalation Active 06/12/2018 [facility] furosemide (LASIX) 40 mg tablet Take 1 tablet by mouth 2 times daily. Oral No Longer Active 05/17/2017 [facility] hydrocortisone 2.5 % ointment Apply to affected area 2 times daily. Topical No Longer Active 05/17/2017 [facility] latanoprost (XALATAN) 0.005 % ophthalmic solution Instill 1 Drop in each eye at bedtime nightly. No Longer Active 04/14/2017 [facility] rosuvastatin (CRESTOR) 40 mg tablet Take 1 tablet by mouth at bedtime nightly. Oral No Longer Active 03/30/2017 [facility] lisinopril (ZESTRIL) 40 mg tablet Take 1 tablet by mouth daily. Oral No Longer Active 12/14/2016 [facility] ketoconazole (NIZORAL) 2 % topical cream Apply to affected area daily. Topical No Longer Active 12/14/2016 [facility] latanoprost (XALATAN) 0.005 % ophthalmic solution Instill 1 Drop in each eye at bedtime nightly. No Longer Active 08/25/2016 [facility] brimonidine (ALPHAGAN P) 0.15 % ophthalmic solution Instill 1 Drop in each eye 2 times daily. No Longer Active 08/25/2016 [facility] carvedilol (COREG) 25 mg tablet Take 1 tablet by mouth 2 times daily (with meals). Oral No Longer Active 07/14/2016 [facility] loratadine (CLARITIN) 10 mg tablet Take 1 tablet by mouth daily. Oral No Longer Active 04/21/2016 [facility] polyethylene glycol (GOLYTELY) 236-22.74-6.74 -5.86 gram oral solution Add lukewarm drinking water to the fill cole (4 liters) and shake. Drink as directed by your doctor.. No Longer Active 12/11/2015 [facility] azelastine (OPTIVAR) 0.05 % ophthalmic solution Instill 1 Drop in each eye 2 times daily. Active 09/11/2015 [facility] dexlansoprazole (DEXILANT) 30 mg delayed release capsule Take 1 capsule by mouth daily. Oral No Longer Active 09/11/2015 [facility] budesonide-formoterol (SYMBICORT) 160-4.5 mcg/actuation inhaler Inhale 2 Puffs by mouth 2 times daily. Inhalation No Longer Active 09/08/2015 [facility] rivaroxaban (XARELTO) 20 mg tablet Take 1 tablet by mouth daily (with dinner). Oral No Longer Active 05/19/2015 [facility] aspirin (ASPIRIN) 81 mg chewable tablet Chew and swallow 1 tablet by mouth daily. No Longer Active 03/19/2015 [facility] Allergies, Adverse Reactions, Alerts No Known Medication Allergies Immunizations Immunization Date Given Site Status Last Updated Comments Source Influenza Vaccine, Seasonal, Injectable 05/17/2017 completed [facility] Influenza Vaccine 04/21/2016 completed [facility] Tdap Tetanus, diphtheria, acellular pertussis Vaccine 10/09/2015 completed [facility] Influenza Vaccine 05/22/2015 completed [facility] PPV 23 Pneumococcal Polysaccaride 04/02/2015 completed [facility] Herpes Zoster Vaccine In Clinic 04/02/2015 completed [facility] Results Order Name Results Value Reference Range Date Interpretation Comments Source 12 LEAD EKG 12 LEAD EKG FOR [facility] Test Date:2018-07-09 Pat Name: JACKIE CAREY Department: 5520 : Gender: MTechnician: [id number] :1950 Requested By: RAMONA FREIRE Order Number: [id number] MD: Yobani Arora M.D. Measurements IntervalsAxis Rate: 92 P:50 MA: 173QRS:115 QRSD: 162T:48 QT: 376 QTc:467 Interpretive Statements SINUS RHYTHM POSSIBLE LEFT ATRIAL ENLARGEMENT INDETERMINATE AXIS RIGHT BUNDLE BRANCH BLOCK Electronically Signed On 07-09-2018 14:05:50 [employer] by Yobani Arora M.D. 07/09/2018 [facility] HIV-1/HIV-2 ROUTINE SCREENING HIV-1/HIV-2 Negative NEG 07/09/2018 [facility] POCT BNP (BRAIN NATRIURETIC PEPTIDE) B Natr Pept POC 853 0 - 100 07/09/2018 [facility] POCT BNP (BRAIN NATRIURETIC PEPTIDE) Lab Interpretation Abnormal 07/09/2018 [facility] LIPASE Lipase 12 11 - 82 07/09/2018 [facility] LIVER PROFILE T Protein 6.7 6 - 8.3 07/09/2018 [facility] LIVER PROFILE Albumin 4.2 4.2 - 5.5 07/09/2018 [facility] LIVER PROFILE T Bilirubin 0.8 0.2 - 1.2 07/09/2018 [facility] LIVER PROFILE Alk Phos 59 34 - 104 07/09/2018 [facility] LIVER PROFILE AST 38 13 - 39 07/09/2018 [facility] LIVER PROFILE ALT 31 7 - 52 07/09/2018 [facility] LIVER PROFILE D Bilirubin 0.2 0 - 0.2 07/09/2018 [facility] CBC/DIFF WBC 11.7 4.5 - 12 07/09/2018 [facility] CBC/DIFF RBC 4.97 4.60 - 6.20 07/09/2018 [facility] CBC/DIFF Hemoglobin 15.9 14 - 18 07/09/2018 [facility] CBC/DIFF Hematocrit 47.0 40 - 54 07/09/2018 [facility] CBC/DIFF MCV 95 82 - 92 07/09/2018 [facility] CBC/DIFF MCH 32.0 27 - 31 07/09/2018 [facility] CBC/DIFF MCHC 33.8 32 - 36 07/09/2018 [facility] CBC/DIFF RDW 45.4 35.1 - 43.9 07/09/2018 [facility] CBC/DIFF Platelet 228 150 - 400 07/09/2018 [facility] CBC/DIFF Mean Platelet Volume 11.2 9.4 - 12.4 07/09/2018 [facility] CBC/DIFF Percent NRBC 0.0 07/09/2018 [facility] CBC/DIFF Absolute NRBC 0.00 07/09/2018 [facility] CBC/DIFF Neutrophil 81.6 34 - 67.9 07/09/2018 [facility] CBC/DIFF Lymphocyte 10.4 21.8 - 50 07/09/2018 [facility] CBC/DIFF Monocyte 5.1 5.3 - 12 07/09/2018 [facility] CBC/DIFF Eosinophil 2.1 0.8 - 5 07/09/2018 [facility] CBC/DIFF Basophil 0.3 0.2 - 1.2 07/09/2018 [facility] CBC/DIFF Pct Immat Gran 0.5 0.0 - 0.5 07/09/2018 [facility] CBC/DIFF Neutrophil, Abs 9.58 1.78 - 5.36 07/09/2018 [facility] CBC/DIFF Lymphocyte, Abs 1.22 1.32 - 3.57 07/09/2018 [facility] CBC/DIFF Monocyte, Abs 0.60 0.3 - 0.82 07/09/2018 [facility] CBC/DIFF Eosinophil, Abs 0.25 0.04 - 0.54 07/09/2018 [facility] CBC/DIFF Basophil, Abs 0.03 0.01 - 0.08 07/09/2018 [facility] CBC/DIFF Absol Immat Gran 0.06 0 - 0.03 07/09/2018 [facility] CBC/DIFF Lab Interpretation Abnormal 07/09/2018 [facility] TROPONIN I POC Troponin POC 0.02 0 - 0.08 07/09/[address] [facility] POC CO2 POC 25 21 - 32 07/09/[address] [facility] POC Chloride POC 95 98 - 107 07/09/[address] [facility] POC Potassium POC 4.5 3.5 - 5.1 07/09/[address] [facility] POC Sodium POC 131 136 - 145 07/09/[address] [facility] POC Glucose POC 144 74 - 106 07/09/[address] [facility] POC Urea Nitrogen POC 14 7 - 18 07/09/[address] [facility] POC Creatinine POC 0.7 0.6 - 1.3 07/09/[address] [facility] POC Calcium Ionized POC 1.17 1.15 - 1.29 07/09/[address] [facility] POC Hemoglobin POC 17.3 14 - 18 07/09/[address] [facility] POC Hematocrit POC 51.0 40 - 54 07/09/[address] [facility] POC GFR, Estimated >60 mL/min/1.73 m2 07/09/[address] [facility] POC GFR, Estim, Afr-Am >60 mL/min/1.73 m2 07/09/[address] [facility] POC Lab Interpretation Abnormal 07/09/2018 [facility] GLUCOSE POC Glucose POC 88 74 - 106 06/12/2018 [facility] BASIC METABOLIC PANEL CO2 27 21 - 31 06/12/2018 [facility] BASIC METABOLIC PANEL Chloride 93 98 - 107 06/12/2018 [facility] BASIC METABOLIC PANEL Potassium 3.9 3.5 - 5.1 06/12/2018 [facility] BASIC METABOLIC PANEL Sodium 133 136 - 145 06/12/2018 [facility] BASIC METABOLIC PANEL Glucose 105 70 - 110 06/12/2018 [facility] BASIC METABOLIC PANEL Urea Nitrogen 30 7 - 25 06/12/2018 [facility] BASIC METABOLIC PANEL Creatinine 1.10 0.7 - 1.3 06/12/2018 [facility] BASIC METABOLIC PANEL Anion Gap 13 06/12/2018 [facility] BASIC METABOLIC PANEL Calcium 9.6 8.6 - 10.3 06/12/2018 [facility] METABOLIC PANEL GFR, Estimated >60 mL/min/1.73 m2 06/12/2018 [facility] BASIC METABOLIC PANEL GFR, Estim, Afr-Am >60 mL/min/1.73 m2 06/12/2018 [facility] BASIC METABOLIC PANEL Lab Interpretation Abnormal 06/12/2018 [facility] PT/INR/PTT PT 13.8 11.8 - 15.0 06/12/2018 [facility] PT/INR/PTT INR 1.1 SUGGESTED THERAPEUTIC RANGES: INR 2.0-3.0 for MODERATE INTENSITY ANTICOAGULATION INR 2.5-3.5 for HIGH INTENSITY ANTICOAGULATION 06/12/2018 [facility] PT/INR/PTT PTT 36.9 23.6 - 36.4 06/12/2018 [facility] PT/INR/PTT Lab Interpretation Abnormal 06/12/2018 [facility] PT/INR PT 13.1 11.8 - 15.0 06/12/2018 [facility] PT/INR INR 1.0 SUGGESTED THERAPEUTIC RANGES: INR 2.0-3.0 for MODERATE INTENSITY ANTICOAGULATION INR 2.5-3.5 for HIGH INTENSITY ANTICOAGULATION 06/12/2018 [facility] TRANSTHORACIC ECHO (TTE) TRANSTHORACIC ECHO (TTE) Transthoracic Echo Report JACKIE CAREY Age:67 Gender: M :1950 Exam Date: 06/11/2018 07:24 Exam Location: [facility] Echo Ordering Phys: JUAN F SEGURA Referring Phys: Reading Phys:Sherly Manning MD Fellow Phys: Karoline Gomez M.D. Fellow Phys: Manager Heart Failure: Jeremías Wilkinson Reason For Exam: Indications:Stroke, Transient cerebral ischemic attack, unspecified ICD-9 Codes: I67.89G45.9 Exam Type: TRANSTHORACIC ECHO (TTE) Procedure CPT:79798 Addtional CPT: Ht (in): 67 BSA: 1.84HR: [...] BP 58.9 cm LV Cardiac Output MOD [id number] cm/min LV Cardiac Index MOD BP 2437 cm/minm LA Volume 97.3 cm LA Volume Index 53 cm/m 16 - 34 cm/m RV Diastolic Basal Diameter 3.4 cm2.5 - 4.1 cm LV Mass by linear dmttuh817 g LV Mass by linear method Tedfx664 g/m DOPPLER AV Peak Epcjifti442 cm/s AV Peak Ewwjmvlj64.1 mmHg AV Mean Npqafnmg03.8 cm/s AV Mean Gradient3.7 mmHg AV Velocity Time Integral 31.5 cm LVOT Peak Bmplkbbk00.8 cm/s LVOT Peak Gradient1.2 mmHg LVOT Mean Arwzjbdw40.1 cm/s LVOT Mean Gradient0.47 mmHg LVOT Velocity Time Integral 10.9 cm LVOT Stroke Akhinb24.4 cm AV Area Cont Eq vti 1.5 [...] thinning of the entire septum/inferior/apex /distal anterior/anterolateral perdaza consistent with scar.Other segments are hypokinetic, best [...] BP 58.9 cm LV Cardiac Output MOD [id number] cm/min LV Cardiac Index MOD BP 2437 cm/minm LA Volume 97.3 cm LA Volume Index 53 cm/m 16 - 34 cm/m RV Diastolic Basal Diameter 3.4 cm2.5 - 4.1 cm LV Mass by linear g LV Mass by linear method Hgcfa761 g/m DOPPLER AV Peak Mhtyjztn871 cm/s AV Peak Qxbdcrbm09.1 mmHg AV Mean Euxxjbhr04.8 cm/s AV Mean Gradient3.7 mmHg AV Velocity Time Integral 31.5 cm LVOT Peak Kvalujdr00.8 cm/s LVOT Peak Gradient1.2 mmHg LVOT Mean Xtjgctsm67.1 cm/s LVOT Mean Gradient0.47 mmHg LVOT Velocity Time Integral 10.9 cm LVOT Stroke Xuboyt63.4 cm AV Area Cont Eq vti 1.5 cm AV Area Cont Eq pk1.5 cm Mitral E Point Velocity 90.7 cm/s Mitral A Point Velocity 28.1 cm/s Mitral E to A Ratio 3.2 LV E' Lateral Velocity9.9 cm/s Mitral E to LV E' Lateral Ratio 9.1 LV E' Septal Velocity 4.5 cm/s Mitral E to LV E' Septal Ratio20.3 06/11/2018 [facility] MAGNESIUM Magnesium 1.8 1.9 - 2.7 06/11/2018 [facility] MAGNESIUM Lab Interpretation Abnormal 06/11/2018 [facility] HEMOGLOBIN A1C Hemoglobin A1c 5.8 4.3 - 6.1 06/10/2018 [facility] HEMOGLOBIN A1C Est Average Gluc 119.8 06/10/2018 [facility] TSH TSH 1.82 0.57 - 3.74 06/10/2018 [facility] CORTISOL, TOTAL Cortisol, Total 12.1 3.44 - 22.45 06/10/2018 [facility] LIPID PROFILE Cholesterol 291 06/10/2018 REFERENCE RANGE:
Desirable: <200 mg/dL
Borderline: 200-240 mg/dL
High Risk: >240 mg/dL

[facility] LIPID PROFILE Triglyceride 156 <150 06/10/2018 REFERENCE RANGE:
Normal: <150 mg/dL
Borderline High: 150-199 mg/dL
High: 200-499 mg/dL
Very High: >dc=045 mg/dL

[facility] LIPID PROFILE HDL 60 06/10/2018 Increased CHD risk: <40 mg/dL
Decreased CHD risk: >60 mg/dL

[facility] LIPID PROFILE LDL 200 06/10/2018 REFERENCE RANGE:
Optimal: <100 mg/dL
Near Optimal: 100-129 mg/dL
Borderline High: 130-159 mg/dL
High: 160-189 mg/dL
Very High: >st=344 mg/dL

[facility] LIPID PROFILE Lab Interpretation Abnormal 06/10/2018 [facility] TROPONIN I Troponin I 0.06 <0.04 06/10/2018 [facility] TROPONIN I Lab Interpretation Abnormal 06/10/2018 [facility] 12 LEAD EKG 12 LEAD EKG FOR [facility] Test Date:2018-06-10 Pat Name: [facility] Department: 5GMS : Gender: MTechnician: [id number] :1950 Requested By: JUAN F SEGURA Order Number: [id number] MD: Yobani Arora M.D. Measurements IntervalsAxis Rate: 72 P:66 MA: 197QRS:228 QRSD: 177T:79 QT: 508 QTc:557 Interpretive Statements SINUS RHYTHM WITH OCCASIONAL VENTRICULAR PREMATURE COMPLEXES RIGHT BUNDLE BRANCH BLOCK AND POSSIBLE RIGHT VENTRICULAR HYPERTROPHY [RBBB, 1.5 mV R IN V1, RAD] LEFT POSTERIOR FASCICULAR BLOCK [QRS AXIS > 109, INFERIOR Q] SEPTAL MYOCARDIAL INFARCTION [40+ ms Q WAVE IN V1/V2], OF INDETERMINATE AGE Electronically Signed On 06-10-2018 5:31:46 [employer] by Yobani Arora M.D. 06/10/2018 [facility] 12 LEAD EKG 12 LEAD EKG FOR [facility] Test Date:2018-06-09 Pat Name: [facility] Department: 5520 : [id number] Gender: MTechnician: [id number] :1950 Requested By: JUAN F SEGURA Order Number: [id number] MD: Yobani Arora M.D. Measurements IntervalsAxis Rate: 68 P:49 MA: 192QRS:225 QRSD: 165T:89 QT: 473 QTc:506 Interpretive Statements SINUS RHYTHM POSSIBLE LEFT ATRIAL ENLARGEMENT [-0.1mV P WAVE IN V1/V2] INDETERMINATE AXIS RIGHT BUNDLE BRANCH BLOCK AND POSSIBLE RIGHT VENTRICULAR HYPERTROPHY [RBBB, 1.5 mV R IN V1, RAD] ANTEROSEPTAL MYOCARDIAL ISCHEMIA [40+ ms Q WAVE IN V1-V4], OF INDETERMINATE AGE Reviewed by Electronically Signed On 06-10-2018 5:31:41 [employer] by Yobani Arora M.D. 06/10/2018 [facility] OSMOLALITY, UR Osmolality, Ur 190 50 - 1400 06/10/2018 Test performed at [facility]. [facility] OSMOLALITY Osmolality 265 280 - 301 06/10/2018 Test performed at [facility]. [facility] OSMOLALITY Lab Interpretation Abnormal 06/10/2018 [facility] FREE T4 Free T4 0.92 0.61 - 1.18 06/10/2018 [facility] D-DIMER D-Dimer 2.21 ug/mL,FEU 06/10/2018 Values of quantitative d-Dimer less than 0.40 ug/mL FEU have been reported to
be associated with a low probability of deep vein thrombosis/pulmonary
embolism. This test alone should not be used to rule out DVT/PE.

[facility] ELECTROLYTES, UR Sodium, Ur 65 40 - 220 06/10/2018 [facility] ELECTROLYTES, UR Potassium, Ur 16 25 - 125 06/10/2018 [facility] ELECTROLYTES, UR Chloride, Ur 75 110 - 250 06/10/2018 [facility] ELECTROLYTES, UR Lab Interpretation Abnormal 06/10/2018 [facility] UA CHEMISTRIES Color Colorless 06/10/2018 [facility] UA CHEMISTRIES Clarity Clear 06/10/2018 [facility] UA CHEMISTRIES Spec [place] 1.004 1.001 - 1.035 06/10/2018 [facility] UA CHEMISTRIES pH 6.0 5 - 8 06/10/2018 [facility] UA CHEMISTRIES Protein Negative NEG 06/10/2018 [facility] UA CHEMISTRIES Glucose Negative NEG 06/10/2018 [facility] UA CHEMISTRIES Ketone Negative NEG 06/10/2018 [facility] UA CHEMISTRIES Bilirubin Negative NEG 06/10/2018 [facility] UA CHEMISTRIES Nitrate Negative NEG 06/10/2018 [facility] UA CHEMISTRIES Urobilinogen <1.0 0.2 - 1 06/10/2018 [facility] UA CHEMISTRIES Leukocyte Negative NEG 06/10/2018 [facility] UA CHEMISTRIES Blood Negative NEG 06/10/2018 [facility] CK, TOTAL CK, Total 99 30 - 223 06/10/2018 CKMB not performed if CK <100, if CKMB is required, please notify laboratory
immediately.

[facility] COMPREHENSIVE METABOLIC PANEL(DBIL NOT INCLUDED) Albumin 4.3 4.2 - 5.5 06/10/2018 [facility] COMPREHENSIVE METABOLIC PANEL(DBIL NOT INCLUDED) Calcium 9.5 8.6 - 10.3 06/10/2018 [facility] COMPREHENSIVE METABOLIC PANEL(DBIL NOT INCLUDED) CO2 26 21 - 31 06/10/2018 [facility] COMPREHENSIVE METABOLIC PANEL(DBIL NOT INCLUDED) Chloride 87 98 - 107 06/10/2018 [facility] METABOLIC PANEL(DBIL NOT INCLUDED) Creatinine 0.80 0.7 - 1.3 06/10/2018 [facility] COMPREHENSIVE METABOLIC PANEL(DBIL NOT INCLUDED) Glucose 100 70 - 110 06/10/2018 [facility] COMPREHENSIVE METABOLIC PANEL(DBIL NOT INCLUDED) Alk Phos 76 34 - 104 06/10/2018 [facility] COMPREHENSIVE METABOLIC PANEL(DBIL NOT INCLUDED) Potassium 4.1 3.5 - 5.1 06/10/2018 [facility] METABOLIC PANEL(DBIL NOT INCLUDED) Sodium 127 136 - 145 06/10/2018 [facility] COMPREHENSIVE METABOLIC PANEL(DBIL NOT INCLUDED) ALT 21 7 - 52 06/10/2018 [facility] COMPREHENSIVE METABOLIC PANEL(DBIL NOT INCLUDED) AST 26 13 - 39 06/10/2018 [facility] COMPREHENSIVE METABOLIC PANEL(DBIL NOT INCLUDED) Urea Nitrogen 16 7 - 25 06/10/2018 [facility] COMPREHENSIVE METABOLIC PANEL(DBIL NOT INCLUDED) T Bilirubin 1.2 0.2 - 1.2 06/10/2018 [facility] COMPREHENSIVE METABOLIC PANEL(DBIL NOT INCLUDED) T Protein 7.1 6 - 8.3 06/10/2018 [facility] COMPREHENSIVE METABOLIC PANEL(DBIL NOT INCLUDED) GFR, Estimated >60 mL/min/1.73 m2 06/10/2018 [facility] METABOLIC PANEL(DBIL NOT INCLUDED) GFR, Estim, Afr-Am >60 mL/min/1.73 m2 06/10/2018 [facility] COMPREHENSIVE METABOLIC PANEL(DBIL NOT INCLUDED) Anion Gap 14 06/10/2018 [facility] COMPREHENSIVE METABOLIC PANEL(DBIL NOT INCLUDED) Lab Interpretation Abnormal 06/10/2018 [facility] PHOSPHORUS Phosphorus 3.8 2.5 - 5 06/10/2018 [facility] 12 LEAD EKG 12 LEAD EKG FOR [facility] Test Date:2018-06-09 Pat Name: [facility] Department: 5520 : Gender: MTechnician: [id number] :1950 Requested By: JUAN F SEGURA Order Number: [id number] MD: Yobani Arora M.D. Measurements IntervalsAxis Rate: 61 P:55 MA: 190QRS:191 QRSD: 168T:114 QT: 474 QTc:480 Interpretive Statements SINUS RHYTHM INDETERMINATE AXIS RIGHT BUNDLE BRANCH BLOCK AND POSSIBLE RIGHT VENTRICULAR HYPERTROPHY LEFT POSTERIOR FASCICULAR BLOCK SEPTAL MYOCARDIAL INFARCTION, OF INDETERMINATE AGE MODERATE T-WAVE ABNORMALITY, CONSIDER LATERAL ISCHEMIA Electronically Signed On 06-09-2018 15:49:06 PROFESSIONAL BONDSMAN by Yobani Arora M.D. 06/09/2018 [facility] 12 LEAD EKG 12 LEAD EKG FOR [facility] Test Date:2018-06-09 Pat Name: [facility] Department: [id number] : [facility] B 22 Gender: MTechnician: [id number] Requested By: ALOK YORK Order Number: [id number] : Yobani Arora M.D. Measurements IntervalsAxis Rate: 83 P:48 MA: 189QRS:193 QRSD: 161T:85 QT: 411 QTc:485 Interpretive Statements SINUS RHYTHM POSSIBLE LEFT ATRIAL ENLARGEMENT INDETERMINATE AXIS RIGHT BUNDLE BRANCH BLOCK ANTEROSEPTAL MYOCARDIAL INFARCTION, OF INDETERMINATE AGE Electronically Signed On 06-09-2018 15:49:03 PROFESSIONAL BONDSMAN by Yobani Arora M.D. 06/09/2018 [facility] VBG POC pH, Erick POC 7.38 7.33 - 7.43 06/09/2018 [facility] VBG POC pCO2, Erick POC 46.7 38.0 - 50.0 06/09/2018 [facility] VBG POC pO2, Erick POC 21 50 - 75 06/09/2018 [facility] VBG POC Base Excess, Erick POC 1 [facility]3, Erick POC 27.4 22 - 26 06/09/2018 [facility] VBG POC % Sat, Erick POC 33 60 - 85 06/09/2018 [facility] VBG POC Lactic Acid, Erick POC 0.82 0.4 - 2 06/09/2018 [facility] VBG POC TCO2, ERICK POC 29 21 - 32 06/09/2018 [facility] VBG POC Lab Interpretation Abnormal 06/09/2018 [facility] INFLUENZA A/B AND RSV PCR Influenza A Not detected 06/09/2018 [facility] INFLUENZA A/B AND RSV PCR Influenza B Not detected 06/09/2018 [facility] INFLUENZA A/B AND RSV PCR RSV PCR Not detected This test utilizes FDA cleared Rashmi mindi Influenza A/B and RSV real-time RT-PCR assay for qualitative detection and discrimination of Influenza A virus,Influenza B virus and Respiratory Syncytial virus(RSV). Additional testing is required to differentiate any specific Influenza A subtype or strains or specific RSV subgroups. 06/09/2018 [facility] INFLUENZA A/B AND RSV PCR Spec Description Nasal 06/09/2018 [facility] B NATRIURETIC PEPT B Natriuretic Pept 271 <101 06/09/2018 [facility] B NATRIURETIC PEPT Lab Interpretation Abnormal 06/09/2018 [facility] Pathology Reports No Data Provided for This [...] Miguel Coronado MD, 07/09/2018 1:47 PM 07/09/2018 [facility] CT CHEST PE PROTOCOL IMPRESSION: 1.No acute [...] Aliya Maldonado MD, 06/09/2018 10:18 PM 06/10/2018 [facility] XRAY CHEST 1 VIEW IMPRESSION: Mild cardiomegaly with interstitial pulmonary edema. A "PRELIMINARY" report was made available via [employer]che[employer] at the time ofdictation by the resident [...] A "PRELIMINARY" report was made available via [employer] at the time of dictation by the resident indicated below. If the report is described as "FINALIZED" it indicates the attending/staff radiologist below has reviewed the images and agrees with the resident's interpretation. Dictated By: Meir Hoffman MD, 06/09/2018 11:12 AM I have reviewed the study and agree with the findings in this report. Signed By: Jamaal Felix MD, 06/09/2018 11:16 AM 06/09/2018 [facility] Consultation Notes No Data Provided for This Section Discharge Summaries No Data Provided for This Section History and Physicals No Data Provided for This Section Vital Signs Vital Sign Value Date Comments Source Systolic (mm Hg) 159 07/09/2018 [facility] Diastolic (mm Hg) 93 07/09/2018 [facility] Heart Rate 81 07/09/2018 [facility] Temperature Oral (F) 36.61 Kayley 07/09/2018 [facility] Respitory Rate 18 07/09/2018 [facility] Height 170.2 cm 06/10/2018 [facility] Weight 70.943 06/10/2018 [facility] Encounters Location Location Details Encounter Type Encounter Number Reason For Visit Attending Provider ADM Date DC Date Status Source Travel [id number] 06/09/2018 [facility] 5G MED/SURG Hospital Encounter [id number] Alok York MD 06/09/2018 06/12/2018 [facility] BT [employer]ER [employer]ATIONS [employer] Telephone [id number] Milady Valdez 06/12/2018 [facility] Travel [id number] 07/09/2018 [facility] Emergency Center BT Emergency [id number] 07/09/2018 07/10/2018 [facility] 5E Cardiac IMU (5E/CI) Telephone [id number] LadyMark Anthony Oswald 07/18/2018 [facility] Procedures Procedure Code Date Perfomer Comments Source XRAY CHEST 2 VIEWS 12080 07/10/2018 [facility] POCT BNP (BRAIN NATRIURETIC PEPTIDE) 53731 07/10/2018 Unknown [facility] BMP POC 98525 07/09/2018 Unknown [facility] TROPONIN I POC 49650 07/09/2018 Unknown [facility] CBC/DIFF 53424 07/09/2018 [facility] LIVER PROFILE 16571 07/09/2018 [facility] LIPASE 91828 07/09/2018 [facility] HIV-1/HIV-2 ROUTINE SCREENING 13926 [facility]09[facility] 25332 07/09/2018 [facility] GLUCOSE POC 89754 06/12/2018 [facility] GLUCOSE POC 16296 06/12/2018 [facility] BASIC METABOLIC PANEL 45867 06/12/2018 Lucas [facility] PT/INR/PTT 87813 06/12/2018 Maljeancarlos [facility] CBC/DIFF 39229 06/12/2018 Anushka [facility] PT/INR 45832 06/12/2018 Inchausteji Mcneil [facility] GLUCOSE POC 47950 06/12/2018 [facility] GLUCOSE POC 31015 06/12/[address] [facility] 63686 06/12/2018 [facility] GLUCOSE POC 28367 06/11/2018 [facility] TRANSTHORACIC ECHO (TTE) 48575 06/11/2018 [facility] BASIC METABOLIC PANEL 67278 06/11/2018 [facility] MAGNESIUM 20341 06/11/2018 [facility] GLUCOSE POC 84168 06/11/2018 [facility] GLUCOSE POC 87661 06/11/2018 [facility] GLUCOSE POC 19367 06/10/2018 [facility] 12 LEAD EKG 05411 06/10/2018 Eisshanon [facility] CBC/DIFF 77979 06/10/2018 [facility] BASIC METABOLIC PANEL 54740 06/10/2018 [facility] TSH 45063 06/10/2018 [facility] LIPID PROFILE 90645 06/10/2018 [facility] HEMOGLOBIN A1C 46703 06/10/2018 [facility] CORTISOL, TOTAL 86005 06/10/2018 [facility] TROPONIN I 71087 06/10/[address] [facility] [address]23[address] 06/10/[address] [facility] [address] CHEST PE PROTOCOL 35608 06/10/2018 [facility] TROPONIN I POC 29941 06/10/2018 [facility] FREE T4 92823 06/10/2018 [facility] D-DIMER 82344 06/10/2018 [facility] 12 LEAD EKG 35959 06/10/2018 [facility] GLUCOSE POC 59187 06/10/2018 [facility] [place] [address] 06/10/2018 [facility] [place] [address] 06/10/2018 [facility] UA CHEMISTRIES 37744 06/10/2018 [facility] CK, TOTAL 15547 06/10/2018 [facility] TROPONIN I 23100 06/10/2018 [facility] COMPREHENSIVE METABOLIC PANEL(DBIL NOT INCLUDED) 30362 06/10/2018 [facility] MAGNESIUM 00633 06/10/2018 [facility] PHOSPHORUS 96756 06/10/2018 [facility] OSMOLALITY 70022 06/10/[address] [facility] D-DIMER 84199 06/10/[address] [facility] FREE T4 02417 06/10/2018 [facility] 12 LEAD EKG 53153 06/10/2018 [facility] CK, TOTAL 63374 06/10/2018 [facility] TROPONIN I 62997 06/10/2018 [facility] VBG POC 12720 06/10/2018 [facility] INFLUENZA A/B AND RSV PCR 18737 06/10/2018 Vickie [facility] VBG POC 62875 06/09/2018 [facility] BASIC METABOLIC PANEL 44563 06/09/2018 [facility] XRAY CHEST 1 VIEW 10678 06/09/2018 [facility] CBC/DIFF 34819 06/09/2018 [facility] B NATRIURETIC PEPT 91674 06/09/2018 [facility] POCT BNP (BRAIN NATRIURETIC PEPTIDE) 73314 06/09/2018 [facility] BMP POC 47726 06/09/2018 Unknown [facility] VBG POC 52123 06/09/2018 [facility] 12 LEAD EKG 86218 06/09/2018 [facility] TROPONIN I POC 03852 06/09/2018 Unknown [facility] Assessment and Plan No Data Provided for This Section Plan of Care Plan of Care Date Source Colonoscopy 10yr 02/28/2026 [facility] CORONARY ARTERY DISEASE AGE 18 AND UP 06/10/2019 [facility] IMM Influenza Seasonal Oct to August (>/=19 yrs) 04/02/2019 [facility] IMM Pneumococcal Age 65 and Up 2017 [facility] Social History Social History Date Source Tobacco UseTypesPacks/DayYears UsedDate Former Smoker Cigarettes 1 20 Quit: 11/09/2014 Smokeless Tobacco: Never Used Tobacco Cessation: Counseling Given: Yes Alcohol UseDrinks/Weekoz/WeekComments Yes 12 Cans of beer 7.2 Sex Assigned at BirthDate Recorded Not on file Job Start DateOccupationIndustry Not on file Not on file Not on file Travel HistoryTravel StartTravel End No recent travel history available. 06/09/2018 [facility] Family History Value Date Source Medical HistoryRelationNameComments Hypertension Brother Hypertension Sister Diabetes Sister Diabetes Sister Hypertension Sister RelationNameStatusComments Brother Alive Brother Alive Brother Sister Alive Sister Alive Sister Sister Sister Sister 11/07/2018 [facility] Advance Directives Order Name Results Value Date Source Advance Directives Advance Directives For more information, please contact:[address] [id number] Code Status on FileCode StatusDate ActivatedDate InactivatedComments Full Code 06/09/2018 1:38 PM 06/12/2018 5:59 PM Full Code 03/16/2015 10:08 PM 03/19/2015 7:40 PM 11/07/2018 [facility] Functional Status No Data Provided for This Section
--- NOTE | 2019-02-01 16:45 | NUR ---
1645 Handoff completed with Mare Muñoz Pt transferred to 181 per stretcher with tele .Ok for dc at 1930. Report also to tele room. Dc papers discussed and filled out with copies given to patient.No gross issues pain pallor pressure or dysrhythmia. Rt groin no signs of hematoma and 2x2 [address] PPx4 present Transferred with iv to left hand intact. Denies c/o pain to left leg aware of importance of f/o care Dr Acharya office. Monitor and vs stable. medardo/mare
--- NOTE | 2019-02-01 16:48 | NUR ---
Recvd patient from [facility] AAOx3, RIGHT Groin pressure dressing intact, soft, pedal pulse presnt on both legs, denies any SOB or chest pain this time, keep monitoring, family at bed side
--- NOTE | 2019-02-01 19:00 | NUR ---
Got report from previous nurse. Call light within reach. Patient in bed.
--- NOTE | 2019-02-01 20:08 | NUR ---
Patient and grandson collected belongings. Discharge order given to patient and family member and they understood. IV taken out with cath intact. Patient in no pain or distress. Patient left via wheelchair to private auto back home.
== END 2019-02-01 20:08 | disposition home or self-care (01) ==
LOC: CATH LAB 07:08 → IMCU 15:45
PROVIDERS: ADMIT Internal Medicine Cardiovascular Disease; ATTEND Internal Medicine Cardiovascular Disease
DX: I70.213 Atherosclerosis of native arteries of extremities with intermittent claudication, bilateral legs (principal); Z01.810 Encounter for preprocedural cardiovascular examination; Z01.812 Encounter for preprocedural laboratory examination; Z01.811 Encounter for preprocedural respiratory examination; I50.22 Chronic systolic (congestive) heart failure; I47.2 Ventricular tachycardia; K21.9 Gastro-esophageal reflux disease without esophagitis; Z95.0 Presence of cardiac pacemaker; Z95.1 Presence of aortocoronary bypass graft; E11.9 Type 2 diabetes mellitus without complications; I11.0 Hypertensive heart disease with heart failure; Z79.82 Long term (current) use of aspirin; Z79.84 Long term (current) use of oral hypoglycemic drugs
CPT/HCPCS: 36247; 36415; 75710; 80053; 85025; 85610; 85730; C1769 ×3; C1887 ×2; G0378; J2001; J2250; J2270; J3010; J7030; Q9967

== ENCOUNTER 2020-11-19 19:03 | Inpatient (IN) | payer MEDICARE ==
[~2020-11-19] VITALS: Ht 172.7 cm; Wt 70.3 kg
[2020-11-19 19:34] LABS: BASOPHILS % 0.3 % (0.0-1.0); EOSINOPHILS # (AUTO) 0.4 (0.0-0.4); EOSINOPHILS % 4.3 % (0.0-6.0); HEMOGLOBIN 15.7 g/dL (14.0-18.0); LYMPHOCYTES # (AUTO) 1.2 (1.0-3.2); LYMPHOCYTES % 13.1 % (18.0-39.1); MEAN CORPUSCULAR HEMOGLOBIN 30.4 pg (28-32); MEAN CORPUSCULAR HGB CONC 36.5 g/dL (31-35); MEAN CORPUSCULAR VOLUME 83.3 fL (81-99); MONOCYTES # (AUTO) 0.9 (0.2-0.8); MONOCYTES % 9.4 % (4.4-11.3); NEUTROPHILS # (AUTO) 6.9 (2.1-6.9); NEUTROPHILS % 72.6 % (38.7-80.0); PLATELET COUNT 274 x10e3/uL (140-360); RED BLOOD COUNT 5.16 x10e6/uL (4.3-5.7); RED CELL DISTRIBUTION WIDTH 14.4 % (11.7-14.4)
[2020-11-19 20:11] LABS: ALBUMIN 4.4 g/dL (3.5-5.0); ALBUMIN/GLOBULIN RATIO 1.2 (0.8-2.0); ANION GAP 18.6 mmol/L (8-16); CALCIUM 9.7 mg/dL (8.4-10.2); CREATININE, SERUM 1.33 mg/dL (0.72-1.25); POTASSIUM 4.6 mmol/L (3.5-5.1)
[2020-11-19 20:20] LABS: CREATINE KINASE MB 3.1 ng/mL (0-5.0)
[2020-11-19] MEDS ORDERED: SODIUM CHLORIDE 0.9% 1000ML 1,000 ML IV ONE (20:45)
[2020-11-19] MEDS ORDERED: SODIUM CHLORIDE 0.9% 100 ML ONE (20:49)
[2020-11-19] MEDS ORDERED: IOPAMIDOL 370 MG/ML 200 ML INFUS..BTL INJ ONE (20:49)
[2020-11-19] MEDS ORDERED: ONDANSETRON HCL INJ 2MG/ML 2ML 2 MG/ML VIAL IV PRN (22:45)
[2020-11-19] MEDS ORDERED: DEXTROSE 50% SYRINGE 50 ML IV PRN (22:45)
[2020-11-20] VITALS (7 sets, daily range): BP systolic 122–147; BP diastolic 58–79
[2020-11-20] MEDS: SODIUM CHLORIDE 0.9% 1000ML 1,000 ML IV SCH ×2 (02:37→09:43)
[2020-11-20 07:10] LABS: BASOPHILS % 0.4 % (0.0-1.0); EOSINOPHILS # (AUTO) 0.4 (0.0-0.4); EOSINOPHILS % 5.3 % (0.0-6.0); HEMATOCRIT 42.6 % (38.2-49.6); HEMOGLOBIN 14.9 g/dL (14.0-18.0); LYMPHOCYTES # (AUTO) 1.1 (1.0-3.2); LYMPHOCYTES % 14.7 % (18.0-39.1); MEAN CORPUSCULAR HEMOGLOBIN 29.7 pg (28-32); MONOCYTES # (AUTO) 0.9 (0.2-0.8); MONOCYTES % 11.2 % (4.4-11.3); NEUTROPHILS # (AUTO) 5.2 (2.1-6.9); NEUTROPHILS % 68.1 % (38.7-80.0); PLATELET COUNT 229 x10e3/uL (140-360); RED BLOOD COUNT 5.01 x10e6/uL (4.3-5.7)
[2020-11-20] MEDS: INSULIN REGULAR, HUMAN 100 UNIT/1 ML 3ML VIAL SQ SCH ×4 (07:30→21:00)
[2020-11-20 07:36] LABS: ALANINE AMINOTRANSFERASE 21 IU/L (0-55); ALBUMIN 3.9 g/dL (3.5-5.0); ALBUMIN/GLOBULIN RATIO 1.2 (0.8-2.0); ALKALINE PHOSPHATASE 73 IU/L (40-150); ANION GAP 15.6 mmol/L (8-16); BLOOD UREA NITROGEN 18 mg/dL (7-26); BUN/CREATININE RATIO 19 (6-25); CALCIUM 8.9 mg/dL (8.4-10.2); CARBON DIOXIDE 22 mmol/L (22-29); CHLORIDE 93 mmol/L (98-107); CREATININE, SERUM 0.97 mg/dL (0.72-1.25); EST GLOMERULAR FILTRATION RATE > 60 ML/MIN (60-); GLUCOSE 112 mg/dL (74-118); POTASSIUM 3.6 mmol/L (3.5-5.1); SODIUM 127 mmol/L (136-145)
[2020-11-20 07:48] LABS: CREATINE KINASE 324 IU/L (30-200)
[2020-11-20] MEDS ORDERED: ALBUTEROL SULF 0.083% NEB SOLN 3 ML NEB NEB PRN (10:30)
[2020-11-20 15:14] LABS: CREATINE KINASE 307 IU/L (30-200)
[2020-11-20] MEDS: CARVEDILOL 12.5 MG TAB PO SCH (18:04)
[2020-11-20] MEDS: SIMVASTATIN 40 MG TAB PO SCH (21:35)
[2020-11-20] MEDS ORDERED: IOPAMIDOL 370 MG/ML 200 ML INFUS..BTL INJ ONE (23:04)
[2020-11-20] MEDS ORDERED: SODIUM CHLORIDE 0.9% 50ML 50 ML ONE (23:04)
[2020-11-21] VITALS (7 sets, daily range): BP systolic 98–167; BP diastolic 61–79
[2020-11-21] MEDS ORDERED: ENOXAPARIN INJ 80 MG/0.8 ML SYR SC SCH (01:15)
[2020-11-21 06:13] LABS: BASOPHILS # (AUTO) 0.1 (0.0-0.1); BASOPHILS % 0.7 % (0.0-1.0); EOSINOPHILS # (AUTO) 0.6 (0.0-0.4); EOSINOPHILS % 6.5 % (0.0-6.0); HEMATOCRIT 42.7 % (38.2-49.6); HEMOGLOBIN 14.9 g/dL (14.0-18.0); LYMPHOCYTES # (AUTO) 0.9 (1.0-3.2); LYMPHOCYTES % 10.1 % (18.0-39.1); MEAN CORPUSCULAR HEMOGLOBIN 29.9 pg (28-32); MEAN CORPUSCULAR HGB CONC 34.9 g/dL (31-35); MEAN CORPUSCULAR VOLUME 85.7 fL (81-99); MONOCYTES % 11.2 % (4.4-11.3); NEUTROPHILS # (AUTO) 6.2 (2.1-6.9); NEUTROPHILS % 71.3 % (38.7-80.0); PLATELET COUNT 233 x10e3/uL (140-360); RED BLOOD COUNT 4.98 x10e6/uL (4.3-5.7); RED CELL DISTRIBUTION WIDTH 14.3 % (11.7-14.4)
[2020-11-21 06:36] LABS: ANION GAP 15.8 mmol/L (8-16); BLOOD UREA NITROGEN 17 mg/dL (7-26); BUN/CREATININE RATIO 22 (6-25); CALCIUM 9.3 mg/dL (8.4-10.2); CARBON DIOXIDE 21 mmol/L (22-29); CHLORIDE 97 mmol/L (98-107); CREATININE, SERUM 0.76 mg/dL (0.72-1.25); EST GLOMERULAR FILTRATION RATE > 60 ML/MIN (60-); GLUCOSE 109 mg/dL (74-118); POTASSIUM 3.8 mmol/L (3.5-5.1); SODIUM 130 mmol/L (136-145)
[2020-11-21 06:58] LABS: MAGNESIUM 1.8 MG/DL (1.3-2.1)
[2020-11-21 07:10] LABS: THYROID STIMULATING HORMONE 1.773 uIU/mL (0.350-4.940)
[2020-11-21] MEDS: INSULIN REGULAR, HUMAN 100 UNIT/1 ML 3ML VIAL SQ SCH ×4 (07:30→21:00)
[2020-11-21] MEDS ORDERED: ASPIRIN 81 MG CHEW TAB PO SCH (09:00)
[2020-11-21] MEDS: ISOSORBIDE MONONITRATE 30 MG TAB CR PO SCH (11:15)
[2020-11-21] MEDS: FERROUS SULFATE 325 MG TAB PO SCH (11:15)
[2020-11-21] MEDS: APIXABAN 5 MG TABLET PO SCH ×2 (11:15→17:48)
[2020-11-21] MEDS: CARVEDILOL 12.5 MG TAB PO SCH ×2 (11:15→17:00)
[2020-11-21] MEDS: FUROSEMIDE 40 MG TAB PO SCH (11:15)
[2020-11-21] MEDS: CLOPIDOGREL BISULFATE 75 MG TAB PO SCH (11:16)
[2020-11-21] MEDS: LISINOPRIL 20 MG TAB PO SCH (11:16)
[2020-11-21] MEDS: SIMVASTATIN 40 MG TAB PO SCH (21:21)
[2020-11-22] VITALS (9 sets, daily range): BP systolic 107–145; BP diastolic 59–75
[2020-11-22 06:37] LABS: ANION GAP 12.9 mmol/L (8-16); BLOOD UREA NITROGEN 27 mg/dL (7-26); BUN/CREATININE RATIO 28 (6-25); CALCIUM 9.4 mg/dL (8.4-10.2); CARBON DIOXIDE 25 mmol/L (22-29); CHLORIDE 100 mmol/L (98-107); CREATININE, SERUM 0.95 mg/dL (0.72-1.25); EST GLOMERULAR FILTRATION RATE > 60 ML/MIN (60-); GLUCOSE 78 mg/dL (74-118); POTASSIUM 3.9 mmol/L (3.5-5.1); SODIUM 134 mmol/L (136-145)
[2020-11-22] MEDS: INSULIN REGULAR, HUMAN 100 UNIT/1 ML 3ML VIAL SQ SCH ×4 (07:30→21:00)
[2020-11-22] MEDS ORDERED: ACETAMINOPHEN 325 MG TAB PO PRN (10:30)
[2020-11-22] MEDS: FERROUS SULFATE 325 MG TAB PO SCH (10:37)
[2020-11-22] MEDS: FUROSEMIDE 40 MG TAB PO SCH (10:37)
[2020-11-22] MEDS: LISINOPRIL 20 MG TAB PO SCH (10:37)
[2020-11-22] MEDS: CARVEDILOL 12.5 MG TAB PO SCH ×2 (10:37→17:07)
[2020-11-22] MEDS: APIXABAN 5 MG TABLET PO SCH ×2 (10:37→17:07)
[2020-11-22] MEDS: CLOPIDOGREL BISULFATE 75 MG TAB PO SCH (10:37)
[2020-11-22] MEDS: ISOSORBIDE MONONITRATE 30 MG TAB CR PO SCH (10:37)
[2020-11-22] MEDS: SIMVASTATIN 40 MG TAB PO SCH (21:50)
[2020-11-23 04:00] VITALS: BP 152/73
[2020-11-23] MEDS: INSULIN REGULAR, HUMAN 100 UNIT/1 ML 3ML VIAL SQ SCH (07:30)
[2020-11-23 08:59] VITALS: BP 152/73
[2020-11-23] MEDS: CLOPIDOGREL BISULFATE 75 MG TAB PO SCH (09:00)
[2020-11-23] MEDS: APIXABAN 5 MG TABLET PO SCH (09:00)
[2020-11-23] MEDS: LISINOPRIL 20 MG TAB PO SCH (09:00)
[2020-11-23] MEDS: FUROSEMIDE 40 MG TAB PO SCH (09:00)
[2020-11-23] MEDS: ISOSORBIDE MONONITRATE 30 MG TAB CR PO SCH (09:00)
[2020-11-23] MEDS: CARVEDILOL 12.5 MG TAB PO SCH (09:00)
[2020-11-23] MEDS: FERROUS SULFATE 325 MG TAB PO SCH (09:00)
[2020-11-23] MEDS ORDERED: ELIQUIS5 MG PO (10:34)
[2020-11-23] MEDS ORDERED: ONDANSETRON HCL 4 MG ORAL DISINTEGRATING TAB PO PRN (11:45)
[2020-11-23 12:16] VITALS: BP 122/70
== END 2020-11-23 12:28 | disposition home or self-care (01) | DRG 302 ==
LOC: ER 20:07 → ERHOLD 22:37 → MED/SURG2 11-20 01:11
PROVIDERS: ADMIT Internal Medicine; ATTEND Internal Medicine
DX: I51.3 Intracardiac thrombosis, not elsewhere classified (principal); I63.543 Cerebral infarction due to unspecified occlusion or stenosis of bilateral cerebellar arteries; E87.1 Hypo-osmolality and hyponatremia; I50.42 Chronic combined systolic (congestive) and diastolic (congestive) heart failure; E11.9 Type 2 diabetes mellitus without complications; I25.10 Atherosclerotic heart disease of native coronary artery without angina pectoris; I11.0 Hypertensive heart disease with heart failure; Z95.810 Presence of automatic (implantable) cardiac defibrillator; Z95.1 Presence of aortocoronary bypass graft; Z87.891 Personal history of nicotine dependence; Z79.84 Long term (current) use of oral hypoglycemic drugs; Z20.822 Contact with and (suspected) exposure to COVID-19
CPT/HCPCS: 36415; 70496; 71045; 71260; 80048; 80053; 82550; 82553; 82607; 82746; 82948; 83036; 83735; 84443; 84484; 85025; 93005; 93306; 93880; 99285; J1650; J7030; J7050; Q9967; U0002

== ENCOUNTER 2022-07-08 21:18 | Emergency (ER) | payer MEDICARE ==
[~2022-07-08] VITALS: Ht 172.7 cm; Wt 70.3 kg
[~2022-07-08 21:18] MED LIST changes: +ELIQUIS5 MG PO
[2022-07-08 22:24] LABS: BASOPHILS % 0.3 % (0.0-1.0); EOSINOPHILS # (AUTO) 0.3 (0.0-0.4); EOSINOPHILS % 4.4 % (0.0-6.0); HEMOGLOBIN 15.3 g/dL (14.0-18.0); LYMPHOCYTES # (AUTO) 1.2 (1.0-3.2); LYMPHOCYTES % 18.7 % (18.0-39.1); MEAN CORPUSCULAR HEMOGLOBIN 30.4 pg (28-32); MEAN CORPUSCULAR HGB CONC 32.6 g/dL (31-35); MEAN CORPUSCULAR VOLUME 93.3 fL (81-99); MONOCYTES # (AUTO) 0.6 (0.2-0.8); NEUTROPHILS # (AUTO) 4.4 (2.1-6.9); NEUTROPHILS % 67.3 % (38.7-80.0); PLATELET COUNT 187 x10e3/uL (140-360); RED BLOOD COUNT 5.04 x10e6/uL (4.3-5.7); RED CELL DISTRIBUTION WIDTH 13.9 % (11.7-14.4)
[2022-07-08 22:42] LABS: ALBUMIN 4.1 g/dL (3.5-5.0); ALBUMIN/GLOBULIN RATIO 1.2 (0.8-2.0); ANION GAP 16.6 mmol/L (8-16); CREATININE, SERUM 1.12 mg/dL (0.72-1.25); POTASSIUM 3.6 mmol/L (3.5-5.1)
[2022-07-08 22:49] LABS: CREATINE KINASE MB 1.7 ng/mL (0-5.0)
[2022-07-08 22:58] LABS: BACTERIA,URINE FEW /HPF; CLARITY,URINE CLEAR (CLEAR); COLOR,URINE YELLOW (YELLOW); EPITHELIAL CELLS,URINE FEW /LPF; KETONES,URINE NEGATIVE (NEGATIVE); LEUKOCYTE ESTERASE ,URINE NEGATIVE (NEGATIVE); NITRITE,URINE NEGATIVE (NEGATIVE); PROTEIN,URINE DIPSTICK NEGATIVE (NEGATIVE); RBC,URINE 0-5 /HPF (0-5); URINE UROBILINOGEN 0.2 mg/dL (0.2 - 1); WBC,URINE (MAN) 0-5 /HPF (0-5)
[2022-07-09] MEDS ORDERED: AZITHROMYCIN250 MG PO (00:01)
[2022-07-09 00:37] VITALS: BP 124/76
== END 2022-07-09 00:10 | disposition home or self-care (01) ==
LOC: ER 21:24
DX: R05.9 Cough, unspecified (principal); J40 Bronchitis, not specified as acute or chronic; R53.1 Weakness; R51.9 Headache, unspecified; E11.65 Type 2 diabetes mellitus with hyperglycemia; I10 Essential (primary) hypertension; E78.5 Hyperlipidemia, unspecified; Z20.822 Contact with and (suspected) exposure to COVID-19; I25.2 Old myocardial infarction; Z95.810 Presence of automatic (implantable) cardiac defibrillator
CPT/HCPCS: 36415; 71045; 80053; 81001; 82550; 82553; 83880; 84484; 85025; 93005; 99284; U0002